=== PATIENT | male | born 1955 | race Caucasian/White ===

== ENCOUNTER 2018-01-22 11:57 | Emergency (ER) | payer MEDICARE, MEDICAID ==
[~2018-01-22] VITALS: Ht 172.7 cm; Wt 57.7 kg
[2018-01-22] MEDS ORDERED: NO HOME MEDS (12:29)
[2018-01-22] MEDS ORDERED: normal saline 1000ML IV soln IVB ONE (12:55)
[2018-01-22 13:08] LABS: BASOPHILS % (AUTO) 0.1 % (0-1); EOSINOPHILS # (AUTO) 0.2 X10'3 (0-0.9); HEMATOCRIT 24.9 % (42.0-52.0); HEMOGLOBIN 8.2 g/dl (14.0-17.9); LYMPHOCYTES # (AUTO) 0.8 X10'3 (1.1-4.8); LYMPHOCYTES % (AUTO) 11.5 % (21-51); MEAN CORPUSCULAR HEMOGLOBIN 28.8 PG (27.0-31.0); MEAN CORPUSCULAR HGB CONC 33.1 % (33.0-36.5); MEAN CORPUSCULAR VOLUME 87.1 FL (78-98); MONOCYTES # (AUTO) 0.6 X10'3 (0-0.9); MONOCYTES % (AUTO) 9.8 % (2-12); NEUTROPHILS % (AUTO) 75.6 % (42-75); PLATELET COUNT 274 X10'3 (140-440); RED BLOOD COUNT 2.86 X10'6 (4.70-6.10); RED CELL DISTRIBUTION WIDTH 19.3 % (11.5-14.5); WHITE BLOOD COUNT 6.6 X10'3 (4.5-11.0)
[2018-01-22 13:24] LABS: ALANINE AMINOTRANSFERASE 20 U/L (12-78); ALBUMIN 3.4 G/DL (3.4-5.0); ALBUMIN/GLOBULIN RATIO 1.1 (1.1-1.5); ALKALINE PHOSPHATASE 60 IU/L (46-116); ANION GAP 13 (8-16); ASPARTATE AMINO TRANSFERASE 17 U/L (10-37); BILIRUBIN,TOTAL 0.2 MG/DL (0.1-1.0); BLOOD UREA NITROGEN 11 MG/DL (7-18); BUN/CREATININE RATIO 13.8 (5.4-32.0); CALCIUM 7.9 MG/DL (8.5-10.1); CHLORIDE 107 MMOL/L (99-107); ETHANOL 0.177 GM/DL (0.0-0.010); GLUCOSE 99 MG/DL (70-104); POTASSIUM 3.4 MMOL/L (3.5-5.1); SODIUM 140 MMOL/L (135-145); TOTAL CARBON DIOXIDE 20.3 MMOL/L (24-32); TOTAL PROTEIN 6.5 G/DL (6.4-8.2); eGFR > 90 ML/MIN
[2018-01-22 13:44] LABS: ANISOCYTOSIS 2+; PLATELET ESTIMATE NORMAL
[2018-01-22 14:41] LABS: CLARITY,URINE CLEAR (Clear); COLOR,URINE YELLOW (Yellow); GLUCOSE, URINE NEGATIVE (Neg); KETONES,URINE TRACE mg/dl (Neg); LEUKOCYTE ESTERASE ,URINE NEGATIVE (Neg); NITRITES, URINE NEGATIVE (Neg); OCCULT BLOOD,URINE NEGATIVE (Neg); PH,URINE 5.5 (4.8-8.0); PROTEIN,URINE NEGATIVE (Neg); UROBILINOGEN,URINE 0.2 E.U/dL (0.2-1.0)
[2018-01-22 14:43] LABS: UA COLLECTION TYPE CLN CATCH MIDSTREAM
[2018-01-22 14:49] LABS: URINE AMPHETAMINE SCREEN NEGATIVE (Neg); URINE BARBITUATE SCREEN NEGATIVE (Neg); URINE BENZODIAZEPINES SCREEN NEGATIVE (Neg); URINE CANNABINOID SCREEN NEGATIVE (Neg); URINE COCAINE SCREEN NEGATIVE (Neg); URINE METHADONE SCREEN NEGATIVE (Neg); URINE OPIATE SCREEN NEGATIVE (Neg); URINE PHENCYCLIDINE SCREEN NEGATIVE (Neg)
[2018-01-22 15:06] VITALS: BP 136/76
== END 2018-01-22 15:08 | disposition home or self-care (01) ==
LOC: ER 11:57
DX: Z00.01 Encounter for general adult medical examination with abnormal findings (principal); M54.2 Cervicalgia; M85.80 Other specified disorders of bone density and structure, unspecified site; M51.36 Other intervertebral disc degeneration, lumbar region; M48.54XA Collapsed vertebra, not elsewhere classified, thoracic region, initial encounter for fracture; Z98.890 Other specified postprocedural states; Z90.89 Acquired absence of other organs
CPT/HCPCS: 36415; 70450; 71045; 72125; 72128; 72131; 72170; 80053; 80305; 80320; 81003; 85025; 99285; J7030; L0172

== ENCOUNTER 2018-01-24 16:33 | Emergency (ER) | payer MEDICARE, MEDICAID ==
[~2018-01-24] VITALS: Ht 170.2 cm; Wt 58.0 kg
[~2018-01-24 16:33] MED LIST: NO HOME MEDS
[2018-01-24 16:43] VITALS: BP 109/73
[2018-01-24] MEDS ORDERED: FAMO20TA8 PO (17:35)
[2018-01-24] MEDS ORDERED: IBUP-1985 PO (17:35)
== END 2018-01-24 17:59 | disposition home or self-care (01) ==
LOC: ER 16:34
DX: M25.561 Pain in right knee (principal); Z90.89 Acquired absence of other organs; Z79.1 Long term (current) use of non-steroidal anti-inflammatories (NSAID)
CPT/HCPCS: 73564; 99284

== ENCOUNTER 2018-03-26 17:26 | Emergency (ER) | payer MEDICARE, MEDICAID ==
[~2018-03-26] VITALS: Ht 591.1 cm; Wt 53.0 kg
[~2018-03-26 17:26] MED LIST changes: +FAMO20TA8 PO; +IBUP-1985 PO
[2018-03-26 17:38] VITALS: BP 110/70
[2018-03-27] MEDS ORDERED: IBUP-1986 PO (04:42)
== END 2018-03-26 20:25 | disposition left against medical advice (07) ==
LOC: ER 17:27
DX: S00.93XA Contusion of unspecified part of head, initial encounter (principal); R42 Dizziness and giddiness; H53.8 Other visual disturbances; R11.10 Vomiting, unspecified; Z53.21 Procedure and treatment not carried out due to patient leaving prior to being seen by health care provider; W01.198A Fall on same level from slipping, tripping and stumbling with subsequent striking against other object, initial encounter; Y93.89 Activity, other specified; Y92.89 Other specified places as the place of occurrence of the external cause; Y99.8 Other external cause status
CPT/HCPCS: 70450

== ENCOUNTER 2018-03-27 03:13 | Emergency (ER) | payer MEDICARE, MEDICAID ==
[~2018-03-27] VITALS: Ht 177.8 cm; Wt 68.1 kg
[2018-03-27] MEDS ORDERED: aspirin 81mg tab.chew PO ONE (03:30)
[2018-03-27] MEDS ORDERED: morphine 4 MG/ML inj SYRINge IV ONE (03:30)
[2018-03-27] MEDS ORDERED: ondansetron/PF 4mg/2ml inj IV ONE (03:30)
[2018-03-27 03:58] LABS: BASOPHILS % (AUTO) 0.5 % (0-1); EOSINOPHILS # (AUTO) 0.7 X10'3 (0-0.9); EOSINOPHILS % (AUTO) 8.1 % (0-6); HEMATOCRIT 32.4 % (42.0-52.0); HEMOGLOBIN 10.5 g/dl (14.0-17.9); LYMPHOCYTES # (AUTO) 1.9 X10'3 (1.1-4.8); LYMPHOCYTES % (AUTO) 22.6 % (21-51); MEAN CORPUSCULAR HEMOGLOBIN 25.1 PG (27.0-31.0); MEAN CORPUSCULAR HGB CONC 32.4 % (33.0-36.5); MEAN CORPUSCULAR VOLUME 77.5 FL (78-98); MEAN PLATELET VOLUME 7.3 FL (7.4-10.4); MONOCYTES % (AUTO) 11.6 % (2-12); NEUTROPHILS # (AUTO) 4.8 X10'3 (1.8-7.7); NEUTROPHILS % (AUTO) 57.2 % (42-75); PLATELET COUNT 328 X10'3 (140-440); RED BLOOD COUNT 4.18 X10'6 (4.70-6.10); RED CELL DISTRIBUTION WIDTH 23.4 % (11.5-14.5); WHITE BLOOD COUNT 8.4 X10'3 (4.5-11.0)
[2018-03-27 04:07] LABS: PARTIAL THROMBOPLASTIN TIME 26 SECONDS (22-32); PROTHROMBIN TIME 9.9 SECONDS (9.0-12.0)
[2018-03-27 04:10] LABS: ALANINE AMINOTRANSFERASE 25 U/L (12-78); ALBUMIN 3.7 G/DL (3.4-5.0); ALBUMIN/GLOBULIN RATIO 0.9 (1.1-1.5); ALKALINE PHOSPHATASE 87 IU/L (46-116); ANION GAP 11 (8-16); ASPARTATE AMINO TRANSFERASE 14 U/L (10-37); BILIRUBIN,TOTAL 0.1 MG/DL (0.1-1.0); BLOOD UREA NITROGEN 11 MG/DL (7-18); BUN/CREATININE RATIO 14.9 (5.4-32.0); CALCIUM 8.2 MG/DL (8.5-10.1); CHLORIDE 107 MMOL/L (99-107); CREATININE 0.74 MG/DL (0.60-1.10); GLUCOSE 87 MG/DL (70-104); POTASSIUM 3.6 MMOL/L (3.5-5.1); SODIUM 142 MMOL/L (135-145); TOTAL CARBON DIOXIDE 24.3 MMOL/L (24-32); TOTAL PROTEIN 7.8 G/DL (6.4-8.2); eGFR > 90 ML/MIN
[2018-03-27 04:17] LABS: ETHANOL 0.228 GM/DL (0.0-0.010); LIPASE 207 U/L (73-393); MAGNESIUM 2.3 MG/DL (1.5-2.4)
[2018-03-27 04:31] LABS: ANISOCYTOSIS 3+; PLATELET ESTIMATE NORMAL
[2018-03-27 04:32] LABS: POIKILOCYTOSIS FEW
[2018-03-27] MEDS ORDERED: IBUP-1986 PO (04:42)
[2018-03-27 05:16] VITALS: BP 98/60
== END 2018-03-27 05:18 | disposition home or self-care (01) ==
LOC: ER 03:14
DX: R07.89 Other chest pain (principal); F10.129 Alcohol abuse with intoxication, unspecified; I10 Essential (primary) hypertension; Z90.49 Acquired absence of other specified parts of digestive tract; Z98.890 Other specified postprocedural states; Z79.899 Other long term (current) drug therapy; Y90.0 Blood alcohol level of less than 20 mg/100 ml
CPT/HCPCS: 36415; 71045; 80053; 80320; 83690; 83735; 83880; 84484; 85025; 85610; 85730; 93005; 96374; 96375; 99285; J2270; J2405

== ENCOUNTER 2018-04-01 11:01 | Inpatient (IN) | payer MEDICARE, MEDICAID ==
[~2018-04-01] VITALS: Ht 170.2 cm; Wt 61.4 kg
[~2018-04-01 11:01] MED LIST changes: +IBUP-1986 PO
[2018-04-01] MEDS ORDERED: morphine 10mg/ml inj. IM ONE (12:05)
[2018-04-01] MEDS ORDERED: ketorolac tromethamine 15mg/ml inj. IM ONE (12:05)
[2018-04-01] MEDS ORDERED: ondansetron 4mg rapidly disintigrating tab PO ONE (12:05)
[2018-04-01] MEDS ORDERED: HYDROcodone/acetaminophen 5mg/325mg tablet PO ONE (13:00)
[2018-04-01] MEDS ORDERED: morphine 4 MG/ML inj SYRINge IV ONE (13:15)
[2018-04-01] MEDS ORDERED: ondansetron/PF 4mg/2ml inj IV ONE (13:15)
[2018-04-01 13:31] LABS: BASOPHILS % (AUTO) 0.1 % (0-1); EOSINOPHILS # (AUTO) 0.2 X10'3 (0-0.9); EOSINOPHILS % (AUTO) 2.9 % (0-6); HEMATOCRIT 31.8 % (42.0-52.0); HEMOGLOBIN 10.4 g/dl (14.0-17.9); LYMPHOCYTES # (AUTO) 1.1 X10'3 (1.1-4.8); LYMPHOCYTES % (AUTO) 14.9 % (21-51); MEAN CORPUSCULAR HGB CONC 32.7 % (33.0-36.5); MEAN CORPUSCULAR VOLUME 76.4 FL (78-98); MEAN PLATELET VOLUME 7.3 FL (7.4-10.4); MONOCYTES # (AUTO) 0.9 X10'3 (0-0.9); MONOCYTES % (AUTO) 12.3 % (2-12); NEUTROPHILS % (AUTO) 69.8 % (42-75); PLATELET COUNT 313 X10'3 (140-440); RED BLOOD COUNT 4.17 X10'6 (4.70-6.10); RED CELL DISTRIBUTION WIDTH 23.7 % (11.5-14.5); WHITE BLOOD COUNT 7.2 X10'3 (4.5-11.0)
[2018-04-01 13:44] LABS: ALANINE AMINOTRANSFERASE 25 U/L (12-78); ALBUMIN 3.7 G/DL (3.4-5.0); ALBUMIN/GLOBULIN RATIO 0.9 (1.1-1.5); ALKALINE PHOSPHATASE 121 IU/L (46-116); ANION GAP 12 (8-16); ASPARTATE AMINO TRANSFERASE 22 U/L (10-37); BILIRUBIN,TOTAL 0.7 MG/DL (0.1-1.0); BLOOD UREA NITROGEN 15 MG/DL (7-18); BUN/CREATININE RATIO 16.9 (5.4-32.0); CALCIUM 8.8 MG/DL (8.5-10.1); CHLORIDE 102 MMOL/L (99-107); CREATININE 0.89 MG/DL (0.60-1.10); GLUCOSE 94 MG/DL (70-104); POTASSIUM 3.6 MMOL/L (3.5-5.1); SODIUM 140 MMOL/L (135-145); TOTAL CARBON DIOXIDE 26.3 MMOL/L (24-32); TOTAL PROTEIN 7.8 G/DL (6.4-8.2); eGFR 87 ML/MIN
[2018-04-01 13:45] LABS: PROTHROMBIN TIME 10.7 SECONDS (9.0-12.0)
[2018-04-01 14:07] LABS: ANISOCYTOSIS 3+; PLATELET ESTIMATE NORMAL; POLYCHROMASIA 1+
[2018-04-01 14:09] LABS: HYPOCHROMASIA 1+; TARGET CELLS FEW
[2018-04-01 14:11] LABS: CLARITY,URINE SLIGHTLY CLOUDY (Clear); COLOR,URINE YELLOW (Yellow); GLUCOSE, URINE NEGATIVE (Neg); KETONES,URINE TRACE mg/dl (Neg); LEUKOCYTE ESTERASE ,URINE NEGATIVE (Neg); NITRITES, URINE NEGATIVE (Neg); OCCULT BLOOD,URINE NEGATIVE (Neg); PROTEIN,URINE 30 mg/dl (Neg)
[2018-04-01 14:16] LABS: UA COLLECTION TYPE CLN CATCH MIDSTREAM
[2018-04-01 14:19] LABS: URINE AMPHETAMINE SCREEN NEGATIVE (Neg); URINE CANNABINOID SCREEN NEGATIVE (Neg); URINE COCAINE SCREEN NEGATIVE (Neg); URINE METHADONE SCREEN NEGATIVE (Neg); URINE OPIATE SCREEN POSITIVE (Neg)
[2018-04-01 14:25] LABS: BACTERIA,URINE NONE SEEN /HPF (Neg); MUCUS STRANDS MODERATE /LPF (Neg); RBC,URINE 0-2 /HPF (0-2); SQUAMOUS EPITHELIAL CELL,UR FEW /LPF (FEW)
[2018-04-01 14:39] LABS: URINE BARBITUATE SCREEN NEGATIVE (Neg); URINE BENZODIAZEPINES SCREEN NEGATIVE (Neg); URINE PHENCYCLIDINE SCREEN NEGATIVE (Neg)
[2018-04-01] MEDS ORDERED: morphine 2 MG/ML inj. syringe IV PRN (15:00)
[2018-04-01] MEDS ORDERED: ondansetron/PF 4mg/2ml inj IV PRN (15:00)
[2018-04-01] MEDS ORDERED: acetaminophen 325mg tablet PO PRN (15:00)
[2018-04-01] MEDS ORDERED: magnesium hydroxide 30ml (MOM) UD suspension PO PRN (15:00)
[2018-04-01] MEDS ORDERED: mag hydrox/Alum hydrox/simeth 30ml oral suspension PO PRN (15:00)
[2018-04-01 15:38] LABS: % IRON SATURATION 21 % (11-46); IRON 85 UG/DL (53-167); TOTAL IRON BINDING CAPACITY 402 UG/DL (259-388)
[2018-04-01 15:58] LABS: FERRITIN 47 NG/ML (26-388)
[2018-04-01] MEDS: HYDROcodone/acetaminophen 5mg/325mg tablet PO PRN ×2 (16:59→21:28)
[2018-04-01] MEDS ORDERED: NO HOME MEDS (17:31)
[2018-04-01] MEDS ORDERED: HYDROmorphone 2mg/ml vial IV PRN ×2 (18:10)
[2018-04-01] MEDS ORDERED: HYDROmorphone 1 mg/ml syringe IV PRN (18:21)
[2018-04-01 19:00] VITALS: BP 144/77
[2018-04-01 20:00] VITALS: BP_SYST 141; BP_SYST 144; BP_DIAS 69; BP_DIAS 77
[2018-04-01] MEDS: diphenhydrAMINE 25mg capsule PO PRN (21:28)
[2018-04-01 22:00] VITALS: BP 129/67
[2018-04-02] MEDS: HYDROmorphone 1 mg/ml syringe IV PRN ×2 (01:00→07:50)
[2018-04-02] MEDS: HYDROcodone/acetaminophen 5mg/325mg tablet PO PRN ×2 (05:12→11:21)
[2018-04-02 06:00] VITALS: BP 137/75
[2018-04-02 06:06] LABS: BASOPHILS # (AUTO) 0.1 X10'3 (0-0.2); BASOPHILS % (AUTO) 1.9 % (0-1); EOSINOPHILS # (AUTO) 0.7 X10'3 (0-0.9); HEMATOCRIT 29.5 % (42.0-52.0); HEMOGLOBIN 9.4 g/dl (14.0-17.9); LYMPHOCYTES # (AUTO) 1.1 X10'3 (1.1-4.8); MEAN CORPUSCULAR HEMOGLOBIN 24.4 PG (27.0-31.0); MEAN CORPUSCULAR VOLUME 76.4 FL (78-98); MEAN PLATELET VOLUME 7.7 FL (7.4-10.4); MONOCYTES # (AUTO) 0.7 X10'3 (0-0.9); MONOCYTES % (AUTO) 9.7 % (2-12); NEUTROPHILS # (AUTO) 4.9 X10'3 (1.8-7.7); NEUTROPHILS % (AUTO) 64.4 % (42-75); PLATELET COUNT 314 X10'3 (140-440); RED BLOOD COUNT 3.86 X10'6 (4.70-6.10); RED CELL DISTRIBUTION WIDTH 23.7 % (11.5-14.5); WHITE BLOOD COUNT 7.5 X10'3 (4.5-11.0)
[2018-04-02 06:10] LABS: ALANINE AMINOTRANSFERASE 21 U/L (12-78); ALBUMIN 3.3 G/DL (3.4-5.0); ALBUMIN/GLOBULIN RATIO 0.9 (1.1-1.5); ALKALINE PHOSPHATASE 104 IU/L (46-116); ANION GAP 12 (8-16); ASPARTATE AMINO TRANSFERASE 18 U/L (10-37); BILIRUBIN,TOTAL 0.4 MG/DL (0.1-1.0); BLOOD UREA NITROGEN 20 MG/DL (7-18); BUN/CREATININE RATIO 22.5 (5.4-32.0); CALCIUM 8.5 MG/DL (8.5-10.1); CHLORIDE 104 MMOL/L (99-107); CREATININE 0.89 MG/DL (0.60-1.10); GLUCOSE 94 MG/DL (70-104); POTASSIUM 3.3 MMOL/L (3.5-5.1); SODIUM 141 MMOL/L (135-145); TOTAL CARBON DIOXIDE 25.1 MMOL/L (24-32); TOTAL PROTEIN 7.1 G/DL (6.4-8.2); eGFR 87 ML/MIN
[2018-04-02] MEDS: enoxaparin 40mg/0.4ml syringe SUBCUT SCH (07:50)
[2018-04-02 10:00] VITALS: BP 120/60
[2018-04-02] MEDS ORDERED: pneumococcal 23-VAL P-sac vacc 25 mcg/0.5ml vial IMVAC ONE (10:00)
[2018-04-02] MEDS ORDERED: magnesium 4gm in 100ml NS 100 ML IV PRN (11:05)
[2018-04-02] MEDS ORDERED: magnesium Cl slow-release 64mg tablet PO PRN (11:05)
[2018-04-02] MEDS ORDERED: potassium Cl 40MEQ/NS 500ml 500 ML IV PRN ×2 (11:05)
[2018-04-02] MEDS ORDERED: potassium Cl 20 mEq SR tablet PO PRN (11:05)
[2018-04-02] MEDS ORDERED: magnesium 1gm/100ml D5W IVPB 100 ML IV PRN (11:05)
[2018-04-02] MEDS: potassium Cl 20 mEq SR tablet PO PRN ×3 (11:21→22:59)
[2018-04-02] MEDS ORDERED: HYDROmorphone 1 mg/ml syringe IV PRN (13:20)
[2018-04-02] MEDS ORDERED: normal saline 1000ml 1,000 ML IV SCH (13:20)
[2018-04-02] MEDS ORDERED: DIGO125T PO (13:45)
[2018-04-02] MEDS ORDERED: ATEN-169 PO (13:45)
[2018-04-02] MEDS ORDERED: TRAZ-219 PO (13:45)
[2018-04-02] MEDS ORDERED: ALBU18HF2 INH (13:45)
[2018-04-02] MEDS: HYDROcodone/acetaminophen 10/325mg tab PO PRN ×3 (14:58→22:59)
[2018-04-02 17:00] VITALS: BP 136/86
[2018-04-02] MEDS: diphenhydrAMINE 25mg capsule PO PRN (17:23)
[2018-04-02] MEDS ORDERED: LORazepam 2 mg/ml vial IV ONE (17:45)
[2018-04-02] MEDS: sennosides/docusate sodium tablet PO SCH (19:50)
[2018-04-02] MEDS: ferrous sulfate 325mg tablet PO SCH (19:50)
[2018-04-02 21:00] VITALS: BP_SYST 138; BP_SYST 140; BP_SYST 141; BP_DIAS 82; BP_DIAS 87; BP_DIAS 90
[2018-04-03] MEDS: HYDROcodone/acetaminophen 10/325mg tab PO PRN ×2 (02:29→06:51)
[2018-04-03] MEDS: HYDROmorphone 1 mg/ml syringe IV PRN ×2 (04:57→14:20)
[2018-04-03 06:00] VITALS: BP 146/83
[2018-04-03 06:07] LABS: BASOPHILS # (AUTO) 0.1 X10'3 (0-0.2); BASOPHILS % (AUTO) 1.2 % (0-1); EOSINOPHILS # (AUTO) 0.7 X10'3 (0-0.9); EOSINOPHILS % (AUTO) 10.1 % (0-6); HEMATOCRIT 29.5 % (42.0-52.0); HEMOGLOBIN 9.5 g/dl (14.0-17.9); LYMPHOCYTES # (AUTO) 1.2 X10'3 (1.1-4.8); MEAN CORPUSCULAR HEMOGLOBIN 24.8 PG (27.0-31.0); MEAN CORPUSCULAR HGB CONC 32.2 % (33.0-36.5); MEAN CORPUSCULAR VOLUME 77.2 FL (78-98); MEAN PLATELET VOLUME 7.1 FL (7.4-10.4); MONOCYTES # (AUTO) 0.8 X10'3 (0-0.9); NEUTROPHILS # (AUTO) 4.2 X10'3 (1.8-7.7); NEUTROPHILS % (AUTO) 59.7 % (42-75); PLATELET COUNT 306 X10'3 (140-440); RED BLOOD COUNT 3.82 X10'6 (4.70-6.10); RED CELL DISTRIBUTION WIDTH 23.9 % (11.5-14.5)
[2018-04-03 06:34] LABS: ANION GAP 10 (8-16); BILIRUBIN,TOTAL 0.3 MG/DL (0.1-1.0); BLOOD UREA NITROGEN 15 MG/DL (7-18); BUN/CREATININE RATIO 22.1 (5.4-32.0); CALCIUM 8.6 MG/DL (8.5-10.1); CHLORIDE 104 MMOL/L (99-107); CREATININE 0.68 MG/DL (0.60-1.10); GLUCOSE 106 MG/DL (70-104); MAGNESIUM 1.9 MG/DL (1.5-2.4); POTASSIUM 4.2 MMOL/L (3.5-5.1); SODIUM 138 MMOL/L (135-145); TOTAL CARBON DIOXIDE 24.4 MMOL/L (24-32); TOTAL PROTEIN 6.9 G/DL (6.4-8.2); eGFR > 90 ML/MIN
[2018-04-03 06:35] LABS: ALANINE AMINOTRANSFERASE 22 U/L (12-78); ALBUMIN 3.2 G/DL (3.4-5.0); ALBUMIN/GLOBULIN RATIO 0.9 (1.1-1.5); ALKALINE PHOSPHATASE 92 IU/L (46-116); ASPARTATE AMINO TRANSFERASE 18 U/L (10-37)
[2018-04-03] MEDS: sennosides/docusate sodium tablet PO SCH ×2 (06:51→19:27)
[2018-04-03] MEDS: ferrous sulfate 325mg tablet PO SCH ×2 (06:51→19:27)
[2018-04-03 07:35] LABS: PLATELET ESTIMATE NORMAL; POLYCHROMASIA FEW
[2018-04-03 07:36] LABS: ANISOCYTOSIS 3+; SCHISTOCYTES FEW
[2018-04-03 10:00] VITALS: BP 125/78
[2018-04-03] MEDS ORDERED: oxyCODONE/APAP 5-325mg tablet PO PRN ×2 (10:50→13:35)
[2018-04-03] MEDS: enoxaparin 40mg/0.4ml syringe SUBCUT SCH (12:03)
[2018-04-03] MEDS: atenolol 25mg tablet PO SCH (14:20)
[2018-04-03 17:00] VITALS: BP 160/85
[2018-04-03] MEDS: oxyCODONE/APAP 10/325mg tablet PO PRN (17:22)
[2018-04-03 17:38] VITALS: BP_SYST 133; BP_SYST 136; BP_DIAS 76; BP_DIAS 77; BP_DIAS 79
[2018-04-03] MEDS: diphenhydrAMINE 25mg capsule PO PRN (19:27)
[2018-04-03 22:00] VITALS: BP_SYST 137; BP_SYST 143; BP_SYST 155; BP_DIAS 71; BP_DIAS 74; BP_DIAS 78
[2018-04-04] MEDS: oxyCODONE/APAP 10/325mg tablet PO PRN ×2 (01:57→07:31)
[2018-04-04 02:00] VITALS: BP 142/71
[2018-04-04 06:00] VITALS: BP 117/64
[2018-04-04] MEDS: ferrous sulfate 325mg tablet PO SCH (07:29)
[2018-04-04] MEDS: sennosides/docusate sodium tablet PO SCH (07:30)
[2018-04-04] MEDS: enoxaparin 40mg/0.4ml syringe SUBCUT SCH (07:31)
[2018-04-04 07:34] VITALS: BP 132/71
[2018-04-04] MEDS: atenolol 25mg tablet PO SCH (07:35)
[2018-04-04] MEDS ORDERED: atenolol 25mg tablet PO SCH (08:00)
[2018-04-04 08:12] LABS: BASOPHILS % (AUTO) 0.8 % (0-1); EOSINOPHILS # (AUTO) 0.6 X10'3 (0-0.9); EOSINOPHILS % (AUTO) 10.5 % (0-6); HEMOGLOBIN 10.4 g/dl (14.0-17.9); LYMPHOCYTES # (AUTO) 0.9 X10'3 (1.1-4.8); LYMPHOCYTES % (AUTO) 16.7 % (21-51); MEAN CORPUSCULAR HGB CONC 32.5 % (33.0-36.5); MEAN PLATELET VOLUME 7.2 FL (7.4-10.4); MONOCYTES # (AUTO) 0.6 X10'3 (0-0.9); MONOCYTES % (AUTO) 10.1 % (2-12); NEUTROPHILS # (AUTO) 3.5 X10'3 (1.8-7.7); NEUTROPHILS % (AUTO) 61.9 % (42-75); PLATELET COUNT 349 X10'3 (140-440); RED BLOOD COUNT 4.15 X10'6 (4.70-6.10); RED CELL DISTRIBUTION WIDTH 23.6 % (11.5-14.5); WHITE BLOOD COUNT 5.6 X10'3 (4.5-11.0)
[2018-04-04 08:31] LABS: ALANINE AMINOTRANSFERASE 18 U/L (12-78); ALBUMIN 3.4 G/DL (3.4-5.0); ALBUMIN/GLOBULIN RATIO 0.9 (1.1-1.5); ALKALINE PHOSPHATASE 94 IU/L (46-116); ANION GAP 12 (8-16); ASPARTATE AMINO TRANSFERASE 16 U/L (10-37); BILIRUBIN,TOTAL 0.3 MG/DL (0.1-1.0); BLOOD UREA NITROGEN 15 MG/DL (7-18); BUN/CREATININE RATIO 20.3 (5.4-32.0); CALCIUM 8.8 MG/DL (8.5-10.1); CHLORIDE 104 MMOL/L (99-107); CREATININE 0.74 MG/DL (0.60-1.10); GLUCOSE 102 MG/DL (70-104); MAGNESIUM 2.1 MG/DL (1.5-2.4); POTASSIUM 3.8 MMOL/L (3.5-5.1); SODIUM 140 MMOL/L (135-145); TOTAL PROTEIN 7.3 G/DL (6.4-8.2); eGFR > 90 ML/MIN
[2018-04-04 08:44] LABS: ANISOCYTOSIS 3+; PLATELET ESTIMATE NORMAL; POLYCHROMASIA FEW
[2018-04-04 08:45] LABS: POIKILOCYTOSIS FEW
[2018-04-04 10:00] VITALS: BP_SYST 103; BP_SYST 104; BP_SYST 109; BP_SYST 114; BP_DIAS 59; BP_DIAS 61; BP_DIAS 66; BP_DIAS 67
[2018-04-04] MEDS ORDERED: PER5325T PO (10:02)
[2018-04-04] MEDS ORDERED: PER10325T PO (10:04)
[2018-04-04] MEDS: HYDROmorphone 1 mg/ml syringe IV PRN (11:25)
[2018-04-04] MEDS ORDERED: HYDR-3965 PO (19:40)
== END 2018-04-04 14:35 | disposition home or self-care (01) | DRG 552 ==
LOC: ER 11:02 → ED HOLD 14:58 → ORTHO 4S 18:50
PROVIDERS: ADMIT Internal Medicine; ATTEND Internal Medicine
DX: S22.080A Wedge compression fracture of T11-T12 vertebra, initial encounter for closed fracture (principal); D64.9 Anemia, unspecified; S05.11XA Contusion of eyeball and orbital tissues, right eye, initial encounter; I10 Essential (primary) hypertension; W18.39XA Other fall on same level, initial encounter; R00.0 Tachycardia, unspecified; F17.210 Nicotine dependence, cigarettes, uncomplicated; G89.29 Other chronic pain; R29.6 Repeated falls; Z79.899 Other long term (current) drug therapy; Z87.11 Personal history of peptic ulcer disease; Z23 Encounter for immunization; Y93.89 Activity, other specified; Y92.89 Other specified places as the place of occurrence of the external cause; Y99.8 Other external cause status
CPT/HCPCS: 36415; 70450; 72125; 72128; 72131; 72146; 80053; 80305; 81001; 82607; 82728; 82746; 83540; 83550; 83735; 85025; 85610; 87070; 87088; 90732; 96372; 96374; 96375; 97116; 97161; 97530; 99285; J1170; J1650; J1885; J2060; J2270; J2405; J7030; Q0163

== ENCOUNTER 2018-04-04 16:27 | Emergency (ER) | payer MEDICARE, MEDICAID ==
[~2018-04-04] VITALS: Ht 170.2 cm; Wt 65.2 kg
[~2018-04-04 16:27] MED LIST changes: +ALBU18HF2 INH; +ATEN-169 PO; +DIGO125T PO; +PER10325T PO; +PER5325T PO; +TRAZ-219 PO
[2018-04-04 18:18] LABS: CLARITY,URINE CLEAR (Clear); COLOR,URINE YELLOW (Yellow); GLUCOSE, URINE NEGATIVE (Neg); KETONES,URINE NEGATIVE (Neg); LEUKOCYTE ESTERASE ,URINE NEGATIVE (Neg); NITRITES, URINE NEGATIVE (Neg); OCCULT BLOOD,URINE NEGATIVE (Neg); PH,URINE 5.5 (4.8-8.0); PROTEIN,URINE NEGATIVE (Neg); UROBILINOGEN,URINE 0.2 E.U/dL (0.2-1.0)
[2018-04-04 18:19] LABS: UA COLLECTION TYPE CLN CATCH MIDSTREAM
[2018-04-04 18:21] LABS: BASOPHILS # (AUTO) 0.1 X10'3 (0-0.2); BASOPHILS % (AUTO) 0.9 % (0-1); EOSINOPHILS # (AUTO) 0.2 X10'3 (0-0.9); EOSINOPHILS % (AUTO) 3.4 % (0-6); HEMATOCRIT 33.3 % (42.0-52.0); HEMOGLOBIN 10.6 g/dl (14.0-17.9); LYMPHOCYTES # (AUTO) 0.7 X10'3 (1.1-4.8); LYMPHOCYTES % (AUTO) 10.8 % (21-51); MEAN CORPUSCULAR HGB CONC 31.9 % (33.0-36.5); MEAN CORPUSCULAR VOLUME 78.2 FL (78-98); MEAN PLATELET VOLUME 6.7 FL (7.4-10.4); MONOCYTES # (AUTO) 0.6 X10'3 (0-0.9); MONOCYTES % (AUTO) 8.2 % (2-12); NEUTROPHILS # (AUTO) 5.2 X10'3 (1.8-7.7); NEUTROPHILS % (AUTO) 76.7 % (42-75); PLATELET COUNT 353 X10'3 (140-440); RED BLOOD COUNT 4.26 X10'6 (4.70-6.10); RED CELL DISTRIBUTION WIDTH 24.3 % (11.5-14.5); WHITE BLOOD COUNT 6.8 X10'3 (4.5-11.0)
[2018-04-04 18:27] LABS: PARTIAL THROMBOPLASTIN TIME 27 SECONDS (22-32); PROTHROMBIN TIME 10.7 SECONDS (9.0-12.0)
[2018-04-04 18:33] LABS: ALANINE AMINOTRANSFERASE 17 U/L (12-78); ALBUMIN 3.6 G/DL (3.4-5.0); ALBUMIN/GLOBULIN RATIO 0.9 (1.1-1.5); ALKALINE PHOSPHATASE 97 IU/L (46-116); ANION GAP 12 (8-16); ASPARTATE AMINO TRANSFERASE 14 U/L (10-37); BILIRUBIN,TOTAL 0.2 MG/DL (0.1-1.0); BLOOD UREA NITROGEN 21 MG/DL (7-18); BUN/CREATININE RATIO 24.7 (5.4-32.0); CALCIUM 9.3 MG/DL (8.5-10.1); CHLORIDE 103 MMOL/L (99-107); CREATININE 0.85 MG/DL (0.60-1.10); GLUCOSE 102 MG/DL (70-104); POTASSIUM 3.8 MMOL/L (3.5-5.1); SODIUM 141 MMOL/L (135-145); TOTAL CARBON DIOXIDE 26.4 MMOL/L (24-32); TOTAL PROTEIN 7.8 G/DL (6.4-8.2); eGFR > 90 ML/MIN
[2018-04-04] MEDS ORDERED: morphine 4 MG/ML inj SYRINge IV ONE (19:00)
[2018-04-04 19:40] VITALS: BP 120/71
[2018-04-04] MEDS ORDERED: HYDR-3965 PO (19:40)
== END 2018-04-04 20:06 | disposition home or self-care (01) ==
LOC: ER 16:27
DX: S22.089D Unspecified fracture of T11-T12 vertebra, subsequent encounter for fracture with routine healing (principal); I10 Essential (primary) hypertension; F10.239 Alcohol dependence with withdrawal, unspecified; Z86.69 Personal history of other diseases of the nervous system and sense organs; Z79.899 Other long term (current) drug therapy; X58.XXXD Exposure to other specified factors, subsequent encounter; Y90.0 Blood alcohol level of less than 20 mg/100 ml
CPT/HCPCS: 36415; 80053; 81003; 85025; 85610; 85730; 96374; 99284; J2270; J7030

== ENCOUNTER 2018-04-09 13:25 | Emergency (ER) | payer MEDICARE, MEDICAID ==
[~2018-04-09] VITALS: Ht 172.7 cm; Wt 62.5 kg
[~2018-04-09 13:25] MED LIST changes: -DIGO125T PO; -FAMO20TA8 PO; +HYDR-3965 PO; -IBUP-1985 PO; -IBUP-1986 PO; -PER5325T PO
[2018-04-09 13:29] VITALS: BP 116/74
== END 2018-04-09 14:08 | disposition left against medical advice (07) ==
LOC: ER 13:25
DX: G89.29 Other chronic pain (principal); M54.9 Dorsalgia, unspecified; I10 Essential (primary) hypertension; Z90.49 Acquired absence of other specified parts of digestive tract; Z79.899 Other long term (current) drug therapy; W01.0XXA Fall on same level from slipping, tripping and stumbling without subsequent striking against object, initial encounter; Y93.01 Activity, walking, marching and hiking; Y92.89 Other specified places as the place of occurrence of the external cause; Y99.8 Other external cause status
CPT/HCPCS: 99281

== ENCOUNTER 2018-04-15 20:27 | Emergency (ER) | payer MEDICARE, MEDICAID ==
[~2018-04-15] VITALS: Ht 175.3 cm; Wt 72.0 kg
[2018-04-15 21:35] VITALS: BP 150/96
[2018-04-19] MEDS ORDERED: NAPR-56 PO (23:38)
== END 2018-04-15 22:02 | disposition home or self-care (01) ==
LOC: ER 20:27
DX: G89.29 Other chronic pain (principal); M54.5 Low back pain; I10 Essential (primary) hypertension; Z90.49 Acquired absence of other specified parts of digestive tract; Z98.890 Other specified postprocedural states; Z87.11 Personal history of peptic ulcer disease
CPT/HCPCS: 71045; 72040; 72100; 99284; L0172

== ENCOUNTER 2018-04-16 21:59 | Emergency (ER) | payer MEDICARE, MEDICAID ==
[~2018-04-16] VITALS: Ht 172.7 cm; Wt 63.0 kg
[2018-04-16] MEDS ORDERED: ketorolac trometh inj. 60 MG/2 ML VIAL IM ONE (22:15)
[2018-04-16] MEDS ORDERED: HYDROcodone/acetaminophen 10/325mg tab PO ONE (22:15)
[2018-04-16 22:23] VITALS: BP 133/86
[2018-04-19] MEDS ORDERED: NAPR-56 PO (23:38)
== END 2018-04-16 23:06 | disposition home or self-care (01) ==
LOC: ER 22:00
DX: G89.29 Other chronic pain (principal); M54.5 Low back pain; I10 Essential (primary) hypertension; F17.200 Nicotine dependence, unspecified, uncomplicated; Z90.49 Acquired absence of other specified parts of digestive tract; Z98.890 Other specified postprocedural states
CPT/HCPCS: 96372; 99284; J1885

== ENCOUNTER 2018-04-17 19:32 | Emergency (ER) | payer MEDICARE, MEDICAID ==
[~2018-04-17] VITALS: Ht 165.1 cm; Wt 51.0 kg
[2018-04-17 19:39] VITALS: BP 141/86
[2018-04-19] MEDS ORDERED: NAPR-56 PO (23:38)
== END 2018-04-17 20:06 | disposition home or self-care (01) ==
LOC: ER 19:33
DX: B37.2 Candidiasis of skin and nail (principal); I10 Essential (primary) hypertension; G89.29 Other chronic pain; Z90.49 Acquired absence of other specified parts of digestive tract; Z79.899 Other long term (current) drug therapy
CPT/HCPCS: 99281

== ENCOUNTER 2018-04-20 07:41 | Emergency (ER) | payer MEDICARE, MEDICAID ==
[~2018-04-20] VITALS: Ht 172.7 cm; Wt 61.4 kg
[~2018-04-20 07:41] MED LIST changes: +NAPR-56 PO
[2018-04-20 07:56] VITALS: BP 126/86
[2018-04-20] MEDS ORDERED: ketorolac trometh. 30mg/ml inj. IM ONE (08:10)
== END 2018-04-20 08:30 | disposition home or self-care (01) ==
LOC: ER 07:41
DX: G89.29 Other chronic pain (principal); M54.5 Low back pain; I10 Essential (primary) hypertension
CPT/HCPCS: 96372; 99283; J1885

== ENCOUNTER 2018-04-20 14:27 | Emergency (ER) | payer MEDICARE, MEDICAID ==
[~2018-04-20] VITALS: Ht 172.7 cm; Wt 61.4 kg
[2018-04-20 16:06] VITALS: BP 130/45
== END 2018-04-20 16:07 | disposition home or self-care (01) ==
LOC: ER 14:27
DX: R41.3 Other amnesia (principal); Z76.5 Malingerer [conscious simulation]; Z00.8 Encounter for other general examination; I10 Essential (primary) hypertension; G89.29 Other chronic pain; Z90.49 Acquired absence of other specified parts of digestive tract
CPT/HCPCS: 99284

== ENCOUNTER 2018-04-24 04:37 | Emergency (ER) | payer MEDICARE, MEDICAID ==
[~2018-04-24] VITALS: Ht 172.7 cm; Wt 52.3 kg
[2018-04-24 04:39] VITALS: BP 132/85
[2018-04-24] MEDS ORDERED: FAMO40TA73 PO (04:49)
[2018-04-24] MEDS ORDERED: IBUP-1984 PO (04:49)
[2018-04-24] MEDS ORDERED: ACET-812 PO (04:49)
== END 2018-04-24 05:01 | disposition home or self-care (01) ==
LOC: ER 04:38
DX: G89.29 Other chronic pain (principal); M54.9 Dorsalgia, unspecified; I10 Essential (primary) hypertension; Z90.49 Acquired absence of other specified parts of digestive tract; Z79.899 Other long term (current) drug therapy
CPT/HCPCS: 99284

== ENCOUNTER 2018-05-14 19:04 | Emergency (ER) | payer MEDICARE, MEDICAID ==
[~2018-05-14] VITALS: Ht 172.7 cm; Wt 65.0 kg
[~2018-05-14 19:04] MED LIST changes: +ACET-812 PO; +FAMO40TA73 PO; -HYDR-3965 PO; +IBUP-1984 PO
[2018-05-14 19:55] VITALS: BP 128/69
[2018-05-14] MEDS ORDERED: ketorolac trometh inj. 60 MG/2 ML VIAL IM ONE (20:35)
== END 2018-05-14 21:22 | disposition home or self-care (01) ==
LOC: ER 19:04
DX: S80.01XA Contusion of right knee, initial encounter (principal); S90.01XA Contusion of right ankle, initial encounter; I10 Essential (primary) hypertension; G89.29 Other chronic pain; Z86.69 Personal history of other diseases of the nervous system and sense organs; Z98.890 Other specified postprocedural states; Z79.899 Other long term (current) drug therapy; W18.39XA Other fall on same level, initial encounter; Y93.89 Activity, other specified; Y92.89 Other specified places as the place of occurrence of the external cause; Y99.8 Other external cause status
CPT/HCPCS: 73564; 73610; 96372; 99284; J1885

== ENCOUNTER 2018-05-15 18:25 | Emergency (ER) | payer MEDICARE, MEDICAID ==
[~2018-05-15] VITALS: Ht 172.7 cm; Wt 59.0 kg
[2018-05-15 18:26] VITALS: BP 125/67
[2018-05-15] MEDS ORDERED: ibuprofen tablet 400 MG TABLET PO ONE (18:40)
== END 2018-05-15 19:31 | disposition home or self-care (01) ==
LOC: ER 18:25
DX: M54.9 Dorsalgia, unspecified (principal); F10.129 Alcohol abuse with intoxication, unspecified; I10 Essential (primary) hypertension; G89.29 Other chronic pain; Z90.49 Acquired absence of other specified parts of digestive tract; Z98.890 Other specified postprocedural states; Z79.899 Other long term (current) drug therapy; W19.XXXA Unspecified fall, initial encounter; Y93.89 Activity, other specified; Y92.89 Other specified places as the place of occurrence of the external cause; Y99.9 Unspecified external cause status; Y90.9 Presence of alcohol in blood, level not specified
CPT/HCPCS: 99284

== ENCOUNTER 2018-05-15 21:08 | Emergency (ER) | payer MEDICARE, MEDICAID ==
[2018-05-15 21:21] VITALS: BP 105/64
== END 2018-05-15 21:35 | disposition home or self-care (01) ==
LOC: ER 21:08
DX: F10.129 Alcohol abuse with intoxication, unspecified (principal); I10 Essential (primary) hypertension; G89.29 Other chronic pain; Z90.49 Acquired absence of other specified parts of digestive tract; Z98.890 Other specified postprocedural states; Z79.899 Other long term (current) drug therapy; Y90.9 Presence of alcohol in blood, level not specified
CPT/HCPCS: 99283

== ENCOUNTER 2018-05-17 18:35 | Emergency (ER) | payer MEDICARE, MEDICAID ==
[~2018-05-17] VITALS: Ht 172.7 cm; Wt 61.4 kg
[2018-05-17 18:36] VITALS: BP 108/73
[2018-05-17] MEDS ORDERED: ibuprofen tablet 400 MG TABLET PO ONE (19:25)
[2018-05-17] MEDS ORDERED: acetaminophen 325mg tablet PO ONE (19:25)
== END 2018-05-17 19:48 | disposition home or self-care (01) ==
LOC: ER 18:35
DX: M54.2 Cervicalgia (principal); M54.9 Dorsalgia, unspecified; I10 Essential (primary) hypertension; Z76.5 Malingerer [conscious simulation]; Z79.899 Other long term (current) drug therapy; Z90.49 Acquired absence of other specified parts of digestive tract; Z90.89 Acquired absence of other organs; Z98.890 Other specified postprocedural states; W01.0XXA Fall on same level from slipping, tripping and stumbling without subsequent striking against object, initial encounter; Y93.01 Activity, walking, marching and hiking; Y92.89 Other specified places as the place of occurrence of the external cause; Y99.8 Other external cause status
CPT/HCPCS: 99284

== ENCOUNTER 2018-05-18 17:23 | Emergency (ER) | payer MEDICARE, MEDICAID ==
[~2018-05-18] VITALS: Ht 172.7 cm; Wt 65.9 kg
[2018-05-18 17:47] VITALS: BP 150/102
== END 2018-05-18 18:15 | disposition home or self-care (01) ==
LOC: ER 17:24
DX: F10.929 Alcohol use, unspecified with intoxication, unspecified (principal); Z76.5 Malingerer [conscious simulation]; I10 Essential (primary) hypertension; G89.29 Other chronic pain; M54.9 Dorsalgia, unspecified; Z90.49 Acquired absence of other specified parts of digestive tract
CPT/HCPCS: 99281

== ENCOUNTER 2018-05-19 20:40 | Emergency (ER) | payer MEDICARE, MEDICAID ==
[~2018-05-19] VITALS: Ht 172.7 cm; Wt 55.3 kg
[2018-05-19 20:44] VITALS: BP 112/70
[2018-05-19] MEDS ORDERED: Ivermectin 3mg tablet PO SCH (21:35)
[2018-05-19] MEDS ORDERED: diphenhydrAMINE 25mg capsule PO ONE (21:50)
[2018-05-19] MEDS ORDERED: ibuprofen tablet 400 MG TABLET PO ONE (21:50)
[2018-05-19] MEDS ORDERED: Permethrin Cream 60gm TP ONE (22:30)
== END 2018-05-19 23:37 | disposition home or self-care (01) ==
LOC: ER 20:40
DX: B85.2 Pediculosis, unspecified (principal); M25.561 Pain in right knee; M25.551 Pain in right hip; G89.29 Other chronic pain; I10 Essential (primary) hypertension; R07.81 Pleurodynia; Z90.89 Acquired absence of other organs; W01.0XXA Fall on same level from slipping, tripping and stumbling without subsequent striking against object, initial encounter; Y93.89 Activity, other specified; Y92.89 Other specified places as the place of occurrence of the external cause; Y99.8 Other external cause status
CPT/HCPCS: 99284; Q0163

== ENCOUNTER 2018-06-17 21:55 | Emergency (ER) | payer MEDICARE, MEDICAID ==
[~2018-06-17] VITALS: Ht 172.7 cm; Wt 61.0 kg
[~2018-06-17 21:55] MED LIST changes: -ACET-812 PO; -IBUP-1984 PO; -NAPR-56 PO
[2018-06-17 21:58] VITALS: BP 151/89
[2018-06-17] MEDS ORDERED: ketorolac trometh inj. 60 MG/2 ML VIAL IM ONE (22:30)
== END 2018-06-17 23:30 | disposition home or self-care (01) ==
LOC: ER 21:56
DX: S39.012A Strain of muscle, fascia and tendon of lower back, initial encounter (principal); G89.29 Other chronic pain; Z76.5 Malingerer [conscious simulation]; I10 Essential (primary) hypertension; Z90.49 Acquired absence of other specified parts of digestive tract; Z90.89 Acquired absence of other organs; Z79.899 Other long term (current) drug therapy; X50.0XXA Overexertion from strenuous movement or load, initial encounter; Y93.89 Activity, other specified; Y92.89 Other specified places as the place of occurrence of the external cause; Y99.8 Other external cause status
CPT/HCPCS: 72100; 96372; 99284; J1885

== ENCOUNTER 2018-08-14 19:55 | Emergency (ER) | payer MEDICARE, MEDICAID ==
[~2018-08-14] VITALS: Ht 172.7 cm; Wt 55.5 kg
[2018-08-14] MEDS ORDERED: ketorolac tromethamine 15mg/ml inj. IM ONE (21:10)
[2018-08-14 22:23] VITALS: BP 121/76
== END 2018-08-14 22:26 | disposition home or self-care (01) ==
LOC: ER 19:56
DX: M25.561 Pain in right knee (principal); M79.89 Other specified soft tissue disorders; I10 Essential (primary) hypertension; G89.29 Other chronic pain; M54.9 Dorsalgia, unspecified; Z56.0 Unemployment, unspecified; W10.9XXA Fall (on) (from) unspecified stairs and steps, initial encounter; Y93.89 Activity, other specified; Y92.89 Other specified places as the place of occurrence of the external cause; Y99.8 Other external cause status
CPT/HCPCS: 29505; 73564; 96372; 99283; J1885

== ENCOUNTER 2018-09-08 19:34 | Emergency (ER) | payer MEDICARE, MEDICAID ==
[~2018-09-08] VITALS: Ht 172.7 cm; Wt 65.9 kg
--- NOTE | 2018-09-08 22:36 | NUR ---
SPOKE WITH JOSE JONES REGARDING PLAN OF CARE: CT HEAD ORDERED
[2018-09-09] MEDS ORDERED: ketorolac tromethamine 15mg/ml inj. IM ONE (00:30)
[2018-09-09 01:24] VITALS: BP 161/82
== END 2018-09-09 01:42 | disposition home or self-care (01) ==
LOC: ER 19:35
DX: S05.11XA Contusion of eyeball and orbital tissues, right eye, initial encounter (principal); M54.2 Cervicalgia; R47.81 Slurred speech; I10 Essential (primary) hypertension; G89.29 Other chronic pain; Z90.49 Acquired absence of other specified parts of digestive tract; Z90.89 Acquired absence of other organs; Z98.890 Other specified postprocedural states; Z56.0 Unemployment, unspecified; Z59.0 Homelessness; Z79.899 Other long term (current) drug therapy; W01.198A Fall on same level from slipping, tripping and stumbling with subsequent striking against other object, initial encounter; Y93.01 Activity, walking, marching and hiking; Y92.89 Other specified places as the place of occurrence of the external cause; Y99.8 Other external cause status
CPT/HCPCS: 70450; 96372; 99284; J1885

== ENCOUNTER 2019-01-12 14:50 | Emergency (ER) | payer MEDICAID, MEDICARE ==
[~2019-01-12] VITALS: Ht 170.2 cm; Wt 61.4 kg
[2019-01-12 16:11] VITALS: BP 117/75
== END 2019-01-12 16:59 | disposition home or self-care (01) ==
LOC: ER 14:50
DX: S39.012A Strain of muscle, fascia and tendon of lower back, initial encounter (principal); S09.8XXA Other specified injuries of head, initial encounter; M54.2 Cervicalgia; I10 Essential (primary) hypertension; G89.29 Other chronic pain; Z98.890 Other specified postprocedural states; Z87.11 Personal history of peptic ulcer disease; Z59.0 Homelessness; Z56.0 Unemployment, unspecified; Z79.899 Other long term (current) drug therapy; W18.39XA Other fall on same level, initial encounter; Y93.01 Activity, walking, marching and hiking; Y92.488 Other paved roadways as the place of occurrence of the external cause; Y99.8 Other external cause status
CPT/HCPCS: 70450; 72100; 72125; 99284

== ENCOUNTER 2019-01-13 19:37 | Emergency (ER) | payer MEDICARE ==
[~2019-01-13] VITALS: Ht 172.7 cm; Wt 55.6 kg
[2019-01-13 19:45] VITALS: BP 100/72
--- NOTE | 2019-01-13 21:21 | NUR ---
pt used urinal without assist, 350 ml of yellow urine out,
[2019-01-13] MEDS ORDERED: ketorolac tromethamine 15mg/ml inj. IM ONE (21:25)
--- NOTE | 2019-01-13 21:50 | NUR ---
informed bladimir madison about pt suicidal ideation and also the bladder scan as per pa she will look up his chart no new orders yet,will cont to monitor.
--- NOTE | 2019-01-13 21:51 | NUR ---
pt bladder scan done 168 ml,will notify the pa,pt said he is having sucidal ideation we will let the pa know.
== END 2019-01-13 22:42 | disposition home or self-care (01) ==
LOC: ER 19:39
DX: G89.29 Other chronic pain (principal); M54.5 Low back pain; R20.0 Anesthesia of skin; I10 Essential (primary) hypertension; Z56.0 Unemployment, unspecified; Z87.11 Personal history of peptic ulcer disease; Z59.0 Homelessness; Z90.49 Acquired absence of other specified parts of digestive tract; Z98.890 Other specified postprocedural states; Z79.899 Other long term (current) drug therapy
CPT/HCPCS: 96372; 99284; J1885

== ENCOUNTER 2019-01-20 19:02 | Emergency (ER) | payer MEDICARE ==
[~2019-01-20] VITALS: Ht 152.4 cm; Wt 61.4 kg
[2019-01-20] MEDS ORDERED: normal saline 1000ML IV soln IVB ONE (19:10)
[2019-01-20] MEDS ORDERED: folic acid 1mg/0.2ml inj IV ONE (19:10)
[2019-01-20] MEDS ORDERED: thiamine 100mg/ml 2ml inj. IV ONE (19:10)
[2019-01-20 19:48] LABS: BASOPHILS % (AUTO) 0.4 % (0-1); EOSINOPHILS # (AUTO) 0.1 X10'3 (0-0.9); EOSINOPHILS % (AUTO) 1.3 % (0-6); HEMATOCRIT 39.7 % (42.0-52.0); HEMOGLOBIN 13.5 g/dl (14.0-17.9); LYMPHOCYTES # (AUTO) 0.8 X10'3 (1.1-4.8); LYMPHOCYTES % (AUTO) 9.5 % (21-51); MEAN CORPUSCULAR HEMOGLOBIN 33.3 PG (27.0-31.0); MEAN CORPUSCULAR HGB CONC 34.1 g/dL (33.0-36.5); MEAN CORPUSCULAR VOLUME 97.7 FL (78-98); MONOCYTES # (AUTO) 0.9 X10'3 (0-0.9); NEUTROPHILS # (AUTO) 6.2 X10'3 (1.8-7.7); NEUTROPHILS % (AUTO) 77.8 % (42-75); PLATELET COUNT 180 X10'3 (140-440); RED BLOOD COUNT 4.06 X10'6 (4.70-6.10)
[2019-01-20 20:02] LABS: ALANINE AMINOTRANSFERASE 46 U/L (12-78); ALBUMIN 3.8 G/DL (3.4-5.0); ALBUMIN/GLOBULIN RATIO 1.2 (1.1-1.5); ALKALINE PHOSPHATASE 91 IU/L (46-116); ANION GAP 14 (8-16); ASPARTATE AMINO TRANSFERASE 32 U/L (10-37); BILIRUBIN,TOTAL 1.5 MG/DL (0.1-1.0); BLOOD UREA NITROGEN 9 MG/DL (7-18); BUN/CREATININE RATIO 11.1 (5.4-32.0); CHLORIDE 101 MMOL/L (99-107); CREATININE 0.81 MG/DL (0.60-1.10); ETHANOL 0.164 GM/DL (0.0-0.010); GLUCOSE 85 MG/DL (70-104); POTASSIUM 3.1 MMOL/L (3.5-5.1); SODIUM 136 MMOL/L (135-145); TOTAL CARBON DIOXIDE 21.5 MMOL/L (24-32); TOTAL PROTEIN 7.1 G/DL (6.4-8.2); eGFR > 90 ML/MIN
[2019-01-20 20:06] VITALS: BP 133/78
[2019-01-20] MEDS ORDERED: potassium Cl 20 mEq SR tablet PO STA (20:08)
[2019-01-20] MEDS ORDERED: acetaminophen 325mg tablet PO ONE (20:10)
[2019-01-20] MEDS ORDERED: ondansetron/PF 4mg/2ml inj IV ONE (20:15)
== END 2019-01-20 20:58 | disposition home or self-care (01) ==
LOC: ER 19:03
DX: F10.129 Alcohol abuse with intoxication, unspecified (principal); E86.0 Dehydration; E87.6 Hypokalemia; G89.29 Other chronic pain; M54.2 Cervicalgia; R51 Headache; I10 Essential (primary) hypertension; Z59.0 Homelessness; Z56.0 Unemployment, unspecified; Z90.49 Acquired absence of other specified parts of digestive tract; Z98.890 Other specified postprocedural states; Z87.11 Personal history of peptic ulcer disease; Z79.899 Other long term (current) drug therapy; W18.49XA Other slipping, tripping and stumbling without falling, initial encounter; Y93.89 Activity, other specified; Y92.89 Other specified places as the place of occurrence of the external cause; Y99.9 Unspecified external cause status; Y90.9 Presence of alcohol in blood, level not specified
CPT/HCPCS: 36415; 70450; 72125; 80053; 80320; 82948; 85025; 93005; 96361; 96374; 96375; 99284; J2405; J3411; J3490; J7030

== ENCOUNTER 2019-01-21 14:25 | Emergency (ER) | payer MEDICARE ==
[~2019-01-21] VITALS: Ht 172.7 cm; Wt 59.1 kg
[2019-01-21 16:59] LABS: BASOPHILS # (AUTO) 0.1 X10'3 (0-0.2); BASOPHILS % (AUTO) 1.9 % (0-1); EOSINOPHILS # (AUTO) 0.1 X10'3 (0-0.9); HEMATOCRIT 39.1 % (42.0-52.0); HEMOGLOBIN 13.2 g/dl (14.0-17.9); LYMPHOCYTES # (AUTO) 0.7 X10'3 (1.1-4.8); LYMPHOCYTES % (AUTO) 10.7 % (21-51); MEAN CORPUSCULAR HEMOGLOBIN 33.5 PG (27.0-31.0); MEAN CORPUSCULAR HGB CONC 33.8 g/dL (33.0-36.5); MEAN CORPUSCULAR VOLUME 99.1 FL (78-98); MEAN PLATELET VOLUME 7.7 FL (7.4-10.4); MONOCYTES # (AUTO) 0.7 X10'3 (0-0.9); MONOCYTES % (AUTO) 9.7 % (2-12); NEUTROPHILS # (AUTO) 5.3 X10'3 (1.8-7.7); NEUTROPHILS % (AUTO) 76.7 % (42-75); PLATELET COUNT 162 X10'3 (140-440); RED BLOOD COUNT 3.94 X10'6 (4.70-6.10); RED CELL DISTRIBUTION WIDTH 16.6 % (11.5-14.5); WHITE BLOOD COUNT 6.9 X10'3 (4.5-11.0)
[2019-01-21 17:09] LABS: ALANINE AMINOTRANSFERASE 41 U/L (12-78); ALBUMIN 3.6 G/DL (3.4-5.0); ALBUMIN/GLOBULIN RATIO 1.2 (1.1-1.5); ALKALINE PHOSPHATASE 87 IU/L (46-116); ANION GAP 11 (8-16); ASPARTATE AMINO TRANSFERASE 27 U/L (10-37); BILIRUBIN,TOTAL 0.8 MG/DL (0.1-1.0); BLOOD UREA NITROGEN 15 MG/DL (7-18); BUN/CREATININE RATIO 18.3 (5.4-32.0); CALCIUM 8.7 MG/DL (8.5-10.1); CHLORIDE 105 MMOL/L (99-107); CREATININE 0.82 MG/DL (0.60-1.10); GLUCOSE 97 MG/DL (70-104); POTASSIUM 3.8 MMOL/L (3.5-5.1); SODIUM 139 MMOL/L (135-145); TOTAL CARBON DIOXIDE 23.2 MMOL/L (24-32); TOTAL PROTEIN 6.7 G/DL (6.4-8.2); eGFR > 90 ML/MIN
[2019-01-21 17:56] LABS: PARTIAL THROMBOPLASTIN TIME 29 SECONDS (22-32)
[2019-01-21] MEDS ORDERED: HYDROcodone/acetaminophen 10/325mg tab PO ONE (18:25)
[2019-01-21 18:32] VITALS: BP 138/78
[2019-01-22] MEDS ORDERED: GABA-530 PO (19:08)
== END 2019-01-21 20:01 | disposition home or self-care (01) ==
LOC: ER 14:26
DX: M54.2 Cervicalgia (principal); R51 Headache; M25.552 Pain in left hip; M25.551 Pain in right hip; I10 Essential (primary) hypertension; G89.29 Other chronic pain; Z59.0 Homelessness; Z56.0 Unemployment, unspecified; Z90.49 Acquired absence of other specified parts of digestive tract; Z98.890 Other specified postprocedural states; Z79.899 Other long term (current) drug therapy; W01.198A Fall on same level from slipping, tripping and stumbling with subsequent striking against other object, initial encounter; Y93.89 Activity, other specified; Y92.89 Other specified places as the place of occurrence of the external cause; Y99.9 Unspecified external cause status
CPT/HCPCS: 36415; 70450; 71045; 72125; 80053; 84484; 85025; 85610; 85730; 93005; 99284

== ENCOUNTER 2019-01-22 18:34 | Emergency (ER) | payer MEDICARE ==
[~2019-01-22] VITALS: Ht 170.2 cm; Wt 59.1 kg
[2019-01-22] MEDS ORDERED: GABA-530 PO (19:08)
[2019-01-22 19:19] VITALS: BP 101/68
== END 2019-01-22 19:22 | disposition home or self-care (01) ==
LOC: ER 18:35
DX: R41.0 Disorientation, unspecified (principal); R45.0 Nervousness; I10 Essential (primary) hypertension; G89.29 Other chronic pain; F10.10 Alcohol abuse, uncomplicated; Z59.0 Homelessness; Z56.0 Unemployment, unspecified; Z79.899 Other long term (current) drug therapy; Z90.49 Acquired absence of other specified parts of digestive tract; Z98.890 Other specified postprocedural states; Z90.89 Acquired absence of other organs; Y90.9 Presence of alcohol in blood, level not specified
CPT/HCPCS: 99283

== ENCOUNTER 2019-02-28 18:49 | Emergency (ER) | payer MEDICARE ==
[~2019-02-28] VITALS: Ht 172.7 cm; Wt 61.4 kg
[~2019-02-28 18:49] MED LIST changes: +GABA-530 PO
[2019-02-28 19:17] VITALS: BP 129/94
[2019-02-28] MEDS ORDERED: orphenadrine citrate 60mg/2ml inj. IM ONE (20:30)
[2019-02-28] MEDS ORDERED: HYDROcodone/acetaminophen 5mg/325mg tablet PO ONE (20:30)
[2019-02-28] MEDS ORDERED: ketorolac trometh inj. 60 MG/2 ML VIAL IM ONE (20:30)
[2019-02-28] MEDS ORDERED: HYDR-3965 PO (21:57)
[2019-02-28] MEDS ORDERED: CYCL-1 PO (21:57)
[2019-02-28] MEDS ORDERED: IBUP-1984 PO (21:57)
--- NOTE | 2019-02-28 22:00 | NUR ---
CALLED [facility] AT 22:00 FOR RIDE BACK TO [facility]. ETA 15 MINS
== END 2019-02-28 22:07 | disposition home or self-care (01) ==
LOC: ER 18:49
DX: M54.5 Low back pain (principal); M54.2 Cervicalgia; M79.641 Pain in right hand; I10 Essential (primary) hypertension; G89.29 Other chronic pain; Z90.49 Acquired absence of other specified parts of digestive tract; Z98.890 Other specified postprocedural states; Z56.0 Unemployment, unspecified; Z59.0 Homelessness; Z79.899 Other long term (current) drug therapy
CPT/HCPCS: 70450; 72125; 73130; 96372; 99284; J1885; J2360

== ENCOUNTER 2019-03-01 09:37 | Emergency (ER) | payer MEDICARE ==
[~2019-03-01] VITALS: Ht 172.7 cm; Wt 61.4 kg
[~2019-03-01 09:37] MED LIST changes: +CYCL-1 PO; +HYDR-3965 PO; +IBUP-1984 PO
[2019-03-01 09:44] VITALS: BP 125/83
[2019-03-01] MEDS ORDERED: ibuprofen tablet 400 MG TABLET PO ONE (10:20)
[2019-03-01] MEDS ORDERED: ketorolac trometh inj. 60 MG/2 ML VIAL IM ONE (11:20)
== END 2019-03-01 11:41 | disposition home or self-care (01) ==
LOC: ER 09:38
DX: M54.5 Low back pain (principal); I10 Essential (primary) hypertension; G89.29 Other chronic pain; Z90.49 Acquired absence of other specified parts of digestive tract; Z98.890 Other specified postprocedural states; Z56.0 Unemployment, unspecified; Z59.0 Homelessness; Z79.899 Other long term (current) drug therapy
CPT/HCPCS: 72100; 96372; 99283; J1885

== ENCOUNTER 2019-03-03 12:14 | Emergency (ER) | payer MEDICARE ==
[~2019-03-03] VITALS: Ht 172.7 cm; Wt 63.9 kg
[2019-03-03 12:20] VITALS: BP 118/83
--- NOTE | 2019-03-03 12:29 | NUR ---
NO LOC LOSS NO THINNERS PATIENT PAID FOR OWN CAB HERE FROM THE [facility]
[2019-03-03] MEDS ORDERED: ketorolac tromethamine 15mg/ml inj. IM ONE (12:50)
== END 2019-03-03 14:02 | disposition home or self-care (01) ==
LOC: ER 12:15
DX: G89.29 Other chronic pain (principal); M54.5 Low back pain; M54.6 Pain in thoracic spine; M25.551 Pain in right hip; I10 Essential (primary) hypertension; Z90.49 Acquired absence of other specified parts of digestive tract; Z98.890 Other specified postprocedural states; Z87.11 Personal history of peptic ulcer disease; Z56.0 Unemployment, unspecified; Z59.0 Homelessness; Z79.899 Other long term (current) drug therapy; W17.89XA Other fall from one level to another, initial encounter; Y93.89 Activity, other specified; Y92.89 Other specified places as the place of occurrence of the external cause; Y99.8 Other external cause status
CPT/HCPCS: 73502; 96372; 99283; J1885

== ENCOUNTER 2019-03-07 11:54 | Inpatient (IN) | payer MEDICARE ==
[~2019-03-07] VITALS: Ht 172.7 cm; Wt 62.4 kg
[2019-03-07] MEDS ORDERED: acetaminophen 325mg tablet PO PRN (13:40)
[2019-03-07] MEDS ORDERED: mag hydrox/Alum hydrox/simeth 30ml oral suspension PO PRN (13:40)
[2019-03-07] MEDS ORDERED: loperamide 2mg capsule PO PRN (13:40)
[2019-03-07] MEDS ORDERED: tuberculin, purif. prot. deriv. 5 units/0.1ml ID ONE (13:40)
[2019-03-07] MEDS ORDERED: hydrOXYzine 25 MG tablet PO PRN (13:40)
[2019-03-07] MEDS ORDERED: magnesium hydroxide 30ml (MOM) UD suspension PO PRN (13:40)
--- NOTE | 2019-03-07 14:45 | NUR ---
Admission note: Client was escorted to the Behavioral Health Unit by [facility]. Client utilizes a wheelchair due to a, "broken back that nobody will treat". Original 5150 accompanied client, Vital signs upon admission were, BP+ 132/77, O2 sat was 97 percent on room air. Pulse was 84 and respirations were 16. Client reports his pain level at 7 due to, "broken back". 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 All assessments were completed. Client declined tobacco cessation info and admits to smoking for well over 30 years.MRSA swab collected and sent to lab for culture.Client contracts for safe unit behavior and will summon staff if unable to control urges to harm self. Addendum: 03/07/19 at 1707 by Jan Mckeon RN Addendum: Actual time client was brought to unit was 1327 hours.
[2019-03-07] MEDS: LORazepam 1 MG tablet PO PRN (15:41)
[2019-03-07 19:57] VITALS: BP 117/82
[2019-03-07] MEDS: diphenhydrAMINE 25mg capsule PO PRN (20:13)
[2019-03-07] MEDS ORDERED: traZODone 50mg tablet PO PRN (21:40)
--- NOTE | 2019-03-08 02:53 | NUR ---
Nursing Progress Note: Legal hold:5150 Client on involuntary status for DTS. Report received from Maddie BAZZI with use of SBAR. Why are they here: Pt presented to [facility] ED with fall with pain in the neck. He fell down prior to arrival. States he tripped on a curb due to being mildly intoxicated. Hit the back of his head. Medically cleared CT scan of head and neck no acute abnormalities. Full range of motion. No s/s alcohol withdrawal. While pt was in ED he said he had a plan to commit suicide by stepping out into traffic. He was put on a hold for DTS. Pt has been seen in our ED approximally 30 times in the last 2 years. Usually for C/O back pain, often due to fall. Assessment What has happened this shift: Although dayshift reported that pt said he was unable to ambulate pt ambulated without difficulty gait steady all over unit this shift. At start of shift pt angry and demanding [place] and Valium for his back pain. Pt said he takes these medications at home. Explained to pt the MD would run a Cures report to see iff these medications were prescribed pt said he had not taken them "for several months" and he would settle for Tylenol and Benadryl. Cures did not show recent use of these medications. Pt became cooperative and pleasant. Came to group room for snack. S/I, H/I: SI A/VH: denies Sleep: asleep at this time ADL's: independent Group attendance: Came to group room for snack Were meds taken:yes Any med S/E no Mental Status Exam Appearance: unkempt Eye contact: good Behavior: Agitated uncooperative at first became pleasant and cooperative Speech: normal volume rate and rhythm Mood: pleasant Affect: calm Thought process: linear Thought Content: Planning to discharge and go to [place] on Friday Cognition: fair Insight: fair Judgment: poor Interventions PRN's used: Tylenol Benadryl Therapeutic interventions: 1:1 assessment, active listening, therapeutic conversation, medication administration/education/monitoring, symptom monitoring, reality orientation, Q 15 min safety checks. Restraints/seclusion/emergency medication: NA Justification of Continued Inpatient Treatment: Pt requires medication adjustment to stabilize current crisis, without adequate treatment for current situation pt is at high risk for readmission if discharged at this time.
[2019-03-08] MEDS ORDERED: FOLI0.4T2 PO (07:02)
[2019-03-08] MEDS ORDERED: EFF25T PO (07:02)
[2019-03-08] MEDS ORDERED: OLAN5TAB3 PO (07:02)
[2019-03-08] MEDS ORDERED: THIA100T66 PO (07:02)
[2019-03-08] MEDS ORDERED: OLANZAPINE 5 MG TABLET PO PRN (07:15)
[2019-03-08 07:37] LABS: CHOL/HDL RATIO 3.5 (0.00-4.99); CHOLESTEROL 162 MG/DL (0-200); HDL CHOLESTEROL 46 MG/DL (35-60); LDL CHOLESTEROL 102 MG/DL (50-100); TRIGLYCERIDES 58 MG/DL (20-135)
[2019-03-08 08:00] VITALS: BP 124/70
[2019-03-08] MEDS ORDERED: venlafaxine 25mg tablet PO SCH (08:00)
[2019-03-08 09:06] LABS: HEMOGLOBIN A1C 5.2 % (4.5-6.2)
[2019-03-08] MEDS: thiamine 100mg tablet PO SCH (10:46)
[2019-03-08] MEDS: acetaminophen 325mg tablet PO PRN ×2 (10:52→19:06)
[2019-03-08] MEDS: LORazepam 1 MG tablet PO PRN (10:52)
--- NOTE | 2019-03-08 10:56 | NUR ---
Malnutrition consult. Patient reports 14-23 lbs weight loss recently and reports eating poorly >1 week due to poor appetite. 100% PO intake, appears to have great appetite. No edema. No muscle weakness. Per documented weight history weight is stable with usual body weight. No malnutrition. Will continue to follow. Addendum: 03/08/19 at [address] Amended: Links added.
[2019-03-08] MEDS: folic acid 0.4mg tablet PO SCH (12:33)
[2019-03-08] MEDS: atenolol 50mg tablet PO SCH ×2 (12:37→20:29)
[2019-03-08 16:59] LABS: BASOPHILS # (AUTO) 0.1 X10'3 (0-0.2); BASOPHILS % (AUTO) 0.8 % (0-1); EOSINOPHILS # (AUTO) 0.3 X10'3 (0-0.9); EOSINOPHILS % (AUTO) 4.6 % (0-6); HEMATOCRIT 39.8 % (42.0-52.0); HEMOGLOBIN 13.5 g/dl (14.0-17.9); LYMPHOCYTES # (AUTO) 1.2 X10'3 (1.1-4.8); LYMPHOCYTES % (AUTO) 16.7 % (21-51); MEAN CORPUSCULAR HEMOGLOBIN 33.6 PG (27.0-31.0); MEAN CORPUSCULAR HGB CONC 33.9 g/dL (33.0-36.5); MEAN CORPUSCULAR VOLUME 99.1 FL (78-98); MEAN PLATELET VOLUME 7.9 FL (7.4-10.4); MONOCYTES # (AUTO) 0.7 X10'3 (0-0.9); MONOCYTES % (AUTO) 10.2 % (2-12); NEUTROPHILS # (AUTO) 4.9 X10'3 (1.8-7.7); NEUTROPHILS % (AUTO) 67.7 % (42-75); PLATELET COUNT 213 X10'3 (140-440); RED BLOOD COUNT 4.01 X10'6 (4.70-6.10); RED CELL DISTRIBUTION WIDTH 14.7 % (11.5-14.5); WHITE BLOOD COUNT 7.2 X10'3 (4.5-11.0)
[2019-03-08 17:11] LABS: ANION GAP 10 (8-16); BLOOD UREA NITROGEN 16 MG/DL (7-18); BUN/CREATININE RATIO 18.2 (5.4-32.0); CALCIUM 8.5 MG/DL (8.5-10.1); CHLORIDE 107 MMOL/L (99-107); CREATININE 0.88 MG/DL (0.60-1.10); GLUCOSE 87 MG/DL (70-104); POTASSIUM 4.3 MMOL/L (3.5-5.1); SODIUM 141 MMOL/L (135-145); TOTAL CARBON DIOXIDE 24.4 MMOL/L (24-32); eGFR 88 ML/MIN
[2019-03-08] MEDS: ibuprofen tablet 400 MG TABLET PO SCH (17:24)
--- NOTE | 2019-03-08 17:40 | NUR ---
Nursing Progress Note: Legal hold:5150 Client on involuntary status for DTS. Report received from Melina BAZZI with use of SBAR. Why are they here: Pt presented to [facility] ED with fall with pain in the neck. He fell down prior to arrival. States he tripped on a curb due to being mildly intoxicated. Hit the back of his head. Medically cleared CT scan of head and neck no acute abnormalities. Full range of motion. No s/s alcohol withdrawal. While pt was in ED he said he had a plan to commit suicide by stepping out into traffic. He was put on a hold for DTS. Pt has been seen in our ED approximally 30 times in the last 2 years. Usually for C/O back pain, often due to fall. Assessment What has happened this shift: Participated in all unit activities. Has no difficulty with ambulation and gait. Initially admitted to , then recanted. "I'm not sure what I'm doing here except I know what would help me is [place] and Valium." Informed he was ordered Motrin. Accepted this information well, after yelling at staff that Dr. Lane knows what he needs and he will be "going straight there after I get out." Hoping to be discharged tomorrow. S/I, H/I: A/VH: denies Sleep: asleep at this time ADL's: independent Group attendance: Came to group room for snack Were meds taken:yes Any med S/E no Mental Status Exam Appearance: unkempt Eye contact: good Behavior: Agitated uncooperative at first became pleasant and cooperative Speech: normal volume rate and rhythm Mood: pleasant Affect: calm Thought process: linear Thought Content: Planning to discharge and go to [place] on Friday Cognition: fair Insight: fair Judgment: poor Interventions PRN's used: Tylenol Benadryl Therapeutic interventions: 1:1 assessment, active listening, therapeutic conversation, medication administration/education/monitoring, symptom monitoring, reality orientation, Q 15 min safety checks. Restraints/seclusion/emergency medication: NA Justification of Continued Inpatient Treatment: Pt requires medication adjustment to stabilize current crisis, without adequate treatment for current situation pt is at high risk for readmission if discharged at this time.
[2019-03-08 20:00] VITALS: BP 140/86
[2019-03-08] MEDS: traZODone 50mg tablet PO SCH (20:28)
[2019-03-08] MEDS: diphenhydrAMINE 25mg capsule PO PRN (20:28)
--- NOTE | 2019-03-09 01:38 | NUR ---
Nursing Progress Note: Legal hold:5150 Client on involuntary status for DTS. Report received from Maddie BAZZI with use of SBAR. Why are they here: Pt presented to [facility] ED with fall with pain in the neck. He fell down prior to arrival. States he tripped on a curb due to being mildly intoxicated. Hit the back of his head. Medically cleared CT scan of head and neck no acute abnormalities. Full range of motion. No s/s alcohol withdrawal. While pt was in ED he said he had a plan to commit suicide by stepping out into traffic. He was put on a hold for DTS. Pt has been seen in our ED approximally 30 times in the last 2 years. Usually for C/O back pain, often due to fall. Assessment What has happened this shift: Pt up on unit at start of shift. Has no difficulty with ambulation and gait. Denies depression or SI. Pt is expecting to be discharged on Friday and will take a bus to [place]. Pt pleasant and cooperative fiendly with staff and other pts. S/I, H/I: none A/VH: denies Sleep: asleep at this time ADL's: independent Group attendance: Came to group room for snack Were meds taken:yes Any med S/E no Mental Status Exam Appearance: Clean Eye contact: good Behavior: Agitated uncooperative at first became pleasant and cooperative Speech: normal volume rate and rhythm Mood: pleasant Affect: calm Thought process: linear Thought Content: Planning to discharge and go to [place] on Friday Cognition: fair Insight: fair Judgment: poor Interventions PRN's used: Tylenol Benadryl Therapeutic interventions: 1:1 assessment, active listening, therapeutic conversation, medication administration/education/monitoring, symptom monitoring, reality orientation, Q 15 min safety checks. Restraints/seclusion/emergency medication: NA Justification of Continued Inpatient Treatment: Pt requires medication adjustment to stabilize current crisis, without adequate treatment for current situation pt is at high risk for readmission if discharged at this time.
[2019-03-09 07:39] VITALS: BP 112/55
[2019-03-09 08:00] VITALS: BP 112/55
[2019-03-09] MEDS: folic acid 0.4mg tablet PO SCH (08:32)
[2019-03-09] MEDS: atenolol 50mg tablet PO SCH ×2 (08:32→20:30)
[2019-03-09] MEDS: venlafaxine 25mg tablet PO SCH (08:32)
[2019-03-09] MEDS: ibuprofen tablet 400 MG TABLET PO SCH ×3 (08:33→17:28)
[2019-03-09] MEDS: thiamine 100mg tablet PO SCH (08:33)
[2019-03-09] MEDS: nicotine 14mg patch - 24hr TD SCH (13:09)
--- NOTE | 2019-03-09 16:19 | NUR ---
Nursing Progress Note: Legal hold:5150 Client on involuntary status for DTS. Report received from Angella BAZZI with use of SBAR. Why are they here: Pt presented to [facility] ED with fall with pain in the neck. He fell down prior to arrival. States he tripped on a curb due to being mildly intoxicated. Hit the back of his head. Medically cleared CT scan of head and neck no acute abnormalities. Full range of motion. No s/s alcohol withdrawal. While pt was in ED he said he had a plan to commit suicide by stepping out into traffic. He was put on a hold for DTS. Pt has been seen in our ED approximally 30 times in the last 2 years. Usually for C/O back pain, often due to fall. Assessment What has happened this shift: Received Pt. Asleep in bed w/o distress at change of shift. Attended breakfast with prompting, after request to eat in room denied. Able to ambulate well with walker and often without it. Pt attended unit activities and meals and interacted with staff. Focused in afternoon on wanting to leave [facility]. Discussed SI expressed recently and informed him that the treatment team decided to not release him today, but evaluate that decision tomorrow. Pt unhappy and irritated at not being able to leave today and minimizes SI that substantiate his 72 hr hold. S/I, H/I: Denies SI. Minimizes suicidal statements made at [facility] ER and even denies them A/VH: denies Sleep: Periods of resting in bed ADL's: independent Group attendance: Came to group room for meals and snacks Were meds taken:Yes Any med S/E No Mental Status Exam Appearance: Groomed in green scrubs Eye contact: Good Behavior: Pleasant, but agitated when he does not get what he wants Speech: Normal volume rate and rhythm Mood: Pleasant Affect: Calm Thought Process: Linear Thought Content: Leaving [facility] Cognition: Fair Insight: Fair Judgment: Foor Interventions PRN's used: None Therapeutic interventions: 1:1 assessment, active listening, therapeutic conversation, medication administration/education/monitoring, symptom monitoring, reality orientation, Q 15 min safety checks. Restraints/seclusion/emergency medication: NA Justification of Continued Inpatient Treatment: Pt requires medication adjustment to stabilize current crisis, without adequate treatment for current situation pt is at high risk for readmission if discharged at this time.
[2019-03-09] MEDS: traZODone 50mg tablet PO SCH (20:29)
[2019-03-09 20:30] VITALS: BP 121/65
--- NOTE | 2019-03-09 23:08 | NUR ---
Nursing Progress Note: Legal hold:5150 Client on involuntary status for DTS. Report received from Maddie BAZZI with use of SBAR. Why are they here: Pt presented to [facility] ED with fall with pain in the neck. He fell down prior to arrival. States he tripped on a curb due to being mildly intoxicated. Hit the back of his head. Medically cleared CT scan of head and neck no acute abnormalities. Full range of motion. No s/s alcohol withdrawal. While pt was in ED he said he had a plan to commit suicide by stepping out into traffic. He was put on a hold for DTS. Pt has been seen in our ED approximally 30 times in the last 2 years. Usually for C/O back pain, often due to fall. Assessment What has happened this shift: Pt up in group room at start of shift. Pt looking forward to discharge tomorrow. His plan is to "hang around [place] for a day, get a motel for the night, then buy a bus ticket to [place] the next day." Pt denies any depression or SI. Pleasant and cooperative with care. Took all medications asleep at this time. S/I, H/I: Denies SI. Minimizes suicidal statements made at [facility] ER and even denies them A/VH: denies Sleep: Asleep at this time ADL's: independent Group attendance: Came to group room for meals and snacks Were meds taken:Yes Any med S/E No Mental Status Exam Appearance: Groomed in green scrubs Eye contact: Good Behavior: Pleasant, Speech: Normal volume rate and rhythm Mood: Pleasant Affect: Calm Thought Process: Linear Thought Content: Leaving [facility] Cognition: Fair Insight: Fair Judgment: Fair Interventions PRN's used: None Therapeutic interventions: 1:1 assessment, active listening, therapeutic conversation, medication administration/education/monitoring, symptom monitoring, reality orientation, Q 15 min safety checks. Restraints/seclusion/emergency medication: NA Justification of Continued Inpatient Treatment: Pt required medication adjustment to stabilize current crisis, without adequate treatment for current situation pt wasat high risk for readmission. Plan is for discharge tomorrow.
[2019-03-10] MEDS: folic acid 0.4mg tablet PO SCH (07:31)
[2019-03-10] MEDS: thiamine 100mg tablet PO SCH (07:31)
[2019-03-10] MEDS: atenolol 50mg tablet PO SCH (07:32)
[2019-03-10] MEDS: nicotine 14mg patch - 24hr TD SCH (07:33)
[2019-03-10] MEDS: venlafaxine 25mg tablet PO SCH (07:36)
[2019-03-10] MEDS: ibuprofen tablet 400 MG TABLET PO SCH (07:41)
[2019-03-10 08:00] VITALS: BP 126/76
[2019-03-10] MEDS ORDERED: EFF25T PO (09:24)
[2019-03-10] MEDS ORDERED: ATEN-169 PO (09:45)
[2019-03-10] MEDS ORDERED: NICO-631 TD (09:45)
[2019-03-10] MEDS ORDERED: TRAZ-219 PO (09:45)
--- NOTE | 2019-03-10 11:33 | NUR ---
Nursing Progress Note: Barak Davis Legal hold:5150 Client on involuntary status for DTS. Report received from Angella Why are they here: Pt presented to [facility] ED with fall with pain in the neck. He fell down prior to arrival. States he tripped on a curb due to being mildly intoxicated. Hit the back of his head. Medically cleared CT scan of head and neck no acute abnormalities. Full range of motion. No s/s alcohol withdrawal. While pt was in ED he said he had a plan to commit suicide by stepping out into traffic. He was put on a hold for DTS. Pt has been seen in our ED approximally 30 times in the last 2 years. Usually for C/O back pain, often due to fall. Assessment What has happened this shift: Client was in bed to begin the shift. Client woke to take medications and conduct assessment. Compliant with care and medications. Client was able to get to Group room for breakfast utilizing a walker and accompanied by this inspector automatic typewriter. Patient c/o back pain but is able to rest without the use or request of PRN medications. Client up on unit utilizing a walker to ambulate. Client is anticipating discharge today and has made calls to his bank in order to secure funds once discharged. S/I, H/I: Denies SI. Minimizes suicidal statements made at [facility] ER and even denies them A/VH: denies Sleep: ADL's: independent Group attendance: Came to group room for meals and snacks Were meds taken:Yes Any med S/E No Mental Status Exam Appearance: Groomed in green scrubs Eye contact: Good Behavior: Pleasant, Speech: Normal volume rate and rhythm Mood: Pleasant Affect: Calm Thought Process: Linear Thought Content: Leaving [facility] Cognition: Fair Insight: Fair Judgment: Fair Interventions PRN's used: None Therapeutic interventions: 1:1 assessment, active listening, therapeutic conversation, medication administration/education/monitoring, symptom monitoring, reality orientation, Q 15 min safety checks. Restraints/seclusion/emergency medication: NA Justification of Continued Inpatient Treatment: Pt required medication adjustment to stabilize current crisis, without adequate treatment for current situation pt wasat high risk for readmission. Plan is for discharge today.
--- NOTE | 2019-03-10 11:33 | NUR ---
Discharge note: Client was discharged this am at 1126 hours. Client received all belongings that he entered the facility with and also has discharge instructions, follow up and medical prescriptions given to client who verbalized an understanding of the info given to him. Client states he will stay in a local Motel this evening and head to [place] via bus tomorrow. Client also verbalized that he was going to throw away discharge information but he was redirected and opted to carry paperwork with him as he departed the unit. Client did ask if we has prescribed his, "pain pills and Valium" and was told to follow up with his primary care provider to obtain these prescriptions. Client has improved since his admission and he appears to be goal and future oriented upon discharge. He verbally contracts for safe behavior upon discharge and agrees to utilize support in the event that he is unable to control feelings to harm himself.
== END 2019-03-10 11:20 | disposition home or self-care (01) | DRG 881 ==
LOC: ADULT MH 11:54
PROVIDERS: ADMIT Psychiatry & Neurology Psychiatry; ATTEND Psychiatry & Neurology Psychiatry
DX: F32.9 Major depressive disorder, single episode, unspecified (principal); R45.851 Suicidal ideations; F17.210 Nicotine dependence, cigarettes, uncomplicated; F41.9 Anxiety disorder, unspecified; G89.4 Chronic pain syndrome; I10 Essential (primary) hypertension; R29.6 Repeated falls; M54.2 Cervicalgia; M54.5 Low back pain; Z76.5 Malingerer [conscious simulation]; Z59.0 Homelessness; Z90.49 Acquired absence of other specified parts of digestive tract
CPT/HCPCS: 36415; 73502; 80048; 80061; 83036; 85025; 87081; 97116; 97161; 97530; 99285; Q0163; Z7610

== ENCOUNTER 2019-03-12 20:28 | Emergency (ER) | payer MEDICARE ==
[~2019-03-12] VITALS: Ht 172.7 cm; Wt 61.4 kg
[~2019-03-12 20:28] MED LIST changes: -ALBU18HF2 INH; -CYCL-1 PO; +EFF25T PO; -FAMO40TA73 PO; +FOLI0.4T2 PO; -GABA-530 PO; -HYDR-3965 PO; -IBUP-1984 PO; +NICO-631 TD; -NO HOME MEDS; +OLAN5TAB3 PO; -PER10325T PO; +THIA100T66 PO
[2019-03-12] MEDS ORDERED: normal saline 1000ML IV soln IVB ONE (21:05)
[2019-03-12] MEDS ORDERED: ondansetron/PF 4mg/2ml inj IV ONE (21:05)
[2019-03-12] MEDS ORDERED: ketorolac tromethamine 15mg/ml inj. IM ONE (22:25)
[2019-03-12 23:30] VITALS: BP 128/84
[2019-03-13] MEDS ORDERED: METH500T PO (00:14)
[2019-03-13] MEDS ORDERED: METH4TAB3 PO (00:14)
[2019-03-13] MEDS ORDERED: HYDR-3965 PO (00:14)
[2019-03-13] MEDS ORDERED: ONDA4TAB6 PO (00:14)
--- NOTE | 2019-03-13 00:47 | NUR ---
PT PROVIDED HOSPITAL PAY CAB RIDE TO [facility].
== END 2019-03-13 00:49 | disposition home or self-care (01) ==
LOC: ER 20:28
DX: S06.0X0A Concussion without loss of consciousness, initial encounter (principal); S16.1XXA Strain of muscle, fascia and tendon at neck level, initial encounter; S39.012A Strain of muscle, fascia and tendon of lower back, initial encounter; G89.29 Other chronic pain; R11.10 Vomiting, unspecified; I10 Essential (primary) hypertension; Z90.89 Acquired absence of other organs; Z98.890 Other specified postprocedural states; Z59.0 Homelessness; Z56.0 Unemployment, unspecified; Z79.899 Other long term (current) drug therapy; W18.30XA Fall on same level, unspecified, initial encounter; Y93.89 Activity, other specified; Y92.89 Other specified places as the place of occurrence of the external cause; Y99.9 Unspecified external cause status
CPT/HCPCS: 70450; 72125; 72131; 96361; 96372; 96374; 99284; J1885; J2405; J7030

== ENCOUNTER 2019-03-14 12:40 | Inpatient (IN) | payer MEDICARE, OTHER ==
[~2019-03-14] VITALS: Ht 172.7 cm; Wt 60.6 kg
[~2019-03-14 12:40] MED LIST changes: +METH4TAB3 PO; +ONDA4TAB6 PO
[2019-03-14] MEDS ORDERED: magnesium hydroxide 30ml (MOM) UD suspension PO PRN (13:20)
[2019-03-14] MEDS ORDERED: LORazepam 1 MG tablet PO PRN (13:20)
[2019-03-14] MEDS ORDERED: loperamide 2mg capsule PO PRN (13:20)
[2019-03-14] MEDS ORDERED: acetaminophen 325mg tablet PO PRN (13:20)
[2019-03-14] MEDS ORDERED: mag hydrox/Alum hydrox/simeth 30ml oral suspension PO PRN (13:20)
[2019-03-14] MEDS ORDERED: OLANZAPINE 5 MG TABLET PO PRN (13:50)
[2019-03-14 14:48] VITALS: BP 136/78
[2019-03-14] MEDS: hydrOXYzine 25 MG tablet PO PRN (15:18)
--- NOTE | 2019-03-14 15:36 | NUR ---
Admission note: Pt [facility] from [facility]. Pt escorted by [facility] [employer], [employer] and [employer]. Pt is DTS with plan to walk into traffic or shoot self with a gun. Pt does not have a gun. Pt was discharged from here 03/10/19. Pt states he has no idea where his medications went that he was discharged with 4 days ago. Pt states he tripped off a side walk and fell and hurt his shoulders, L hip and neck. Pt had a full workup at [facility] including CT head, neck, spine and various xrays. No new injuries. Pt has history of chronic pain, neck surgery, chronic suicidal ideation.
[2019-03-14 19:45] VITALS: BP 120/54
[2019-03-14] MEDS: atenolol 50mg tablet PO SCH (20:26)
[2019-03-14] MEDS: traZODone 50mg tablet PO SCH (20:28)
--- NOTE | 2019-03-15 00:38 | NUR ---
Nursing Progress Note: Legal hold: 5150 Client on voluntary/involuntary status for DTS. Report received from Rashaun BAZZI with use of SBAR. Why are they here: Pt is DTS with plan to walk into traffic or shoot self with a gun. Pt does not have a gun. Pt was discharged from here 03/10/19. Pt states he has no idea where his medications went that he was discharged with 4 days ago. Pt states he tripped off a side walk and fell and hurt his shoulders, L hip and neck. Pt had a full workup at [facility] including CT head, neck, spine and various xrays. No new injuries. Pt has history of chronic pain, neck surgery, chronic suicidal ideation. Assessment What has happened this shift: Pt asleep att start of shift. Woke up came to group room for snack. Ambulating independently without difficulty gait steady and even. 1:1 pt admitted SI at time of admit with plan to step in front of traffic. Said he came from [facility]'s ER. Then began to answer questions with 'I don't remember" Became angry about being asked questions. 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 Pt ate snacks, Stayed up in group room for awhile then went to bed and went to sleep. S/I, H/I: SI A/VH: No Sleep: Asleep at this time ADL's: Independent Group attendance: Group room for snack Were meds taken: Yes Any med side effects: No Mental Status Exam Appearance: Eye contact: Direct Behavior: Uncooperative Speech: Clear normal volume and rate Mood: Angry at times Affect: Angry Thought process: Linear with random periods of not remembering Thought Content:[] Cognition: A+OX3 Insight: poor Judgment: poor Interventions PRN's used: Therapeutic interventions:Therapeutic interventions: 1:1 assessment, therapeutic conversation, medication administration/education/monitoring, encouragement to attend groups, q15 min safety checks. Restraints/seclusion/emergency medication: None Justification of Continued Inpatient Treatment: Pt needs therapeutic support and medication management needed to provide stabilization, prevent decompensation, improve coping mechanisms decreasing risk to patient and re-admittance. Restraints/seclusion/emergency medication:[]
[2019-03-15] MEDS: atenolol 50mg tablet PO SCH ×2 (08:00→20:21)
[2019-03-15 08:03] VITALS: BP 95/60
[2019-03-15] MEDS: venlafaxine 37.5mg tablet PO SCH (08:17)
[2019-03-15] MEDS: thiamine 100mg tablet PO SCH (08:18)
[2019-03-15] MEDS: folic acid 0.4mg tablet PO SCH (08:19)
[2019-03-15] MEDS: nicotine 14mg patch - 24hr TD SCH (08:22)
[2019-03-15] MEDS: acetaminophen 325mg tablet PO PRN ×2 (10:26→15:28)
[2019-03-15] MEDS ORDERED: TRAZ-219 PO (11:26)
[2019-03-15] MEDS ORDERED: NICO-731 TOP (11:26)
[2019-03-15] MEDS ORDERED: ATEN50TA PO (11:26)
[2019-03-15] MEDS ORDERED: VENL75TA4 PO (11:28)
[2019-03-15 13:29] LABS: CHOL/HDL RATIO 3.4 (0.00-4.99); CHOLESTEROL 161 MG/DL (0-200); HDL CHOLESTEROL 47 MG/DL (35-60); LDL CHOLESTEROL 97 MG/DL (50-100); TRIGLYCERIDES 84 MG/DL (20-135)
[2019-03-15] MEDS: hydrOXYzine 25 MG tablet PO PRN (15:30)
[2019-03-15] MEDS ORDERED: OLANZAPINE 5 MG TABLET PO PRN (16:15)
--- NOTE | 2019-03-15 18:04 | NUR ---
Nursing Progress Note: Legal hold: 5150 Client on voluntary/involuntary status for DTS. Report received from Rashaun BAZZI with use of SBAR. Why are they here: Pt is DTS with plan to walk into traffic or shoot self with a gun. Pt does not have a gun. Pt was discharged from here 03/10/19. Pt states he has no idea where his medications went that he was discharged with 4 days ago. Pt states he tripped off a side walk and fell and hurt his shoulders, L hip and neck. Pt had a full workup at [facility] including CT head, neck, spine and various xrays. No new injuries. Pt has history of chronic pain, neck surgery, chronic suicidal ideation. Assessment: Patient sleeping at change of shift and awoken for breakfast. Patient did not go to any groups today and stayed in bed unless he was eating. Patient c/o chronic neck and back pain. Patient states he is depressed and feeling suicidal with a plan to jump in front of traffic. Patient given Tylenol twice today and states it's not working and needs something stronger. RN advised JOSE Sanchez who said he would add ibuprofen to his medication list. Armando then came and told RN that he spoke to the patient to advise him that he is going to be sent home. Patient advised Armando that he will take a bus to [place]. A dinner RN sat with patient and RN asked the patient his plan for discharge. Patient stated he didn't know yet and asked RN to advise patient when he was going. No definitive plan as of yet. What has happened this shift: S/I, H/I: SI A/VH: No Sleep: slept or was in bed unless he is eating. ADL's: Independent Group attendance: Group room for snack Were meds taken: Yes Any med side effects: No Mental Status Exam Appearance: Eye contact: Direct Behavior: Cooperative Speech: Clear normal volume and rate Mood: Depressed Affect: depressed Thought process: Linear with random periods of not remembering Thought Content:[] Cognition: A+OX3 Insight: poor Judgment: poor Interventions PRN's used: Tylenol Therapeutic interventions:Therapeutic interventions: 1:1 assessment, therapeutic conversation, medication administration/education/monitoring, encouragement to attend groups, q15 min safety checks. Restraints/seclusion/emergency medication: None Justification of Continued Inpatient Treatment: Pt needs therapeutic support and medication management needed to provide stabilization, prevent decompensation, improve coping mechanisms decreasing risk to patient and re-admittance. Restraints/seclusion/emergency medication:[]
[2019-03-15] MEDS: traZODone 50mg tablet PO SCH (20:22)
[2019-03-15 20:43] VITALS: BP 127/68
[2019-03-15] MEDS ORDERED: non-formulary drug (Trazodone HCl 1 TAB) PO SCH (21:00)
--- NOTE | 2019-03-16 00:13 | NUR ---
Nursing Progress Note: Legal hold: 5150 Client on voluntary/involuntary status for DTS. Report received from Rashaun BAZZI with use of SBAR. Why are they here: Pt is DTS with plan to walk into traffic or shoot self with a gun. Pt does not have a gun. Pt was discharged from here 03/10/19. Pt states he has no idea where his medications went that he was discharged with 4 days ago. Pt states he tripped off a side walk and fell and hurt his shoulders, L hip and neck. Pt had a full workup at [facility] including CT head, neck, spine and various xrays. No new injuries. Pt has history of chronic pain, neck surgery, chronic suicidal ideation. Assessment What has happened this shift: Pt awake in room at start of shift came to group room for snack. Ambulating independently without difficulty gait steady and even. Pt says he has memory loss but he knew the day of the week and the date. Aware that he received his check on the . Pt ate snacks, Stayed up in group room for awhile then went to bed and went to sleep. SI A/VH: No Sleep: Asleep at this time ADL's: Independent Group attendance: Group room for snack Were meds taken: Yes Any med side effects: No Mental Status Exam Appearance: Eye contact: Direct Behavior: Cooperative Speech: Clear normal volume and rate Mood: pleasant and cooperative Affect: calm Thought process: Linear with random periods of not remembering Thought Content: Cognition: A+OX3 Insight: poor Judgment: poor Interventions PRN's used: Therapeutic interventions:Therapeutic interventions: 1:1 assessment, therapeutic conversation, medication administration/education/monitoring, encouragement to attend groups, q15 min safety checks. Restraints/seclusion/emergency medication: None Justification of Continued Inpatient Treatment: Pt needs therapeutic support and medication management needed to provide stabilization, prevent decompensation, improve coping mechanisms decreasing risk to patient and re-admittance. Restraints/seclusion/emergency medication:[]
[2019-03-16 07:56] VITALS: BP 108/68
[2019-03-16] MEDS ORDERED: VENLAFAXINE HCL PO SCH (08:00)
[2019-03-16] MEDS ORDERED: thiamine 100mg tablet PO SCH (08:00)
[2019-03-16] MEDS: atenolol 50mg tablet PO SCH ×2 (08:00→20:53)
[2019-03-16] MEDS ORDERED: folic acid 0.4mg tablet PO SCH (08:00)
[2019-03-16] MEDS ORDERED: nicotine 14mg patch - 24hr TD SCH (08:00)
[2019-03-16] MEDS ORDERED: atenolol 50mg tablet PO SCH (08:00)
[2019-03-16] MEDS: thiamine 100mg tablet PO SCH (08:19)
[2019-03-16] MEDS: folic acid 0.4mg tablet PO SCH (08:20)
[2019-03-16] MEDS: venlafaxine 37.5mg tablet PO SCH (08:20)
[2019-03-16] MEDS: nicotine 14mg patch - 24hr TD SCH (08:21)
--- NOTE | 2019-03-16 09:10 | NUR ---
1;1 Placed [facility] referral for pt.
[2019-03-16] MEDS: ibuprofen 200mg tablet PO PRN ×2 (14:21→19:22)
--- NOTE | 2019-03-16 16:43 | NUR ---
Nursing Progress Note: Legal hold: 5150 Client on voluntary/involuntary status for DTS. Report received from Rashaun BAZZI with use of SBAR. Why are they here: Pt is DTS with plan to walk into traffic or shoot self with a gun. Pt does not have a gun. Pt was discharged from here 03/10/19. Pt states he has no idea where his medications went that he was discharged with 4 days ago. Pt states he tripped off a side walk and fell and hurt his shoulders, L hip and neck. Pt had a full workup at [facility] including CT head, neck, spine and various xrays. No new injuries. Pt has history of chronic pain, neck surgery, chronic suicidal ideation. Assessment: Patient sleeping at change of shift and awoken for breakfast. Patient did not go to any groups today and stayed in bed unless he was eating. Patient c/o chronic neck and back pain. Patient states he is depressed and feeling suicidal but denies feeling suicidal. Patient given ibuprofen once today. Patient was calm and cooperative today. The plan is to get him into the [facility]. Patient has not been evaluated yet by the [facility] staff. Patient did not appear angry or upset today. Continue to monitor. What has happened this shift: S/I, H/I: Denies A/VH: No Sleep: slept or was in bed unless he is eating. ADL's: Independent Group attendance: Group room for snack Were meds taken: Yes Any med side effects: No Mental Status Exam Appearance: Eye contact: Direct Behavior: Cooperative Speech: Clear normal volume and rate Mood: Depressed Affect: depressed Thought process: Linear Thought Content:[Wondering where he might end up.] Cognition: A+OX3 Insight: poor Judgment: poor Interventions PRN's used: Ibuprofen Therapeutic interventions:Therapeutic interventions: 1:1 assessment, therapeutic conversation, medication administration/education/monitoring, encouragement to attend groups, q15 min safety checks. Restraints/seclusion/emergency medication: None Justification of Continued Inpatient Treatment: Pt needs therapeutic support and medication management needed to provide stabilization, prevent decompensation, improve coping mechanisms decreasing risk to patient and re-admittance. Restraints/seclusion/emergency medication:[]
[2019-03-16] MEDS ORDERED: tuberculin, purif. prot. deriv. 5 units/0.1ml ID ONE (17:15)
[2019-03-16 20:11] VITALS: BP 150/69
[2019-03-16 20:50] VITALS: BP 144/70
[2019-03-16] MEDS: traZODone 50mg tablet PO SCH (20:52)
[2019-03-16] MEDS: acetaminophen 325mg tablet PO PRN (20:54)
[2019-03-16] MEDS: hydrOXYzine 25 MG tablet PO PRN (21:00)
--- NOTE | 2019-03-17 01:53 | NUR ---
Nursing Progress Note: Legal hold:5150 Client on involuntary status for DTS Report received from nurse with use of SBAR: MANUEL Rodney Why are they here: Pt is DTS with plan to walk into traffic or shoot self with a gun. Pt does not have a gun. Pt was discharged from here 03/10/19. Pt states he has no idea where his medications went that he was discharged with 4 days ago. Pt states he tripped off a side walk and fell and hurt his shoulders, L hip and neck. Pt had a full workup at [facility] including CT head, neck, spine and various xrays. No new injuries. Pt has history of chronic pain, neck surgery, chronic suicidal ideation. Assessment What has happened this shift: Pt. laying in bed at the beginning of the shift, and remains here throughout the shift. This racebook writer introduced self and established rapport, pt. presents as pleasant, cooperative, and withdrawn. He is alert & oriented X2 (name and place), however reports that the month is December and he is her for pain issues. Pt. does present as somewhat confused and will repeat the same statements during conversation several times. He reports chronic pain in his neck and back, PRN Motrin administered without much effectiveness, later PRN Tylenol administered and pt. observed to be asleep, will continue to monitor. Fall precautions remain in place, and pt. reports location and knowledge of use of call light. He denies S/I at this time, and reports his depression is a little better, states, "They told me I have chronic depression." Pt. goes on to speak animatedly about his mother in [place] and the surgery he believes he needs to have on his back for compressed disks. At , pt requests PRN anxiolytic, states, "I'm starting to shake," PRN Atrax administered with effectiveness. S/I, H/I: Denies A/VH: N/A Sleep: Pt. reports some insomnia, this racebook writer educated him to notify staff if he has any difficulty sleeping this shift and he voiced understanding. ADL's: Requires encouragement from staff and fall precautions in place r/t chronic weakness Group attendance: Per AM shift report, pt. does not attend groups. Were meds taken: Yes Any med S/E: None Mental Status Exam Appearance: Appropriately dressed, hair somewhat disheveled Eye contact: Good Behavior: Pleasant, cooperative, and withdrawn Speech: WNL, does present as somewhat confused, and will repeat the same statements during conversation several times. Mood: Pleasant Affect: Blunted, animates with conversation Thought process: Somewhat circumstantial at times Thought Content: Preoccupation with physical pain Cognition: He is alert & oriented X2 (name and place), however reports that the month is December and he is her for pain issues. Insight: Poor Judgment: Poor Interventions PRN's used: Atrax, Tylenol, and Motrin X1 Therapeutic interventions: Introduced self and established rapport, ensured contract for safety, maintained a safe and supportive environment, encouraged independent performance of ADLs and maintained fall precautions, monitored behavior and need for intervention, educated to pt. to let staff know if he experiences insomnia, and maintained Q 15 min safety checks. Restraints/seclusion/emergency medication: N/A Justification of Continued Inpatient Treatment: Pt. requires interruption of current crisis, medication adjustments, and a safe and supportive environment.
[2019-03-17] MEDS: thiamine 100mg tablet PO SCH (07:38)
[2019-03-17] MEDS: venlafaxine 37.5mg tablet PO SCH (07:39)
[2019-03-17] MEDS: nicotine 14mg patch - 24hr TD SCH (07:40)
[2019-03-17] MEDS: folic acid 0.4mg tablet PO SCH (07:40)
[2019-03-17] MEDS: atenolol 50mg tablet PO SCH (07:44)
[2019-03-17 07:57] VITALS: BP 125/73
[2019-03-17] MEDS ORDERED: THIA100T66 PO (11:40)
[2019-03-17] MEDS ORDERED: OLAN5TAB3 PO (11:40)
[2019-03-17] MEDS ORDERED: ATEN50TA41 PO (11:40)
[2019-03-17] MEDS ORDERED: VENL75TA4 PO (11:40)
[2019-03-17] MEDS ORDERED: FOLI0.4T2 PO (11:40)
[2019-03-17] MEDS ORDERED: TRAZ-251 PO (11:40)
[2019-03-17] MEDS ORDERED: NICO-731 TOP (11:40)
--- NOTE | 2019-03-17 12:19 | NUR ---
Nursing Progress Note: Ryan Legal hold:5150 Client on involuntary status for DTS Report received from Angella BAZZI Why are they here: Pt is DTS with plan to walk into traffic or shoot self with a gun. Pt does not have a gun. Pt was discharged from here 03/10/19. Pt states he has no idea where his medications went that he was discharged with 4 days ago. Pt states he tripped off a side walk and fell and hurt his shoulders, L hip and neck. Pt had a full workup at [facility] including CT head, neck, spine and various xrays. No new injuries. Pt has history of chronic pain, neck surgery, chronic suicidal ideation. Assessment: What has happened this shift: Received patient at shift change. He was resting with respirations even and unlabored. No S/S of problems. Pt was compliant with am assessment as well as medications. Client came to breakfast and was social with both staff as well as peers. Client is able to ambulate in hallways without the use of ambulation device. Client returned to his room after breakfast and proceeded to lay down and rest. Client to be discharged today around 1300 hours. Chute Boss was summoned by tab ticketbroker to explain discharge to client who "had no idea" he was leaving today. Patient education given pertaining to discharge and follow up. S/I, H/I: Denies A/VH: N/A Sleep: ADL's: Requires encouragement from staff and fall precautions in place r/t chronic weakness Group attendance: Were meds taken: Yes Any med S/E: None Mental Status Exam Appearance: Appropriately dressed, hair somewhat disheveled Eye contact: Good Behavior: Pleasant, cooperative, and withdrawn Speech: WNL, does present as somewhat confused, and will repeat the same statements during conversation several times. Mood: Pleasant Affect: Blunted, animates with conversation Thought process: Somewhat circumstantial at times Thought Content: Preoccupation with physical pain Cognition: He is alert & oriented X2 (name and place), however reports that the month is December and he is her for pain issues. Insight: Poor Judgment: Poor Interventions PRN's used: Therapeutic interventions: Introduced self and established rapport, ensured contract for safety, maintained a safe and supportive environment, encouraged independent performance of ADLs and maintained fall precautions, monitored behavior and need for intervention, educated to pt. to let staff know if he experiences insomnia, and maintained Q 15 min safety checks. Restraints/seclusion/emergency medication: N/A Justification of Continued Inpatient Treatment: Pt. requires interruption of current crisis, medication adjustments, and a safe and supportive environment.
--- NOTE | 2019-03-17 12:19 | NUR ---
Discharge Note: Client to discharge from this facility at 1230 hours. Client will be going to the [facility] for transitional care and possible placement in a terminal manager residence. Client understands conditions of discharge and currently contracts for safe behavior once discharged. All belongings were inventoried to patient satisfaction. Client has all discharge instructions as well as prescriptions. Client condition has improved since admission and he no longer wishes to produce harm to himself. He will be departing for [facility] at 1230 hours today when staff from that facility pick him up. He has follow up care instructions and plans to comply.
== END 2019-03-17 12:35 | disposition short-term general hospital (02) | DRG 881 ==
LOC: ADULT MH 12:40
PROVIDERS: ADMIT Psychiatry & Neurology Psychiatry; ATTEND Psychiatry & Neurology Psychiatry
DX: F32.9 Major depressive disorder, single episode, unspecified (principal); R45.851 Suicidal ideations; R29.6 Repeated falls; Z60.2 Problems related to living alone; I10 Essential (primary) hypertension; F10.10 Alcohol abuse, uncomplicated; F17.210 Nicotine dependence, cigarettes, uncomplicated; Z63.8 Other specified problems related to primary support group; Z82.49 Family history of ischemic heart disease and other diseases of the circulatory system; Z83.3 Family history of diabetes mellitus; Z91.81 History of falling; Z90.49 Acquired absence of other specified parts of digestive tract; Z71.6 Tobacco abuse counseling
CPT/HCPCS: 36415; 70450; 72125; 72131; 80061; 83036; 87081; 99285; Z7610

== ENCOUNTER 2019-03-21 11:41 | Emergency (ER) | payer MEDICARE, OTHER ==
[~2019-03-21] VITALS: Ht 172.7 cm; Wt 61.4 kg
[~2019-03-21 11:41] MED LIST changes: -ATEN-169 PO; +ATEN50TA PO; +ATEN50TA41 PO; -EFF25T PO; -METH4TAB3 PO; -NICO-631 TD; +NICO-731 TOP; -ONDA4TAB6 PO; +TRAZ-251 PO; +VENL75TA4 PO
[2019-03-21] MEDS ORDERED: HYDROcodone/acetaminophen 10/325mg tab PO ONE (12:00)
[2019-03-21] MEDS ORDERED: HYDR-4353 PO (12:33)
[2019-03-21 12:59] VITALS: BP 130/77
[2019-03-21] MEDS ORDERED: IBUP-1984 PO (13:04)
[2019-03-21] MEDS ORDERED: GABA-534 PO (19:15)
== END 2019-03-21 13:18 | disposition home or self-care (01) ==
LOC: ER 11:42
DX: M25.531 Pain in right wrist (principal); M54.2 Cervicalgia; I10 Essential (primary) hypertension; G89.29 Other chronic pain; Z59.0 Homelessness; Z56.0 Unemployment, unspecified; Z90.49 Acquired absence of other specified parts of digestive tract; Z98.890 Other specified postprocedural states; Z87.11 Personal history of peptic ulcer disease; Z79.899 Other long term (current) drug therapy; W10.8XXA Fall (on) (from) other stairs and steps, initial encounter; Y93.89 Activity, other specified; Y92.89 Other specified places as the place of occurrence of the external cause; Y99.9 Unspecified external cause status
CPT/HCPCS: 72040; 73110; 99284

== ENCOUNTER 2019-03-21 17:19 | Emergency (ER) | payer MEDICARE, OTHER ==
[~2019-03-21] VITALS: Ht 172.7 cm; Wt 61.4 kg
[~2019-03-21 17:19] MED LIST changes: +HYDR-4353 PO; +IBUP-1984 PO
[2019-03-21 18:05] LABS: BASOPHILS % (AUTO) 0.7 % (0-1); EOSINOPHILS # (AUTO) 0.2 X10'3 (0-0.9); EOSINOPHILS % (AUTO) 2.4 % (0-6); HEMATOCRIT 42.2 % (42.0-52.0); HEMOGLOBIN 14.5 g/dl (14.0-17.9); LYMPHOCYTES # (AUTO) 1.4 X10'3 (1.1-4.8); LYMPHOCYTES % (AUTO) 22.1 % (21-51); MEAN CORPUSCULAR HEMOGLOBIN 34.2 PG (27.0-31.0); MEAN CORPUSCULAR HGB CONC 34.3 g/dL (33.0-36.5); MEAN CORPUSCULAR VOLUME 99.8 FL (78-98); MEAN PLATELET VOLUME 7.7 FL (7.4-10.4); MONOCYTES # (AUTO) 0.8 X10'3 (0-0.9); MONOCYTES % (AUTO) 12.3 % (2-12); NEUTROPHILS % (AUTO) 62.5 % (42-75); PLATELET COUNT 225 X10'3 (140-440); RED BLOOD COUNT 4.23 X10'6 (4.70-6.10); RED CELL DISTRIBUTION WIDTH 14.1 % (11.5-14.5); WHITE BLOOD COUNT 6.4 X10'3 (4.5-11.0)
[2019-03-21 18:18] LABS: ALANINE AMINOTRANSFERASE 23 U/L (12-78); ALBUMIN 4.3 G/DL (3.4-5.0); ALBUMIN/GLOBULIN RATIO 1.2 (1.1-1.5); ALKALINE PHOSPHATASE 80 IU/L (46-116); ANION GAP 13 (8-16); ASPARTATE AMINO TRANSFERASE 16 U/L (10-37); BILIRUBIN,TOTAL 0.5 MG/DL (0.1-1.0); BLOOD UREA NITROGEN 12 MG/DL (7-18); BUN/CREATININE RATIO 15.8 (5.4-32.0); CALCIUM 8.9 MG/DL (8.5-10.1); CHLORIDE 103 MMOL/L (99-107); CREATININE 0.76 MG/DL (0.60-1.10); GLUCOSE 107 MG/DL (70-104); POTASSIUM 3.4 MMOL/L (3.5-5.1); SODIUM 140 MMOL/L (135-145); TOTAL PROTEIN 7.8 G/DL (6.4-8.2); eGFR > 90 ML/MIN
[2019-03-21 18:27] LABS: ETHANOL 0.052 GM/DL (0.0-0.010)
[2019-03-21] MEDS ORDERED: GABA-534 PO (19:15)
[2019-03-21 19:48] LABS: CLARITY,URINE CLEAR (Clear); COLOR,URINE YELLOW (Yellow); GLUCOSE, URINE NEGATIVE (Neg); KETONES,URINE NEGATIVE (Neg); LEUKOCYTE ESTERASE ,URINE NEGATIVE (Neg); NITRITES, URINE NEGATIVE (Neg); OCCULT BLOOD,URINE NEGATIVE (Neg); PH,URINE 5.5 (4.8-8.0); PROTEIN,URINE NEGATIVE (Neg); UROBILINOGEN,URINE 0.2 E.U/dL (0.2-1.0)
[2019-03-21 19:51] LABS: UA COLLECTION TYPE CLN CATCH MIDSTREAM
[2019-03-21 19:56] LABS: URINE AMPHETAMINE SCREEN NEGATIVE (Neg); URINE BARBITUATE SCREEN NEGATIVE (Neg); URINE BENZODIAZEPINES SCREEN NEGATIVE (Neg); URINE CANNABINOID SCREEN NEGATIVE (Neg); URINE COCAINE SCREEN NEGATIVE (Neg); URINE METHADONE SCREEN NEGATIVE (Neg); URINE OPIATE SCREEN POSITIVE (Neg); URINE PHENCYCLIDINE SCREEN NEGATIVE (Neg)
[2019-03-21] MEDS: traZODone 50mg tablet PO SCH (21:04)
[2019-03-22] MEDS: gabapentin 400mg capsule PO SCH (08:38)
[2019-03-22] MEDS: atenolol 50mg tablet PO SCH ×2 (08:39→20:29)
--- NOTE | 2019-03-22 09:55 | NUR ---
Augustin bowling in ED - 03/22/19 at 0958 by [place] PT MAGALIS ALVAREZ REPORTS THAT [facility] IS LOOKING TO FIND PLACEMENT FOR PT. PT'S REPORTS THAT SHE CAN NOT TAKE PT HOME AT THIS TIME AN IS UNABLE TO CARE FOR PT.
--- NOTE | 2019-03-22 10:01 | NUR ---
PT REPORTS THAT HE TAKES PAIN MEDICATION FROM HIS PRIMARY DR FARHAD DICK IN [place]. THE DR;S OFFICE IS CLOSED UNTIL 03/23/19 . [facility] IN [place] DOES NOT HAVE ANY RECORDS FOR PAIN MEDICATIONS, ONLY IBUPROFEN FILLED IN 2018,
--- NOTE | 2019-03-22 10:27 | NUR ---
[facility] AT BEDSIDE EVALAUTING PT.
--- NOTE | 2019-03-22 10:47 | NUR ---
[facility]STAIRS MAID AGAIN AT BEDSIDE.
--- NOTE | 2019-03-22 10:58 | NUR ---
[facility] REPORTS THAT SHE LESA BE WRITTING A 5150 ON PT.
--- NOTE | 2019-03-22 11:29 | NUR ---
PT LAYING SUPINE, RESPIRATIONS EVEN AND UNLBORED. NO DISTRESS NOTED AT THIS TIME.
[2019-03-22] MEDS ORDERED: gabapentin 300mg capsule PO ONE (15:20)
[2019-03-22] MEDS ORDERED: acetaminophen 325mg tablet PO ONE (15:30)
[2019-03-22] MEDS ORDERED: haloperidol lactate 5mg/ml inj IM PRN ×2 (15:30)
[2019-03-22] MEDS ORDERED: haloperidol 5mg tablet PO PRN ×2 (15:30)
[2019-03-22] MEDS ORDERED: thiamine 100mg/ml 2ml inj. IV ONE ×2 (15:30)
[2019-03-22] MEDS ORDERED: LORazepam 2 mg/ml vial IV PRN ×2 (15:30)
[2019-03-22] MEDS ORDERED: dextrose 50%-water 50ml dispensing syringe IV PRN ×2 (15:30)
[2019-03-22] MEDS: LORazepam 1 MG tablet PO PRN ×2 (16:20→20:29)
--- NOTE | 2019-03-22 18:40 | NUR ---
Received report from MANUEL Hinojosa. Patient is awake and alert on room air, in no apparent distress. Will continue to monitor.
[2019-03-22] MEDS: traZODone 50mg tablet PO SCH (20:29)
--- NOTE | 2019-03-22 22:30 | NUR ---
Patient sitting up in chair, reading magazine
[2019-03-23] MEDS ORDERED: LORazepam 2 mg/ml vial IM ONE (06:15)
[2019-03-23] MEDS: gabapentin 400mg capsule PO SCH (08:38)
[2019-03-23] MEDS: atenolol 50mg tablet PO SCH ×2 (08:40→21:08)
--- NOTE | 2019-03-23 08:49 | NUR ---
PT STATES HE IS SUICIDAL DUE TO HIS CHRONIC BACK PAIN. PT SEES A PMD IN [place] AND WAS UNABLE TO GET HIS MEDICATIONS FOR PAIN YESTERDAY. PT STATES HE STILL MIGHT BE SUICIDAL EVEN IF HE HAS HIS PAIN MEDICATIONS. JUST DEPENDS ON THE DAY.
--- NOTE | 2019-03-23 16:44 | NUR ---
PT SLEPT THROUGH LUNCH AND IS NOW EATING AFTER WALKING WITH WALKER TO THE BATHROOM WITH ASSIST FROM SITTER.
[2019-03-23] MEDS: LORazepam 1 MG tablet PO PRN (17:07)
[2019-03-23] MEDS ORDERED: acetaminophen 325mg tablet PO ONE (17:20)
--- NOTE | 2019-03-23 19:15 | NUR ---
PT UP OUT OF BED WITH WALKER TO [place] TO BATHROOM . VOIDED. PT BACK TO BED.
--- NOTE | 2019-03-23 20:50 | NUR ---
PT UP OUT OF BED ASKING IF HE CAN SMOKE AND WHEN HE CAN LEAVE. REMINDED PT THAT THIS A NON SMOKING FACILITY AND IS NOT PERMITTED.
--- NOTE | 2019-03-23 21:00 | NUR ---
pt asking "when can I go buy some cigarettes?" - reminded pt that he is on a hold and that this is a non-smoking facility and that we have arranged to get him a nicotine patch. pt then states, "what do you mean I am on a hold?" Explained to pt the reason for his hold and he then asked "what if I just get up and walk out of here?" - I told him that security and the police would be called and he would be brought right back here. He then said. "well this is the last time I will come here then"
[2019-03-23] MEDS: traZODone 50mg tablet PO SCH (21:07)
[2019-03-23] MEDS ORDERED: nicotine 14mg patch - 24hr TD ONE (21:20)
--- NOTE | 2019-03-23 21:37 | NUR ---
PT RESTING COMFORTABLY ON BACK NICATINE PATCH APPLIED TO LEFT SHOULDER
--- NOTE | 2019-03-23 22:00 | NUR ---
pt sleeping peacfully in bed on back in view of rns
--- NOTE | 2019-03-23 22:28 | NUR ---
PT SLEEPING PEACFULLY ON RIGHT SIDE
--- NOTE | 2019-03-23 22:30 | NUR ---
Augustin bowling in ED - 03/24/19 at 0137 by DANYTON PT RESTING IN BED . UPDATED POC PT CONTENT
--- NOTE | 2019-03-23 23:30 | NUR ---
PT RESTING PEACFULLY /NURSES IN VIEW
--- NOTE | 2019-03-23 23:30 | NUR ---
pt sleeping peacfully self positioning content
--- NOTE | 2019-03-24 00:38 | NUR ---
pt still sleeping . on left side , content
--- NOTE | 2019-03-24 01:38 | NUR ---
PT SLEEPING ON BACK SELF POSTIONING .
--- NOTE | 2019-03-24 02:47 | NUR ---
pt sleeping on left side , self postioned. content. RN's in view
--- NOTE | 2019-03-24 04:07 | NUR ---
PT AWOKE , ASKED FOR URINAL, WAS POLITE, STABLE
--- NOTE | 2019-03-24 05:10 | NUR ---
pt sleeping self positions independently. content
[2019-03-24 08:19] VITALS: BP_DIAS 71
[2019-03-24 08:20] VITALS: BP_SYST 106
[2019-03-24] MEDS: gabapentin 400mg capsule PO SCH (08:20)
[2019-03-24] MEDS: atenolol 50mg tablet PO SCH (08:20)
--- NOTE | 2019-03-24 08:38 | NUR ---
pt c/o chronic back and neck pain. States he takes anything from Ibuprofen, Tylenol, to "the hard stuff" for it. Ibuprofen on CHIEF OPERATING OFFICER med list. Spoke with Dr. Solis and stated ok to give [place] 5-325 PRN.
[2019-03-24] MEDS ORDERED: HYDROcodone/acetaminophen 5mg/325mg tablet PO PRN (08:40)
--- NOTE | 2019-03-24 09:30 | NUR ---
Balsam given for chronic back pain. Pt takes anything from Tylenol to "the hard stuff" for it. When I explained I was giving him Balsam he stated "that's not strong enough." I explained that's that's what we have and pt accepted it. Pt stating he's "shakey" and anxious. Went to administer PO PRN Ativan and pt requested IM because it works faster. IM administered to left gluteal, pt tolerated well.
--- NOTE | 2019-03-24 10:51 | NUR ---
breaking primary RN, pt is supine in bed, eyes closed, appears to be asleep, no s/s anxiety
--- NOTE | 2019-03-24 11:01 | NUR ---
pt requested phone, located and gave it to him
--- NOTE | 2019-03-24 11:42 | NUR ---
pt resting quietly in bed
--- NOTE | 2019-03-24 11:56 | NUR ---
MANUEL Campbell called from [facility] for nurse to nurse report.
--- NOTE | 2019-03-24 12:31 | NUR ---
breaking primary RN, pt is supine in bed, eyes closed, appears to be asleep regular breathing present, no agitation observed
--- NOTE | 2019-03-24 13:15 | NUR ---
[facility] stated pt accepted to [facility] in [facility], Dr. Shannon admitting doctor. Accepting time was 11:45am. Pt to be picked up between [id number].
[2019-03-24] MEDS ORDERED: LORazepam 2 mg/ml vial IV PRN (15:30)
[2019-03-24] MEDS ORDERED: LORazepam 1 MG tablet PO PRN (15:30)
[2019-03-26] MEDS ORDERED: LORazepam 1 MG tablet PO PRN (15:30)
[2019-03-26] MEDS ORDERED: LORazepam 2 mg/ml vial IV PRN (15:30)
== END 2019-03-24 14:14 | disposition home or self-care (01) ==
LOC: ER 17:20
DX: R45.851 Suicidal ideations (principal); F32.9 Major depressive disorder, single episode, unspecified; F03.90 Unspecified dementia, unspecified severity, without behavioral disturbance, psychotic disturbance, mood disturbance, and anxiety; F91.8 Other conduct disorders; I10 Essential (primary) hypertension; G89.29 Other chronic pain; F17.200 Nicotine dependence, unspecified, uncomplicated; Z90.49 Acquired absence of other specified parts of digestive tract; Z98.890 Other specified postprocedural states; Z56.0 Unemployment, unspecified; Z59.0 Homelessness; Z79.899 Other long term (current) drug therapy
CPT/HCPCS: 36415; 80053; 80305; 80320; 81003; 84443; 85025; 96372; 96374; 99285; J2060; 99284

== ENCOUNTER 2019-04-07 14:03 | Emergency (ER) | payer MEDICARE ==
[~2019-04-07] VITALS: Ht 172.7 cm; Wt 67.2 kg
[~2019-04-07 14:03] MED LIST changes: +GABA-534 PO; -HYDR-4353 PO; -IBUP-1984 PO
[2019-04-07 14:52] VITALS: BP 126/75
[2019-04-07] MEDS ORDERED: ketorolac tromethamine 15mg/ml inj. IM ONE (15:30)
[2019-04-07] MEDS ORDERED: LIDO700A32 TOP (16:01)
[2019-04-07] MEDS ORDERED: ACET-2144 PO (16:01)
[2019-04-07] MEDS ORDERED: IBUP-1985 PO (16:01)
== END 2019-04-07 16:27 | disposition home or self-care (01) ==
LOC: ER 14:04
DX: S39.012A Strain of muscle, fascia and tendon of lower back, initial encounter (principal); S00.83XA Contusion of other part of head, initial encounter; S40.011A Contusion of right shoulder, initial encounter; S70.01XA Contusion of right hip, initial encounter; R25.1 Tremor, unspecified; I10 Essential (primary) hypertension; G89.29 Other chronic pain; Z90.49 Acquired absence of other specified parts of digestive tract; Z98.890 Other specified postprocedural states; Z56.0 Unemployment, unspecified; Z59.0 Homelessness; Z79.899 Other long term (current) drug therapy; W18.09XA Striking against other object with subsequent fall, initial encounter; Y93.89 Activity, other specified; Y92.89 Other specified places as the place of occurrence of the external cause; Y99.8 Other external cause status
CPT/HCPCS: 96372; 99284; J1885

== ENCOUNTER 2019-04-08 09:45 | Emergency (ER) | payer MEDICARE ==
[~2019-04-08] VITALS: Ht 172.7 cm; Wt 66.0 kg
[~2019-04-08 09:45] MED LIST changes: +ACET-2144 PO; +IBUP-1985 PO; +LIDO700A32 TOP
--- NOTE | 2019-04-08 11:23 | NUR ---
PT TO CT
--- NOTE | 2019-04-08 11:40 | NUR ---
PT BACK FROM CT
[2019-04-08] MEDS ORDERED: HYDROcodone/acetaminophen 5mg/325mg tablet PO ONE (12:10)
--- NOTE | 2019-04-08 12:17 | NUR ---
REMOVED C COLLAR PER PROVIDER, CLEARED
[2019-04-08 12:20] VITALS: BP 127/76
--- NOTE | 2019-04-08 12:42 | NUR ---
RELIEVING RN FOR BREAK, PT IS REFUSING TO LEAVE "I AM TOO UNSTABLE AND HAVE SUICIDAL THOUGHTS...I PLAN TO RUN IN FRONT OF A CAR"
--- NOTE | 2019-04-08 12:54 | NUR ---
Twin GARCIA AND DR RUVALCABA AWARE, DR RUVALCABA REEVALUATED PT IN ROOM 17, REPORT TO MIRELA JACKSON, PT IS RESTING QUIETLY ON CHAIR, CALM AND COOPERATIVE, GCS 15, ALERT AND ORIENTED X3
--- NOTE | 2019-04-08 13:12 | NUR ---
AN APPOINTMENT WAS ABLE TO BE SCHEDULED WITH DR. ALICEA AT [facility] AT 2PM TOMORROW 04/09/19.
[2019-04-09] MEDS ORDERED: TRAZODONE TAB 100MG (20:30)
[2019-04-09] MEDS ORDERED: VENLAFAXINE 75 MG (20:30)
[2019-04-09] MEDS ORDERED: OLANZAPINE 5 MG (20:30)
[2019-04-09] MEDS ORDERED: FOLIC ACID 400 MCG (20:30)
[2019-04-09] MEDS ORDERED: VITAMIN B1 100 MG (20:30)
[2019-04-09] MEDS ORDERED: ATENOLOL 50 MG (20:30)
[2019-04-09] MEDS ORDERED: IBUP-1984 PO (20:37)
[2019-04-09] MEDS ORDERED: THIA100T73 PO (21:33)
[2019-04-09] MEDS ORDERED: VENL150T3 PO (21:33)
[2019-04-09] MEDS ORDERED: ATEN50TA PO (21:33)
[2019-04-09] MEDS ORDERED: FOLI0.4T14 PO (21:33)
[2019-04-09] MEDS ORDERED: OLAN5TAB26 PO (21:33)
[2019-04-09] MEDS ORDERED: TRAZ-219 PO (21:33)
== END 2019-04-08 13:18 | disposition home or self-care (01) ==
LOC: ER 09:45
DX: S16.1XXA Strain of muscle, fascia and tendon at neck level, initial encounter (principal); G89.29 Other chronic pain; M54.5 Low back pain; I10 Essential (primary) hypertension; F32.9 Major depressive disorder, single episode, unspecified; Z90.49 Acquired absence of other specified parts of digestive tract; Z98.890 Other specified postprocedural states; Z86.14 Personal history of Methicillin resistant Staphylococcus aureus infection; Z56.0 Unemployment, unspecified; Z59.0 Homelessness; W18.09XA Striking against other object with subsequent fall, initial encounter; Y93.89 Activity, other specified; Y92.89 Other specified places as the place of occurrence of the external cause; Y99.8 Other external cause status
CPT/HCPCS: 72125; 99284

== ENCOUNTER 2019-04-09 17:13 | Emergency (ER) | payer MEDICARE ==
[~2019-04-09] VITALS: Ht 170.2 cm; Wt 64.2 kg
--- NOTE | 2019-04-09 18:44 | NUR ---
Nursing Note: Pt laying in bed, talking with nursing unit coordinator. No S&S of distress,
[2019-04-09 19:09] LABS: BASOPHILS # (AUTO) 0.1 X10'3 (0-0.2); EOSINOPHILS % (AUTO) 0.5 % (0-6); HEMATOCRIT 44.8 % (42.0-52.0); HEMOGLOBIN 15.6 g/dl (14.0-17.9); LYMPHOCYTES % (AUTO) 13.5 % (21-51); MEAN CORPUSCULAR HEMOGLOBIN 34.4 PG (27.0-31.0); MEAN CORPUSCULAR HGB CONC 34.7 g/dL (33.0-36.5); MEAN CORPUSCULAR VOLUME 99.2 FL (78-98); MEAN PLATELET VOLUME 7.8 FL (7.4-10.4); MONOCYTES # (AUTO) 0.6 X10'3 (0-0.9); MONOCYTES % (AUTO) 7.5 % (2-12); NEUTROPHILS # (AUTO) 5.9 X10'3 (1.8-7.7); NEUTROPHILS % (AUTO) 77.5 % (42-75); PLATELET COUNT 231 X10'3 (140-440); RED BLOOD COUNT 4.52 X10'6 (4.70-6.10); RED CELL DISTRIBUTION WIDTH 13.6 % (11.5-14.5); WHITE BLOOD COUNT 7.6 X10'3 (4.5-11.0)
[2019-04-09 19:22] LABS: ALANINE AMINOTRANSFERASE 28 U/L (12-78); ALBUMIN 4.7 G/DL (3.4-5.0); ALBUMIN/GLOBULIN RATIO 1.3 (1.1-1.5); ALKALINE PHOSPHATASE 80 IU/L (46-116); ANION GAP 14 (8-16); ASPARTATE AMINO TRANSFERASE 20 U/L (10-37); BILIRUBIN,TOTAL 0.5 MG/DL (0.1-1.0); BLOOD UREA NITROGEN 17 MG/DL (7-18); BUN/CREATININE RATIO 18.9 (5.4-32.0); CHLORIDE 103 MMOL/L (99-107); ETHANOL 0.175 GM/DL (0.0-0.010); GLUCOSE 78 MG/DL (70-104); POTASSIUM 3.8 MMOL/L (3.5-5.1); SODIUM 141 MMOL/L (135-145); TOTAL CARBON DIOXIDE 24.2 MMOL/L (24-32); TOTAL PROTEIN 8.4 G/DL (6.4-8.2); eGFR 86 ML/MIN
--- NOTE | 2019-04-09 20:00 | NUR ---
Nursing Note: Pt had one episode of vomiting with emisis of clear liquid and undigested food. Pt now laying on his R side with his eyes closed. No S&S of distress, respirations even and unlabored.
[2019-04-09] MEDS ORDERED: VENLAFAXINE 75 MG (20:30)
[2019-04-09] MEDS ORDERED: TRAZODONE TAB 100MG (20:30)
[2019-04-09] MEDS ORDERED: FOLIC ACID 400 MCG (20:30)
[2019-04-09] MEDS ORDERED: OLANZAPINE 5 MG (20:30)
[2019-04-09] MEDS ORDERED: ATENOLOL 50 MG (20:30)
[2019-04-09] MEDS ORDERED: VITAMIN B1 100 MG (20:30)
[2019-04-09] MEDS ORDERED: IBUP-1984 PO (20:37)
--- NOTE | 2019-04-09 21:20 | NUR ---
Nursing Note: Pt laying on R side with eyes closed, RR even and unlabored, no S&S of distress, will continue monitor.
[2019-04-09] MEDS ORDERED: OLAN5TAB26 PO (21:33)
[2019-04-09] MEDS ORDERED: THIA100T73 PO (21:33)
[2019-04-09] MEDS ORDERED: TRAZ-219 PO (21:33)
[2019-04-09] MEDS ORDERED: FOLI0.4T14 PO (21:33)
[2019-04-09] MEDS ORDERED: VENL150T3 PO (21:33)
[2019-04-09] MEDS ORDERED: ATEN50TA PO (21:33)
[2019-04-09 21:57] LABS: URINE AMPHETAMINE SCREEN NEGATIVE (Neg); URINE BARBITUATE SCREEN NEGATIVE (Neg); URINE BENZODIAZEPINES SCREEN NEGATIVE (Neg); URINE CANNABINOID SCREEN NEGATIVE (Neg); URINE COCAINE SCREEN NEGATIVE (Neg); URINE METHADONE SCREEN NEGATIVE (Neg); URINE OPIATE SCREEN NEGATIVE (Neg); URINE PHENCYCLIDINE SCREEN NEGATIVE (Neg)
[2019-04-09] MEDS: ibuprofen 200mg tablet PO PRN (22:20)
[2019-04-09] MEDS: atenolol 50mg tablet PO SCH (22:23)
[2019-04-09] MEDS ORDERED: traZODone 50mg tablet PO ONE (22:25)
--- NOTE | 2019-04-09 22:27 | NUR ---
Nursing Note: Pt redirected keep his green scrubs on and told he needs to wear them while he is on this unit. Pt willingly took oral medications despite earlier in the evening reporting to this nurse that he does not take oral medications. Pt now laying in bed, no S&S of distress, respirations even and unlabored, will continue to monitor.
--- NOTE | 2019-04-09 22:33 | NUR ---
Packet faxed to [facility] office. Confirmed receipt of packet with Julianne @ [facility] office.
--- NOTE | 2019-04-09 23:28 | NUR ---
Nursing Note: Pt laying on R side eyes closed, appears asleep, RR even and unlabored, no S&S of distress, will continue to monitor.
--- NOTE | 2019-04-10 00:47 | NUR ---
Nursing Note: Pt laying on R side, eyes closed, sleeping, no S&S of distress, will continue to monitor.
--- NOTE | 2019-04-10 02:03 | NUR ---
Nursing Note: Pt laying on his R side, appears to be sleeping, RR even and unlabored, no S&S of distress, will continue to monitor.
--- NOTE | 2019-04-10 03:14 | NUR ---
Nursing Note: Pt awake, laying on his back in bed, RR even and unlabored, no S&S of distress, will continue to monitor.
--- NOTE | 2019-04-10 04:53 | NUR ---
Nursing Note: Pt laying on L side sleeping, RR even and unlabored, no S&S of distress, will continue to monitor.
--- NOTE | 2019-04-10 06:15 | NUR ---
Augustin bowling in [facility] - 04/10/19 at 0653 by JAREK pt sleeping on left sife
--- NOTE | 2019-04-10 06:15 | NUR ---
PT RESTING ON LEFT SIDE
--- NOTE | 2019-04-10 06:27 | NUR ---
Took report and care of patient. Client continues to sleep in no apparent distress on his left side. Respirations are even and unlabored.
--- NOTE | 2019-04-10 06:30 | NUR ---
pt sleeping and resting
--- NOTE | 2019-04-10 06:45 | NUR ---
PT RESTING AND STILL SLEEPING. PT WENT ON BACK AND NOW LAYING ON LEFT SIDE
--- NOTE | 2019-04-10 07:40 | NUR ---
PT IS THROWING UP BUT IS DOING OK
[2019-04-10] MEDS: thiamine 100mg tablet PO SCH (07:53)
[2019-04-10] MEDS: ibuprofen 200mg tablet PO PRN ×2 (07:53→17:38)
[2019-04-10] MEDS: venlafaxine XR 75mg capsule (Q24H) PO SCH (07:53)
[2019-04-10] MEDS: folic acid 0.4mg tablet PO SCH (07:53)
[2019-04-10] MEDS: nicotine 14mg patch - 24hr TD SCH (07:53)
[2019-04-10] MEDS: OLANZAPINE 5 MG TABLET PO PRN ×2 (07:53→17:37)
--- NOTE | 2019-04-10 07:53 | NUR ---
PT IS SITTING UP AND NOT THROWING UP ANYMORE. NURSE IS AT BEDSIDE GIVING MORNING MEDS.
[2019-04-10] MEDS: atenolol 50mg tablet PO SCH ×2 (07:55→20:06)
--- NOTE | 2019-04-10 08:06 | NUR ---
Client vomiting clear emesis about 15 ounces. He says this is normal for him in the morning and milk and crackers usually help. Gave milk and crackers. Client stopped vomiting and feels better.
--- NOTE | 2019-04-10 08:45 | NUR ---
PT IS LAYING PEACEFULLY ON RIGHT SIDE
--- NOTE | 2019-04-10 09:15 | NUR ---
pt awake sitting up being good
--- NOTE | 2019-04-10 09:46 | NUR ---
pt stated "Im lonley" but sitting up quietly being good.
--- NOTE | 2019-04-10 09:47 | NUR ---
pt just coghed and will continue to montior
--- NOTE | 2019-04-10 10:12 | NUR ---
Client asleep on back. No sign of distress. Respirations even and unlabored at 12
--- NOTE | 2019-04-10 10:41 | NUR ---
pt is awake and now eating his breakfast
--- NOTE | 2019-04-10 10:57 | NUR ---
pt eating and sitting up.
--- NOTE | 2019-04-10 11:30 | NUR ---
pt went to the bathoom and tech helped him back to his bed
--- NOTE | 2019-04-10 11:48 | NUR ---
Pt saying he is lonely. som Lobo, talking to him
--- NOTE | 2019-04-10 13:09 | NUR ---
Pt eating lunch
--- NOTE | 2019-04-10 14:18 | NUR ---
Pt laying on R side. Eyes closed. RR even and unlabored. No signs of distress.
--- NOTE | 2019-04-10 14:53 | NUR ---
PT SITTING UP IN BED EATING. NO NEEDS AT THIS TIME
--- NOTE | 2019-04-10 15:37 | NUR ---
Pt laying on right side asleep. Eyes closed. RR even and unlabored. No signs of distress.
[2019-04-10 16:36] LABS: CLARITY,URINE CLEAR (Clear); COLOR,URINE STRAW (Yellow); GLUCOSE, URINE NEGATIVE (Neg); KETONES,URINE NEGATIVE (Neg); LEUKOCYTE ESTERASE ,URINE NEGATIVE (Neg); NITRITES, URINE NEGATIVE (Neg); OCCULT BLOOD,URINE NEGATIVE (Neg); PROTEIN,URINE NEGATIVE (Neg); UROBILINOGEN,URINE 0.2 E.U/dL (0.2-1.0)
[2019-04-10 16:38] LABS: UA COLLECTION TYPE URINAL
--- NOTE | 2019-04-10 17:57 | NUR ---
Client awake and talking to staff
--- NOTE | 2019-04-10 20:00 | NUR ---
Pt laying on right side asleep. Eyes closed. RR even and unlabored. No signs of distress.
[2019-04-10] MEDS: traZODone 50mg tablet PO SCH (20:05)
--- NOTE | 2019-04-11 04:39 | NUR ---
Pt had removed nicotine patch and placed it on the table. I told the patient that I would have to dispose of the patch, as the patch could not stay on the table. MANUEL Aldridge and KAYLA Marshall informed. Disposed of patch in appropriate medical container.
--- NOTE | 2019-04-11 06:39 | NUR ---
Pt continues to sleep peacefully. Respirations even and unlabored.
[2019-04-11] MEDS: OLANZAPINE 5 MG TABLET PO PRN (08:05)
[2019-04-11] MEDS: nicotine 14mg patch - 24hr TD SCH (08:05)
[2019-04-11] MEDS: venlafaxine XR 75mg capsule (Q24H) PO SCH (08:05)
[2019-04-11] MEDS: folic acid 0.4mg tablet PO SCH (08:07)
[2019-04-11] MEDS: ibuprofen 200mg tablet PO PRN (08:07)
[2019-04-11] MEDS: atenolol 50mg tablet PO SCH ×2 (08:07→20:07)
[2019-04-11] MEDS: thiamine 100mg tablet PO SCH (08:07)
--- NOTE | 2019-04-11 08:42 | NUR ---
Client very irritable this morning. He is unhappy that we are monitoring his vitals each hour. Client did pee in huis urinal and ate about 75% of breakfast. Will continue to monitor vitals hourly.
--- NOTE | 2019-04-11 10:07 | NUR ---
Augustin bowling in EDM - 04/11/19 at 1010 by STEPHANIE Vitals have georgi krunal normal limits. p[geovanny is to continue vitals every two to three [address] Alexandra.
--- NOTE | 2019-04-11 10:10 | NUR ---
Vitals have georgi within normal limits. plan is to continue vitals every two to three [address] Alexandra.
--- NOTE | 2019-04-11 12:24 | NUR ---
Pt asking for pain medications. Told pt meds not due yet. Repositioned pt for comfort.
--- NOTE | 2019-04-11 13:04 | NUR ---
Pt eating lunch
--- NOTE | 2019-04-11 14:17 | NUR ---
Pt up to the bathroom
--- NOTE | 2019-04-11 14:34 | NUR ---
SPOKE WITH DR. HEWITT WHO STATES TO DISCONTINUE Q2HOUR VITALS.
--- NOTE | 2019-04-11 16:26 | NUR ---
Pt lying in bed on back with eyes open.
--- NOTE | 2019-04-11 17:54 | NUR ---
[facility] here briefly. Client packet at [place].
--- NOTE | 2019-04-11 18:41 | NUR ---
Received report, assumed care of patients from Maya JACKSON.
[2019-04-11] MEDS: traZODone 50mg tablet PO SCH (20:05)
--- NOTE | 2019-04-11 20:17 | NUR ---
The patient is lying on his right side with eyes closed. No s/s of distress noted.
--- NOTE | 2019-04-12 00:27 | NUR ---
The patient is sleeping on his left side. Breathing even and unlabored. No s/s of distress.
--- NOTE | 2019-04-12 02:10 | NUR ---
Pt removed nicotine patch. Patch placed in appropriate container. RN informed.
--- NOTE | 2019-04-12 02:14 | NUR ---
The patient is lying on his left side. His eyes are closed and he appears to be asleep. Breathing is not labored. No s/s of distress.
--- NOTE | 2019-04-12 04:11 | NUR ---
Patient continues to sleep. Breathing unlabored. No s/s of distress.
[2019-04-12] MEDS: ibuprofen 200mg tablet PO PRN (04:49)
[2019-04-12 05:30] VITALS: BP_DIAS 65
--- NOTE | 2019-04-12 05:52 | NUR ---
The patient is sleeping on his right side.
--- NOTE | 2019-04-12 06:36 | NUR ---
Patient sleeping on right side. No distress observed. Continue to monitor.
[2019-04-12 08:00] VITALS: BP_SYST 113
[2019-04-12] MEDS: atenolol 50mg tablet PO SCH (08:00)
--- NOTE | 2019-04-12 08:25 | NUR ---
Patient awake, alert and in no distress. Continue to monitor.
[2019-04-12] MEDS: venlafaxine XR 75mg capsule (Q24H) PO SCH (08:33)
[2019-04-12] MEDS: nicotine 14mg patch - 24hr TD SCH (08:33)
[2019-04-12] MEDS: folic acid 0.4mg tablet PO SCH (08:33)
[2019-04-12] MEDS: thiamine 100mg tablet PO SCH (08:33)
--- NOTE | 2019-04-12 10:15 | NUR ---
Patient sleeping on right side. No distress observed. Continue to monitor.
--- NOTE | 2019-04-12 12:05 | NUR ---
Patient reclining in bed. No distress observed. Continue to monitor.
== END 2019-04-12 12:45 ==
LOC: ER 17:14
DX: F32.9 Major depressive disorder, single episode, unspecified (principal); F10.129 Alcohol abuse with intoxication, unspecified; R45.851 Suicidal ideations; I10 Essential (primary) hypertension; G89.29 Other chronic pain; Z90.49 Acquired absence of other specified parts of digestive tract; Z87.11 Personal history of peptic ulcer disease; Z56.0 Unemployment, unspecified; Z59.0 Homelessness; Z79.899 Other long term (current) drug therapy
CPT/HCPCS: 36415; 80053; 80305; 80320; 81003; 85025; 99285

== ENCOUNTER 2019-05-17 13:53 | Emergency (ER) | payer MEDICARE ==
[~2019-05-17] VITALS: Ht 172.7 cm; Wt 61.0 kg
[~2019-05-17 13:53] MED LIST changes: -ACET-2144 PO; -ATEN50TA41 PO; +FOLI0.4T14 PO; -FOLI0.4T2 PO; -GABA-534 PO; +IBUP-1984 PO; -IBUP-1985 PO; -LIDO700A32 TOP; +OLAN5TAB26 PO; -OLAN5TAB3 PO; -THIA100T66 PO; +THIA100T73 PO; -TRAZ-251 PO; +VENL150T3 PO; -VENL75TA4 PO
[2019-05-17 14:16] VITALS: BP 129/79
[2019-05-17] MEDS ORDERED: acetaminophen 325mg tablet PO ONE (14:35)
== END 2019-05-17 15:24 | disposition home or self-care (01) ==
LOC: ER 13:53
DX: S13.4XXA Sprain of ligaments of cervical spine, initial encounter (principal); F10.929 Alcohol use, unspecified with intoxication, unspecified; I10 Essential (primary) hypertension; G89.29 Other chronic pain; F32.9 Major depressive disorder, single episode, unspecified; Z79.899 Other long term (current) drug therapy; Z79.1 Long term (current) use of non-steroidal anti-inflammatories (NSAID); Z90.49 Acquired absence of other specified parts of digestive tract; Z98.890 Other specified postprocedural states; Z90.89 Acquired absence of other organs; Z56.0 Unemployment, unspecified; Z59.0 Homelessness; W01.0XXA Fall on same level from slipping, tripping and stumbling without subsequent striking against object, initial encounter; Y93.89 Activity, other specified; Y92.89 Other specified places as the place of occurrence of the external cause; Y99.8 Other external cause status; Y90.9 Presence of alcohol in blood, level not specified
CPT/HCPCS: 72040; 99283

== ENCOUNTER 2019-05-18 08:48 | Emergency (ER) | payer MEDICARE ==
[~2019-05-18] VITALS: Ht 172.7 cm; Wt 58.0 kg
[2019-05-18 08:55] VITALS: BP 153/86
[2019-05-18] MEDS ORDERED: ketorolac trometh inj. 60 MG/2 ML VIAL IM ONE (09:05)
== END 2019-05-18 09:27 | disposition home or self-care (01) ==
LOC: ER 08:49
DX: M54.5 Low back pain (principal); M54.2 Cervicalgia; G89.29 Other chronic pain; I10 Essential (primary) hypertension; F32.9 Major depressive disorder, single episode, unspecified; F10.10 Alcohol abuse, uncomplicated; Z86.69 Personal history of other diseases of the nervous system and sense organs; Z90.49 Acquired absence of other specified parts of digestive tract; Z98.890 Other specified postprocedural states; Z56.0 Unemployment, unspecified; Z59.0 Homelessness; Z90.89 Acquired absence of other organs; Z79.899 Other long term (current) drug therapy; W01.0XXA Fall on same level from slipping, tripping and stumbling without subsequent striking against object, initial encounter; Y93.89 Activity, other specified; Y92.89 Other specified places as the place of occurrence of the external cause; Y99.8 Other external cause status; Y90.9 Presence of alcohol in blood, level not specified
CPT/HCPCS: 96372; 99283; J1885

== ENCOUNTER 2019-05-21 14:46 | Emergency (ER) | payer MEDICARE ==
[~2019-05-21] VITALS: Ht 170.2 cm; Wt 59.1 kg
[2019-05-21] MEDS ORDERED: KETAMINE IV ONE (16:00)
[2019-05-21] MEDS ORDERED: NORMAL SALINE IV ONE (16:00)
[2019-05-21] MEDS ORDERED: ketamine 50 mg/ml 10ml vial IV ONE (16:20)
--- NOTE | 2019-05-21 18:12 | NUR ---
CALLED LAB AND CONFIRMED PT HAD REFUSED TO HAVE LABS DRAWN, NOTIFIED ANTONIETTA GARCIA
[2019-05-21 18:39] LABS: BASOPHILS # (AUTO) 0.1 X10'3 (0-0.2); EOSINOPHILS # (AUTO) 0.2 X10'3 (0-0.9); EOSINOPHILS % (AUTO) 2.9 % (0-6); HEMATOCRIT 37.3 % (42.0-52.0); LYMPHOCYTES # (AUTO) 1.3 X10'3 (1.1-4.8); LYMPHOCYTES % (AUTO) 24.2 % (21-51); MEAN CORPUSCULAR HEMOGLOBIN 34.1 PG (27.0-31.0); MEAN CORPUSCULAR HGB CONC 34.9 g/dL (33.0-36.5); MEAN CORPUSCULAR VOLUME 97.7 FL (78-98); MEAN PLATELET VOLUME 6.9 FL (7.4-10.4); MONOCYTES # (AUTO) 0.5 X10'3 (0-0.9); MONOCYTES % (AUTO) 8.8 % (2-12); NEUTROPHILS # (AUTO) 3.5 X10'3 (1.8-7.7); NEUTROPHILS % (AUTO) 63.1 % (42-75); PLATELET COUNT 252 X10'3 (140-440); RED BLOOD COUNT 3.82 X10'6 (4.70-6.10); RED CELL DISTRIBUTION WIDTH 13.9 % (11.5-14.5); WHITE BLOOD COUNT 5.5 X10'3 (4.5-11.0)
[2019-05-21 18:50] LABS: ANION GAP 12 (8-16); CHLORIDE 107 MMOL/L (99-107); GLUCOSE 87 MG/DL (70-104); POTASSIUM 3.6 MMOL/L (3.5-5.1); SODIUM 145 MMOL/L (135-145); TOTAL CARBON DIOXIDE 26.3 MMOL/L (24-32)
[2019-05-21 18:51] LABS: ALANINE AMINOTRANSFERASE 17 U/L (12-78); ALBUMIN 3.4 G/DL (3.4-5.0); ALKALINE PHOSPHATASE 92 IU/L (46-116); ASPARTATE AMINO TRANSFERASE 21 U/L (10-37); BILIRUBIN,TOTAL 0.3 MG/DL (0.1-1.0); BLOOD UREA NITROGEN 11 MG/DL (7-18); BUN/CREATININE RATIO 14.1 (5.4-32.0); CREATININE 0.78 MG/DL (0.60-1.10); ETHANOL 0.112 GM/DL (0.0-0.010); TOTAL PROTEIN 6.9 G/DL (6.4-8.2); eGFR > 90 ML/MIN
--- NOTE | 2019-05-21 20:15 | NUR ---
assumed care of pt from Emile JACKSON, pt is resting quietly on gurney, resp even and unlabored,
--- NOTE | 2019-05-21 21:28 | NUR ---
PACKET FAXED TO [facility], LEFT MSG TO SEE IS THEY RECEIVED INFO
--- NOTE | 2019-05-21 21:49 | NUR ---
[facility] AWARE PACKET WAS FAXED
--- NOTE | 2019-05-21 23:46 | NUR ---
pt continues to rest quietly on bed, resp even and unlabored
--- NOTE | 2019-05-22 00:15 | NUR ---
pt is sleeping, resp even and unlabored
--- NOTE | 2019-05-22 01:26 | NUR ---
PT SLEEPING QUIETLY IN BED WITH NO SIGNS OF DISTRESS. RESPIRATIONS EVEN AND UNLABORED. WILL CONTINUE TO MONITOR.
[2019-05-22 04:57] LABS: CLARITY,URINE CLEAR (Clear); COLOR,URINE YELLOW (Yellow); GLUCOSE, URINE NEGATIVE (Neg); KETONES,URINE NEGATIVE (Neg); LEUKOCYTE ESTERASE ,URINE NEGATIVE (Neg); NITRITES, URINE NEGATIVE (Neg); OCCULT BLOOD,URINE NEGATIVE (Neg); PROTEIN,URINE NEGATIVE (Neg)
[2019-05-22 05:02] LABS: UA COLLECTION TYPE URINAL
--- NOTE | 2019-05-22 06:04 | NUR ---
UA sent o [facility].
--- NOTE | 2019-05-22 06:51 | NUR ---
pt sitting quietly, no apparent distress.
[2019-05-22] MEDS: venlafaxine XR 75mg capsule (Q24H) PO SCH (07:12)
[2019-05-22] MEDS: folic acid 0.4mg tablet PO SCH (07:13)
[2019-05-22] MEDS: atenolol 50mg tablet PO SCH (07:13)
[2019-05-22] MEDS: OLANZAPINE 5 MG TABLET PO PRN ×2 (07:14→17:45)
[2019-05-22] MEDS: thiamine 100mg tablet PO SCH (07:14)
[2019-05-22] MEDS: ibuprofen 200mg tablet PO PRN ×3 (07:14→20:54)
[2019-05-22] MEDS: nicotine 14mg patch - 24hr TD SCH (07:14)
--- NOTE | 2019-05-22 07:15 | NUR ---
PT C/O BACK PAIN AND REQUESTED PAIN MEDS. INFORMED THE DR HAS MOTRIN ORDERED. PT STATES HE WANTS SOMTHING STONGER. INFORMED PT THE ORDERED ONLY MOTRIN. PT STATES THIS IN "BS" INFOMRED PT THEY WILL NOT BE ORDERING ANY NARCOTICS. PT STATES HES BEEN TAKING NARCS FOR YEARS AND YEARS. PT WAS ASKED ABOUT WHAT PHARM HE USES TO FILL HIS RX. PT STATES "I DONT GET RX NARCOTICS I ONLY GET THEM WHEN I COME HERE TO THE ER" SPOKE WITH DR CACERES AND NOTIFIED HER NO U-TOX ON PT. VERBAL ORDER FOR UTOX. PT AGREED TO TAKE MOTRIN AND PRN ZYPREXA FOR ANXIETY.
[2019-05-22 07:58] LABS: URINE AMPHETAMINE SCREEN NEGATIVE (Neg); URINE BARBITUATE SCREEN NEGATIVE (Neg); URINE BENZODIAZEPINES SCREEN NEGATIVE (Neg); URINE CANNABINOID SCREEN NEGATIVE (Neg); URINE COCAINE SCREEN NEGATIVE (Neg); URINE METHADONE SCREEN NEGATIVE (Neg); URINE OPIATE SCREEN NEGATIVE (Neg); URINE PHENCYCLIDINE SCREEN NEGATIVE (Neg)
--- NOTE | 2019-05-22 08:00 | NUR ---
U TOX NEG OF ALL DRUGS. DR CACERES NOTIFIED NO ORDERS FOR NARCOTICS
--- NOTE | 2019-05-22 10:01 | NUR ---
pt is sleeping on his right side, does not appear to be in distress.
--- NOTE | 2019-05-22 11:14 | NUR ---
pt is asleep, he does not appear to be in distress.
--- NOTE | 2019-05-22 13:32 | NUR ---
PT SITTING UP IN BED EATING LUNCH
--- NOTE | 2019-05-22 13:59 | NUR ---
pt is laying quietly on his right side, he does not appear to be in distress.
--- NOTE | 2019-05-22 19:00 | NUR ---
Patient is low fowlers in bed. He is well oriented and cooperative with staff. Patient states he feels a suicidal ideation, "but I can't do it here. I'd step out in front of a car." Patient states he suffers from long time depression and chronic pain. This patient denies H/I or hallucinations. He makes direct eye contact. Patients voice is at normal level, regular rate and rythm. Patient requested something for sleep tonight. Trazadone will be given. Patient is medication compliant. Patients bed is in view from the nursing station. Q15 minute rounding is being done for patient safety.
[2019-05-22] MEDS: traZODone 50mg tablet PO SCH (20:54)
--- NOTE | 2019-05-22 23:15 | NUR ---
Patient sleeping quietly, in view from nursing station.
--- NOTE | 2019-05-23 04:11 | NUR ---
Patient is sleeping, low fowlers position, in view from nursing station.
--- NOTE | 2019-05-23 06:30 | NUR ---
Pt lying in bed, appears to be sleeping.
[2019-05-23] MEDS: venlafaxine XR 75mg capsule (Q24H) PO SCH (08:03)
[2019-05-23] MEDS: thiamine 100mg tablet PO SCH (08:03)
[2019-05-23] MEDS: folic acid 0.4mg tablet PO SCH (08:03)
[2019-05-23] MEDS: atenolol 50mg tablet PO SCH (08:04)
[2019-05-23] MEDS: ibuprofen 200mg tablet PO PRN ×3 (08:04→21:31)
[2019-05-23] MEDS: nicotine 14mg patch - 24hr TD SCH (08:09)
--- NOTE | 2019-05-23 08:30 | NUR ---
Pt awake, ate breakfast. C/o 01/13 back and neck pain and was medicated with prn ibuprofen 600 mg at 0804. Pt was offered hygiene supplies but declined stating, "not right now." Pt requested that the head of his head be lowered and that he be handed the urinal. Encouraged pt to get up and walk to the bathroom. Pt stated he didn't know if he was able to. Observed pt get up out of bed independently and walk to the bathroom with good balance, removed urinal. Pt does appear to have some back stiffness, walked a bit hunched over with a slight limp.
--- NOTE | 2019-05-23 10:30 | NUR ---
Pt is lying in bed on his right side, appears to be sleeping.
--- NOTE | 2019-05-23 12:10 | NUR ---
Pt requesting pain medicine. Explained that his ibuprofen 600 mg is Q 6H and he can be given it again after 1400. Pt stated that if he has to wait until 2 pm then he is just going to leave. Reminded pt that he is on a 5150 hold because yesterday he was stating that he was suicidal. Pt states that he is no longer suicidal, he is not going to kill himself. Called [facility] to request a re-evaluation. Provided warm blanket folded under pt's low back.
[2019-05-23] MEDS: acetaminophen 325mg tablet PO PRN (13:07)
--- NOTE | 2019-05-23 13:12 | NUR ---
Notified Dr Rico of pt's c/o of pain. Obtained T.O. for Tylenol 650 mg PO Q 6H prn. Administered med to pt. Pt is still stating he wishes to leave. States he needs to leave by 4:00 pm so that he can go by the bank and get some money out to get a hotel. Informed pt that this RN had done what I could to expedite having the [facility] come re-evaluate him. Pt sitting up on side of bed eating his lunch.
--- NOTE | 2019-05-23 14:11 | NUR ---
Pt approached this RN at the nurses' station to request the other medicine for pain if it were time now. Administered ibuprofen 600 mg for c/o 8 back pain. Pt expressed appreciation and thanked this RN for helping.
--- NOTE | 2019-05-23 15:29 | NUR ---
Pt up to use the bathroom.
--- NOTE | 2019-05-23 15:52 | NUR ---
Pt approached the nurse's station to reiterate that he needed to leave by 4:00 so he could get to the bank. Reminded pt that today was Friday. Pt expressed surprise stating that he thought it was Friday. Asked pt if he had been staying at the [facility]. Pt stated that he stays there from time to time but he doesn't like to stay there because of the people and the language they use. 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 Pt went on to say that he was going to need something stronger than ibuprofen for tonight. Pt stated that if he knew he couldn't get a shot of pain medication (pt mentioned morphine) that he would have gone to [facility]. Had a discussion with pt about chronic pain and short term fixes for it as well as current pain management practices discouraging the use of opiates. Discussed finding a PCP to help him manage his chronic back pain. Pt seems to be in between here and [place] though states that the resources in [place] are few and he needs to be in [place] for the social security office. Pt stated that he used to have a doctor in [place] but he retired. Pt asked if we had a list of doctors accepting new patients. PCT obtained a list of doctors accepting new patients from the main ER, provided the list to pt.
--- NOTE | 2019-05-23 17:37 | NUR ---
Pt lying in bed, appears comfortable.
--- NOTE | 2019-05-23 19:00 | NUR ---
This patient has been resting quietly in bed. He ambulated to the bathroom once this evening. Patients gait was edmundo. Patient presents as well oriented, friendly, he is cooperative and medication compliant. Patient ate his dinner. Patient tells this wirter he slept well last night with the use of HS Trazatone. Patient presents as linear in thought. Patient states he still feels depressed, he states he doesn't feel suicidal here but might step in front of a car if released. Patient complains of his chronic back pain. He also smiles and states he wants to catch a bus to [place]. This patient is reminded that he is in a safe place. The patient exhibits understanding.
--- NOTE | 2019-05-23 20:00 | NUR ---
Patient is resting quietly in bed. He is in view from the nursing station.
--- NOTE | 2019-05-23 21:00 | NUR ---
Rx meds will be given including Trazadone for sleep, also Motrin for the patients chronic back pain.
[2019-05-23] MEDS: traZODone 50mg tablet PO SCH (21:31)
--- NOTE | 2019-05-23 22:00 | NUR ---
Patient has taken his nightime medications. He is now sleeping, mid fowlers position in bed. Patient is in view from the nursing station.
--- NOTE | 2019-05-24 00:15 | NUR ---
Patient is sleeping quietly in view from nursing station.
[2019-05-24] MEDS: OLANZAPINE 5 MG TABLET PO PRN ×2 (00:48→20:43)
[2019-05-24] MEDS: acetaminophen 325mg tablet PO PRN ×2 (00:49→20:43)
--- NOTE | 2019-05-24 00:56 | NUR ---
PT REPORTS HAVING SOME ANXIETY AND GENERALIZED BACK PAIN, ADMINISTERED PRN MEDICATIONS AT THIS TIME.
--- NOTE | 2019-05-24 01:53 | NUR ---
Patient sleeping on his right side in bed.
[2019-05-24] MEDS: ibuprofen 200mg tablet PO PRN (05:17)
--- NOTE | 2019-05-24 05:21 | NUR ---
Patient awoke for vital signs. Patient requested pain meds for his chronic back pain. PRN's given. Patient returned to sleep.
--- NOTE | 2019-05-24 08:42 | NUR ---
received report from PRINCE JACKSON
[2019-05-24] MEDS: nicotine 14mg patch - 24hr TD SCH (08:53)
[2019-05-24] MEDS: folic acid 0.4mg tablet PO SCH (08:54)
[2019-05-24] MEDS: venlafaxine XR 75mg capsule (Q24H) PO SCH (08:54)
[2019-05-24] MEDS: atenolol 50mg tablet PO SCH (08:55)
[2019-05-24] MEDS: thiamine 100mg tablet PO SCH (08:55)
--- NOTE | 2019-05-24 18:40 | NUR ---
pt. sitting up in bed eating dinner. no needs at this time. will continue to monitor. Addendum: 05/24/19 at 1910 by YRN note written by gasper
[2019-05-24] MEDS: traZODone 50mg tablet PO SCH (20:43)
--- NOTE | 2019-05-25 07:00 | NUR ---
resting quietly in bed.
[2019-05-25] MEDS: atenolol 50mg tablet PO SCH (08:00)
[2019-05-25] MEDS: folic acid 0.4mg tablet PO SCH (08:03)
[2019-05-25] MEDS: venlafaxine XR 75mg capsule (Q24H) PO SCH (08:03)
[2019-05-25] MEDS: thiamine 100mg tablet PO SCH (08:03)
[2019-05-25] MEDS: nicotine 14mg patch - 24hr TD SCH (08:04)
[2019-05-25 08:07] VITALS: BP 91/68
[2019-05-25] MEDS: ibuprofen 200mg tablet PO PRN (08:14)
--- NOTE | 2019-05-25 08:23 | NUR ---
pt agitated and stating he's wanting to leave. 5150 hold up at 1630. Pt states he wants to talk to someone from [facility]. Assured pt he would talk to someone today. Celestino with [facility] aware.
--- NOTE | 2019-05-25 10:00 | NUR ---
resting quietly in bed.
--- NOTE | 2019-05-25 12:09 | NUR ---
pt sitting in room quietly
== END 2019-05-25 14:55 | disposition home or self-care (01) ==
LOC: ER 14:46
DX: F10.129 Alcohol abuse with intoxication, unspecified (principal); R45.851 Suicidal ideations; M25.551 Pain in right hip; M25.561 Pain in right knee; M54.2 Cervicalgia; R51 Headache; M54.5 Low back pain; G89.29 Other chronic pain; I10 Essential (primary) hypertension; F32.9 Major depressive disorder, single episode, unspecified; Z86.69 Personal history of other diseases of the nervous system and sense organs; Z90.49 Acquired absence of other specified parts of digestive tract; Z98.890 Other specified postprocedural states; Z59.0 Homelessness; Z56.0 Unemployment, unspecified; Z79.899 Other long term (current) drug therapy; Y90.0 Blood alcohol level of less than 20 mg/100 ml; W18.39XA Other fall on same level, initial encounter; Y93.89 Activity, other specified; Y92.410 Unspecified street and highway as the place of occurrence of the external cause; Y99.8 Other external cause status
CPT/HCPCS: 36415; 73521; 80053; 80305; 80320; 81003; 85025; 96365; 99285

== ENCOUNTER 2019-05-28 12:00 | Emergency (ER) | payer MEDICARE ==
[~2019-05-28] VITALS: Ht 170.2 cm; Wt 62.0 kg
[2019-05-28] MEDS ORDERED: orphenadrine citrate 60mg/2ml inj. IM ONE (13:40)
[2019-05-28] MEDS ORDERED: ketorolac tromethamine 15mg/ml inj. IM ONE (13:40)
[2019-05-28] MEDS ORDERED: DICL100G15 TOP (13:42)
[2019-05-28] MEDS ORDERED: METH-360 PO (13:42)
[2019-05-28 14:37] LABS: BASOPHILS % (AUTO) 0.6 % (0-1); EOSINOPHILS % (AUTO) 0.2 % (0-6); HEMATOCRIT 43.9 % (42.0-52.0); HEMOGLOBIN 15.3 g/dl (14.0-17.9); LYMPHOCYTES % (AUTO) 12.7 % (21-51); MEAN CORPUSCULAR HEMOGLOBIN 34.4 PG (27.0-31.0); MEAN CORPUSCULAR HGB CONC 34.9 g/dL (33.0-36.5); MEAN CORPUSCULAR VOLUME 98.6 FL (78-98); MONOCYTES # (AUTO) 1.2 X10'3 (0-0.9); MONOCYTES % (AUTO) 14.8 % (2-12); NEUTROPHILS # (AUTO) 5.7 X10'3 (1.8-7.7); NEUTROPHILS % (AUTO) 71.7 % (42-75); PLATELET COUNT 245 X10'3 (140-440); RED BLOOD COUNT 4.45 X10'6 (4.70-6.10); RED CELL DISTRIBUTION WIDTH 14.6 % (11.5-14.5)
[2019-05-28 14:54] LABS: ALANINE AMINOTRANSFERASE 19 U/L (12-78); ALBUMIN 4.7 G/DL (3.4-5.0); ALBUMIN/GLOBULIN RATIO 1.2 (1.1-1.5); ALKALINE PHOSPHATASE 113 IU/L (46-116); ANION GAP 11 (8-16); ASPARTATE AMINO TRANSFERASE 21 U/L (10-37); BILIRUBIN,TOTAL 0.9 MG/DL (0.1-1.0); BLOOD UREA NITROGEN 13 MG/DL (7-18); BUN/CREATININE RATIO 13.8 (5.4-32.0); CALCIUM 9.4 MG/DL (8.5-10.1); CHLORIDE 101 MMOL/L (99-107); CREATININE 0.94 MG/DL (0.60-1.10); ETHANOL < 0.010 GM/DL (0.0-0.010); GLUCOSE 117 MG/DL (70-104); POTASSIUM 3.2 MMOL/L (3.5-5.1); SODIUM 141 MMOL/L (135-145); TOTAL CARBON DIOXIDE 29.3 MMOL/L (24-32); TOTAL PROTEIN 8.5 G/DL (6.4-8.2); eGFR 81 ML/MIN
--- NOTE | 2019-05-28 16:37 | NUR ---
Packet faxed to [facility]
[2019-05-28 17:03] LABS: CLARITY,URINE SLIGHTLY CLOUDY (Clear); COLOR,URINE AMBER (Yellow); GLUCOSE, URINE NEGATIVE (Neg); KETONES,URINE TRACE mg/dl (Neg); LEUKOCYTE ESTERASE ,URINE NEGATIVE (Neg); NITRITES, URINE NEGATIVE (Neg); OCCULT BLOOD,URINE NEGATIVE (Neg); PROTEIN,URINE 100 mg/dl (Neg); UA COLLECTION TYPE CLN CATCH MIDSTREAM
[2019-05-28 17:05] LABS: URINE AMPHETAMINE SCREEN NEGATIVE (Neg); URINE BARBITUATE SCREEN NEGATIVE (Neg); URINE BENZODIAZEPINES SCREEN NEGATIVE (Neg); URINE CANNABINOID SCREEN NEGATIVE (Neg); URINE COCAINE SCREEN NEGATIVE (Neg); URINE METHADONE SCREEN NEGATIVE (Neg); URINE OPIATE SCREEN NEGATIVE (Neg); URINE PHENCYCLIDINE SCREEN NEGATIVE (Neg)
[2019-05-28 17:08] LABS: BACTERIA,URINE FEW /HPF (Neg); HYALINE CASTS 0-3 /LPF (NEGATIVE); MUCUS STRANDS MANY /LPF (Neg); RBC,URINE NONE SEEN /HPF (0-2); SQUAMOUS EPITHELIAL CELL,UR FEW /LPF (FEW); WBC,URINE 0-4 /HPF (0-4)
[2019-05-28 17:27] VITALS: BP 138/87
--- NOTE | 2019-05-28 18:11 | NUR ---
relieving primary nurse for break. pt. was evaluated by mental health and the mental health worker (pari) just informed me that Barak does not meet any criteria for a hold and will inform the MD.
== END 2019-05-28 19:31 ==
LOC: ER 12:00
DX: S16.1XXA Strain of muscle, fascia and tendon at neck level, initial encounter (principal); R45.851 Suicidal ideations; I10 Essential (primary) hypertension; G89.29 Other chronic pain; F10.10 Alcohol abuse, uncomplicated; Z86.69 Personal history of other diseases of the nervous system and sense organs; Z90.49 Acquired absence of other specified parts of digestive tract; Z98.890 Other specified postprocedural states; Z90.89 Acquired absence of other organs; Z59.0 Homelessness; Z56.0 Unemployment, unspecified; Z79.899 Other long term (current) drug therapy; W18.39XA Other fall on same level, initial encounter; Y93.89 Activity, other specified; Y92.89 Other specified places as the place of occurrence of the external cause; Y99.8 Other external cause status; Y90.9 Presence of alcohol in blood, level not specified
CPT/HCPCS: 36415; 72040; 80053; 80305; 80320; 81001; 85025; 96372; 99284; J1885; J2360; 99285

== ENCOUNTER 2019-06-11 11:10 | Emergency (ER) | payer MEDICARE ==
[~2019-06-11] VITALS: Ht 172.7 cm; Wt 61.4 kg
[~2019-06-11 11:10] MED LIST changes: +DICL100G15 TOP; +METH-360 PO
[2019-06-11 11:22] VITALS: BP 125/81
[2019-06-11] MEDS ORDERED: ketorolac tromethamine 15mg/ml inj. IM ONE (12:50)
[2019-06-11] MEDS ORDERED: HYDR-4383 PO (14:15)
[2019-06-11] MEDS ORDERED: ONDA4TAB6 PO (14:15)
[2019-06-11] MEDS ORDERED: WALK1EAC55 MC (14:16)
== END 2019-06-11 14:27 | disposition home or self-care (01) ==
LOC: ER 11:11
DX: S22.068A Other fracture of T7-T8 thoracic vertebra, initial encounter for closed fracture (principal); S22.088A Other fracture of T11-T12 vertebra, initial encounter for closed fracture; M54.6 Pain in thoracic spine; I10 Essential (primary) hypertension; G89.29 Other chronic pain; F32.9 Major depressive disorder, single episode, unspecified; Z86.69 Personal history of other diseases of the nervous system and sense organs; Z90.49 Acquired absence of other specified parts of digestive tract; Z98.890 Other specified postprocedural states; Z59.0 Homelessness; Z56.0 Unemployment, unspecified; W18.09XA Striking against other object with subsequent fall, initial encounter; Y93.89 Activity, other specified; Y92.89 Other specified places as the place of occurrence of the external cause; Y99.8 Other external cause status
CPT/HCPCS: 72074; 96372; 99284; J1885

== ENCOUNTER 2019-06-14 10:30 | Emergency (ER) | payer MEDICARE ==
[~2019-06-14] VITALS: Ht 170.2 cm; Wt 60.0 kg
[~2019-06-14 10:30] MED LIST changes: +HYDR-4383 PO; +ONDA4TAB6 PO; +WALK1EAC55 MC
--- NOTE | 2019-06-14 12:58 | NUR ---
Chaperoned and witnessed a rectal exam with the provider JOSE Sinha. Pt tolerated exam well.
[2019-06-14] MEDS ORDERED: orphenadrine citrate 60mg/2ml inj. IM ONE (13:05)
[2019-06-14] MEDS ORDERED: ketorolac tromethamine 15mg/ml inj. IM ONE (13:05)
[2019-06-14] MEDS ORDERED: METH-360 PO (13:06)
[2019-06-14 13:33] VITALS: BP 139/74
== END 2019-06-14 13:37 | disposition home or self-care (01) ==
LOC: ER 10:30
DX: M54.5 Low back pain (principal); M54.6 Pain in thoracic spine; G89.29 Other chronic pain; M54.2 Cervicalgia; I10 Essential (primary) hypertension; F32.9 Major depressive disorder, single episode, unspecified; Z90.49 Acquired absence of other specified parts of digestive tract; Z98.890 Other specified postprocedural states; Z86.69 Personal history of other diseases of the nervous system and sense organs; Z59.0 Homelessness; Z56.0 Unemployment, unspecified; Z79.899 Other long term (current) drug therapy; W18.39XA Other fall on same level, initial encounter; Y93.89 Activity, other specified; Y92.89 Other specified places as the place of occurrence of the external cause; Y99.8 Other external cause status
CPT/HCPCS: 96372; 99284; J1885; J2360

== ENCOUNTER 2019-06-15 14:08 | Emergency (ER) | payer MEDICARE ==
[~2019-06-15] VITALS: Ht 170.2 cm; Wt 60.0 kg
[2019-06-15 14:25] VITALS: BP 131/78
--- NOTE | 2019-06-15 14:49 | NUR ---
PT STATES, THIS IS THE WORSE BACK PAIN, BEATRIZ EVER HAD.
[2019-06-15] MEDS ORDERED: acetaminophen 325mg tablet PO ONE (15:40)
[2019-06-15] MEDS ORDERED: HYDROcodone/acetaminophen 5mg/325mg tablet PO ONE (15:50)
[2019-06-15] MEDS ORDERED: ondansetron 4mg rapidly disintigrating tab PO ONE (15:50)
== END 2019-06-15 16:04 | disposition home or self-care (01) ==
LOC: ER 14:08
DX: M54.6 Pain in thoracic spine (principal); I10 Essential (primary) hypertension; G89.29 Other chronic pain; F32.9 Major depressive disorder, single episode, unspecified; F10.10 Alcohol abuse, uncomplicated; Z86.69 Personal history of other diseases of the nervous system and sense organs; Z90.49 Acquired absence of other specified parts of digestive tract; Z98.890 Other specified postprocedural states; Z59.0 Homelessness; Z56.0 Unemployment, unspecified; Z79.899 Other long term (current) drug therapy; Y90.9 Presence of alcohol in blood, level not specified
CPT/HCPCS: 99284

== ENCOUNTER 2019-06-16 09:32 | Emergency (ER) | payer MEDICARE ==
[~2019-06-16] VITALS: Ht 172.7 cm; Wt 65.0 kg
--- NOTE | 2019-06-16 10:52 | NUR ---
DISCUSSED PT CHRONIC AND RECENT HX WITH TERESO HUSAIN TO ORDER PROTOCOL CHEST XRAY PER [facility] LAST NIGHT, NO ADDITIONAL ORDERS RECEIVED FROM PHILIP GARCIA AT THIS TIME.
[2019-06-16] MEDS ORDERED: HYDROcodone/acetaminophen 10/325mg tab PO ONE (11:40)
--- NOTE | 2019-06-16 12:02 | NUR ---
PT MEDICATED FOR PAIN AND NOW PROVIDED PT WITH HOMELESS SACK LUNCH, ANIMAL BIOLOGIST HAS BEEN PAGED TO DISCUSS PLAN FOR DISCHARGE AND FOLLOWUP DUE TO PT RECENT INCREASE IN VISITS TO ED.
[2019-06-16 13:34] VITALS: BP 141/79
== END 2019-06-16 13:37 | disposition home or self-care (01) ==
LOC: ER 09:32
DX: R07.81 Pleurodynia (principal); G89.29 Other chronic pain; M54.6 Pain in thoracic spine; I10 Essential (primary) hypertension; F32.9 Major depressive disorder, single episode, unspecified; F10.10 Alcohol abuse, uncomplicated; Z86.69 Personal history of other diseases of the nervous system and sense organs; Z90.49 Acquired absence of other specified parts of digestive tract; Z98.890 Other specified postprocedural states; Z90.89 Acquired absence of other organs; Z59.0 Homelessness; Z56.0 Unemployment, unspecified; Z79.899 Other long term (current) drug therapy; W01.0XXA Fall on same level from slipping, tripping and stumbling without subsequent striking against object, initial encounter; Y93.89 Activity, other specified; Y92.89 Other specified places as the place of occurrence of the external cause; Y99.8 Other external cause status; Y90.9 Presence of alcohol in blood, level not specified
CPT/HCPCS: 71045; 99284

== ENCOUNTER 2019-06-16 16:23 | Emergency (ER) | payer MEDICARE ==
[~2019-06-16] VITALS: Ht 162.6 cm; Wt 150.0 kg
--- NOTE | 2019-06-16 18:22 | NUR ---
Pt brought back by MARTHA on a 5150 for DTS/SI. Pt denies currently being suicidal. He states that he got overwhelmed by "all of the people and noises outside". Awaiting assessment by .
--- NOTE | 2019-06-16 18:31 | NUR ---
Assumed care of patient from MANUEL Raymond.
--- NOTE | 2019-06-16 19:27 | NUR ---
Per Dr. Herrera and Ilan from [facility], they are releasing the patient from his 5150. Dr. Herrera is going to order Toradol for the patient for his back pain and then we will be calling for a cab to take him to the [facility].
[2019-06-16] MEDS ORDERED: ketorolac trometh. 30mg/ml inj. IM ONE (20:05)
[2019-06-16 20:11] VITALS: BP 141/84
--- NOTE | 2019-06-16 20:37 | NUR ---
[facility] called for patient to be transported to the [facility].
--- NOTE | 2019-06-16 22:07 | NUR ---
[facility] was called again to find out ETA to give pt a ride to [place]. They said they are sending someone right away.
--- NOTE | 2019-06-16 22:28 | NUR ---
Patient walked out of ED with security. [facility] is here to take patient to [facility]. [facility] was called earlier and they said the patient could stay with them.
== END 2019-06-16 22:28 | disposition home or self-care (01) ==
LOC: ER 16:24
DX: G89.29 Other chronic pain (principal); M54.5 Low back pain; F32.9 Major depressive disorder, single episode, unspecified; I10 Essential (primary) hypertension; F10.10 Alcohol abuse, uncomplicated; Z86.69 Personal history of other diseases of the nervous system and sense organs; Z90.49 Acquired absence of other specified parts of digestive tract; Z98.890 Other specified postprocedural states; Z59.0 Homelessness; Z56.0 Unemployment, unspecified; Z79.899 Other long term (current) drug therapy; Y90.9 Presence of alcohol in blood, level not specified
CPT/HCPCS: 96372; 99285; J1885

== ENCOUNTER 2019-06-22 16:49 | Inpatient (IN) | payer MEDICARE, MEDICAID ==
[~2019-06-22] VITALS: Ht 172.7 cm; Wt 65.9 kg
[2019-06-22 21:13] VITALS: BP 137/73
[2019-06-22] MEDS: hydrOXYzine 25 MG tablet PO PRN (22:22)
--- NOTE | 2019-06-23 03:52 | NUR ---
ADMIT NOTE: [facility] but presented to [facility] ED for neck pain after a fall. CT taken; results were unremarkable. Pt states he is depressed and suicidal; he has not been taking his medications. Per the 0, pt stated "If I am discharged I will go to the street and step in front of a car", adding, "I'm serious." Pt has a hx of admission at [facility], of March this year. Patient admitted to unit at 2030, brought up by Krystal Gomez. This RN and MANUEL Rodney completed a skin check, but pt stated he already took a shower. Pt changed into unit scrubs and personal attire washed. Belongings inventoried with barcoo and locked in pt locker, except for clothing, shoes and numerous letters, which were kept with the pt per his request. to do a skin check and get patient into shower. Patient refused both and requested to be taken to her room. Patient escorted to her room. MRSA swab collected and taken to the lab. Med rec and assessment completed. Pt given snacks and drink, and PRN Atarax 50mg. Addendum: 06/23/19 at 0405 by Yasmeen Burks RN Medical Hx: Depression, HTN, Chronic Back/Neck pain r/t back and neck injury/surgery, Hip Surgery (W/ metal implants). Pt uses a cane and back brace.
[2019-06-23] MEDS ORDERED: loperamide 2mg capsule PO PRN (04:20)
[2019-06-23] MEDS ORDERED: magnesium hydroxide 30ml (MOM) UD suspension PO PRN (04:20)
[2019-06-23] MEDS ORDERED: mag hydrox/Alum hydrox/simeth 30ml oral suspension PO PRN (04:20)
[2019-06-23] MEDS ORDERED: NICOTINE POLACRILEX 2 MG LOZENGE BC PRN (04:20)
[2019-06-23] MEDS ORDERED: NO HOME MEDS (04:22)
[2019-06-23 07:44] LABS: CHOL/HDL RATIO 3.1 (0.00-4.99); CHOLESTEROL 124 MG/DL (0-200); HDL CHOLESTEROL 40 MG/DL (35-60); LDL CHOLESTEROL 79 MG/DL (50-100); TRIGLYCERIDES 40 MG/DL (20-135)
[2019-06-23] MEDS: nicotine 21mg patch - 24 hr TD SCH (07:44)
[2019-06-23 08:52] VITALS: BP 119/60
[2019-06-23] MEDS: hydrOXYzine 25 MG tablet PO PRN (14:36)
[2019-06-23] MEDS: HYDROcodone/acetaminophen 5mg/325mg tablet PO PRN (16:39)
--- NOTE | 2019-06-23 16:54 | NUR ---
Nursing Progress Note: Barak Legal hold: 5150 as DTS Report received from MANUEL Perales with use of SBAR Why are they here: Pt presented to ER and stated he would, "jump out into traffic", Client has been non-compliant with medications since last discharge. Assessment: What happened this shift: Client was in bed to begin the shift and wanted, "Valium for my back". Client states that he has had several falls that have resulted in his chronically sore neck and back. Client demanded to eat breakfast in his room but was redirected and ate the meal in group room. Client has been seeking not only Valium but he also talked to the Hospitalist stating that he took, " [place] from my other Doctor". After a brief discussion between this public relations writer and the Hospitalist, no new orders were received for this client. He did ask for Atarax at 1430 and was medicated per orders. Client a bit more visible this afternoon on unit but stii guarded and suspicious of both staff and peers. No behavioral issues as of this writing. Client appears appropriate for unit and he is unable to contract for safe behavior on this unit. Client received new orders and received [place] at 1646 hours for stated back pain rated at "9" out of 10 and described as constant, sharp and located in lower back. Client also has a MOCA ordered and it will be communicated to industrial furnace fabricator that it needs to be completed.. S/I, H/I: no A/VH: denies Sleep: See sleep assessment ADL's: Independent but requires prompts. Group attendance: no Were Meds taken: Yes Any med S/E: None reported nor observed. Mental Status Exam Appearance: Green scrub top, with sheet wrapped around waist. Eye contact: Poor (Intermittent) Behavior: Cooperative, Isolative Speech: Clear, steady, audible Mood: "Good" (Pt appears unhappy) Affect:Flat Thought process: Linear Thought Content: Unable to determine as pt did not engage in conversation Cognition: A&Ox4 Insight: Poor Judgment: Poor Interventions PRN's used: Atarax Therapeutic interventions: 1:1 assessment, encouraged pt to express thoughts and feelings, monitored behavior and need for intervention, positive reassurance, medication administration/education/monitoring, Q 15 min safety checks. Restraints/seclusion/emergency medication: N/A Justification of Continued Inpatient Treatment: Patient remains unable to manage his environment. He is conserved; his packet has been sent out and [facility] is awaiting placement options. Plan is to allow medications to reach therapeutic levels, pt continues to require a safe and supportive environment.
[2019-06-23 20:00] VITALS: BP 121/70
[2019-06-23] MEDS: duloxetine 30mg CAPSULE.DR PO SCH (20:07)
[2019-06-23] MEDS: traZODone 50mg tablet PO SCH (20:07)
[2019-06-23] MEDS: docusate sod 100mg capsule PO SCH (20:07)
[2019-06-23] MEDS: naproxen sodium 220mg tablet PO SCH (20:07)
[2019-06-23] MEDS: baclofen 10mg tablet PO SCH (23:41)
--- NOTE | 2019-06-24 01:03 | NUR ---
Nursing Progress Note: Legal hold: 5150 for DTS Report received from MANUEL Montoya with use of SBAR Why are they here: Pt presented to ER and stated he would, "jump out into traffic", Client has been non-compliant with medications since last discharge. Hx Depression Assessment: What happened this shift: Pt in group room at change of shift watching TV. Pt stated his day went "okay" but he "really can't remember much anymore." Pt inquired as to the medications he would be receiving this evening; RN informed pt and he stated "Oh, good they are giving me something to help me sleep. I need my medications at eight because that is when I go to sleep." Pt is not wearing his back brace, and he stated "I did alright without it. I didn't know where it went." This RN informed pt that he may request it for use during the day should he want it, to which pt stated "Okay." Pt endorses suicidal feelings, stating "I always have a plan. It's by pipe fitter soft copper. I'll charge one." This RN approached pt to complete the MOCA assessment, pt adamantly stated he could not perform this assessment because he was "too distracted." RN informed him of the assessment and what types of questions were asked, but pt replied "I'll do it in the morning, not now." After conversation, pt returned to his room for several minutes, then came back out to the group room. Pt flagged this RN to inquire about his evening medications. This RN and pt had the same conversation regarding his HS meds that occurred no more than 15 minutes prior, but pt seemed to have no recollection. He ate snack then went to sleep after medication pass. S/I, H/I: +SI 10/14 w/ plan of suicide by pipe fitter soft copper, Denies HI A/VH: Denies Both Sleep: See sleep assessment ADL's: Independent Group attendance: N/A Were Meds taken: Yes Any med S/E: None reported nor observed Mental Status Exam Appearance: Appropriate and neat: Unit green scrubs, hair brushed, Nonskid socks Eye contact: Good (Direct) Behavior: Cooperative, Agreeable, Watching TV, Attending HS Snack Speech: Clear, steady, audible Mood: "So-So", Depression 01/13, Anxiety 03/16 Affect: Restricted Thought process: Linear Thought Content: Hoping for sleep medications Cognition: A&Ox4, Possible memory deficits - Pt to complete MOCA Insight: Poor Judgment: Poor to fair Interventions PRN's used: None Therapeutic interventions: 1:1 assessment, encouraged pt to express thoughts and feelings, monitored behavior and need for intervention, positive reassurance, medication administration/education/monitoring, Q 15 min safety checks. Restraints/seclusion/emergency medication: N/A Justification of Continued Inpatient Treatment: Need medications to reach therapeutic levels and resources set up for pt to continue to parts picker prescription outside of the hospital; pt continues to require a safe and supportive environment.
[2019-06-24] MEDS: duloxetine 30mg CAPSULE.DR PO SCH ×2 (08:03→20:40)
[2019-06-24] MEDS: naproxen sodium 220mg tablet PO SCH ×2 (08:03→20:40)
[2019-06-24] MEDS: baclofen 10mg tablet PO SCH ×2 (08:03→16:43)
[2019-06-24] MEDS: nicotine 21mg patch - 24 hr TD SCH (08:05)
[2019-06-24 08:13] VITALS: BP 95/48
[2019-06-24] MEDS: HYDROcodone/acetaminophen 5mg/325mg tablet PO PRN ×2 (11:00→19:13)
[2019-06-24] MEDS: hydrOXYzine 25 MG tablet PO PRN (13:37)
--- NOTE | 2019-06-24 17:15 | NUR ---
Nursing Progress Note: Legal hold: 5150 for DTS Report received from MANUEL Perales with use of SBAR Why are they here: Pt presented to ER and stated he would, "jump out into traffic", Client has not been taking his medications since last discharge. History Depression Assessment: What happened this shift: Pt. asleep at start of shift. Pt. took medications and requesting medication for anxiety and pain. Pt. given [place] and Atarax. 1:1 done at bedside, pt. reports SI with plan to jump in front of car. Pt. A&O to self and place but believes it is the year 1999. Pt. did know who the president was. Pt. reported feeling miserable with life circumstances, Pt. states, "the mission was horrible". Pt. did not attend groups. Pt. at times would become very tremulous, shaking hands violently, but at other times pt. had no noticible tremors. Pt. isolates to room majority of the shift. S/I, H/I: +SI Pt. reports wantign to jump on front of traffic. Denies HI A/VH: Denies Both Sleep: Pt. napped x1 on day shift. ADL's: Independent Group attendance: N/A Were Meds taken: Yes Any med S/E: None reported nor observed Mental Status Exam Appearance: Appropriate in unit scrubs. Eye contact: Good eye contact. Behavior: Cooperative, isolative. Speech: Clear, WNL Mood: Reports anxiety and depression Affect: Flat Thought process: Linear Thought Content: wanting to stay in-patient longer than 72 hour hold. Cognition: A&X2 self and place Insight: Poor Judgment: Poor to fair Interventions PRN's used: [place] and Atarax. Therapeutic interventions: 1:1 assessment, encouraged pt to express thoughts and feelings, monitored behavior and need for intervention, positive reassurance, medication administration/education/monitoring, Q 15 min safety checks. Restraints/seclusion/emergency medication: N/A Justification of Continued Inpatient Treatment: Need medications to reach therapeutic levels and resources set up for pt to continue to hop picker prescription outside of the hospital; pt continues to require a safe and supportive environment.
[2019-06-24 20:00] VITALS: BP 119/80
[2019-06-24] MEDS: risperiDONE 0.5mg tablet PO SCH (20:40)
[2019-06-24] MEDS: docusate sod 100mg capsule PO SCH (20:40)
[2019-06-24] MEDS: traZODone 50mg tablet PO SCH (20:40)
[2019-06-25] MEDS: baclofen 10mg tablet PO SCH ×3 (01:24→16:14)
--- NOTE | 2019-06-25 01:39 | NUR ---
Client had a bowel movement and was laying in feces. Saira Reyes LVN noted the client had feces on his hand at 01:10. This RN, Jason Stuart, and Saira Alvarez LVN attempted to persuade client to take a shower or cleanup in the restroom. Client refused. Client denied having a BM. Stated, "I'm not taking a shower! Let me sleep!" Jason noted in a earlier encounter that the client appeared to have redness in the sacral area. At this time (01:50) the client continued to refuse to shower or allow his bed linens to be changed. Addendum: 06/25/19 at 0537 by Funmilayo Minor RN THE ABOVE NOTE WAS ENTERED ERRONEOUSLY AND DOES NOT APPLY TO THIS CLIENT.
--- NOTE | 2019-06-25 01:40 | NUR ---
NOTE FOR 06/25 AT 01:39 WAS ENTERED ERRONEOUSLY.
--- NOTE | 2019-06-25 05:01 | NUR ---
Nursing Progress Note: Legal hold: 5150 for DTS Report received from MANUEL Chacko, with use of SBAR Why are they here: Pt presented to ER and stated he would, "jump out into traffic", Client has been non-compliant with medications since last discharge. Hx Depression Assessment: What happened this shift: Pt sitting on his bed going through paperwork at the beginning of shift. 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 Pt is pleasant and cooperative with all care. Compliant with all medication. He was observed partaking in HS snack. Pt denies SI, HI, A/VH this shift. Pt has weak gait but observed maneuvering well with cane; no tremors observed this shift. S/I, H/I: Denies A/VH: Denies Sleep: Refer to sleep assessment ADL's: Independent Group attendance: No groups this shift Were Meds taken: Yes Any med S/E: None reported nor observed Mental Status Exam Appearance: Appropriate for the unit; green unit scrubs with nonskid socks Eye contact: Direct Behavior: Pleasant, cooperative, shuffling through paperwork Speech: Clear, steady, audible Mood: "good" Affect: Congruent Thought process: Linear Thought Content: Looking for housing Cognition: A&Ox4, Possible memory deficits - Pt to complete MOCA Insight: Poor Judgment: Poor to fair Interventions PRN's used: [place] Therapeutic interventions: 1:1 assessment, encouraged pt to express thoughts and feelings, monitored behavior and need for intervention, positive reassurance, medication administration/education/monitoring, Q 15 min safety checks. Restraints/seclusion/emergency medication: N/A Justification of Continued Inpatient Treatment: Need medications to reach therapeutic levels and resources set up for pt to continue to leaf size picker prescription outside of the hospital; pt continues to require a safe and supportive environment.
[2019-06-25] MEDS: naproxen sodium 220mg tablet PO SCH ×2 (07:51→21:07)
[2019-06-25] MEDS: risperiDONE 0.5mg tablet PO SCH ×2 (07:51→21:07)
[2019-06-25] MEDS: duloxetine 30mg CAPSULE.DR PO SCH ×2 (07:52→21:07)
[2019-06-25] MEDS: loratadine 10mg tablet PO SCH (07:52)
[2019-06-25] MEDS: nicotine 21mg patch - 24 hr TD SCH (07:54)
[2019-06-25 08:00] VITALS: BP 122/74
[2019-06-25] MEDS: HYDROcodone/acetaminophen 5mg/325mg tablet PO PRN (09:15)
--- NOTE | 2019-06-25 17:15 | NUR ---
Nursing Progress Note: Legal hold: 5250 for DTS Report received from JEISON Ray with use of SBAR Why are they here: Pt presented to ER and stated he would, "jump out into traffic", Client has not been taking his medications since last discharge. History Depression Assessment: What happened this shift: Pt. asleep at start of shift. Pt. took medications and requesting pain medication and given scheduled naproxen. Pt. ate all meals in community room. Pt. reports SI with plan to run in front of traffic. Pt. denies A/V hallucinations. RN completed MOCA assessment with pt. and pt. scored 8/30, provider informed and MRI of head with and without contrast ordered. Pt. c/o of back pain rated 8/10 and given [place] with good effect. IV placed in patients R FA. Pt. is confused at times, RN needs to remind pt. multiple times of his MRI testing. Pt. is alert to self and knows he is in [place], but does not know which hospital he is in. Pt. not tremulous today. Pt. is isolative to room and does not go to groups. Pt. is social when approached. S/I, H/I: +SI Pt. reports wanting to jump on front of traffic. Denies HI A/VH: Denies Both Sleep: Pt. napped x1 on day shift. ADL's: Independent Group attendance: N/A Were Meds taken: Yes Any med S/E: None reported nor observed Mental Status Exam Appearance: Appropriate in unit scrubs. Eye contact: Good eye contact. Behavior: Cooperative, isolative. Speech: WNL Mood: Reports depression, but appears euthymic. Affect: Flat Thought process: Linear Thought Content: Focused on pain medications. Cognition: A&OX2 to self and city Insight: Poor Judgment: Poor to fair Interventions PRN's used: [place] Therapeutic interventions: 1:1 assessment, encouraged pt to express thoughts and feelings, monitored behavior and need for intervention, positive reassurance, medication administration/education/monitoring, Q 15 min safety checks. Restraints/seclusion/emergency medication: N/A Justification of Continued Inpatient Treatment: Need medications to reach therapeutic levels and resources set up for pt to continue to warp picker prescription outside of the hospital; pt continues to require a safe and supportive environment.
[2019-06-25] MEDS ORDERED: diazepam 5mg tablet PO ONE (18:35)
[2019-06-25 20:00] VITALS: BP 115/62
[2019-06-25] MEDS: docusate sod 100mg capsule PO SCH (21:07)
[2019-06-25] MEDS: traZODone 50mg tablet PO SCH (21:07)
[2019-06-26] MEDS: baclofen 10mg tablet PO SCH ×3 (00:54→15:59)
--- NOTE | 2019-06-26 05:10 | NUR ---
Nursing Progress Note: Legal hold: 5250 for DTS Report received from MANUEL Chacko, with use of SBAR Why are they here: Pt presented to ER and stated he would, "jump out into traffic", Client has been non-compliant with medications since last discharge. Hx Depression Assessment: What happened this shift: Pt observed standing in the hallway at the beginning of shift and greeting staff. Pt is pleasant and cooperative with all care; compliant with all medication. Pt scored an 8/30 on MOCA previous shift and JOSE Valladares ordered MRI. Previous shift inserted RFA IV and dsg is patent, dry and intact; IV flushed with NS this shift. Nursing supervisor quilting suggested MRI be done in the AM as a staff member needs to be present with the pt and pt was informed. Pt expressed concern about needing Valium prior to procedure and this insurance underwriter assured him he has an order in place and he appeared settled with the response. Pt engages in conversation and continues to explain work injuries, past relationship with an ex spouse and family, and his frustrations of forgetfulness. He denies SI, HI, A/VH; stating "not at this time." S/I, H/I: Denies A/VH: Denies Sleep: Refer to sleep assessment ADL's: Independent Group attendance: No groups this shift Were Meds taken: Yes Any med S/E: None reported nor observed Mental Status Exam Appearance: Appropriate for the unit; green unit scrubs with nonskid socks Eye contact: Direct Behavior: Pleasant, cooperative, shuffling through paperwork Speech: Clear, steady, audible Mood: "good" Affect: Congruent Thought process: Circumstantial Thought Content: Past injury, relationships, forgetfulness Cognition: A&Ox4, Possible memory deficits - Pt to complete MRI (MOCA score 8/30) Insight: Poor Judgment: Poor to fair Interventions PRN's used: None. Therapeutic interventions: 1:1 assessment, encouraged pt to express thoughts and feelings, monitored behavior and need for intervention, positive reassurance, medication administration/education/monitoring, Q 15 min safety checks. 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
[2019-06-26 07:56] VITALS: BP 109/69
[2019-06-26] MEDS: risperiDONE 0.5mg tablet PO SCH ×2 (08:56→20:51)
[2019-06-26] MEDS: naproxen sodium 220mg tablet PO SCH ×2 (08:56→20:52)
[2019-06-26] MEDS: duloxetine 30mg CAPSULE.DR PO SCH ×2 (08:56→20:52)
[2019-06-26] MEDS: loratadine 10mg tablet PO SCH (08:56)
[2019-06-26] MEDS: nicotine 21mg patch - 24 hr TD SCH (08:59)
[2019-06-26] MEDS: HYDROcodone/acetaminophen 5mg/325mg tablet PO PRN (15:59)
--- NOTE | 2019-06-26 17:54 | NUR ---
Nursing Progress Note: Legal hold: 5250 for DTS Report received from JEISON Jimenez with use of SBAR Why are they here: Pt presented to ER and stated he would, "jump out into traffic", Client has not been taking his medications since last discharge. History Depression Assessment: What happened this shift: Pt. asleep at start of shift. Pt. took medications and requesting pain medication and given scheduled naproxen. Pt. ate all meals in community room. 1:1 assessment done at bedside. Pt. reports SI with plan to run in front of traffic. Pt. denies A/V hallucinations. Pt. 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 Pt. reporting anxiety and given Atarax 50mg po with good effect. Pt. is isolative to his room. Pt. did not attend groups. Pt. has problems with short-term memory, forgetting what room he is in. Forgetting that he has a scheduled MRI. Repeating the same things in conversation. Pt. received Valium prior to MRI. Pt.s MRI done today which showed the followin. Again seen is a right frontal craniotomy. Please correlate why patient had a craniotomy. 2. Minimal tiny nonspecific cerebral white matter changes. 3. Mild cerebral volume loss. It is difficult to make a diagnosis of Alzheimer's on MRI. 4. Diffuse mild increased signal in the central jaspreet. This is abnormal but nonspecific. It could be from chronic changes. If patient has any acute neurologic abnormality, one possibility is central pontine myelinolysis. 5. No mass or abnormal contrast enhancement is seen. 6. Mild mucosal thickening in the left maxillary sinus. Hospitalist was contacted and RN informed that this would need to be addressed out-patient as it was non-acute. S/I, H/I: +SI Pt. reports wanting to jump on front of traffic. Denies HI A/VH: Denies Sleep: Pt. napped x2 on day shift. ADL's: Independent Group attendance: None Were Meds taken: Yes Any med S/E: None reported nor observed Mental Status Exam Appearance: Appropriate in unit scrubs. Eye contact: Good eye contact. Behavior: Cooperative, isolative. Speech: WNL Mood: euthymic with some anxiety Affect: Flat Thought process: Linear Thought Content: Concerned about memory Cognition: A&OX2 to self and city Insight: Poor Judgment: Fair Interventions PRN's used: [place] Therapeutic interventions: 1:1 assessment, encouraged pt to express thoughts and feelings, monitored behavior and need for intervention, positive reassurance, medication administration/education/monitoring, Q 15 min safety checks. Restraints/seclusion/emergency medication: N/A Justification of Continued Inpatient Treatment: Need medications to reach therapeutic levels and resources set up for pt upon discharge; pt continues to require a safe and supportive environment.
[2019-06-26] MEDS: hydrOXYzine 25 MG tablet PO PRN (19:10)
[2019-06-26] MEDS ORDERED: GADOPENTETATE DIMEGLUMINE 2.5 MMOL/5 ML VIAL IV ONE (19:53)
[2019-06-26 20:12] VITALS: BP 123/65
[2019-06-26] MEDS: traZODone 50mg tablet PO SCH (20:51)
[2019-06-26] MEDS: docusate sod 100mg capsule PO SCH (20:52)
[2019-06-27] MEDS: baclofen 10mg tablet PO SCH ×3 (00:37→16:27)
--- NOTE | 2019-06-27 02:51 | NUR ---
Nursing Progress Note: Legal hold: 5250 for DTS Report received from ROSE MARY Perkins, with use of SBAR Why are they here: Pt presented to ER and stated he would, "jump out into traffic", Client has been non-compliant with medications since last discharge. Hx Depression Assessment: What happened this shift: Pt observed sitting in group room socializing with peers at the beginning of shift. Pt pleasant and cooperative with all care; compliant with all medication.Pt explained his day as "ok." pt's conversations circumstantial. This inspector automatic typewriter asked how he felt his MRI went previous shift as he was concerned the night before. Pt began explaining chronic neck pain and previous career and falling and back to the MRI stating, "I had my scan done...no ones talked to me about it yet." Pt does not exhibit pain behaviors. Denies SI by stating "not right now and denies HI, A/VH. S/I, H/I: Denies A/VH: Denies Sleep: Refer to sleep assessment ADL's: Independent Group attendance: No groups this shift Were Meds taken: Yes Any med S/E: None reported nor observed Mental Status Exam Appearance: Appropriate for the unit; green unit scrubs with nonskid socks Eye contact: Direct Behavior: Pleasant, cooperative, shuffling through paperwork Speech: Clear, steady, audible Mood: "OK" Affect: Flat Thought process: Circumstantial Thought Content: MRI results, chronic pain, past career injury Cognition: A&Ox4, Possible memory deficits - Pt to complete MRI (MOCA score 8/30) Insight: Poor Judgment: Poor to fair Interventions PRN's used: Atarax. Therapeutic interventions: 1:1 assessment, encouraged pt to express thoughts and feelings, monitored behavior and need for intervention, positive reassurance, medication administration/education/monitoring, Q 15 min safety checks. 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
[2019-06-27] MEDS: duloxetine 30mg CAPSULE.DR PO SCH ×2 (07:27→20:45)
[2019-06-27] MEDS: naproxen sodium 220mg tablet PO SCH ×2 (07:27→20:45)
[2019-06-27] MEDS: loratadine 10mg tablet PO SCH (07:27)
[2019-06-27] MEDS: nicotine 21mg patch - 24 hr TD SCH (07:27)
[2019-06-27] MEDS: risperiDONE 0.5mg tablet PO SCH ×2 (07:27→20:45)
[2019-06-27 07:53] VITALS: BP 127/71
--- NOTE | 2019-06-27 09:35 | NUR ---
Initial: Pt admit w/ depression PO 75-100% avg regular diet meeting needs. LBM 06/25. No nutrition concerns at this time. Will continue to monitor. Rec: 1. continue regular diet 2. bowel care as needed 3. wt per rx Addendum: 06/27/19 at [address] Amended: Links added.
[2019-06-27] MEDS: acetaminophen 325mg tablet PO PRN (16:28)
--- NOTE | 2019-06-27 17:42 | NUR ---
Nursing Progress Note: Legal hold: 5250 for DTS Report received from ROSE MARY Perkins, with use of SBAR Why are they here: Pt presented to ER and stated he would, "jump out into traffic", Client has been non-compliant with medications since last discharge. Hx Depression Assessment: What happened this shift: During 1:1 patient reports that he has a very bad memory and can't even remember why he came into the hospital, with some prompting, he said oh yeah. Patient states that his depression is an 8/10. He keeps relaying that he doesn't know what to do with himself, which room to sit in. He was watching a movie with peers and football this afternoon. S/I, H/I: Denies A/VH: Denies Sleep: Napped x 2. ADL's: Independent Group attendance: a.m. group Were Meds taken: Yes Any med S/E: None reported nor observed Mental Status Exam Appearance: Iqbal haired man with facial hair wearing unit attire. Eye contact: Direct Behavior: Anxious, cooperative. Speech: Clear, steady, normal rate and rhythm. Mood: Depressed Affect: Flat Thought process: Circumstantial Thought Content: What he is supposed to be doing. Cognition: Impaired memory, otherwise intact. Insight: Poor Judgment: Poor to fair Interventions PRN's used: None. Therapeutic interventions: 1:1 assessment, encouraged pt to express thoughts and feelings, monitored behavior and need for intervention, positive reassurance, medication administration/education/monitoring, Q 15 min safety checks. Restraints/seclusion/emergency medication: N/A Justification of Continued Inpatient Treatment: Need medications to reach therapeutic levels and resources set up for pt to continue to picking supervisor prescription outside of the hospital; pt continues to require a safe and supportive environment.
[2019-06-27 20:00] VITALS: BP 117/74
[2019-06-27] MEDS: docusate sod 100mg capsule PO SCH (20:45)
[2019-06-27] MEDS: traZODone 50mg tablet PO SCH (20:45)
[2019-06-28] MEDS: baclofen 10mg tablet PO SCH ×3 (00:11→16:31)
--- NOTE | 2019-06-28 02:29 | NUR ---
Nursing Progress Note: Legal hold: 5250 for DTS Report received from ROSE MARY Chacko, with use of SBAR Why are they here: Pt presented to ER and stated he would, "jump out into traffic", Client has been non-compliant with medications since last discharge. Hx Depression Assessment: What happened this shift: Pt observed sitting in the group room watching TV at the beginning of shift. Pt is pleasant and cooperative; compliant with all medications. Pt went to bed post HS snack where he's remained for the shift. Pt denies SI, HI, A/VH. Pt more reserved in conversation this shift. S/I, H/I: Denies A/VH: Denies Sleep: Refer to sleep assessment ADL's: Independent Group attendance: No groups this shift Were Meds taken: Yes Any med S/E: None reported nor observed Mental Status Exam Appearance: Appropriate for the unit; green unit scrubs with shoes Eye contact: Direct Behavior: Pleasant, cooperative, watching TV in group room Speech: Clear, steady, audible Mood: "good" Affect: Flat Thought process: Poverty of thought Thought Content: medication Cognition: A&Ox4, Possible memory deficits - complete MRI (MOCA score 8/30) Insight: Poor Judgment: Poor to fair Interventions PRN's used: None. Therapeutic interventions: 1:1 assessment, encouraged pt to express thoughts and feelings, monitored behavior and need for intervention, positive reassurance, medication administration/education/monitoring, Q 15 min safety checks. 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
[2019-06-28 07:53] VITALS: BP 120/71
[2019-06-28] MEDS: naproxen sodium 220mg tablet PO SCH ×2 (08:27→20:15)
[2019-06-28] MEDS: risperiDONE 0.5mg tablet PO SCH ×2 (08:27→20:15)
[2019-06-28] MEDS: loratadine 10mg tablet PO SCH (08:27)
[2019-06-28] MEDS: duloxetine 30mg CAPSULE.DR PO SCH ×2 (08:27→12:43)
[2019-06-28] MEDS: LIDOcaine 5% patch TP SCH (08:27)
[2019-06-28] MEDS: hydrOXYzine 25 MG tablet PO PRN (08:33)
[2019-06-28] MEDS: nicotine 21mg patch - 24 hr TD SCH (08:34)
[2019-06-28] MEDS ORDERED: duloxetine 30mg CAPSULE.DR PO SCH (11:30)
--- NOTE | 2019-06-28 15:51 | NUR ---
Nursing Progress Note: [facility] Legal hold: 5250 expires 07/09/19 Client on voluntary/involuntary status for DTS Report received from nurse with use of CHRIS Ray RN. Why are they here: Pt presented to ER and stated he would, "jump out into traffic", Client has been non-compliant with medications since last discharge. Hx Depression Assessment What has happened this shift: Patient sleeping at change of shift. First introduction during breakfast while administering medications. States depression as a 9/10 with continued SI of jumping in front of traffic. When asked about any triggering factor to this crisis patient denies anything. Later admits that being told there is nothing to be done related to chronic back pain causes significant depression. States he lives alone but does have family who he is in contact with. Cymbalta increased, to 60mg in am and 30 mg in PM. Met with court officer for 525 hearing. S/I, H/I: SI, jump in front of traffic A/VH: Denies Sleep: 9 ADL's: Independent Group attendance:encouraged, states hard to sit due to increasing back pain Were meds taken: Yes Any med S/E Non observed or reported Mental Status Exam Appearance: Clean, neat in green scrubs, no shower Eye contact: direct Behavior: calm, cooperative, withdrawn Speech: Clear normal rate/rhythm Mood: despairing Affect:constricted Thought process: linear Thought Content: overwhelming sadness r/t chronic pain Cognition: A & O X 4 Insight: Fair Judgment: fair Interventions PRN's used: None Therapeutic interventions: Proved a calm, safe therapeutic environment, encouraged pt to attend groups and share concerns and feelings. Monitored behavior and need for intervention, ;rovided positive reassurance, medication administration, education, monitor for effectiveness of treatments and potential side effects, Q 15 min safety checks. Restraints/seclusion/emergency medication: N/A Justification of Continued Inpatient Treatment: Requires medication stabilization and resources in place to maintain compliance with medication regimen and treatment plan in order to avoid recurrence of symptoms and readmission.
[2019-06-28] MEDS: traZODone 50mg tablet PO SCH (20:15)
[2019-06-28] MEDS: docusate sod 100mg capsule PO SCH (20:15)
[2019-06-28 20:40] VITALS: BP 140/80
--- NOTE | 2019-06-28 21:35 | NUR ---
Nursing Progress Note: [facility] Legal hold: 5250 expires 07/09/19 Client on voluntary/involuntary status for DTS Report received from nurse with use of CHRIS Gibson RN. Why are they here: Pt presented to ER and stated he would, "jump out into traffic", Client has been non-compliant with medications since last discharge. Hx Depression Assessment What has happened this shift: Patient lying in bed at change of shift. First introduction during snack administering medications. States depression as a 9/10 with continued SI of jumping in front of traffic. When asked about any triggering factor to this crisis patient denies anything. Later admits that being told there is nothing to be done related to chronic back pain causes significant depression. States he lives alone but does have family who he is in contact with. Cymbalta increased, to 60mg in am and 30 mg in PM. Met with deputy clerk of court for 5249 hearing. S/I, H/I: SI, jump in front of traffic A/VH: Denies Sleep: 9 ADL's: Independent Group attendance:encouraged, states hard to sit due to increasing back pain Were meds taken: Yes Any med S/E Non observed or reported Mental Status Exam Appearance: Clean, neat in green scrubs, no shower Eye contact: direct Behavior: calm, cooperative, withdrawn Speech: Clear normal rate/rhythm Mood: despairing Affect:constricted Thought process: linear Thought Content: overwhelming sadness r/t chronic pain Cognition: A & O X 4 Insight: Fair Judgment: fair Interventions PRN's used: None Therapeutic interventions: Proved a calm, safe therapeutic environment, encouraged pt to attend groups and share concerns and feelings. Monitored behavior and need for intervention, ;rovided positive reassurance, medication administration, education, monitor for effectiveness of treatments and potential side effects, Q 15 min safety checks. Restraints/seclusion/emergency medication: N/A Justification of Continued Inpatient Treatment: Requires medication stabilization and resources in place to maintain compliance with medication regimen and treatment plan in order to avoid recurrence of symptoms and readmission.
[2019-06-29] MEDS: risperiDONE 0.5mg tablet PO SCH ×2 (07:24→20:27)
[2019-06-29] MEDS: loratadine 10mg tablet PO SCH (07:24)
[2019-06-29] MEDS: naproxen sodium 220mg tablet PO SCH ×2 (07:24→20:27)
[2019-06-29] MEDS: baclofen 10mg tablet PO SCH ×3 (07:24→16:30)
[2019-06-29] MEDS: duloxetine 30mg CAPSULE.DR PO SCH ×2 (07:24→12:04)
[2019-06-29] MEDS: nicotine 21mg patch - 24 hr TD SCH (07:25)
[2019-06-29] MEDS: LIDOcaine 5% patch TP SCH (07:25)
[2019-06-29 07:30] VITALS: BP 112/72
[2019-06-29] MEDS: hydrOXYzine 25 MG tablet PO PRN (12:58)
--- NOTE | 2019-06-29 15:33 | NUR ---
Nursing Progress Note: [place] Legal hold: 5250 expires 07/09/19 Client on voluntary/involuntary status for DTS Report received from nurse with use of CHRIS Ray RN. Why are they here: Pt presented to ER and stated he would, "jump out into traffic", Client has been non-compliant with medications since last discharge. Hx Depression Assessment What has happened this shift: Patient approached just prior ot breakfast, room was extremely cold with cold air blowing directly on to patient. Patient complained of poor sleep related to the temperature in the room. Encouraged to notify staff if and when this happens. States depression still at a 9/10, with SI and plan to jump in front of traffic. Met with Dr. Williamson in community room as he finished his breakfast, (all others were gone). Reported same mood and thoughts to provider. Entered room to assist in cleaning, found 5 unopened juice boxes under the bed with a very ripe banana and a carton of milk with stacy crackers under the bedside table. Informed patien that he is not to have food items in the room as they can attract bugs. Informed PCT and charge nurse as well. S/I, H/I: SI, jump into traffic A/VH: Denies Sleep:7 ADL's: Independent Group attendance:encouraged, states hard to sit due to increasing back pain Were meds taken: Yes Any med S/E Non observed or reported Mental Status Exam Appearance: Clean, neat in green scrubs, no shower Eye contact: direct Behavior: calm, cooperative, withdrawn Speech: Clear normal rate/rhythm Mood: despairing Affect:constricted Thought process: linear Thought Content: overwhelming sadness r/t chronic pain Cognition: A & O X 4 Insight: Fair Judgment: fair Interventions PRN's used: None Therapeutic interventions: Proved a calm, safe therapeutic environment, encouraged pt to attend groups and share concerns and feelings. Monitored behavior and need for intervention, ;rovided positive reassurance, medication administration, education, monitor for effectiveness of treatments and potential side effects, Q 15 min safety checks. Restraints/seclusion/emergency medication: N/A Justification of Continued Inpatient Treatment: Requires medication stabilization and resources in place to maintain compliance with medication regimen and treatment plan in order to avoid recurrence of symptoms and readmission.
[2019-06-29 20:00] VITALS: BP 116/65
[2019-06-29] MEDS ORDERED: traZODone 50mg tablet PO SCH (20:00)
[2019-06-29] MEDS: docusate sod 100mg capsule PO SCH (20:27)
--- NOTE | 2019-06-29 21:37 | NUR ---
Nursing Progress Note: [facility] Legal hold: 5250 expires 07/09/19 Client on voluntary/involuntary status for DTS Report received from nurse RN with use of SBAR Why are they here: Pt presented to ER and stated he would, "jump out into traffic", Client has been non-compliant with medications since last discharge. Hx Depression Assessment What has happened this shift: Patient was in bed a change of shift. States depression still at a 9/10, with SI and plan to jump in front of traffic. Day shift reports Pt is hoarding food found 5 unopened juice boxes under the bed with a very ripe banana and a carton of milk with stacy crackers under the bedside table. Informed patien that he is not to have food items in the room as they can attract bugs. Informed PCT and charge nurse as well. S/I, H/I: SI, jump into traffic A/VH: Denies Sleep:7 ADL's: Independent Group attendance:encouraged, states hard to sit due to increasing back pain Were meds taken: Yes Any med S/E Non observed or reported Mental Status Exam Appearance: Clean, neat in green scrubs, no shower Eye contact: direct Behavior: calm, cooperative, withdrawn Speech: Clear normal rate/rhythm Mood: despairing Affect:constricted Thought process: linear Thought Content: overwhelming sadness r/t chronic pain Cognition: A & O X 4 Insight: Fair Judgment: fair Interventions PRN's used: None Therapeutic interventions: Proved a calm, safe therapeutic environment, encouraged pt to attend groups and share concerns and feelings. Monitored behavior and need for intervention, ;rovided positive reassurance, medication administration, education, monitor for effectiveness of treatments and potential side effects, Q 15 min safety checks. Restraints/seclusion/emergency medication: N/A Justification of Continued Inpatient Treatment: Requires medication stabilization and resources in place to maintain compliance with medication regimen and treatment plan in order to avoid recurrence of symptoms and readmission.
[2019-06-29 22:04] VITALS: BP 116/65
[2019-06-30 07:29] VITALS: BP 100/58
[2019-06-30] MEDS: baclofen 10mg tablet PO SCH ×3 (08:18→16:30)
[2019-06-30] MEDS: LIDOcaine 5% patch TP SCH (08:18)
[2019-06-30] MEDS: risperiDONE 0.5mg tablet PO SCH ×2 (08:18→20:20)
[2019-06-30] MEDS: loratadine 10mg tablet PO SCH (08:18)
[2019-06-30] MEDS: duloxetine 30mg CAPSULE.DR PO SCH ×2 (08:18→12:43)
[2019-06-30] MEDS: naproxen sodium 220mg tablet PO SCH ×2 (08:18→20:20)
[2019-06-30] MEDS: nicotine 21mg patch - 24 hr TD SCH (08:21)
[2019-06-30] MEDS ORDERED: tizanidine 4mg tablet PO PRN ×2 (08:30→09:05)
--- NOTE | 2019-06-30 14:36 | NUR ---
Nursing Progress Note: Legal hold: 5250 expires 07/09/19 Client on involuntary status for DTS Report received from nurse Angella JACKSON with use of SBAR Why are they here: Pt presented to ER and stated he would, "jump out into traffic", Client has been non-compliant with medications since last discharge. Hx Depression Assessment What has happened this shift: Pt was up for breakfast, cooperative with assessments and meds. Pt rated his depression at a 7/10. He continues to endorse SI with a plan to step in front of a car. Pt wanted to know what Cymbalta was for. Medication education provided. Pt's Trazodone was increased to 150 mg daily at 1999, and prn Zanaflex was added. Lidocaine patch applied to low back per order. No unsafe behaviors noted. S/I, H/I: Pt denies HI, +SI with plan to step in front of a car. A/VH: Pt denies Sleep: Pt slept 8 hours per noc shift report, napped after meals. ADL's: Independent Group attendance: No Were meds taken: Yes Any med S/E: Non reported or observed. Mental Status Exam Appearance: Clean, neat in green scrubs. Eye contact: Good Behavior: calm, cooperative, isolative to self Speech: Clear, audible, normal rate/rhythm, minimal Mood: Depressed Affect: Blunted Thought process: linear Thought Content: Wanting to know why he is on Cymbalta. Cognition: A/O X 3 Insight: Fair Judgment: Fair Interventions PRN's used: None Therapeutic interventions: 1:1 assessment, therapeutic conversation, medication administration/education/monitoring, encouragement to participate in groups and unit activities, pain management, Q 15 min safety checks. Restraints/seclusion/emergency medication: N/A Justification of Continued Inpatient Treatment: Pt in need of crisis stabilization and medication adjustment/monitoring in a safe and therapeutic environment in order to avoid recurrence of symptoms and readmission.
[2019-06-30] MEDS: docusate sod 100mg capsule PO SCH (20:20)
[2019-06-30] MEDS: traZODone 50mg tablet PO SCH (20:21)
[2019-06-30 20:54] VITALS: BP 125/84
--- NOTE | 2019-06-30 21:35 | NUR ---
Nursing Progress Note: Legal hold: 5250 expires 07/09/19 Client on involuntary status for DTS Report received from nurse Rashaun JACKSON with use of SBAR Why are they here: Pt presented to ER and stated he would, "jump out into traffic", Client has been non-compliant with medications since last discharge. Hx Depression Assessment What has happened this shift: Pt was up for dinner then returned to bed. He continues to endorse SI with a plan to step in front of a car. Pt's Trazodone was increased to 150 mg daily at 1999, and prn Zanaflex was added. Lidocaine patch applied to low back per order and removed at Hs. No unsafe behaviors noted. S/I, H/I: Pt denies HI, +SI with plan to step in front of a car. A/VH: Pt denies Sleep: Pt slept 8 hours per noc shift report, napped after meals. ADL's: Independent Group attendance: No Were meds taken: Yes Any med S/E: Non reported or observed. Mental Status Exam Appearance: Clean, neat in green scrubs. Eye contact: Good Behavior: calm, cooperative, isolative to self Speech: Clear, audible, normal rate/rhythm, minimal Mood: Depressed Affect: Blunted Thought process: linear Thought Content: Wanting to know why he is on Cymbalta. Cognition: A/O X 3 Insight: Fair Judgment: Fair Interventions PRN's used: None Therapeutic interventions: 1:1 assessment, therapeutic conversation, medication administration/education/monitoring, encouragement to participate in groups and unit activities, pain management, Q 15 min safety checks. Restraints/seclusion/emergency medication: N/A Justification of Continued Inpatient Treatment: Pt in need of crisis stabilization and medication adjustment/monitoring in a safe and therapeutic environment in order to avoid recurrence of symptoms and readmission.
[2019-07-01 07:00] LABS: POTASSIUM 4.1 MMOL/L (3.5-5.1)
[2019-07-01 08:00] VITALS: BP 98/52
[2019-07-01] MEDS: loratadine 10mg tablet PO SCH (08:13)
[2019-07-01] MEDS: risperiDONE 0.5mg tablet PO SCH ×2 (08:13→20:18)
[2019-07-01] MEDS: naproxen sodium 220mg tablet PO SCH ×2 (08:13→20:18)
[2019-07-01] MEDS: baclofen 10mg tablet PO SCH ×3 (08:13→17:11)
[2019-07-01] MEDS: LIDOcaine 5% patch TP SCH (08:14)
[2019-07-01] MEDS: duloxetine 30mg CAPSULE.DR PO SCH ×2 (08:14→12:31)
[2019-07-01] MEDS: nicotine 21mg patch - 24 hr TD SCH (08:14)
--- NOTE | 2019-07-01 14:58 | NUR ---
Nursing Progress Note: Legal hold: 5250 expires 07/09/19 Client on involuntary status for DTS Report received from nurse Perales RN with use of SBAR Why are they here: Pt presented to ER and stated he would, "jump out into traffic", Client has been non-compliant with medications since last discharge. Hx Depression Assessment What has happened this shift: When asked how his depression was today, pt replied, "about the same." When asked if he was still having suicidal thoughts pt replied, "sometimes." Pt contracts for safety here. Pt reported not sleeping well last night. Suggested he try to stay awake more during the day as he slept for most of the day yesterday. Pt up for meals, continued to return to room/bed afterwards, refuses to go to groups. Pt continues to gale food; found 2 full milks and an orange juice box under his bed as well as 2 cups of lemonade on his bedside table this morning after breakfast. Pt protested, "what? I can't have my milk?" Reinforced the unit rules that only water is allowed in the room. K and Mag levels drawn today: WNL. S/I, H/I: Pt denies HI, continues to have SI "sometimes." A/VH: Pt denies Sleep: Pt slept 8 hours per noc shift report though pt reported not sleeping well last night,continues to nap for long periods of time after meals. ADL's: Independent Group attendance: No Were meds taken: Yes Any med S/E: Non reported or observed. Mental Status Exam Appearance: Clean, neat in green scrubs. Eye contact: Good Behavior: Quiet, isolative to self & room Speech: Clear, audible, normal rate/rhythm, minimal Mood: Depressed Affect: Blunted Thought process: linear Thought Content: Wonders why he can't keep milk in his room under his bed. Cognition: A/O X 3 Insight: Fair Judgment: Poor Interventions PRN's used: None Therapeutic interventions: 1:1 assessment, therapeutic conversation, medication administration/education/monitoring, encouragement to participate in groups and unit activities, encouragement to remain awake during the day,limit setting, Q 15 min safety checks. Restraints/seclusion/emergency medication: N/A Justification of Continued Inpatient Treatment: Pt in need of crisis stabilization and medication adjustment/monitoring in a safe and therapeutic environment in order to avoid recurrence of symptoms and readmission.
[2019-07-01 19:00] VITALS: BP 129/78
[2019-07-01] MEDS: docusate sod 100mg capsule PO SCH (20:19)
[2019-07-01] MEDS: tizanidine 4mg tablet PO SCH (20:19)
[2019-07-01] MEDS: traZODone 50mg tablet PO SCH (20:19)
[2019-07-01] MEDS: hydrOXYzine 25 MG tablet PO PRN (20:19)
--- NOTE | 2019-07-02 01:40 | NUR ---
Nursing Progress Note: Legal hold: 5250 expires 07/09/19 Client on involuntary status for DTS Report received from nurse Rashaun JACKSON with use of SBAR Why are they here: Pt presented to ER and stated he would, "jump out into traffic", Client has been non-compliant with medications since last discharge. Hx Depression Assessment What has happened this shift: Pt was in bed during shift change. States that he didn't have such great day. Pt remained isolative to self and remained in his room for most of the evening and night. Pt was cooperative during 1:1 physical assessment and took all his HS meds without any issues. Pt enforces S/I and states that he knows he wont do anything here but if he were to go, out he would "call the wafer fab operator and charge at the them so they can shoot me." Patient denies H/I. Pt denies A/H but he states that sometimes he sees people that aren't there. Pt states his anxiety level is an 8/10. He states that he is anxious about being here and not knowing what's going on with his family. Pt was also complaining of itchiness and an Atarax was administered with good effect. 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 Pt states that is mood is mainly depressed. His lidocaine and nicotine patch were removed before he went to sleep. S/I, H/I: Pt states that he still feel suicidal, plan to call wafer fab operator when he's out and charge at them so they can shoot at him. A/VH: Pt denies A/H but states that he sometimes sees people that aren't really there. Sleep: See sleep assessment ADL's: Independent, uses cane Group attendance: None during documentation billing clerk Were meds taken: Yes Any med S/E: Non reported or observed. Mental Status Exam Appearance: Clean, neat in green scrubs, hair is well kept. Eye contact: Good Behavior: calm, anxious, cooperative, isolative to self Speech: Clear, audible, normal rate/rhythm, minimal Mood: "sad" Affect: Blunted Thought process: linear Thought Content: not knowing what's going on with his family Cognition: A/O X 3 Insight: Fair Judgment: Fair Interventions PRN's used: None Therapeutic interventions: 1:1 assessment, therapeutic conversation, medication administration/education/monitoring, encouragement to participate in groups and unit activities, pain management, Q 15 min safety checks. Restraints/seclusion/emergency medication: N/A Justification of Continued Inpatient Treatment: Pt in need of crisis stabilization and medication adjustment/monitoring in a safe and therapeutic environment in order to avoid recurrence of symptoms and readmission.
[2019-07-02] MEDS ORDERED: tuberculin, purif. prot. deriv. 5 units/0.1ml ID ONE (07:20)
[2019-07-02 08:00] VITALS: BP 112/69
[2019-07-02] MEDS: tizanidine 4mg tablet PO SCH ×3 (08:02→20:09)
[2019-07-02] MEDS: duloxetine 30mg CAPSULE.DR PO SCH ×2 (08:02→12:57)
[2019-07-02] MEDS: LIDOcaine 5% patch TP SCH (08:02)
[2019-07-02] MEDS: naproxen sodium 220mg tablet PO SCH ×2 (08:02→20:09)
[2019-07-02] MEDS: risperiDONE 0.5mg tablet PO SCH ×2 (08:02→20:09)
[2019-07-02] MEDS: loratadine 10mg tablet PO SCH (08:02)
[2019-07-02] MEDS: nicotine 21mg patch - 24 hr TD SCH (08:06)
[2019-07-02] MEDS ORDERED: DOCU100C40 PO (10:40)
[2019-07-02] MEDS ORDERED: NICO-687 TD (10:40)
[2019-07-02] MEDS ORDERED: LORA10TA65 PO (10:40)
[2019-07-02] MEDS ORDERED: DULO30CA52 PO ×2 (10:40)
[2019-07-02] MEDS ORDERED: LIDO700A47 TP (10:40)
[2019-07-02] MEDS ORDERED: TIZA4TAB5 PO (10:40)
[2019-07-02] MEDS ORDERED: NAPR220T67 PO (10:40)
[2019-07-02] MEDS ORDERED: TRAZ-251 PO (10:40)
[2019-07-02] MEDS ORDERED: RISP0.5T3 PO (10:40)
[2019-07-02] MEDS ORDERED: NICO-668 BC (10:40)
--- NOTE | 2019-07-02 11:51 | NUR ---
Discharge-CM/Linkages Presenting Issues: Pt's accepted @ [facility] w/plan to d/c from [facility] & to [facility] next Friday. Interventions: CM-DCP SS met w/pt informed him of pending [facility] acceptance, pt did not remember previous discussion w/SS re referral to [facility], but is agreeable to go there upon d/c from [facility]. Pt signed LIZZETTE for the release of healthcare info to [facility]. SS will consult with attending PA to complete the Physician Report & obtain medication orders & fax to [facility] Plan: SS to f/u w/attending PA & [facility]. Carley Valiente LCSW Addendum: 07/02/19 at 1214 by Carley Valiente Amended: Links added.
--- NOTE | 2019-07-02 13:33 | NUR ---
Nursing Progress Note: Legal hold: 5250 expires 07/09/19 Client on involuntary status for DTS Report received from nurse Justina JACKSON with use of SBAR Why are they here: Pt presented to ER and stated he would, "jump out into traffic", Client has been non-compliant with medications since last discharge. Hx Depression Assessment What has happened this shift: Pt stated that his depression was "about the same" today. When asked pt if he was having any suicidal thoughts he replied, "yes," asked pt what kind of thoughts. He replied, "I don't know, I don't think about it all the time." Pt continues to gale food in his room. PCT found 4 juice boxes, 2 packs of stacy crackers, an applesauce, 2 spoons, and 4 cups of lemonade or water from meal trays in his room. Several of the items had been stashed under his bed. Set limits and reinforced the unit rules. Pt continues to isolate to self and bed. He only leaves his room for meals. S/I, H/I: Pt denies HI, vague intermittent SI A/VH: Pt denies Sleep: Pt slept 7 hours per noc shift report though pt reports he did not sleep because of back pain. ADL's: Independent Group attendance: No Were meds taken: Yes Any med S/E: Non noted or observed. Mental Status Exam Appearance: Clean, neat in green scrubs and alvarez sweatshirt. Eye contact: Good Behavior: Quiet, isolative to self & room Speech: Clear, audible, normal rate/rhythm, minimal Mood: Depressed Affect: Blunted Thought process: linear Thought Content: Wants to eat and sleep Cognition: A/O X 3 Insight: Fair Judgment: Poor Interventions PRN's used: None Therapeutic interventions: 1:1 assessment, therapeutic conversation, medication administration/education/monitoring, encouragement to participate in groups and unit activities, encouragement to remain awake during the day, limit setting, education/reinforcement of unit rules, Q 15 min safety checks. Restraints/seclusion/emergency medication: N/A Justification of Continued Inpatient Treatment: Pt in need of crisis stabilization and medication adjustment/monitoring in a safe and therapeutic environment in order to avoid recurrence of symptoms and readmission. Pt has been accepted at the [facility], plan is for him to discharge there on Friday.
--- NOTE | 2019-07-02 13:44 | NUR ---
Discharge: dcp Presenting Issues: Pt's accepted @ [facility] & is agreeable to going there. Interventions: CM-Continuity of Care SS consulted w/attending PA & finalize pt's dcp, per consultation, Physician's Report completed & faxed to [facility] to facilitate pt's transportation to [facility] upon d/c from [facility]. SS also had t/c [facility] @ [facility] to review costs of pt's meds, per t/c the pharmacy will be holding all OTCs meds as they are not covered by pt's insurance, the Lidocaine patches are also on hold. Plan: Pt to d/c on Friday & will be transported to [facility] @ [facility]. Carley Valiente LCSW Addendum: 07/02/19 at 1415 by Carley Valiente Amended: Links added.
[2019-07-02 19:00] VITALS: BP 136/81
[2019-07-02] MEDS: HYDROcodone/acetaminophen 5mg/325mg tablet PO PRN (19:01)
[2019-07-02] MEDS: traZODone 50mg tablet PO SCH (20:09)
[2019-07-02] MEDS: docusate sod 100mg capsule PO SCH (20:12)
--- NOTE | 2019-07-03 00:53 | NUR ---
vanna Progress Note: Legal hold: 5250 expires 07/09/19 Client on involuntary status for DTS Report received from nurse Rashaun JACKSON with use of SBAR Why are they here: Pt presented to ER and stated he would, "jump out into traffic", Client has been non-compliant with medications since last discharge. Hx Depression Assessment What has happened this shift: Pt was in his room during shift change. Later pt came up to this commercial insurance underwriter and asked something for his pain as he rated it as 8/10. One [place] was administered with good effect. Pt asked this commercial insurance underwriter and several other people when his HS meds were going to be given to him. Pt was cooperative during 1:1 physical assessment and took all his HS meds without any issues. Pt denies S/I and hallucinations of any type. Pt states that his overall mood is confused. When asked about what he is confused he states "my family, specially my mom. She has gotten too hard to deal with. She doesn't want to talk to me or my sister and when we come to see her she doesn't open the door." He started to talk about how she wasn't around as much when he was growing up and his grandmother is the one who took care of him and his sister. Pt got sad as he was saying this. This commercial insurance underwriter provided some more therapeutic listening. Pt remained isolative to his room for the rest of the night. Nicotine and Lidoderm patches were removed prior to pt going to sleep. S/I, H/I: Pt is denying at this time A/VH: Pt denies Sleep: Currently sleeping. See sleep assessment for total hours ADL's: Independent, uses cane Group attendance: None during assistant casino shift manager Were meds taken: Yes Any med S/E: Non reported or observed. Mental Status Exam Appearance: Clean, neat in green scrubs, hair is well kept. Eye contact: Good Behavior: calm, cooperative, isolative to self Speech: Clear, audible, normal rate/rhythm, minimal Mood: "sad", confused Affect: Blunted Thought process: linear Thought Content: his mom not wanting to talk to him or see him Cognition: A/O X 3 Insight: Fair Judgment: Fair Interventions PRN's used: None Therapeutic interventions: 1:1 assessment, therapeutic conversation, medication administration/education/monitoring, encouragement to participate in groups and unit activities, pain management, Q 15 min safety checks. Restraints/seclusion/emergency medication: N/A Justification of Continued Inpatient Treatment: Pt in need of crisis stabilization and medication adjustment/monitoring in a safe and therapeutic environment in order to avoid recurrence of symptoms and readmission.
[2019-07-03] MEDS: naproxen sodium 220mg tablet PO SCH ×2 (08:07→21:29)
[2019-07-03] MEDS: duloxetine 30mg CAPSULE.DR PO SCH ×2 (08:08→12:46)
[2019-07-03] MEDS: loratadine 10mg tablet PO SCH (08:08)
[2019-07-03] MEDS: tizanidine 4mg tablet PO SCH ×3 (08:08→21:28)
[2019-07-03] MEDS: risperiDONE 0.5mg tablet PO SCH ×2 (08:08→21:28)
[2019-07-03] MEDS: nicotine 21mg patch - 24 hr TD SCH (08:26)
[2019-07-03] MEDS: LIDOcaine 5% patch TP SCH (08:27)
[2019-07-03 08:29] VITALS: BP 103/70
--- NOTE | 2019-07-03 17:35 | NUR ---
Nursing Progress Note: Legal hold: 5250 expires 07/09/19 Client on involuntary status for DTS Report received from [facility] RN with use of SBAR Why are they here: Pt presented to ER and stated he would, "jump out into traffic", Client has been non-compliant with medications since last discharge. Hx Depression Assessment What has happened this shift: Pt was in bed at beginning of shift. Per tech as she was doing vitals pt was in a verbal argument with roomate and tech encouraged roomate to go to dining room. Pt came to breakfast and took medications without complication. Pt went to bed after breakfast. When pt woke up Pt was encouraged to get up and do some kind of activity. Pt states my leg hurts, I dont really want to. Pt states he feels depressed with life in general and is a little suicidal but denies HI. He denies AV/H. He states later my memory is terrible, I will forget this conversation as soon as you leave. He talked with this RN about his father who would stay at the [facility] in [place] for 8-10 hours a day when pt was young, and his mother who does not like him or want to see him or his sister. 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 RN provided therapeutic listening. S/I, H/I: A little suicidal, just the same plan A/VH: Pt denies Sleep: 7.5 h per [facility] shift report, naps throughout the day ADL's: Independent, uses cane, needs encouragement for shower Group attendance: No Were meds taken: Yes Any med S/E: Non reported or observed. Mental Status Exam Appearance: Dressed in green scrubs. Eye contact: Good Behavior: calm, cooperative, isolative to self Speech: Clear, audible, normal rate/rhythm, minimal Mood: "sad", depressed about life in general Affect: Blunted Thought process: Circumstantial Thought Content: Fixates on food. Cognition: A/O X 3 Insight: Fair Judgment: Fair Interventions PRN's used: None Therapeutic interventions: 1:1 assessment, therapeutic conversation, medication administration/education/monitoring, encouragement to participate in groups and unit activities, pain management, Q 15 min safety checks. Restraints/seclusion/emergency medication: N/A Justification of Continued Inpatient Treatment: Pt in need of crisis stabilization and medication adjustment/monitoring in a safe and therapeutic environment in order to avoid recurrence of symptoms and readmission.
[2019-07-03 20:00] VITALS: BP 122/68
[2019-07-03] MEDS: gabapentin 300mg capsule PO SCH (21:28)
[2019-07-03] MEDS: traZODone 50mg tablet PO SCH (21:28)
[2019-07-03] MEDS: docusate sod 100mg capsule PO SCH (21:28)
--- NOTE | 2019-07-03 23:12 | NUR ---
Nursing Progress Note: Legal hold: 5250 expires 07/09/19 Client on involuntary status for DTS Report received from nurse Rafael RN with use of SBAR Why are they here: Pt presented to ER and stated he would, "jump out into traffic", Client has been non-compliant with medications since last discharge. Hx Depression Assessment What has happened this shift: Pt isolates to his room the entirety of the shift and lays in bed. Pt makes fair eye contact and is cooperative with 1:1 assessment. He is medication compliant but appears slightly agitated. When asked if he is feeling suicidal he responds, "no but I am feeling homicidal because my roommate won't stop snoring!." Pt given ear plugs, which seemed to appease pt. Pt was able to fall asleep shorty after. S/I, H/I: Pt is denying at this time A/VH: Pt denies Sleep: See sleep assessment for total hours ADL's: Independent, uses cane Group attendance: None during manufacturing supervisor 2nd shift Were meds taken: Yes Any med S/E: Non reported or observed. Mental Status Exam Appearance: Clean, neat in green scrubs, hair is well kept. Eye contact: Good Behavior: calm, cooperative, isolative to self Speech: Clear, audible, normal rate/rhythm, minimal Mood: "sad", confused Affect: Blunted Thought process: linear Thought Content: his mom not wanting to talk to him or see him Cognition: A/O X 3 Insight: Fair Judgment: Fair Interventions PRN's used: None Therapeutic interventions: 1:1 assessment, therapeutic conversation, medication administration/education/monitoring, encouragement to participate in groups and unit activities, pain management, Q 15 min safety checks. Restraints/seclusion/emergency medication: N/A Justification of Continued Inpatient Treatment: Pt in need of crisis stabilization and medication adjustment/monitoring in a safe and therapeutic environment in order to avoid recurrence of symptoms and readmission.
[2019-07-04 07:30] VITALS: BP 101/62
[2019-07-04] MEDS: tizanidine 4mg tablet PO SCH ×3 (07:49→20:10)
[2019-07-04] MEDS: risperiDONE 0.5mg tablet PO SCH ×2 (07:49→20:10)
[2019-07-04] MEDS: loratadine 10mg tablet PO SCH (07:49)
[2019-07-04] MEDS: nicotine 21mg patch - 24 hr TD SCH (07:49)
[2019-07-04] MEDS: naproxen sodium 220mg tablet PO SCH ×2 (07:49→20:10)
[2019-07-04] MEDS: duloxetine 30mg CAPSULE.DR PO SCH ×2 (07:50→11:48)
[2019-07-04] MEDS: LIDOcaine 5% patch TP SCH (07:50)
--- NOTE | 2019-07-04 11:13 | NUR ---
Nursing Progress Note: Legal hold: 5250 expires 07/09/19 Client on involuntary status for DTS Report received from nurse Melissa JACKSON with use of SBAR Why are they here: Pt presented to ER and stated he would, "jump out into traffic", Client has been non-compliant with medications since last discharge. Hx Depression Assessment What has happened this shift: Pt was up for change of shift. He ate breakfast and was compliant with assessment and medications. He states he is not doing very well. At first he said he would take a showert after breakfast, but ended up getting back into bed and staying there for most of the day. He feels like the medications he is on are working but he thinks they should be increased. His affect is very flat and he continues to endorse suicidal ideation. S/I, H/I: Endorses SI, denies HI A/VH: Pt denies Sleep: "I wake up a lot" ADL's: Independent Group attendance: No Were meds taken: Yes Any med S/E: None were noted or observed. Mental Status Exam Appearance: Disheveld, dirty, uncombed hair, unshaven Eye contact: Fair Behavior: Quiet, isolative to self & room Speech: Soft, clear, mumbles, normal rhythmn Mood: "I am suicidal. I want to step in front of a car." Affect: flat Thought process: Slowed Thought Content: Fixated on sleeping and pain Cognition: A/O X 3 Insight: Poor Judgment: Poor Interventions PRN's used: Tylenol, atarax Therapeutic interventions: 1:1 assessment, therapeutic conversation, medication administration/education/monitoring, encouragement to participate in groups and unit activities, encouragement to remain awake during the day, limit setting, education/reinforcement of unit rules, Q 15 min safety checks. Restraints/seclusion/emergency medication: N/A Justification of Continued Inpatient Treatment: Pt in need of crisis stabilization and medication adjustment/monitoring in a safe and therapeutic environment in order to avoid recurrence of symptoms and readmission. Pt has been accepted at the [facility], plan is for him to discharge there on Friday.
[2019-07-04] MEDS: hydrOXYzine 25 MG tablet PO PRN (11:48)
[2019-07-04] MEDS: acetaminophen 325mg tablet PO PRN (11:50)
[2019-07-04 19:40] VITALS: BP 123/78
[2019-07-04] MEDS: traZODone 50mg tablet PO SCH (20:09)
[2019-07-04] MEDS: gabapentin 300mg capsule PO SCH (20:10)
[2019-07-04] MEDS: docusate sod 100mg capsule PO SCH (20:10)
--- NOTE | 2019-07-05 01:08 | NUR ---
Nursing Progress Note: Legal hold: 5250 expires 07/09/19 Client on involuntary status for DTS Report received from nurse Rashaun JACKSON with use of SBAR Why are they here: Pt presented to ER and stated he would, "jump out into traffic", Client has been non-compliant with medications since last discharge. Hx Depression Assessment What has happened this shift: Pt isolates to his room most of the shift and only comes out inquiring about HS medications. Pt s pleasant on assessment and tells procedure writer about his family history, the [facility] [place], and how his mother is Jehovah witness . Pt repeats himself at times but is linear throughout conversation. He Is medication compliant and cooperative with physical assessment. He shakes writers hand and thanks procedure writer for listening to him. S/I, H/I: Pt is denying at this time A/VH: Pt denies Sleep: See sleep assessment for total hours ADL's: Independent, uses cane Group attendance: None during rn night Were meds taken: Yes Any med S/E: Non reported or observed. Mental Status Exam Appearance: Clean, neat in green scrubs, hair is well kept. Eye contact: Good Behavior: calm, cooperative Speech: Clear, audible, normal rate/rhythm, minimal Mood: talkative Affect: some brightening Thought process: linear Thought Content: his family history Cognition: A/O X 3 Insight: Fair Judgment: Fair Interventions PRN's used: None Therapeutic interventions: 1:1 assessment, therapeutic conversation, medication administration/education/monitoring, encouragement to participate in groups and unit activities, pain management, Q 15 min safety checks. Restraints/seclusion/emergency medication: N/A Justification of Continued Inpatient Treatment: Pt in need of crisis stabilization and medication adjustment/monitoring in a safe and therapeutic environment in order to avoid recurrence of symptoms and readmission.
[2019-07-05] MEDS: HYDROcodone/acetaminophen 5mg/325mg tablet PO PRN (07:04)
[2019-07-05 07:50] VITALS: BP 106/60
[2019-07-05] MEDS: naproxen sodium 220mg tablet PO SCH ×2 (08:08→20:40)
[2019-07-05] MEDS: duloxetine 30mg CAPSULE.DR PO SCH ×2 (08:08→13:06)
[2019-07-05] MEDS: loratadine 10mg tablet PO SCH (08:08)
[2019-07-05] MEDS: tizanidine 4mg tablet PO SCH ×3 (08:08→20:41)
[2019-07-05] MEDS: risperiDONE 0.5mg tablet PO SCH ×2 (08:09→20:41)
[2019-07-05] MEDS: nicotine 21mg patch - 24 hr TD SCH (08:09)
[2019-07-05] MEDS: LIDOcaine 5% patch TP SCH (08:11)
--- NOTE | 2019-07-05 11:17 | NUR ---
JEANINE DENISE Presenting Issues: Pt's scheduled to go to [facility] this AM, attending physician informed SS that pt's meds are getting adjusted and pt will need to move d/c out by another 2 days. Interventions: CM/noa/Linkages SS had t/c w/Osmel- [facility]'s PM @ [phone] and informed him of pt's needing to another 2-day inpt and requested that [facility] hold pt's bed until . Per t/c, [facility] will hold be until however, if pt does not d/c by , pt may lose bed. [place] team & physician informed. Plan: SS will coordinate transportation to [facility] w/[facility] office when pt is ready to d/c. Carley Calzada LCSW Addendum: 07/05/19 at 1130 by Carley Valiente Amended: Links added.
[2019-07-05] MEDS: acetaminophen 325mg tablet PO PRN (13:07)
--- NOTE | 2019-07-05 17:36 | NUR ---
Nursing Progress Note: Legal hold: 5250 expires 07/09/19 Client on involuntary status for DTS Report received from nurse Melissa JACKSON with use of SBAR Why are they here: Pt presented to ER and stated he would, "jump out into traffic", Client has been non-compliant with medications since last discharge. Hx Depression Assessment What has happened this shift: Patient up for breakfast and meds. Pt. Has been isolating to room for the better part of the shift, sleeping on and off. Pt. States he is having 9/10 back and neck pain, given Thompson, Tylenol for pain, but pain level never decreases below a 9. Patient states that he is not discharging to [facility] in that he cannot go there again because people cuss there. 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 States that he is going back to [place] to live with his mother and sister after he gets his check on . S/I, H/I: + SI, plan to walk in front of traffic. A/VH: Pt denies Sleep: 6.5 NOC, slept on and off throughout day. ADL's: Independent Group attendance: No Were meds taken: Yes Any med S/E: None noted or observed. Mental Status Exam Appearance: Freshly showered in green scrubs. Eye contact: Fair Behavior: Quiet, isolative to self & room Speech: Soft, clear. Mood: Depressed. Affect: flat Thought process: Linear. Thought Content: DC plan. Pain. Cognition: A/O X 3 Insight: Poor Judgment: Poor Interventions PRN's used: Tylenol, Thompson Therapeutic interventions: 1:1 assessment, therapeutic conversation, medication administration/education/monitoring, encouragement to participate in groups and unit activities, encouragement to remain awake during the day, limit setting, education/reinforcement of unit rules, Q 15 min safety checks. Restraints/seclusion/emergency medication: N/A Justification of Continued Inpatient Treatment: Pt in need of crisis stabilization and medication adjustment/monitoring in a safe and therapeutic environment in order to avoid recurrence of symptoms and readmission. Pt has been accepted at the [facility].
[2019-07-05] MEDS: traZODone 50mg tablet PO SCH (20:40)
[2019-07-05] MEDS: gabapentin 300mg capsule PO SCH (20:41)
[2019-07-05] MEDS: mirtazapine 15mg tablet PO SCH (20:41)
[2019-07-05] MEDS: docusate sod 100mg capsule PO SCH (20:41)
[2019-07-05 20:50] VITALS: BP 139/78
--- NOTE | 2019-07-05 23:51 | NUR ---
Nursing Progress Note: Legal hold: 5250 expires 07/09/19 Client on involuntary status for DTS Report received from nurse Rashaun JACKSON with use of SBAR Why are they here: Pt presented to ER and stated he would, "jump out into traffic", Client has been non-compliant with medications since last discharge. Hx Depression Assessment What has happened this shift: Pt is observed out on the unit for awhile this shift. Pt makes fair eye contact and is cooperative with 1:1 assessment. He is medication compliant and pleasant. He continues to endorse SI, although affect is slightly brighter. Pt smiles at marketing writer and carries on conversation WNL. S/I, H/I: endorses SI A/VH: Pt denies Sleep: See sleep assessment for total hours ADL's: Independent, uses cane Group attendance: None during night worker Were meds taken: Yes Any med S/E: Non reported or observed. Mental Status Exam Appearance: Clean, neat in green scrubs, hair is well kept. Eye contact: Good Behavior: calm, cooperative, isolative to self Speech: Clear, audible, normal rate/rhythm, minimal Mood: "sad", confused Affect: Blunted Thought process: linear Thought Content: his mom not wanting to talk to him or see him Cognition: A/O X 3 Insight: Fair Judgment: Fair Interventions PRN's used: None Therapeutic interventions: 1:1 assessment, therapeutic conversation, medication administration/education/monitoring, encouragement to participate in groups and unit activities, pain management, Q 15 min safety checks. Restraints/seclusion/emergency medication: N/A Justification of Continued Inpatient Treatment: Pt in need of crisis stabilization and medication adjustment/monitoring in a safe and therapeutic environment in order to avoid recurrence of symptoms and readmission.
[2019-07-06 07:00] VITALS: BP 117/80
[2019-07-06] MEDS: risperiDONE 0.5mg tablet PO SCH ×2 (07:44→20:29)
[2019-07-06] MEDS: loratadine 10mg tablet PO SCH (07:44)
[2019-07-06] MEDS: HYDROcodone/acetaminophen 5mg/325mg tablet PO PRN ×2 (07:45→18:48)
[2019-07-06] MEDS: naproxen sodium 220mg tablet PO SCH ×2 (07:45→20:29)
[2019-07-06] MEDS: tizanidine 4mg tablet PO SCH ×3 (07:45→20:29)
[2019-07-06] MEDS: duloxetine 30mg CAPSULE.DR PO SCH ×2 (07:45→14:52)
[2019-07-06] MEDS: nicotine 21mg patch - 24 hr TD SCH (07:46)
[2019-07-06] MEDS: LIDOcaine 5% patch TP SCH (07:46)
--- NOTE | 2019-07-06 09:52 | NUR ---
Reassessment: Pt continues meeting nutrient needs with 75-100% PO intake on regular diet. Wt stable. LBM 07/04. No nutrition diagnosis at this time. Will continue to follow. Rec: 1. continue regular diet 2. continue routine bowel care 3. wt per rx Addendum: 07/06/19 at [address] Amended: Links added.
--- NOTE | 2019-07-06 17:42 | NUR ---
Nursing Progress Note: Legal hold: 5250 expires 07/09/19 Client on involuntary status for DTS Report received from nurse Angella RN with use of SBAR Why are they here: Pt presented to ER and stated he would, "jump out into traffic", Client has been non-compliant with medications since last discharge. Hx Depression Assessment What has happened this shift: Patient ambulates with rdz to and from group room for meals, otherwise isolates to his room. Patient reports that pain is 9/10, Hematite given. Patient appears hopeless in regards to his poor level of functioning, pain, and living situation. Even though we discussed [facility] yesterday, patient insists that he does not know what [facility] is. He was informed that he will discharge there on . Patient appears concerned. States that he wants to get his own apartment. Discussed with the patient the need to start participating in group, even though he is in pain, that he can stay as long as he can. Encouraged patient to become more involved in self-care. Pt. then went to the rest of the group in the afternoon. S/I, H/I: + SI, plan to walk in front of traffic. A/VH: Pt denies Sleep: 8.75 hrs. NOC, napped. ADL's: Independent with prompting. Showered yesterday. Group attendance: Part of 1 group. Were meds taken: Yes Any med S/E: None noted or observed. Mental Status Exam Appearance: Patient laying in bed disheveled in unit attire. Eye contact: Fair Behavior: Calm, cooperative. Isolative. Speech: Soft, clear. Mood: Depressed. Affect: flat Thought process: Linear. Helpless/hopeless. Thought Content: Hopelessness, DC plans, pain. Cognition: A/O X 3 Insight: Poor Judgment: Poor Interventions PRN's used: Hematite Therapeutic interventions: 1:1 assessment, therapeutic conversation, medication administration/education/monitoring, encouragement to participate in groups and unit activities, encouragement to remain awake during the day, limit setting, education/reinforcement of unit rules, Q 15 min safety checks. Restraints/seclusion/emergency medication: N/A Justification of Continued Inpatient Treatment: Pt in need of crisis stabilization and medication adjustment/monitoring in a safe and therapeutic environment in order to avoid recurrence of symptoms and readmission. Pt has been accepted at the [facility] and will discharge 07/08/19.
[2019-07-06] MEDS: hydrOXYzine 25 MG tablet PO PRN (18:48)
[2019-07-06 19:22] VITALS: BP 112/72
[2019-07-06] MEDS: traZODone 50mg tablet PO SCH (20:29)
[2019-07-06] MEDS: docusate sod 100mg capsule PO SCH (20:29)
[2019-07-06] MEDS: gabapentin 300mg capsule PO SCH (20:29)
[2019-07-06] MEDS: mirtazapine 15mg tablet PO SCH (20:29)
--- NOTE | 2019-07-06 21:08 | NUR ---
Nursing Progress Note: Legal hold; 5250 Client on voluntary/involuntary status for being a danger to himself Report received from nurse with use of SBAR: Rashaun Draper RN Why are they here: The patient is a 63 year old male who was admitted on 06/22 from the ER after he was taken there on a 5150 hold because he was suicidal to step in front of traffic. Assessment What has happened this shift: The patient has been up on the unit and was watching TV with peers. He was pleasant on approach for the evening assessment. He stated that "I'm not doing well" He then went on to explain he was having severe pain in his neck and that he was very anxious. He stated that he did not feel he slept well last night and was awake off and on. He stated that he still felt as depressed and suicidal as the day he came in" He rated his pain was 9/10. S/I, H/I; No HI but reports suicidal thoughts to step in front of traffic or suicide by cop examiner. A/VH: There was no evidence that the patient was experiencing problems with psychosis Sleep: ADL's: Independant Group attendance: Were meds taken: yes Any med S/E the patient denies Mental Status Exam Appearance: appears stated age. He is dressed appropriately for the unit. Eye contact: WNL Behavior: Appeared calm. He was cooperative with the unit routine Speech: Spontaneous. Moderate rate and volume. Mood: depressed and anxious Affect: appropriate to mood and circumstances Thought process: logical and linear Thought Content: negative with thoughts of suicide Cognition: alert and oriented Insight: fair Judgment: fair. Interventions PRN's used: Atarax and norco Therapeutic interventions: One to one with the patient to assess severity of depressive symptoms and self harm risk. He continues on q 15 minute safety checks and has not had any self injurious behaviors reported or observed. Restraints/seclusion/emergency medication: none Justification of Continued Inpatient Treatment: The patient continues to verbalize suicidal thoughts.
[2019-07-07 07:53] VITALS: BP 100/61
[2019-07-07] MEDS: naproxen sodium 220mg tablet PO SCH ×2 (08:00→19:28)
[2019-07-07] MEDS: duloxetine 30mg CAPSULE.DR PO SCH ×2 (08:00→13:04)
[2019-07-07] MEDS: risperiDONE 0.5mg tablet PO SCH ×2 (08:00→20:32)
[2019-07-07] MEDS: loratadine 10mg tablet PO SCH (08:00)
[2019-07-07] MEDS: tizanidine 4mg tablet PO SCH ×3 (08:00→20:32)
[2019-07-07] MEDS: LIDOcaine 5% patch TP SCH (08:01)
[2019-07-07] MEDS: nicotine 21mg patch - 24 hr TD SCH (08:01)
[2019-07-07] MEDS: HYDROcodone/acetaminophen 5mg/325mg tablet PO PRN (09:18)
[2019-07-07] MEDS ORDERED: HYDROcodone/acetaminophen 5mg/325mg tablet PO PRN (15:20)
--- NOTE | 2019-07-07 16:12 | NUR ---
Nursing Progress Note: Legal hold: 5250 expires 07/09/19 Client on involuntary status for DTS Report received from nurse Angella RN with use of SBAR Why are they here: Pt presented to ER and stated he would, "jump out into traffic", Client has been non-compliant with medications since last discharge. Hx Depression Assessment What has happened this shift: Pt sleeping at change of shift. He said he slept on and off during the night. He was compliant with medication administration and cooperative with assessment. He reports feeling depressed. He talked about his mother not wanting to see him or his sister. Reports pain 9/10 in his lower back and neck, lidocaine patch applied, [place], Aleve, and Zanaflex administered. Pt napped on and off throughout the day. He was up to all meals in the group room. S/I, H/I: Endorses SI with a plan to walk in traffic or suicide by copy room technician A/VH: Denies Sleep: 4.25 hrs. per NOC, napped during the day. ADL's: Independent with prompting. Group attendance: No Were meds taken: Yes Any med S/E: None noted or observed. Mental Status Exam Appearance: Disheveled Eye contact: Fair Behavior: Cooperative, Isolates Speech: Normal rate and rhythm. Mood: Depressed. Affect: Blunted Thought process: Linear. Thought Content: Depression, sad that his family does not want him. Cognition: A/O X 3 Insight: Poor Judgment: Poor Interventions PRN's used: [place] Therapeutic interventions: 1:1 therapeutic assessment, active listening, medication administration/education/monitoring, encouragement to participate in groups and unit activities, encouragement to remain awake during the day, limit setting, education/reinforcement of unit rules, Q 15 min safety checks. Restraints/seclusion/emergency medication: N/A Justification of Continued Inpatient Treatment: Pt in need of crisis stabilization and medication adjustment/monitoring in a safe and therapeutic environment in order to avoid recurrence of symptoms and readmission.
[2019-07-07 19:26] VITALS: BP 126/81
[2019-07-07] MEDS: mirtazapine 15mg tablet PO SCH (20:31)
[2019-07-07] MEDS: traZODone 50mg tablet PO SCH (20:32)
[2019-07-07] MEDS: docusate sod 100mg capsule PO SCH (20:32)
[2019-07-07] MEDS: gabapentin 300mg capsule PO SCH (20:32)
--- NOTE | 2019-07-08 01:06 | NUR ---
Nursing Progress Note: Legal hold: 5250 expires 07/09/19 Client on involuntary status for DTS Report received from nurse Chacko, RN with use of SBAR Why are they here: Pt presented to ER and stated he would, "jump out into traffic", Client has been non-compliant with medications since last discharge. Hx Depression Assessment What has happened this shift: Patient is up in the group room eating dinner at change of shift. Once patient is done eating he is agreeable to a 1:1 assessment at his bedside. Patient reports the his mood is "Low and flat", he states that he "keeps to himself" and "reads" during the day. Stating "I really don't talk much with people." But reports that he finds enjoyment out of his reading so that's what he does during the day. Patient denies SI this evening stating "No thoughts right now." He reports 9/10 pain in his neck and back, patient is given a PRN [place] as requested. When reassessed patient states the pain went to a 8/10. He is compliant for all HS medications and remains in his bed after medication administration. S/I, H/I: Denies SI this evening stating "No thoughts right now." A/VH: Denies Sleep: Currently sleeping, see sleep assessment ADL's: Independent with prompting. Group attendance: No groups this shift Were meds taken: Yes Any med S/E: None noted or observed. Mental Status Exam Appearance: Clean, well groomed Eye contact: Fair Behavior: Cooperative, Isolates Speech: Normal rate and rhythm. Mood: Depressed. Affect: Blunted Thought process: Linear. Thought Content: Depression Cognition: A/O X 3 Insight: Poor Judgment: Poor Interventions PRN's used: [place] Therapeutic interventions: 1:1 therapeutic assessment, active listening, medication administration/education/monitoring, encouragement to participate in groups and unit activities, encouragement to remain awake during the day, limit setting, education/reinforcement of unit rules, Q 15 min safety checks. Restraints/seclusion/emergency medication: N/A Justification of Continued Inpatient Treatment: Pt in need of crisis stabilization and medication adjustment/monitoring in a safe and therapeutic environment in order to avoid recurrence of symptoms and readmission.
[2019-07-08 08:22] VITALS: BP 112/60
[2019-07-08] MEDS: risperiDONE 0.5mg tablet PO SCH ×2 (08:48→19:56)
[2019-07-08] MEDS: loratadine 10mg tablet PO SCH (08:48)
[2019-07-08] MEDS: naproxen sodium 220mg tablet PO SCH ×2 (08:48→19:56)
[2019-07-08] MEDS: duloxetine 30mg CAPSULE.DR PO SCH ×2 (08:49→12:46)
[2019-07-08] MEDS: tizanidine 4mg tablet PO SCH ×2 (08:49→12:46)
[2019-07-08] MEDS: nicotine 21mg patch - 24 hr TD SCH (08:49)
[2019-07-08] MEDS: LIDOcaine 5% patch TP SCH (08:55)
[2019-07-08] MEDS ORDERED: HYDROcodone/acetaminophen 5mg/325mg tablet PO ONE ×2 (12:00→17:50)
--- NOTE | 2019-07-08 12:28 | NUR ---
MEDICATION GEAR HOBBER SET UP OPERATOR Picked up Ct's meds from [facility] at [facility] in order for him to go to [facility] as planned. AMANDA Warren
[2019-07-08] MEDS ORDERED: DULO60CA65 PO (12:36)
[2019-07-08] MEDS ORDERED: DULO30CA52 PO (12:36)
[2019-07-08] MEDS ORDERED: HYDROcodone/acetaminophen 5mg/325mg tablet PO PRN ×2 (12:50→21:00)
[2019-07-08] MEDS ORDERED: HYDR-4383 PO (13:26)
[2019-07-08] MEDS ORDERED: GABA-532 PO (13:26)
[2019-07-08] MEDS ORDERED: MIRT15TA8 PO (13:26)
[2019-07-08] MEDS: acetaminophen 325mg tablet PO PRN (15:05)
[2019-07-08] MEDS: hydrOXYzine 25 MG tablet PO PRN (15:08)
--- NOTE | 2019-07-08 17:05 | NUR ---
Nursing Progress Note: Legal hold: 5250 expires 07/09/19 Client on involuntary status for DTS Report received from nurse Angella RN with use of SBAR Why are they here: Pt presented to ER and stated he would, "jump out into traffic", Client has been non-compliant with medications since last discharge. Hx Depression Assessment What has happened this shift: Pt. asleep at start of shfit. Pt. awake for medications and breakfast. Pt. took all medications and ate all meals in community room. Pt. isolative to room. does not come out for groups. 1:1 done at bedside. Pt. continues to report SI without plan. Pt. denies HI, A/V hallucinations. Pt. c/o of pain rated 9/10 in lower back. Pt. started on scheduled [place]. Pt. is forgetful, when questioned where he is at, pt. states, "[facility]?" Pt. does not know the date nor how he ended up at the hospital. Pt. does know he is in [place]. Pt. 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 Pt. is very anxious about pending discharge and given Atarax 50mg with good effect. Pt. also given Tylenol for back pain with poor effect. Pt. needs much encouragement and to be told multiple times plan of discharge. Pt. states, "[place] is [place], I can't go to [place] [facility]." When pt. reminded that he is not going to [facility] pt. became calm but needed multiple redirection. S/I, H/I: Reports SI without a plan. A/VH: Denies Sleep: Pt. napped x2 on day shift. ADL's: Independent with prompting. Nails clipped today. Group attendance: No groups this shift Were meds taken: Yes Any med S/E: None noted or observed. Mental Status Exam Appearance: Clean, well groomed Eye contact: Fair Behavior: Cooperative but isolates to room. Speech: Normal rate and rhythm. Mood: Depressed. Affect: congruent with mood Thought process: Linear Thought Content: Fear of discharge. Cognition: A/O X 3 Insight: Poor Judgment: Poor Interventions PRN's used: [place] Therapeutic interventions: 1:1 therapeutic assessment, active listening, medication administration/education/monitoring, encouragement to participate in groups and unit activities, encouragement to remain awake during the day, limit setting, education/reinforcement of unit rules, Q 15 min safety checks. Restraints/seclusion/emergency medication: N/A Justification of Continued Inpatient Treatment: Pt in need of crisis stabilization and medication adjustment/monitoring in a safe and therapeutic environment in order to avoid recurrence of symptoms and readmission.
--- NOTE | 2019-07-08 17:29 | NUR ---
SS had t/c w/Dr. Nunez in Radiology and requested addendum to his report re pt's recent chest x-ray to include TB findings. Per t/c Dr. Nunez will provide an addendum to his report. SS faxed new report w/addendum note re TB findings to [facility]. Plan: Pt to d/c tomorrow. Need to coordinate transportation w/[facility] office. Carley Valiente LCSW Addendum: 07/08/19 at 1732 by Carley Valiente Amended: Links added.
--- NOTE | 2019-07-08 18:03 | NUR ---
CM: DCP Presenting Issues: Pt's ready for d/c, needed PPD clearance. Interventions: CM-DCP SS had f/u t/c with [facility] spoke w/Elana, per t/c [facility] will send driver starting gate to pick pt up tomorrow @ 11:30 am. Pt was informed and expressed gratitude and relief that he will have a safe place to d/c to. Plan: Pt to d/c tomorrow. Carley Valiente LCSW Addendum: 07/08/19 at 1806 by Carley Valiente Amended: Links added.
[2019-07-08 19:00] VITALS: BP 125/78
[2019-07-08] MEDS: HYDROcodone/acetaminophen 5mg/325mg tablet PO PRN (19:57)
[2019-07-08] MEDS: docusate sod 100mg capsule PO SCH (21:26)
[2019-07-08] MEDS: gabapentin 300mg capsule PO SCH (21:27)
[2019-07-08] MEDS: mirtazapine 15mg tablet PO SCH (21:27)
[2019-07-08] MEDS: traZODone 50mg tablet PO SCH (21:27)
--- NOTE | 2019-07-09 01:15 | NUR ---
Nursing Progress Note: Legal hold: 5250 expires 07/09/19 Client on involuntary status for DTS Report received from nurse Chacko, RN with use of SBAR Why are they here: Pt presented to ER and stated he would, "jump out into traffic", Client has been non-compliant with medications since last discharge. Hx Depression Assessment What has happened this shift: Patient is in his room at change of shift. He reports feeling anxious over being discharged and nervous about leaving this unit. Even with encouragement and discussing the process patient was not relieved of his anxiety. Patient reports 8/10 neck and back pain this evening, requesting a Stonewall for pain. Patient is given [place] with good effect. Patient remains in is room all evening but is noted to be talking to and interacting with his roommate. He is complaint with his evening medications and puts himself to bed after medication pass. S/I, H/I: Reports SI without a plan. A/VH: Denies Sleep: Currently sleeping, see sleep assessment ADL's: Independent with prompting. Group attendance: No groups this shift Were meds taken: Yes Any med S/E: None noted or observed. Mental Status Exam Appearance: Clean, well groomed Eye contact: Fair Behavior: Cooperative but isolates to room. Speech: Normal rate and rhythm. Mood: Depressed. Affect: Congruent with mood Thought process: Linear Thought Content: Fear of discharge. Cognition: A/O X 3 Insight: Poor Judgment: Poor Interventions PRN's used: [place] Therapeutic interventions: 1:1 therapeutic assessment, active listening, medication administration/education/monitoring, encouragement to participate in groups and unit activities, encouragement to remain awake during the day, limit setting, education/reinforcement of unit rules, Q 15 min safety checks. Restraints/seclusion/emergency medication: N/A Justification of Continued Inpatient Treatment: Pt in need of crisis stabilization and medication adjustment/monitoring in a safe and therapeutic environment in order to avoid recurrence of symptoms and readmission.
--- NOTE | 2019-07-09 07:37 | NUR ---
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 AMANDA Warren
[2019-07-09] MEDS ORDERED: HYDROcodone/acetaminophen 5mg/325mg tablet PO PRN (08:00)
[2019-07-09] MEDS: nicotine 21mg patch - 24 hr TD SCH (08:00)
[2019-07-09] MEDS ORDERED: duloxetine 30mg CAPSULE.DR PO SCH (08:00)
[2019-07-09] MEDS: naproxen sodium 220mg tablet PO SCH (08:35)
[2019-07-09] MEDS: risperiDONE 0.5mg tablet PO SCH (08:35)
[2019-07-09] MEDS: loratadine 10mg tablet PO SCH (08:35)
[2019-07-09] MEDS: LIDOcaine 5% patch TP SCH (09:02)
[2019-07-09] MEDS: HYDROcodone/acetaminophen 5mg/325mg tablet PO PRN (09:30)
[2019-07-09] MEDS: hydrOXYzine 25 MG tablet PO PRN (09:31)
--- NOTE | 2019-07-09 10:00 | NUR ---
DISCHARGE NOTE: Pt. discharged to the [facility]. Pt. picked up by [facility] office medical driver. Pt. reports SI without a plan. Pt. denies HI, A/V hallucinations. Pt. does not appear to be in any psychological or emotional distress. Pt. discharged with all belongings. Pt. discharged with medications. Pt. is alert and oriented to self and place. Pt. discharged with nicotine replacement.
--- NOTE | 2019-07-09 13:07 | NUR ---
Pt's d/c'd and transferred to [facility]. SS referral closed. Carley Valiente BLENDER OPERATOR Addendum: 07/09/19 at 1308 by Carley Valiente SS Amended: Links added.
--- NOTE | 2019-07-14 09:18 | NUR ---
Case management DC follow up: Unable to make contact w/pt. No info at this time
== END 2019-07-09 10:15 | disposition short-term general hospital (02) | DRG 885 ==
LOC: ADULT MH 20:56
PROVIDERS: ADMIT Psychiatry & Neurology Psychiatry; ATTEND Psychiatry & Neurology Psychiatry
DX: F33.3 Major depressive disorder, recurrent, severe with psychotic symptoms (principal); F17.210 Nicotine dependence, cigarettes, uncomplicated; G89.29 Other chronic pain; I10 Essential (primary) hypertension; F41.9 Anxiety disorder, unspecified; Z96.649 Presence of unspecified artificial hip joint; G47.00 Insomnia, unspecified; W18.39XA Other fall on same level, initial encounter; Y93.89 Activity, other specified; Y92.89 Other specified places as the place of occurrence of the external cause; Y99.8 Other external cause status; Z59.9 Problem related to housing and economic circumstances, unspecified; Z63.8 Other specified problems related to primary support group
CPT/HCPCS: 36415; 70553; 71045; 80061; 83735; 84132; 87081; Q9963; Z7610

== ENCOUNTER 2019-07-20 13:49 | Emergency (ER) | payer MEDICAID, MEDICARE ==
[~2019-07-20] VITALS: Ht 167.6 cm; Wt 60.0 kg
[~2019-07-20 13:49] MED LIST changes: -ATEN50TA PO; -DICL100G15 TOP; +DOCU100C40 PO; +DULO30CA52 PO; +DULO60CA65 PO; -FOLI0.4T14 PO; +GABA-532 PO; -IBUP-1984 PO; +LIDO700A47 TP; +LORA10TA65 PO; -METH-360 PO; +MIRT15TA8 PO; +NAPR220T67 PO; -NICO-731 TOP; -OLAN5TAB26 PO; -ONDA4TAB6 PO; +RISP0.5T3 PO; -THIA100T73 PO; -TRAZ-219 PO; +TRAZ-251 PO; -VENL150T3 PO; -WALK1EAC55 MC
[2019-07-20 13:52] VITALS: BP 127/95
[2019-07-20] MEDS ORDERED: traMADol 50MG tablet PO ONE (14:20)
== END 2019-07-20 16:03 | disposition home or self-care (01) ==
LOC: ER 13:49
DX: S16.1XXA Strain of muscle, fascia and tendon at neck level, initial encounter (principal); S39.012A Strain of muscle, fascia and tendon of lower back, initial encounter; I10 Essential (primary) hypertension; G89.29 Other chronic pain; F32.9 Major depressive disorder, single episode, unspecified; F10.10 Alcohol abuse, uncomplicated; Z90.49 Acquired absence of other specified parts of digestive tract; Z90.89 Acquired absence of other organs; Z86.69 Personal history of other diseases of the nervous system and sense organs; Z59.0 Homelessness; Z79.899 Other long term (current) drug therapy; Z56.0 Unemployment, unspecified; W01.0XXA Fall on same level from slipping, tripping and stumbling without subsequent striking against object, initial encounter; Y93.89 Activity, other specified; Y92.89 Other specified places as the place of occurrence of the external cause; Y99.8 Other external cause status; Y90.9 Presence of alcohol in blood, level not specified
CPT/HCPCS: 70450; 72040; 72100; 73502; 99284

== ENCOUNTER 2019-08-05 09:39 | Emergency (ER) | payer MEDICARE ==
[~2019-08-05] VITALS: Ht 172.7 cm; Wt 61.4 kg
[2019-08-05] MEDS ORDERED: ketorolac trometh inj. 60 MG/2 ML VIAL IM ONE (11:25)
[2019-08-05] MEDS ORDERED: ketorolac trometh. 30mg/ml inj. IM ONE (11:35)
[2019-08-05 12:25] VITALS: BP 151/78
== END 2019-08-05 12:27 | disposition home or self-care (01) ==
LOC: ER 09:39
DX: S70.01XA Contusion of right hip, initial encounter (principal); M54.2 Cervicalgia; M54.5 Low back pain; I10 Essential (primary) hypertension; G89.29 Other chronic pain; F32.9 Major depressive disorder, single episode, unspecified; F10.10 Alcohol abuse, uncomplicated; F17.200 Nicotine dependence, unspecified, uncomplicated; Z59.0 Homelessness; Z90.49 Acquired absence of other specified parts of digestive tract; Z86.69 Personal history of other diseases of the nervous system and sense organs; Z98.890 Other specified postprocedural states; Z56.0 Unemployment, unspecified; Z79.899 Other long term (current) drug therapy; W18.39XA Other fall on same level, initial encounter; Y93.89 Activity, other specified; Y92.89 Other specified places as the place of occurrence of the external cause; Y99.8 Other external cause status; Y90.9 Presence of alcohol in blood, level not specified
CPT/HCPCS: 73502; 96372; 99284; J1885

== ENCOUNTER 2019-08-21 19:46 | Emergency (ER) | payer MEDICARE, OTHER ==
[~2019-08-21] VITALS: Ht 170.2 cm; Wt 60.0 kg
[2019-08-21 19:57] VITALS: BP 146/61
[2019-08-21] MEDS ORDERED: ketorolac trometh inj. 60 MG/2 ML VIAL IM ONE (20:35)
--- NOTE | 2019-08-21 21:13 | NUR ---
Pt given toradol shot for 10 out of 10 reported pain tohis left chest, and his chronic neck and back and hip pain. Pt states he is depressed. updated and reprots he has seen Pt many times in past and Pt has regularly been provided information for Mental Health. I have included again in his packet 3 pages of mental health resources and phone numbers. Pt offered taxi ride and reprots he will go to the [facility]. He had stated to me earlier during my assessment that he has a home. Tonight he reprots he will not go home there.Also provided sack lunch.
--- NOTE | 2019-08-21 21:18 | NUR ---
PT IRRITATED WHEN I REVIEWED ALL OF HIS DC INSTRUCTIONS AGAIN AND TOLD THAT THE PROVIDER WILL NOT BE KEEPING HIM HERE FOR HIS REPORTED DEPRESSION CURRENTLY, PT WELL KNOW TO DR. MEEKS. PT SHOWN THE RESOURCES IN HIS DC PACKET AND SAID "THIS IS BULLSHIT..." PT POINTED TO THE VARIOUS AVAIL MH RESOURCES LISTED ON PAGES STATING TO EACH ONE "NO...NO...NO" HE DID NOT TAKE HIS PACKET AND STATED YOU GUYS JUST WANT TO KICK ME OUT OF HERE. PT AMBLUATING WITH SLOW BUT STEADY GAIT OUT TO LOBBY, WAS OFFERED A WC BUT REFUSED.
== END 2019-08-21 21:28 | disposition home or self-care (01) ==
LOC: ER 19:47
DX: G89.29 Other chronic pain (principal); R07.89 Other chest pain; M54.2 Cervicalgia; I10 Essential (primary) hypertension; F32.9 Major depressive disorder, single episode, unspecified; Z90.49 Acquired absence of other specified parts of digestive tract; Z98.890 Other specified postprocedural states; Z86.69 Personal history of other diseases of the nervous system and sense organs; Z79.899 Other long term (current) drug therapy
CPT/HCPCS: 93005; 96372; 99284; J1885

== ENCOUNTER 2019-08-26 18:30 | Emergency (ER) | payer MEDICARE, OTHER ==
[~2019-08-26] VITALS: Ht 172.7 cm; Wt 70.0 kg
--- NOTE | 2019-08-26 19:10 | NUR ---
on assessment, pt has been placed in c collar previously due to complaints of neck pain.
--- NOTE | 2019-08-26 19:10 | NUR ---
Augustin bowling in [facility] - 08/26/19 at 1910 by ELIAZAR pt placed in c collar due to neck pain complaints
[2019-08-26] MEDS ORDERED: ketorolac trometh inj. 60 MG/2 ML VIAL IM ONE (19:20)
--- NOTE | 2019-08-26 19:31 | NUR ---
md aware of pt's complaints of SI, and clears pt for dc. md aware of chronic left sided cp and head pain from fall. pt medicated with toradol prior to dc, and [facility]. pt meal provided prior to dc. appropriate clothes already in possession.
[2019-08-26 19:33] VITALS: BP 106/79
== END 2019-08-26 19:48 | disposition home or self-care (01) ==
LOC: ER 18:30
DX: G89.29 Other chronic pain (principal); M54.2 Cervicalgia; I10 Essential (primary) hypertension; F32.9 Major depressive disorder, single episode, unspecified; Z86.69 Personal history of other diseases of the nervous system and sense organs; Z90.49 Acquired absence of other specified parts of digestive tract; Z59.0 Homelessness; Z56.0 Unemployment, unspecified; Z98.890 Other specified postprocedural states; Z79.899 Other long term (current) drug therapy
CPT/HCPCS: 96372; 99283; J1885

== ENCOUNTER 2019-08-28 10:14 | Emergency (ER) | payer MEDICARE ==
[~2019-08-28] VITALS: Ht 172.7 cm; Wt 61.4 kg
[2019-08-28] MEDS ORDERED: ibuprofen tablet 400 MG TABLET PO ONE (10:50)
[2019-08-28] MEDS ORDERED: IBUP-1985 PO (10:58)
[2019-08-28 11:14] VITALS: BP 104/71
== END 2019-08-28 11:17 | disposition home or self-care (01) ==
LOC: ER 10:15
DX: M54.2 Cervicalgia (principal); I10 Essential (primary) hypertension; G89.29 Other chronic pain; Z59.0 Homelessness; Z56.0 Unemployment, unspecified; Z98.890 Other specified postprocedural states; Z90.49 Acquired absence of other specified parts of digestive tract; Z79.899 Other long term (current) drug therapy
CPT/HCPCS: 99283

== ENCOUNTER 2019-08-30 12:33 | Emergency (ER) | payer MEDICARE, MEDICAID ==
[~2019-08-30] VITALS: Ht 172.7 cm; Wt 61.4 kg
[~2019-08-30 12:33] MED LIST changes: +IBUP-1985 PO
[2019-08-30 12:56] VITALS: BP 124/74
[2019-08-30] MEDS ORDERED: ketorolac trometh inj. 60 MG/2 ML VIAL IM ONE (15:00)
== END 2019-08-30 15:14 | disposition home or self-care (01) ==
LOC: ER 12:33
DX: M54.2 Cervicalgia (principal); M25.511 Pain in right shoulder; M25.551 Pain in right hip; I10 Essential (primary) hypertension; G89.29 Other chronic pain; Z98.890 Other specified postprocedural states; Z90.49 Acquired absence of other specified parts of digestive tract; Z59.0 Homelessness; Z56.0 Unemployment, unspecified; Z87.11 Personal history of peptic ulcer disease; Z79.899 Other long term (current) drug therapy; W10.9XXA Fall (on) (from) unspecified stairs and steps, initial encounter; Y93.89 Activity, other specified; Y92.89 Other specified places as the place of occurrence of the external cause; Y99.9 Unspecified external cause status
CPT/HCPCS: 70450; 72125; 96372; 99285; J1885

== ENCOUNTER 2019-09-03 20:29 | Emergency (ER) | payer MEDICARE, MEDICAID ==
[~2019-09-03] VITALS: Ht 172.7 cm; Wt 61.4 kg
[2019-09-03 22:17] LABS: BASOPHILS % (AUTO) 0.4 % (0-1); EOSINOPHILS # (AUTO) 0.3 X10'3 (0-0.9); EOSINOPHILS % (AUTO) 4.3 % (0-6); HEMATOCRIT 42.2 % (42.0-52.0); HEMOGLOBIN 14.6 g/dl (14.0-17.9); LYMPHOCYTES # (AUTO) 1.6 X10'3 (1.1-4.8); MEAN CORPUSCULAR HEMOGLOBIN 33.6 PG (27.0-31.0); MEAN CORPUSCULAR HGB CONC 34.6 g/dL (33.0-36.5); MEAN CORPUSCULAR VOLUME 97.3 FL (78-98); MEAN PLATELET VOLUME 7.5 FL (7.4-10.4); MONOCYTES # (AUTO) 0.6 X10'3 (0-0.9); MONOCYTES % (AUTO) 8.6 % (2-12); NEUTROPHILS # (AUTO) 4.5 X10'3 (1.8-7.7); NEUTROPHILS % (AUTO) 63.7 % (42-75); PLATELET COUNT 288 X10'3 (140-440); RED BLOOD COUNT 4.34 X10'6 (4.70-6.10); WHITE BLOOD COUNT 7.1 X10'3 (4.5-11.0)
[2019-09-03 22:25] LABS: ALANINE AMINOTRANSFERASE 20 U/L (12-78); ALBUMIN 3.8 G/DL (3.4-5.0); ALKALINE PHOSPHATASE 114 IU/L (46-116); ANION GAP 11 (8-16); ASPARTATE AMINO TRANSFERASE 17 U/L (10-37); BILIRUBIN,TOTAL 0.2 MG/DL (0.1-1.0); BLOOD UREA NITROGEN 11 MG/DL (7-18); BUN/CREATININE RATIO 14.3 (5.4-32.0); CALCIUM 8.6 MG/DL (8.5-10.1); CHLORIDE 109 MMOL/L (99-107); CREATININE 0.77 MG/DL (0.60-1.10); ETHANOL 0.122 GM/DL (0.0-0.010); GLUCOSE 78 MG/DL (70-104); POTASSIUM 3.3 MMOL/L (3.5-5.1); SODIUM 144 MMOL/L (135-145); TOTAL CARBON DIOXIDE 24.4 MMOL/L (24-32); TOTAL PROTEIN 7.5 G/DL (6.4-8.2); eGFR > 90 ML/MIN
[2019-09-03 22:26] LABS: ACETAMINOPHEN < 2.0 UG/ML (10-30)
[2019-09-03 22:28] LABS: URINE AMPHETAMINE SCREEN NEGATIVE (Neg); URINE BARBITUATE SCREEN NEGATIVE (Neg); URINE BENZODIAZEPINES SCREEN POSITIVE (Neg); URINE CANNABINOID SCREEN NEGATIVE (Neg); URINE COCAINE SCREEN NEGATIVE (Neg); URINE METHADONE SCREEN NEGATIVE (Neg); URINE OPIATE SCREEN NEGATIVE (Neg); URINE PHENCYCLIDINE SCREEN NEGATIVE (Neg)
[2019-09-03 22:48] VITALS: BP 113/67
== END 2019-09-03 22:58 | disposition home or self-care (01) ==
LOC: ER 20:29
DX: F10.129 Alcohol abuse with intoxication, unspecified (principal); M54.2 Cervicalgia; M54.9 Dorsalgia, unspecified; G89.29 Other chronic pain; I10 Essential (primary) hypertension; F17.200 Nicotine dependence, unspecified, uncomplicated; F10.10 Alcohol abuse, uncomplicated; F32.9 Major depressive disorder, single episode, unspecified; Z87.11 Personal history of peptic ulcer disease; Z59.0 Homelessness; Z98.890 Other specified postprocedural states; Z56.0 Unemployment, unspecified; Z79.899 Other long term (current) drug therapy
CPT/HCPCS: 36415; 80053; 80305; 80320; 80329; 85025; 99284

== ENCOUNTER 2019-09-07 19:29 | Emergency (ER) | payer MEDICARE, MEDICAID ==
[~2019-09-07] VITALS: Ht 172.7 cm; Wt 59.1 kg
[2019-09-07] MEDS ORDERED: ibuprofen tablet 400 MG TABLET PO ONE (20:15)
[2019-09-07 20:19] VITALS: BP 103/56
--- NOTE | 2019-09-07 21:02 | NUR ---
CALLED A TAXI FOR PT TO RIDE [place] [facility]
== END 2019-09-07 21:05 | disposition home or self-care (01) ==
LOC: ER 19:29
DX: G89.29 Other chronic pain (principal); M54.2 Cervicalgia; M54.9 Dorsalgia, unspecified; M25.519 Pain in unspecified shoulder; I10 Essential (primary) hypertension; F32.9 Major depressive disorder, single episode, unspecified; Z90.89 Acquired absence of other organs; Z98.890 Other specified postprocedural states; Z56.0 Unemployment, unspecified; Z59.0 Homelessness; Z79.899 Other long term (current) drug therapy
CPT/HCPCS: 99284

== ENCOUNTER 2019-09-15 11:34 | Emergency (ER) | payer MEDICARE, MEDICAID ==
[~2019-09-15] VITALS: Ht 160 cm; Wt 63.3 kg
[2019-09-15 11:46] VITALS: BP 128/84
[2019-09-15] MEDS ORDERED: ketorolac trometh inj. 60 MG/2 ML VIAL IM ONE (12:15)
== END 2019-09-15 12:46 | disposition home or self-care (01) ==
LOC: ER 11:34
DX: G89.29 Other chronic pain (principal); R51 Headache; Z86.69 Personal history of other diseases of the nervous system and sense organs; I10 Essential (primary) hypertension; F32.9 Major depressive disorder, single episode, unspecified; F19.10 Other psychoactive substance abuse, uncomplicated; Z87.11 Personal history of peptic ulcer disease; Z59.0 Homelessness; Z56.0 Unemployment, unspecified; Z79.1 Long term (current) use of non-steroidal anti-inflammatories (NSAID); Z79.899 Other long term (current) drug therapy; W01.0XXA Fall on same level from slipping, tripping and stumbling without subsequent striking against object, initial encounter; Y93.89 Activity, other specified; Y92.89 Other specified places as the place of occurrence of the external cause; Y99.8 Other external cause status
CPT/HCPCS: 96372; 99283; J1885

== ENCOUNTER 2019-09-16 09:38 | Emergency (ER) | payer MEDICARE, MEDICAID ==
[~2019-09-16] VITALS: Ht 160 cm; Wt 56.0 kg
[2019-09-16 09:41] VITALS: BP 161/91
[2019-09-16] MEDS ORDERED: acetaminophen 325mg tablet PO ONE (10:20)
--- NOTE | 2019-09-16 10:22 | NUR ---
Patient endorses SI with plan to step in front of a vehicle upon discharge. Patient denies intent to self-harm while under our care. Denies HI. FARIHA Rodriguez aware, RN will continue to monitor.
--- NOTE | 2019-09-16 11:01 | NUR ---
Augustin bowling in [facility] - 09/16/19 at 1108 by XIN Adjunct Art History Instructor at bedside
--- NOTE | 2019-09-16 11:15 | NUR ---
SERVICE TECH/WELDER CALLED AND SPOKE WITH PROVIDER. THEY WILL BE IN TO EVAL PT. SACK LUNCH GIVEN.
--- NOTE | 2019-09-16 11:20 | NUR ---
Watch Assembly Instructor at bedside.
== END 2019-09-16 12:03 | disposition home or self-care (01) ==
LOC: ER 09:39
DX: G89.29 Other chronic pain (principal); M54.89 Other dorsalgia; M54.2 Cervicalgia; I10 Essential (primary) hypertension; F32.9 Major depressive disorder, single episode, unspecified; Z86.69 Personal history of other diseases of the nervous system and sense organs; Z90.49 Acquired absence of other specified parts of digestive tract; Z98.890 Other specified postprocedural states; Z59.0 Homelessness; Z56.0 Unemployment, unspecified; Z79.899 Other long term (current) drug therapy
CPT/HCPCS: 99283

== ENCOUNTER 2019-09-19 19:22 | Emergency (ER) | payer MEDICARE, MEDICAID ==
[~2019-09-19] VITALS: Ht 162.6 cm; Wt 61.4 kg
[2019-09-19 20:09] VITALS: BP 158/85
--- NOTE | 2019-09-19 20:30 | NUR ---
Pt placed back in lobby, forming press operator aware of patient.
[2019-09-19] MEDS ORDERED: ibuprofen tablet 400 MG TABLET PO ONE (20:45)
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
== END 2019-09-19 21:44 | disposition home or self-care (01) ==
LOC: ER 19:23
DX: G89.29 Other chronic pain (principal); M54.2 Cervicalgia; M54.89 Other dorsalgia; I10 Essential (primary) hypertension; Z86.69 Personal history of other diseases of the nervous system and sense organs; Z90.89 Acquired absence of other organs; Z98.890 Other specified postprocedural states; Z79.899 Other long term (current) drug therapy
CPT/HCPCS: 99282

== ENCOUNTER 2019-10-15 12:17 | Emergency (ER) | payer MEDICARE, MEDICAID ==
[~2019-10-15] VITALS: Ht 172.7 cm; Wt 61.0 kg
[2019-10-15 12:22] VITALS: BP 124/83
[2019-10-15] MEDS ORDERED: acetaminophen 325mg tablet PO ONE (12:45)
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
--- NOTE | 2019-10-15 13:05 | NUR ---
gave pt sack lunch and taxi to [place], pt able to dress self without assist and amb with steady gait to lobby
== END 2019-10-15 13:08 | disposition home or self-care (01) ==
LOC: ER 12:17
DX: M25.559 Pain in unspecified hip (principal); R51 Headache; F10.10 Alcohol abuse, uncomplicated; I10 Essential (primary) hypertension; M54.2 Cervicalgia; F32.9 Major depressive disorder, single episode, unspecified; Z90.49 Acquired absence of other specified parts of digestive tract; Z98.890 Other specified postprocedural states; Z59.0 Homelessness; Z86.69 Personal history of other diseases of the nervous system and sense organs; Z56.0 Unemployment, unspecified; Z79.899 Other long term (current) drug therapy; Y08.89XA Assault by other specified means, initial encounter; Y93.89 Activity, other specified; Y92.89 Other specified places as the place of occurrence of the external cause; Y99.8 Other external cause status
CPT/HCPCS: 99284

== ENCOUNTER 2019-10-20 20:11 | Emergency (ER) | payer MEDICARE, MEDICAID ==
[~2019-10-20] VITALS: Ht 172.7 cm; Wt 60.0 kg
[2019-10-20 20:13] VITALS: BP 138/84
[2019-10-20] MEDS ORDERED: ibuprofen tablet 400 MG TABLET PO ONE (20:35)
[2019-10-20] MEDS ORDERED: ibuprofen 200mg tablet PO ONE (20:35)
--- NOTE | 2019-10-20 20:39 | NUR ---
pt up and walking - states he needs to stretch his legs. pt is given a meal and a taxi is being called [facility].
== END 2019-10-20 22:16 | disposition home or self-care (01) ==
LOC: ER 20:12
DX: M54.5 Low back pain (principal); G89.29 Other chronic pain; I10 Essential (primary) hypertension; F32.9 Major depressive disorder, single episode, unspecified; Z90.49 Acquired absence of other specified parts of digestive tract; Z86.69 Personal history of other diseases of the nervous system and sense organs; Z98.890 Other specified postprocedural states; Z59.0 Homelessness; Z56.0 Unemployment, unspecified; Z79.899 Other long term (current) drug therapy
CPT/HCPCS: 99284

== ENCOUNTER 2019-11-13 23:07 | Emergency (ER) | payer MEDICARE, MEDICAID ==
[~2019-11-13] VITALS: Ht 172.7 cm; Wt 61.4 kg
[2019-11-14] MEDS ORDERED: acetaminophen 325mg tablet PO ONE
[2019-11-14] MEDS ORDERED: ondansetron 4mg rapidly disintigrating tab PO ONE (00:50)
[2019-11-14 01:18] VITALS: BP 146/91
== END 2019-11-14 01:16 | disposition home or self-care (01) ==
LOC: ER 23:07
DX: R11.0 Nausea (principal); R50.9 Fever, unspecified; R69 Illness, unspecified; I10 Essential (primary) hypertension; G89.29 Other chronic pain; F32.9 Major depressive disorder, single episode, unspecified; F10.10 Alcohol abuse, uncomplicated; Z86.69 Personal history of other diseases of the nervous system and sense organs; Z90.89 Acquired absence of other organs; Z98.890 Other specified postprocedural states; Z56.0 Unemployment, unspecified; Z59.0 Homelessness; Z79.899 Other long term (current) drug therapy; W19.XXXA Unspecified fall, initial encounter; Y93.89 Activity, other specified; Y92.009 Unspecified place in unspecified non-institutional (private) residence as the place of occurrence of the external cause; Y99.8 Other external cause status; Y90.9 Presence of alcohol in blood, level not specified
CPT/HCPCS: 70450; 99284

== ENCOUNTER 2019-11-15 12:55 | Emergency (ER) | payer MEDICARE, MEDICAID ==
[~2019-11-15] VITALS: Ht 172.7 cm; Wt 61.0 kg
[2019-11-15 13:30] VITALS: BP 111/82
--- NOTE | 2019-11-15 13:51 | NUR ---
PT TO XRAY, ABLE TO TRANSFER SELF WITHOUT ASSIST FROM CHAIR TO WHEELCHAIR
[2019-11-15] MEDS ORDERED: ibuprofen tablet 400 MG TABLET PO ONE (14:15)
== END 2019-11-15 14:30 | disposition home or self-care (01) ==
LOC: ER 12:56
DX: M25.561 Pain in right knee (principal); I10 Essential (primary) hypertension; G89.29 Other chronic pain; F32.9 Major depressive disorder, single episode, unspecified; F10.10 Alcohol abuse, uncomplicated; M54.2 Cervicalgia; Z86.69 Personal history of other diseases of the nervous system and sense organs; Z90.49 Acquired absence of other specified parts of digestive tract; Z98.890 Other specified postprocedural states; Z59.0 Homelessness; Z56.0 Unemployment, unspecified; Z79.899 Other long term (current) drug therapy
CPT/HCPCS: 73564; 99283

== ENCOUNTER 2020-03-06 18:08 | Emergency (ER) | payer MEDICARE, MEDICAID ==
[~2020-03-06] VITALS: Ht 170.2 cm; Wt 61.4 kg
[2020-03-06] MEDS ORDERED: acetaminophen 325mg tablet PO ONE (20:35)
[2020-03-06 20:43] VITALS: BP 100/70
== END 2020-03-06 20:40 | disposition home or self-care (01) ==
LOC: ER 18:09
DX: G89.29 Other chronic pain (principal); I10 Essential (primary) hypertension; F32.9 Major depressive disorder, single episode, unspecified; Z86.69 Personal history of other diseases of the nervous system and sense organs; Z98.890 Other specified postprocedural states; Z90.49 Acquired absence of other specified parts of digestive tract; Z59.0 Homelessness; Z56.0 Unemployment, unspecified; Z79.899 Other long term (current) drug therapy; W19.XXXA Unspecified fall, initial encounter; Y93.89 Activity, other specified; Y92.89 Other specified places as the place of occurrence of the external cause; Y99.8 Other external cause status
CPT/HCPCS: 99284

== ENCOUNTER 2020-03-07 04:53 | Emergency (ER) | payer MEDICARE, MEDICAID ==
[~2020-03-07] VITALS: Ht 162.6 cm; Wt 61.3 kg
[2020-03-07 04:56] VITALS: BP 108/74
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
== END 2020-03-07 06:52 | disposition home or self-care (01) ==
LOC: ER 04:53
DX: M54.2 Cervicalgia (principal); G89.29 Other chronic pain; M54.89 Other dorsalgia; I10 Essential (primary) hypertension; F32.9 Major depressive disorder, single episode, unspecified; F17.200 Nicotine dependence, unspecified, uncomplicated; F10.10 Alcohol abuse, uncomplicated; Z86.69 Personal history of other diseases of the nervous system and sense organs; Z90.89 Acquired absence of other organs; Z98.890 Other specified postprocedural states; Z56.0 Unemployment, unspecified; Z59.0 Homelessness; Z79.899 Other long term (current) drug therapy; Y90.9 Presence of alcohol in blood, level not specified
CPT/HCPCS: 70450; 72125; 82948; 99285

== ENCOUNTER 2020-04-10 19:13 | Emergency (ER) | payer MEDICARE, MEDICAID ==
[~2020-04-10] VITALS: Ht 172.7 cm; Wt 61.4 kg
--- NOTE | 2020-04-10 21:07 | NUR ---
pt is back from CT
[2020-04-10] MEDS ORDERED: HYDROcodone/acetaminophen 5mg/325mg tablet PO ONE (21:45)
[2020-04-10] MEDS ORDERED: ondansetron 4mg rapidly disintigrating tab PO ONE (21:55)
[2020-04-10 22:12] VITALS: BP 114/97
== END 2020-04-10 22:15 | disposition home or self-care (01) ==
LOC: ER 19:15
DX: S22.069A Unspecified fracture of T7-T8 vertebra, initial encounter for closed fracture (principal); S22.089A Unspecified fracture of T11-T12 vertebra, initial encounter for closed fracture; S22.059A Unspecified fracture of T5-T6 vertebra, initial encounter for closed fracture; S22.31XA Fracture of one rib, right side, initial encounter for closed fracture; S22.32XA Fracture of one rib, left side, initial encounter for closed fracture; S33.5XXA Sprain of ligaments of lumbar spine, initial encounter; M85.80 Other specified disorders of bone density and structure, unspecified site; I10 Essential (primary) hypertension; G89.29 Other chronic pain; F32.9 Major depressive disorder, single episode, unspecified; Z90.49 Acquired absence of other specified parts of digestive tract; Z98.890 Other specified postprocedural states; Z59.0 Homelessness; Z56.0 Unemployment, unspecified; Z79.899 Other long term (current) drug therapy; W19.XXXA Unspecified fall, initial encounter; Y93.89 Activity, other specified; Y92.89 Other specified places as the place of occurrence of the external cause; Y99.8 Other external cause status
CPT/HCPCS: 72128; 72131; 99285

== ENCOUNTER 2020-04-21 16:01 | Emergency (ER) | payer MEDICARE, MEDICAID ==
[~2020-04-21] VITALS: Ht 165.1 cm; Wt 61.4 kg
[2020-04-21] MEDS ORDERED: normal saline 1000ML IV soln IVB ONE (16:30)
[2020-04-21] MEDS ORDERED: oxyCODONE/APAP 5-325mg tablet PO ONE (16:35)
[2020-04-21] MEDS ORDERED: HYDR-4353 PO (16:49)
[2020-04-21] MEDS ORDERED: METH4TAB81 PO (16:49)
--- NOTE | 2020-04-21 16:59 | NUR ---
To CT scan
[2020-04-21 17:15] LABS: BASOPHILS # (AUTO) 0.1 X10'3 (0-0.2); BASOPHILS % (AUTO) 0.9 % (0-1); EOSINOPHILS # (AUTO) 0.4 X10'3 (0-0.9); EOSINOPHILS % (AUTO) 6.1 % (0-6); HEMATOCRIT 41.4 % (42.0-52.0); HEMOGLOBIN 13.8 g/dl (14.0-17.9); LYMPHOCYTES # (AUTO) 0.5 X10'3 (1.1-4.8); LYMPHOCYTES % (AUTO) 8.6 % (21-51); MEAN CORPUSCULAR HEMOGLOBIN 34.1 PG (27.0-31.0); MEAN CORPUSCULAR HGB CONC 33.4 g/dL (33.0-36.5); MEAN PLATELET VOLUME 7.5 FL (7.4-10.4); MONOCYTES # (AUTO) 0.8 X10'3 (0-0.9); MONOCYTES % (AUTO) 12.3 % (2-12); NEUTROPHILS # (AUTO) 4.4 X10'3 (1.8-7.7); NEUTROPHILS % (AUTO) 72.1 % (42-75); PLATELET COUNT 205 X10'3 (140-440); RED BLOOD COUNT 4.06 X10'6 (4.70-6.10); RED CELL DISTRIBUTION WIDTH 14.2 % (11.5-14.5); WHITE BLOOD COUNT 6.1 X10'3 (4.5-11.0)
[2020-04-21 17:44] LABS: ALANINE AMINOTRANSFERASE 47 U/L (12-78); ALBUMIN 3.7 G/DL (3.4-5.0); ALKALINE PHOSPHATASE 119 IU/L (46-116); ANION GAP 7 (8-16); ASPARTATE AMINO TRANSFERASE 36 U/L (10-37); BILIRUBIN,TOTAL 0.8 MG/DL (0.1-1.0); BLOOD UREA NITROGEN 15 MG/DL (7-18); BUN/CREATININE RATIO 17.2 (5.4-32.0); CALCIUM 8.6 MG/DL (8.5-10.1); CHLORIDE 103 MMOL/L (99-107); CREATININE 0.87 MG/DL (0.60-1.10); GLUCOSE 129 MG/DL (70-104); POTASSIUM 3.5 MMOL/L (3.5-5.1); SODIUM 135 MMOL/L (135-145); TOTAL CARBON DIOXIDE 24.6 MMOL/L (24-32); TOTAL PROTEIN 7.5 G/DL (6.4-8.2); eGFR 89 ML/MIN
[2020-04-21] MEDS ORDERED: HYDROcodone/acetaminophen 5mg/325mg tablet PO ONE (18:20)
[2020-04-21 19:04] VITALS: BP 152/69
[2020-04-27] MEDS ORDERED: IBUP-1984 PO (18:06)
[2020-04-27] MEDS ORDERED: ORPH100T2 PO (18:06)
== END 2020-04-21 19:25 | disposition home or self-care (01) ==
LOC: ER 16:02
DX: S09.8XXA Other specified injuries of head, initial encounter (principal); R53.1 Weakness; R00.0 Tachycardia, unspecified; F10.20 Alcohol dependence, uncomplicated; M54.2 Cervicalgia; I10 Essential (primary) hypertension; G89.29 Other chronic pain; F32.9 Major depressive disorder, single episode, unspecified; Z86.69 Personal history of other diseases of the nervous system and sense organs; Z90.49 Acquired absence of other specified parts of digestive tract; Z98.890 Other specified postprocedural states; Z56.0 Unemployment, unspecified; Z59.0 Homelessness; Z79.899 Other long term (current) drug therapy; W18.40XA Slipping, tripping and stumbling without falling, unspecified, initial encounter; Y93.89 Activity, other specified; Y92.89 Other specified places as the place of occurrence of the external cause; Y99.8 Other external cause status; Y90.0 Blood alcohol level of less than 20 mg/100 ml
CPT/HCPCS: 36415; 70450; 72125; 72192; 80053; 85025; 96360; 99285; J7030

== ENCOUNTER → 2020-04-27 | Emergency (ER) | payer MEDICARE, MEDICAID ==
[~2020-04-27] VITALS: Ht 172.7 cm; Wt 61.4 kg
[~2020-04-27] MED LIST changes: +HYDR-4353 PO; +IBUP-1984 PO; +METH4TAB81 PO; +ORPH100T2 PO; +cyclobenzaprine 10mg tablet PO ONE; +ketorolac tromethamine 15mg/ml inj. IM ONE
--- NOTE | 2020-04-27 16:42 | NUR ---
not in lobby
[2020-04-27 18:44] VITALS: BP 148/97
== END | disposition home or self-care (01) ==
LOC: ER 15:43
DX: M54.2 Cervicalgia (principal); M62.830 Muscle spasm of back; I10 Essential (primary) hypertension; G89.29 Other chronic pain; F32.9 Major depressive disorder, single episode, unspecified; F10.10 Alcohol abuse, uncomplicated; Z86.69 Personal history of other diseases of the nervous system and sense organs; Z90.49 Acquired absence of other specified parts of digestive tract; Z98.890 Other specified postprocedural states; Z59.0 Homelessness; Z56.0 Unemployment, unspecified; Z79.899 Other long term (current) drug therapy
CPT/HCPCS: 96372; 99283; J1885

== ENCOUNTER 2020-05-16 02:52 | Emergency (ER) | payer MEDICARE, MEDICAID ==
[~2020-05-16] VITALS: Ht 167.6 cm; Wt 65.2 kg
[~2020-05-16 02:52] MED LIST changes: -HYDR-4353 PO; -IBUP-1984 PO; -RISP0.5T3 PO; +RISP0.5T65 PO; -cyclobenzaprine 10mg tablet PO ONE; -ketorolac tromethamine 15mg/ml inj. IM ONE
[2020-05-16 02:56] VITALS: BP 132/84
[2020-05-16] MEDS ORDERED: ketorolac tromethamine 15mg/ml inj. IM ONE (03:10)
[2020-05-16] MEDS ORDERED: acetaminophen 325mg tablet PO ONE (03:10)
== END 2020-05-16 03:47 | disposition home or self-care (01) ==
LOC: ER 02:53
DX: S39.012A Strain of muscle, fascia and tendon of lower back, initial encounter (principal); R20.0 Anesthesia of skin; G89.29 Other chronic pain; I10 Essential (primary) hypertension; Z59.0 Homelessness; Z86.69 Personal history of other diseases of the nervous system and sense organs; Z90.89 Acquired absence of other organs; Z98.890 Other specified postprocedural states; Z72.89 Other problems related to lifestyle; Z56.0 Unemployment, unspecified; Z79.899 Other long term (current) drug therapy; W18.39XA Other fall on same level, initial encounter; Y93.89 Activity, other specified; Y92.89 Other specified places as the place of occurrence of the external cause; Y99.8 Other external cause status
CPT/HCPCS: 96372; 99284; J1885

== ENCOUNTER 2020-05-16 07:03 | Emergency (ER) | payer MEDICARE, MEDICAID ==
[~2020-05-16] VITALS: Ht 167.6 cm; Wt 63.5 kg
[2020-05-16] MEDS ORDERED: HYDROcodone/acetaminophen 5mg/325mg tablet PO ONE (08:40)
[2020-05-16 08:56] VITALS: BP 141/83
== END 2020-05-16 08:58 | disposition home or self-care (01) ==
LOC: ER 07:03
DX: M54.5 Low back pain (principal); G89.29 Other chronic pain; I10 Essential (primary) hypertension; Z86.69 Personal history of other diseases of the nervous system and sense organs; F32.9 Major depressive disorder, single episode, unspecified; F17.200 Nicotine dependence, unspecified, uncomplicated; F10.10 Alcohol abuse, uncomplicated; Z90.49 Acquired absence of other specified parts of digestive tract; Z98.890 Other specified postprocedural states; Z59.0 Homelessness; Z56.0 Unemployment, unspecified; Z79.899 Other long term (current) drug therapy; Y90.9 Presence of alcohol in blood, level not specified
CPT/HCPCS: 99284

== ENCOUNTER 2020-05-19 15:10 | Emergency (ER) | payer MEDICARE, MEDICAID ==
[~2020-05-19] VITALS: Ht 160 cm; Wt 61.4 kg
--- NOTE | 2020-05-19 18:38 | NUR ---
pt is standing up in room, he is using the urinal. He asked his HOB be elevated, and a pillow. So done.
--- NOTE | 2020-05-19 18:43 | NUR ---
took him a sandwiche and milk.
[2020-05-19] MEDS ORDERED: ibuprofen tablet 400 MG TABLET PO ONE (19:05)
[2020-05-19 20:25] VITALS: BP 144/89
== END 2020-05-19 20:28 | disposition home or self-care (01) ==
LOC: ER 15:11
DX: M25.531 Pain in right wrist (principal); I10 Essential (primary) hypertension; G89.29 Other chronic pain; F32.9 Major depressive disorder, single episode, unspecified; Z86.69 Personal history of other diseases of the nervous system and sense organs; Z90.89 Acquired absence of other organs; Z98.890 Other specified postprocedural states; Z87.11 Personal history of peptic ulcer disease; Z72.89 Other problems related to lifestyle; Z56.0 Unemployment, unspecified; Z59.0 Homelessness; Z79.899 Other long term (current) drug therapy; W19.XXXA Unspecified fall, initial encounter; Y93.89 Activity, other specified; Y92.89 Other specified places as the place of occurrence of the external cause; Y99.8 Other external cause status
CPT/HCPCS: 73110; 99284

== ENCOUNTER 2020-06-12 16:44 | Emergency (ER) | payer MEDICARE, MEDICAID ==
[~2020-06-12] VITALS: Ht 170.2 cm; Wt 61.4 kg
[2020-06-12 17:07] VITALS: BP 125/83
[2020-06-12] MEDS ORDERED: ibuprofen tablet 400 MG TABLET PO ONE (17:20)
== END 2020-06-12 17:50 | disposition home or self-care (01) ==
LOC: ER 16:45
DX: M54.5 Low back pain (principal); Z20.828 Contact with and (suspected) exposure to other viral communicable diseases; R05 Cough; R50.9 Fever, unspecified; I10 Essential (primary) hypertension; G89.29 Other chronic pain; Z86.69 Personal history of other diseases of the nervous system and sense organs; Z90.49 Acquired absence of other specified parts of digestive tract; Z98.890 Other specified postprocedural states; Z56.0 Unemployment, unspecified; Z59.0 Homelessness; Z72.89 Other problems related to lifestyle; Z79.899 Other long term (current) drug therapy
CPT/HCPCS: 36415; 71045; 87635; 99284

== ENCOUNTER 2020-06-23 18:14 | Emergency (ER) | payer MEDICARE, MEDICAID ==
[~2020-06-23] VITALS: Ht 172.7 cm; Wt 68.0 kg
[2020-06-24 00:41] VITALS: BP 122/75
== END 2020-06-24 00:43 | disposition home or self-care (01) ==
LOC: ER 18:14
DX: M79.641 Pain in right hand (principal); R51.9 Headache, unspecified; I10 Essential (primary) hypertension; G89.29 Other chronic pain; M54.9 Dorsalgia, unspecified; F32.9 Major depressive disorder, single episode, unspecified; Z56.0 Unemployment, unspecified; Z59.0 Homelessness; Z79.899 Other long term (current) drug therapy; W19.XXXA Unspecified fall, initial encounter; Y93.89 Activity, other specified; Y92.89 Other specified places as the place of occurrence of the external cause; Y99.8 Other external cause status
CPT/HCPCS: 70450; 73130; 99284

== ENCOUNTER 2020-06-25 23:08 | Emergency (ER) | payer MEDICARE, MEDICAID ==
[~2020-06-25] VITALS: Ht 167.6 cm; Wt 80.0 kg
[2020-06-25 23:10] VITALS: BP 173/101
[2020-06-25] MEDS ORDERED: HYDROcodone/acetaminophen 10/325mg tab PO ONE (23:10)
[2020-06-25] MEDS ORDERED: ketorolac trometh. 30mg/ml inj. IM ONE (23:10)
--- NOTE | 2020-06-25 23:41 | NUR ---
sandwich and whole milk given
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
== END 2020-06-26 00:37 | disposition home or self-care (01) ==
LOC: ER 23:08
DX: S09.90XA Unspecified injury of head, initial encounter (principal); G89.29 Other chronic pain; M54.2 Cervicalgia; M54.5 Low back pain; I10 Essential (primary) hypertension; F32.9 Major depressive disorder, single episode, unspecified; Z79.899 Other long term (current) drug therapy; W18.39XA Other fall on same level, initial encounter; Y93.89 Activity, other specified; Y92.89 Other specified places as the place of occurrence of the external cause; Y99.8 Other external cause status
CPT/HCPCS: 70450; 72125; 96372; 99285; J1885

== ENCOUNTER 2020-06-26 07:45 | Emergency (ER) | payer MEDICARE, MEDICAID ==
[~2020-06-26] VITALS: Ht 167.6 cm; Wt 80.0 kg
[2020-06-26 07:53] VITALS: BP 158/96
[2020-06-26] MEDS ORDERED: ibuprofen tablet 400 MG TABLET PO ONE (08:35)
[2020-06-26] MEDS ORDERED: acetaminophen 325mg tablet PO ONE (08:35)
== END 2020-06-26 09:10 | disposition home or self-care (01) ==
LOC: ER 07:45
DX: T14.90XA Injury, unspecified, initial encounter (principal); M25.561 Pain in right knee; M25.551 Pain in right hip; I10 Essential (primary) hypertension; F32.9 Major depressive disorder, single episode, unspecified; G89.29 Other chronic pain; M54.9 Dorsalgia, unspecified; Z56.0 Unemployment, unspecified; Z59.0 Homelessness; Z79.899 Other long term (current) drug therapy; W18.39XA Other fall on same level, initial encounter; Y93.89 Activity, other specified; Y92.89 Other specified places as the place of occurrence of the external cause; Y99.8 Other external cause status
CPT/HCPCS: 99284

== ENCOUNTER 2020-06-26 11:09 | Emergency (ER) | payer MEDICARE, MEDICAID ==
[~2020-06-26] VITALS: Ht 170.2 cm; Wt 61.4 kg
[2020-06-26 12:24] VITALS: BP 141/85
== END 2020-06-26 12:05 | disposition home or self-care (01) ==
LOC: ER 11:09
DX: Z76.5 Malingerer [conscious simulation] (principal); Z02.89 Encounter for other administrative examinations; I10 Essential (primary) hypertension; G89.29 Other chronic pain; F32.9 Major depressive disorder, single episode, unspecified; Z86.69 Personal history of other diseases of the nervous system and sense organs; Z90.89 Acquired absence of other organs; Z98.890 Other specified postprocedural states; Z72.89 Other problems related to lifestyle; Z56.0 Unemployment, unspecified; Z59.0 Homelessness; Z79.899 Other long term (current) drug therapy
CPT/HCPCS: 99283

== ENCOUNTER 2020-06-26 18:31 | Emergency (ER) | payer MEDICARE, MEDICAID ==
[~2020-06-26] VITALS: Ht 170.2 cm; Wt 61.4 kg
[2020-06-26 18:51] VITALS: BP 143/82
== END 2020-06-26 18:54 | disposition home or self-care (01) ==
LOC: ER 18:32
DX: I49.9 Cardiac arrhythmia, unspecified (principal); G89.29 Other chronic pain; M54.9 Dorsalgia, unspecified; F32.9 Major depressive disorder, single episode, unspecified; Z98.890 Other specified postprocedural states; Z56.0 Unemployment, unspecified; Z59.0 Homelessness; Z79.899 Other long term (current) drug therapy
CPT/HCPCS: 99283

== ENCOUNTER 2020-06-28 01:07 | Emergency (ER) | payer MEDICARE, MEDICAID ==
[~2020-06-28] VITALS: Ht 170.2 cm; Wt 56.0 kg
[2020-06-28 01:12] VITALS: BP 119/71
--- NOTE | 2020-06-28 01:24 | NUR ---
PATIENT PROVIDED MEAL AND DRINK, PATIENT ALREADY WEARING WEATHER APPROPRIATE CLOTHING, CLOTHES DRY AND INTACT
== END 2020-06-28 02:21 | disposition home or self-care (01) ==
LOC: ER 01:09
DX: G89.29 Other chronic pain (principal); M25.562 Pain in left knee; M25.559 Pain in unspecified hip; M54.89 Other dorsalgia; I10 Essential (primary) hypertension; F32.9 Major depressive disorder, single episode, unspecified; F15.90 Other stimulant use, unspecified, uncomplicated; Z86.69 Personal history of other diseases of the nervous system and sense organs; Z90.89 Acquired absence of other organs; Z98.890 Other specified postprocedural states; Z72.89 Other problems related to lifestyle; Z56.0 Unemployment, unspecified; Z59.0 Homelessness; Z79.899 Other long term (current) drug therapy
CPT/HCPCS: 99284

== ENCOUNTER 2020-07-19 09:10 | Emergency (ER) | payer MEDICARE, MEDICAID ==
[~2020-07-19] VITALS: Ht 162.6 cm; Wt 59.1 kg
[~2020-07-19 09:10] MED LIST changes: +ALBU8.5H8 INH; +BUDE10.22 INH; +CEFD300C3 PO; +DIPH25TA25 PO; -DOCU100C40 PO; -DULO30CA52 PO; -DULO60CA65 PO; +EPIN11.7 IH; +FOLI0.4T2 PO; -GABA-532 PO; -HYDR-4383 PO; -IBUP-1985 PO; +LACT1CAP26 PO; -LIDO700A47 TP; -LORA10TA65 PO; -METH4TAB81 PO; -MIRT15TA8 PO; -NAPR220T67 PO; -ORPH100T2 PO; -RISP0.5T65 PO; +THIA50TA10 PO; -TRAZ-251 PO
[2020-07-19 09:39] VITALS: BP 124/75
--- NOTE | 2020-07-19 10:15 | NUR ---
PT WAS SEEN BY MICHAEL MCMAHON. PT WAS DC FROM THE FLOOR YESTERDAY, PT HAS A WALKER, WEATHER APROP CLOTHING AND SHOES, PT HAS RECEIVED A MSE WITH CXR. PER MICHAEL PT IS NOT ABLE TO RETURN TO THE [facility]. PT DECLINES TO CALL FAMILY FOR HELP. PT DECLINES TO GO TO A [facility]OT[facility]. PT OFFERED CAB TO [facility] PT STATES HE DOES NOT WANT TO GO TO A HOTEL. PT GIVEN PONCHO. PT USED A URINAL. PT READY FOR DC. PT REFUSES TO LEAVE STATING HE WANTS TO SEE THE DR. INFORMED PT HE HAS BEEN SEEM BY THE PA AND TERMINAL GAUGER. REVIEWED DC INSTRUCTIONS WITH PT. PT CONTINUES TO LEAVE THE [facility]. SECURITY CALLED FOR ASSIST
--- NOTE | 2020-07-19 10:23 | NUR ---
RN HOME CARE MICHAEL AT BEDSIDE TO SPEAK WITH PT RE DC PLAN
--- NOTE | 2020-07-19 10:50 | NUR ---
SECURITY ASSISTED WITH PT DC. PT AMBULATED WITH WALKER AND STEADY GAIT TO THE BUS STOP.
== END 2020-07-19 11:05 | disposition home or self-care (01) ==
LOC: ER 09:11
DX: Z76.5 Malingerer [conscious simulation] (principal); R53.1 Weakness; I10 Essential (primary) hypertension; G89.29 Other chronic pain; F32.9 Major depressive disorder, single episode, unspecified; F15.90 Other stimulant use, unspecified, uncomplicated; F10.10 Alcohol abuse, uncomplicated; Z88.6 Allergy status to analgesic agent; Z90.89 Acquired absence of other organs; Z98.890 Other specified postprocedural states; Z59.0 Homelessness; Z56.0 Unemployment, unspecified; Z79.899 Other long term (current) drug therapy; Y90.9 Presence of alcohol in blood, level not specified; W01.0XXA Fall on same level from slipping, tripping and stumbling without subsequent striking against object, initial encounter; Y93.89 Activity, other specified; Y92.89 Other specified places as the place of occurrence of the external cause; Y99.8 Other external cause status
CPT/HCPCS: 71045; 99283

== ENCOUNTER 2020-07-19 19:00 | Emergency (ER) | payer MEDICARE, MEDICAID ==
[~2020-07-19] VITALS: Ht 160 cm; Wt 46.7 kg
[2020-07-19 19:44] VITALS: BP 124/82
[2020-07-19] MEDS: naproxen 500mg tablet PO ONE (23:19)
[2020-07-19] MEDS: LORazepam 0.5 MG tablet PO PRN (23:19)
== END 2020-07-19 23:38 | disposition home or self-care (01) ==
LOC: ER 19:00
DX: F10.129 Alcohol abuse with intoxication, unspecified (principal); F41.9 Anxiety disorder, unspecified; I10 Essential (primary) hypertension; G89.29 Other chronic pain; F32.9 Major depressive disorder, single episode, unspecified; F15.90 Other stimulant use, unspecified, uncomplicated; Z86.69 Personal history of other diseases of the nervous system and sense organs; Z90.89 Acquired absence of other organs; Z98.890 Other specified postprocedural states; Z87.11 Personal history of peptic ulcer disease; Z87.01 Personal history of pneumonia (recurrent); Z72.89 Other problems related to lifestyle; Z59.0 Homelessness; Z56.0 Unemployment, unspecified; Z79.2 Long term (current) use of antibiotics; Z79.899 Other long term (current) drug therapy; W19.XXXA Unspecified fall, initial encounter; Y93.89 Activity, other specified; Y92.89 Other specified places as the place of occurrence of the external cause; Y99.8 Other external cause status
CPT/HCPCS: 99283

== ENCOUNTER 2020-08-04 17:17 | Emergency (ER) | payer MEDICARE, MEDICAID ==
[~2020-08-04] VITALS: Ht 172.7 cm; Wt 63.6 kg
[2020-08-04 18:19] LABS: BASOPHILS % (AUTO) 0.6 % (0-1); EOSINOPHILS # (AUTO) 0.1 X10'3 (0-0.9); EOSINOPHILS % (AUTO) 1.3 % (0-6); HEMATOCRIT 35.9 % (42.0-52.0); HEMOGLOBIN 12.3 g/dl (14.0-17.9); LYMPHOCYTES # (AUTO) 1.3 X10'3 (1.1-4.8); LYMPHOCYTES % (AUTO) 20.1 % (21-51); MEAN CORPUSCULAR HGB CONC 34.3 g/dL (33.0-36.5); MEAN CORPUSCULAR VOLUME 96.2 FL (78-98); MEAN PLATELET VOLUME 6.7 FL (7.4-10.4); MONOCYTES # (AUTO) 0.7 X10'3 (0-0.9); MONOCYTES % (AUTO) 11.6 % (2-12); NEUTROPHILS # (AUTO) 4.2 X10'3 (1.8-7.7); NEUTROPHILS % (AUTO) 66.4 % (42-75); PLATELET COUNT 303 X10'3 (140-440); RED BLOOD COUNT 3.73 X10'6 (4.70-6.10); RED CELL DISTRIBUTION WIDTH 14.4 % (11.5-14.5); WHITE BLOOD COUNT 6.4 X10'3 (4.5-11.0)
[2020-08-04 18:36] LABS: ALANINE AMINOTRANSFERASE 29 U/L (12-78); ALBUMIN 3.5 G/DL (3.4-5.0); ALKALINE PHOSPHATASE 79 IU/L (46-116); ANION GAP 8 (8-16); ASPARTATE AMINO TRANSFERASE 15 U/L (10-37); BILIRUBIN,TOTAL 0.3 MG/DL (0.1-1.0); BLOOD UREA NITROGEN 14 MG/DL (7-18); BUN/CREATININE RATIO 24.6 (5.4-32.0); CHLORIDE 106 MMOL/L (99-107); CREATININE 0.57 MG/DL (0.60-1.10); GLUCOSE 96 MG/DL (70-104); POTASSIUM 3.7 MMOL/L (3.5-5.1); SODIUM 139 MMOL/L (135-145); TOTAL CARBON DIOXIDE 25.4 MMOL/L (24-32); eGFR > 90 ML/MIN
[2020-08-04 18:41] LABS: ETHANOL < 0.010 GM/DL (0.0-0.010)
[2020-08-04] MEDS ORDERED: acetaminophen 325mg tablet PO ONE (18:55)
[2020-08-04] MEDS ORDERED: NO HOME MEDS (18:57)
--- NOTE | 2020-08-04 20:48 | NUR ---
PT open and forthcoming about suicide attempt and history. Pt states he has a history of chronic pain and he states he wants to end the pain. Pt states he does not take any medications at this time and he cant remember any medications he may have taken in the past. Behavior is appropriate and demeanor is calm and cooperative. Pt given meal tray. 100% consumed.
--- NOTE | 2020-08-04 22:44 | NUR ---
Patient brought from bed 15 to bed 23. Patient demands 7 up to drink, "not this water." Patient tells this technical writer and editor, "I'm not suicidal, I'm only here to get medications for my chronic back pain" Patient demands his bed be lowered to a supine position. Patient was accepting of cranberry juice. He was advised we have no soft drinks here. Patient given a warm blanket. He is attempting to go to sleep. Patient is cooperative at this time. Patients bed is in view from the nursing station.
[2020-08-04 23:03] LABS: URINE AMPHETAMINE SCREEN NEGATIVE (Neg); URINE BARBITUATE SCREEN NEGATIVE (Neg); URINE BENZODIAZEPINES SCREEN NEGATIVE (Neg); URINE CANNABINOID SCREEN NEGATIVE (Neg); URINE COCAINE SCREEN NEGATIVE (Neg); URINE METHADONE SCREEN NEGATIVE (Neg); URINE OPIATE SCREEN NEGATIVE (Neg); URINE PHENCYCLIDINE SCREEN NEGATIVE (Neg)
--- NOTE | 2020-08-04 23:11 | NUR ---
Pt asleep, lying on his right side with blankets covering to his shouders. RR 12-14 and unlabored. Sitter and RN within view of Pt aat. Pts bedside table with full pitcher of ice water and his walker is next to the bed.
--- NOTE | 2020-08-05 04:01 | NUR ---
Patient is sleeping quietly, supine in bed. Patient was up to void once. He ambulates with use of a walker. No distress.
--- NOTE | 2020-08-05 06:45 | NUR ---
Patient sleeping on his left side. No distress observed. Continue to monitor.
--- NOTE | 2020-08-05 07:29 | NUR ---
PACKET FA[place]ED [place] [facility]
--- NOTE | 2020-08-05 08:02 | NUR ---
Patient sitting up and eating. No distress observed. Continue to monitor.
--- NOTE | 2020-08-05 09:08 | NUR ---
PT RESTING ON BACK EYES CLOSED RR EQUAL AND UNLABORED
--- NOTE | 2020-08-05 11:06 | NUR ---
Patient sleeping supine. No distress observed. Continue to monitor.
--- NOTE | 2020-08-05 13:10 | NUR ---
Patient eating breakfast. No distress observed. Continue to monitor.
--- NOTE | 2020-08-05 15:02 | NUR ---
PT RESTING ON BACK WITH EYES CLOSED RR EQUAL AND UNLABORED
--- NOTE | 2020-08-05 17:50 | NUR ---
Patient requesting pain medication 03/16 pain. RN to speak to Dr Ivy. Continue to monitor.
[2020-08-05] MEDS: acetaminophen 325mg tablet PO PRN (17:53)
--- NOTE | 2020-08-05 18:08 | NUR ---
RN spoke to Dr. Ivy because patient wanted to speak to him because he wants something stronger than Tylenol for his pain. Dr Ivy said he was too busy and Dr Walter knows patient well and is drug seeking.
--- NOTE | 2020-08-05 19:06 | NUR ---
RECEIVED REPORT FROM AARON JACKSON. PT IS FINISHING DINNER AND STILL REPORTING 9/10 PAIN; THAT THE TYLENOL DOESN'T DO ANYTHING FOR HIS PAIN. WILL ADDRESS WITH DR. MULLER. PT CALM AND COOPERATIVE DESPITE SEVERE PAIN HE IS REPORTING. WILL CONT TO MONITOR.
--- NOTE | 2020-08-05 19:15 | NUR ---
DISCUSSED PT'S PAIN WITH DR. MULLER. AT THIS TIME NO OTHER PAIN MEDICATIONS WILL BE ORDERED.
--- NOTE | 2020-08-05 21:06 | NUR ---
PT HAS NOT REPORTED PAIN TO RN SINCE THE FIRST ASSESSMENT. PT LAYING ON BACK SLEEPING WITH NO SIGNS OF PAIN OR DISCOMFORT NOTED. REGULAR BREATHING RATE. RN WILL CONT TO MONITOR.
--- NOTE | 2020-08-05 23:05 | NUR ---
PT CONTINUES TO SLEEP AND IS NOT SHOWING SIGNS OF PAIN OR DISCOMFORT. WILL CONT TO MONITOR.
--- NOTE | 2020-08-06 03:16 | NUR ---
PT SLEEPING AND IS NOT SHOWING SIGNS OF PAIN OR DISCOMFORT; WILL CONT TO MONITOR.
--- NOTE | 2020-08-06 05:26 | NUR ---
PT SLEEPING WITH REGULAR BREATHING RATE. IS NOT SHOWING SIGNS OF DISTRESS OR DISCOMFORT. WILL CONT TO MONITOR.
--- NOTE | 2020-08-06 07:56 | NUR ---
Patient sitting up eating breakfast, wanted to know what time it is. States, "people come in this room and steal things and leave papers", although didnt seem particularly concerned about it.
--- NOTE | 2020-08-06 08:44 | NUR ---
Resting on right side with eyes closed. Respirations normal
--- NOTE | 2020-08-06 10:00 | NUR ---
Patient resting with eyes closed, roomate next door rambling about nonsense, told him "shut up man" and rolled over to back
--- NOTE | 2020-08-06 14:08 | NUR ---
Resting with eyes closed
--- NOTE | 2020-08-06 15:33 | NUR ---
Resting with eyes closed, respirations normal
--- NOTE | 2020-08-06 17:55 | NUR ---
Sitting quietly eating dinner
--- NOTE | 2020-08-06 18:30 | NUR ---
Patient is resting quietly in bed. No distress.
--- NOTE | 2020-08-06 19:40 | NUR ---
Patient uses walker to ambulate to bathroom to void. No distress. Patients bed in view from nurses station.
--- NOTE | 2020-08-06 20:45 | NUR ---
Patient sleeping. Head to right side. No distress.
--- NOTE | 2020-08-06 22:15 | NUR ---
Patient sleeping supine in bed. No distress.
--- NOTE | 2020-08-06 23:57 | NUR ---
Patient sleeping in a supine position. No distress.
--- NOTE | 2020-08-07 02:55 | NUR ---
Patient sleeping on his left side in bed. No distress.
--- NOTE | 2020-08-07 06:30 | NUR ---
Patient sleeping on left side. No distress observed. Continue to monitor.
--- NOTE | 2020-08-07 07:55 | NUR ---
Patient sitting up and eating breakfast. No distress observed. Continue to monitor.
--- NOTE | 2020-08-07 09:36 | NUR ---
Patient is sleeping supine. No distress observed. Continue to monitor.
--- NOTE | 2020-08-07 11:10 | NUR ---
Patient sleeping supine. No distress observed. Continue to monitor.
--- NOTE | 2020-08-07 12:30 | NUR ---
Breaking Primary RN, pt is laying on his left side, eyes closed, regular breathing present, no needs at this time
--- NOTE | 2020-08-07 14:04 | NUR ---
Patient asking for his bed to be laid down. RN asked patient if he was still suicidal. Patient stated "Absolutely." Patient's plan is to step in front of traffic. Continue to monitor.
--- NOTE | 2020-08-07 15:10 | NUR ---
MOI, Ilan, evaluating patient.
--- NOTE | 2020-08-07 15:19 | NUR ---
Patient placed on a 5150 for DTS.
--- NOTE | 2020-08-07 17:30 | NUR ---
Patient reclining in bed. No distress observed. Patient ambulatory to BR, steady gait earlier without assistance. Continue to monitor.
[2020-08-07] MEDS: acetaminophen 325mg tablet PO PRN (17:56)
--- NOTE | 2020-08-07 18:30 | NUR ---
Assumed care of patient sitting up in bed finishing his meal tray.
--- NOTE | 2020-08-07 20:34 | NUR ---
The patient is lying on his right side trying to get to sleep. No s/s of distress.
--- NOTE | 2020-08-07 22:20 | NUR ---
The patient continues to sleep. No s/s of distress.
--- NOTE | 2020-08-08 00:12 | NUR ---
The patient is sleeping on his right side. RR unlabored. No distress.
--- NOTE | 2020-08-08 00:17 | NUR ---
PT SLEEPING ON HIS RIGHT SIDE . RESP EVEN AND UNLABORED . PT IN THE DIRECT LINE OF SIGHT OF NURSING STAFF . WILL CONTINUE TO MONITOR AND REASSESS NEEDED
--- NOTE | 2020-08-08 01:50 | NUR ---
The patient is asleep in supine position. Breathing is equal and unlabored. No s/s of distress.
--- NOTE | 2020-08-08 04:00 | NUR ---
PT SLEEPING ON HIS RIGHT SIDE . RESP EVEN AND UNLABORED . PT IN THE DIRECT LINE OF SIGHT OF NURSING STAFF . WILL CONTINUE TO MONITOR AND REASSESS NEEDED PT HAS BEEN UP OUT OF BED TO AMBULATE TO BATHROOM WITH WALKER STEADY GAIT
--- NOTE | 2020-08-08 05:00 | NUR ---
PT SLEEPING ON HIS LEFT SIDE . RESP EVEN AND UNLABORED . PT IN THE DIRECT LINE OF SIGHT OF NURSING STAFF . WILL CONTINUE TO MONITOR AND REASSESS NEEDED
--- NOTE | 2020-08-08 06:26 | NUR ---
Patient sleeping supine. No distress observed. Continue to monitor.
--- NOTE | 2020-08-08 08:07 | NUR ---
Patient sitting up and eating. No distress observed. Continue to monitor.
--- NOTE | 2020-08-08 09:35 | NUR ---
Daniel PRATER, performing a MOCA test on patient. Continue to monitor.
--- NOTE | 2020-08-08 10:47 | NUR ---
Patient ambulatory to BR with walker, steady gait. No distress observed. Continue to monitor.
--- NOTE | 2020-08-08 12:18 | NUR ---
Patient sleeping supine. No distress observed. Continue to monitor.
--- NOTE | 2020-08-08 13:06 | NUR ---
Patient eating lunch. No distress observed. Continue to monitor.
--- NOTE | 2020-08-08 15:10 | NUR ---
Patient sleeping supine. No distress observed. Continue to monitor.
--- NOTE | 2020-08-08 17:07 | NUR ---
Patient ambulatory to nurses station with walker, steady gait. Patient asking RN for a cigarette break. RN advised patient that she would ask doctor for a nicotine patch. Continue to monitor.
[2020-08-08] MEDS: nicotine 7mg patch - 24hr TD SCH (18:02)
--- NOTE | 2020-08-08 19:01 | NUR ---
The patient is resting comfortably on his bed eating his evening meal. When asked how his day was he stated, "fair. Not good just fair" He stated that he cannot be discharged. "I can't leave right now. I'm homeless. I don't have anyything to do...I'm too old to be on the streets"
--- NOTE | 2020-08-08 19:14 | NUR ---
Patient ambulated to the bathroom.
--- NOTE | 2020-08-08 20:29 | NUR ---
The patient is resting on his bed and appears to be sleeping.
--- NOTE | 2020-08-08 23:22 | NUR ---
The patient appears to be sleeping.
--- NOTE | 2020-08-09 00:58 | NUR ---
The patient appears to be sleeping
--- NOTE | 2020-08-09 01:58 | NUR ---
The patient is up to use the bathroom with his walker
--- NOTE | 2020-08-09 04:22 | NUR ---
The patient appears to be sleeping
--- NOTE | 2020-08-09 07:30 | NUR ---
pt is lying in bed, no distress noted. rr unlabored.
[2020-08-09] MEDS: nicotine 7mg patch - 24hr TD SCH (08:01)
[2020-08-09] MEDS: acetaminophen 325mg tablet PO PRN (08:01)
--- NOTE | 2020-08-09 10:54 | NUR ---
pt is sleeping, no s/s distress noted.
--- NOTE | 2020-08-09 12:35 | NUR ---
pt is resting in bed. pt asked for a urinal but was encouraged to ambulate on is own to the restroom.
--- NOTE | 2020-08-09 13:03 | NUR ---
pt is eating lunch, no s/s of distress noted.
[2020-08-09] MEDS: duloxetine 30mg CAPSULE.DR PO SCH (13:11)
--- NOTE | 2020-08-09 14:15 | NUR ---
breaking primary rn, pt requested to have bed repositioned and to have lunch tray taken away. will continue to monitor
--- NOTE | 2020-08-09 15:22 | NUR ---
pt is sleeping, no s/s of distress noted.
--- NOTE | 2020-08-09 16:55 | NUR ---
pt is meeting with pyschologists to perform mental exam.
[2020-08-09 17:06] VITALS: BP 131/87
--- NOTE | 2020-08-09 19:00 | NUR ---
The patient is quietly sitting on his bed and eating his dinner.
--- NOTE | 2020-08-09 20:31 | NUR ---
The patient is resting on his bed. He is polite. Discussed HS medications with him.
[2020-08-09] MEDS ORDERED: traZODone 150mg tablet PO PRN (21:00)
[2020-08-09] MEDS ORDERED: mirtazapine 15mg tablet PO SCH (21:00)
--- NOTE | 2020-08-09 22:21 | NUR ---
The patient appears to be sleeping
--- NOTE | 2020-08-10 00:05 | NUR ---
The patient appears to be sleeping
--- NOTE | 2020-08-10 01:02 | NUR ---
The patient appears to be sleeping
--- NOTE | 2020-08-10 02:51 | NUR ---
The patient appears to be sleeping
--- NOTE | 2020-08-10 04:42 | NUR ---
The patient appears to be asleep
[2020-08-10] MEDS: duloxetine 30mg CAPSULE.DR PO SCH (08:21)
[2020-08-10] MEDS: nicotine 7mg patch - 24hr TD SCH (08:31)
[2020-08-10] MEDS: acetaminophen 325mg tablet PO PRN (08:41)
--- NOTE | 2020-08-10 12:56 | NUR ---
Patient eating lunch tray with no assistance.
--- NOTE | 2020-08-10 13:51 | NUR ---
PATIENT AMBULATED TO BATHROOM WITH FFW
--- NOTE | 2020-08-10 15:35 | NUR ---
AMY FROM [facility] HERE AND IT NOT RENEWING THE PATIENT'S 5150. AMY IS DISCUSSING THIS WITH VJ TOUSSAINT MD
--- NOTE | 2020-08-10 16:39 | NUR ---
MULTIPLE DISCUSSIONS WITH PATIENT. PATIENT STATED MULTIPLE TIMES THAT HE DID NOT REMEMBER WHERE HE WAS STAYING PRIOR TO COMING TO THE ER HERE. 5150 HOLD WAS NOT RENEWED BY [facility] WORKER AND ER MD CAPONE AGREED. WHEN PATIENT'S BELONGINGS RETURNED PATIENT HAD OVER $70 IN [place] DESPITE CLAIM ING THAT HE HAD TO GO TO AFTER-MOUSE. WHEN RESERVATION FOR [facility] ON [facility] WAS MADE, PATIENT REMEMBERED WHERE HE WAS STAYING. MULTIPLE PHONE CALLS TO THE [facility] WERE MADE INCLUDING LEAVING A MESSAGE. I COULD NOT FIND OUT IF A ROOM WAS AVAILABLE, PATIENT'S RESERVATION AT [facility] WAS MAINTIANED. THE [facility]OTEL ROOM AMOUNT WITH TAX WAS UNDER $62. PATIENT REFUSED DISCHARGE VITALS BUT VERBALIZED SIMPLE UNDERSTANDING OF DISCHARGE PLAN. PATIENT WAS ESCORTED TO THE ER ENTRANCE WHERE BOTH RADIOLOGY CLERK PEDRO AND COMPENSATION MANAGER REGISTRATION WERE ASKED TO ENSURE THAT PATIENT GETS INTO THE CAB. PATIENT AMBULATED WELL AND WAS VERY STEADY ON HIS FEET WITH HIS FFW AND WEARING ALL HIS BELONGINGS
--- NOTE | 2020-08-10 17:07 | NUR ---
Pt discharged in stable condition. Refusing to leave. [facility] and taxi arranged for patient prior discahrge. Pt was escorted to front lobby. Left the hospital via taxi.
== END 2020-08-10 17:17 | disposition home or self-care (01) ==
LOC: ER 17:18
DX: R45.851 Suicidal ideations (principal); Z20.822 Contact with and (suspected) exposure to COVID-19; M25.551 Pain in right hip; I10 Essential (primary) hypertension; G89.29 Other chronic pain; F32.9 Major depressive disorder, single episode, unspecified; F15.90 Other stimulant use, unspecified, uncomplicated; Z87.01 Personal history of pneumonia (recurrent); Z90.89 Acquired absence of other organs; Z98.890 Other specified postprocedural states; Z86.69 Personal history of other diseases of the nervous system and sense organs; Z87.11 Personal history of peptic ulcer disease; Z72.89 Other problems related to lifestyle; Z59.0 Homelessness; Z56.0 Unemployment, unspecified
CPT/HCPCS: 36415; 73502; 80053; 80305; 80320; 85025; 87426; 99285

== ENCOUNTER 2020-08-12 00:49 | Emergency (ER) | payer MEDICARE, MEDICAID ==
[~2020-08-12] VITALS: Ht 165.1 cm; Wt 59.1 kg
[~2020-08-12 00:49] MED LIST changes: -ALBU8.5H8 INH; -BUDE10.22 INH; -CEFD300C3 PO; -DIPH25TA25 PO; -EPIN11.7 IH; -FOLI0.4T2 PO; -LACT1CAP26 PO; +NO HOME MEDS; -THIA50TA10 PO
[2020-08-12 00:52] VITALS: BP 140/88
--- NOTE | 2020-08-12 01:17 | NUR ---
ESTELITAJULIANA STAYS AT [facility] THEN REPORTS NOT SURE ABOUT WHERE HE IS STAYING TONIGHT.
--- NOTE | 2020-08-12 01:26 | NUR ---
INFORMED DR RUVALCABA THAT PT HAS APPARENT MEMORY ISSUES. HE SAID HE CAN STAY WITH HIS SISTER IN [place] BUT DOESN'T KNOW HER PHONE NUMBER. HIS MOMS PHONE NUMBER IS ON THE CHART A [employer] BUT HE WANTS ME TO WAIT UNTIL SHE AWAKENS TO CALL HER. HE DOESN'T REMEMBER STAYING AT A [facility] ROOM LAST NIGHT. HE IS VERY FORGETFUL.
--- NOTE | 2020-08-12 05:30 | NUR ---
LEFT MESSAGE ON HIS MOTHERSGroove Customer Support MACHINE TO CALL THE ER.
--- NOTE | 2020-08-12 07:11 | NUR ---
Patient is asleep and resting quietly in bed.
--- NOTE | 2020-08-12 07:20 | NUR ---
Attempted to call patients mother, no answer.
[2020-08-12] MEDS ORDERED: DEXAMETHASONE 6 MG TABLET PO SCH (08:00)
--- NOTE | 2020-08-12 08:24 | NUR ---
Spoke with Marion, she states that she has not been in contact with Juan José for quite some time. She states that the sister "has a full house and does not want any part of this", she refused to give me the sisters contact information. Marion states that Juan José no longer lives in [place] and believes he has been on the streets for awhile. She had no suggestions for contacts that would be able to assist with Juan José's living situation.
--- NOTE | 2020-08-12 08:59 | NUR ---
Spoke with Iona at [facility] who states there is nothing they can do for this patient. They recommend DC to the [facility]. Dr. Rico and pharmacist in charge kia [place] with dc to [facility]. Patient given breakfast.
--- NOTE | 2020-08-12 10:25 | NUR ---
Patient states he is unable to go to the [place] due to past behaviors. He states he does not want a cab anywhere. He is alert, oriented, and making phone calls. He has been cleared by Dr. Rico to be discharged. The patient was discharge and escorted to the lobby.
== END 2020-08-12 10:09 | disposition home or self-care (01) ==
LOC: ER 00:50
DX: G89.29 Other chronic pain (principal); M25.561 Pain in right knee; M25.551 Pain in right hip; R29.6 Repeated falls; R45.851 Suicidal ideations; I10 Essential (primary) hypertension; F32.9 Major depressive disorder, single episode, unspecified; F15.90 Other stimulant use, unspecified, uncomplicated; Z86.69 Personal history of other diseases of the nervous system and sense organs; Z87.01 Personal history of pneumonia (recurrent); Z90.89 Acquired absence of other organs; Z98.890 Other specified postprocedural states; Z87.11 Personal history of peptic ulcer disease; Z72.89 Other problems related to lifestyle; Z59.0 Homelessness; Z56.0 Unemployment, unspecified
CPT/HCPCS: 72170; 73560; 99284

== ENCOUNTER 2020-08-12 20:54 | Emergency (ER) | payer MEDICARE, MEDICAID ==
[~2020-08-12] VITALS: Ht 160 cm; Wt 55.8 kg
[2020-08-12 22:12] VITALS: BP 139/91
== END 2020-08-12 22:12 | disposition home or self-care (01) ==
LOC: ER 20:54
DX: M54.2 Cervicalgia (principal); I10 Essential (primary) hypertension; G89.29 Other chronic pain; F32.9 Major depressive disorder, single episode, unspecified; F15.90 Other stimulant use, unspecified, uncomplicated; F17.200 Nicotine dependence, unspecified, uncomplicated; Z86.69 Personal history of other diseases of the nervous system and sense organs; Z87.01 Personal history of pneumonia (recurrent); Z90.89 Acquired absence of other organs; Z98.890 Other specified postprocedural states; Z87.11 Personal history of peptic ulcer disease; Z72.89 Other problems related to lifestyle; Z59.0 Homelessness; Z56.0 Unemployment, unspecified; W19.XXXA Unspecified fall, initial encounter; Y93.89 Activity, other specified; Y92.89 Other specified places as the place of occurrence of the external cause; Y99.8 Other external cause status
CPT/HCPCS: 99283

== ENCOUNTER 2020-08-13 15:39 | Emergency (ER) | payer MEDICARE, MEDICAID ==
[~2020-08-13] VITALS: Ht 91.4 cm; Wt 55.0 kg
[2020-08-13 15:52] VITALS: BP 129/92
[2020-08-13] MEDS ORDERED: acetaminophen 325mg tablet PO ONE (18:35)
--- NOTE | 2020-08-13 20:20 | NUR ---
ENCOURAGED PT TO DRINK WATER FOR URINE SPECIMAN . PT REOORTS THAT IT WILL TAKE ABOUT 30 MIN
[2020-08-13 21:39] LABS: CLARITY,URINE SLIGHTLY CLOUDY (Clear); COLOR,URINE YELLOW (Yellow); GLUCOSE, URINE NEGATIVE (Neg); KETONES,URINE 15 mg/dl (Neg); LEUKOCYTE ESTERASE ,URINE NEGATIVE (Neg); NITRITES, URINE NEGATIVE (Neg); OCCULT BLOOD,URINE TRACE-INTACT (Neg); PH,URINE 5.5 (4.8-8.0); PROTEIN,URINE 30 mg/dl (Neg); UA COLLECTION TYPE CLN CATCH MIDSTREAM; UROBILINOGEN,URINE 0.2 E.U/dL (0.2-1.0)
[2020-08-13 21:47] LABS: CAL OXALATE CRYSTALS 2+ /HPF (NEGATIVE); MUCUS STRANDS MANY /LPF (Neg)
[2020-08-13 21:49] LABS: WBC,URINE 20-30 /HPF (0-4)
[2020-08-13 21:50] LABS: BACTERIA,URINE FEW /HPF (Neg); RBC,URINE 0-2 /HPF (0-2); SQUAMOUS EPITHELIAL CELL,UR NONE SEEN /LPF (FEW)
== END 2020-08-13 22:05 | disposition home or self-care (01) ==
LOC: ER 15:39
DX: M79.604 Pain in right leg (principal); M25.551 Pain in right hip; M25.561 Pain in right knee; W01.0XXA Fall on same level from slipping, tripping and stumbling without subsequent striking against object, initial encounter; Z91.81 History of falling; Y93.89 Activity, other specified; Y92.89 Other specified places as the place of occurrence of the external cause; Y99.8 Other external cause status; I10 Essential (primary) hypertension; F15.90 Other stimulant use, unspecified, uncomplicated; G89.29 Other chronic pain; Z87.01 Personal history of pneumonia (recurrent); Z86.61 Personal history of infections of the central nervous system; Z98.890 Other specified postprocedural states; Z72.89 Other problems related to lifestyle; Z56.0 Unemployment, unspecified
CPT/HCPCS: 73502; 73564; 73700; 81001; 87088; 99285

== ENCOUNTER 2020-08-14 18:10 | Emergency (ER) | payer MEDICARE, MEDICAID ==
[~2020-08-14] VITALS: Ht 160 cm; Wt 63.6 kg
--- NOTE | 2020-08-14 19:43 | NUR ---
When asked, pt reports that he "wishes he were ." Denies plan. States "the pain is just so great." No obvious swelling or deformities noted.
--- NOTE | 2020-08-14 20:00 | NUR ---
MD AWARE BLOOD SUGAR 66, PATIENT ATE SANDWHICH APPLE SAUCE 240 ML APPLE JUICE AND 240 ML WATER
[2020-08-14 20:12] LABS: BASOPHILS # (AUTO) 0.1 X10'3 (0-0.2); BASOPHILS % (AUTO) 0.6 % (0-1); EOSINOPHILS # (AUTO) 0.1 X10'3 (0-0.9); EOSINOPHILS % (AUTO) 0.9 % (0-6); HEMATOCRIT 41.2 % (42.0-52.0); HEMOGLOBIN 13.8 g/dl (14.0-17.9); LYMPHOCYTES % (AUTO) 12.1 % (21-51); MEAN CORPUSCULAR HEMOGLOBIN 32.4 PG (27.0-31.0); MEAN CORPUSCULAR HGB CONC 33.4 g/dL (33.0-36.5); MEAN CORPUSCULAR VOLUME 96.9 FL (78-98); MEAN PLATELET VOLUME 7.6 FL (7.4-10.4); MONOCYTES # (AUTO) 0.6 X10'3 (0-0.9); MONOCYTES % (AUTO) 7.7 % (2-12); NEUTROPHILS # (AUTO) 6.6 X10'3 (1.8-7.7); NEUTROPHILS % (AUTO) 78.7 % (42-75); PLATELET COUNT 224 X10'3 (140-440); RED BLOOD COUNT 4.25 X10'6 (4.70-6.10); RED CELL DISTRIBUTION WIDTH 14.4 % (11.5-14.5); WHITE BLOOD COUNT 8.4 X10'3 (4.5-11.0)
[2020-08-14 20:25] LABS: PARTIAL THROMBOPLASTIN TIME 22 SECONDS (22-32)
[2020-08-14 20:28] LABS: ALANINE AMINOTRANSFERASE 26 U/L (12-78); ALBUMIN 4.1 G/DL (3.4-5.0); ALBUMIN/GLOBULIN RATIO 1.2 (1.1-1.5); ALKALINE PHOSPHATASE 91 IU/L (46-116); ASPARTATE AMINO TRANSFERASE 17 U/L (10-37); BILIRUBIN,TOTAL 0.6 MG/DL (0.1-1.0); BLOOD UREA NITROGEN 20 MG/DL (7-18); BUN/CREATININE RATIO 32.8 (5.4-32.0); CREATININE 0.61 MG/DL (0.60-1.10); ETHANOL < 0.010 GM/DL (0.0-0.010); GLUCOSE 66 MG/DL (70-104); TOTAL CARBON DIOXIDE 20.5 MMOL/L (24-32); TOTAL PROTEIN 7.6 G/DL (6.4-8.2); eGFR > 90 ML/MIN
[2020-08-14 20:36] LABS: ANION GAP 17 (8-16); CHLORIDE 102 MMOL/L (99-107); POTASSIUM 3.7 MMOL/L (3.5-5.1); SODIUM 139 MMOL/L (135-145)
[2020-08-14 22:38] LABS: URINE AMPHETAMINE SCREEN NEGATIVE (Neg); URINE BARBITUATE SCREEN NEGATIVE (Neg); URINE BENZODIAZEPINES SCREEN NEGATIVE (Neg); URINE CANNABINOID SCREEN NEGATIVE (Neg); URINE COCAINE SCREEN NEGATIVE (Neg); URINE METHADONE SCREEN NEGATIVE (Neg); URINE OPIATE SCREEN NEGATIVE (Neg); URINE PHENCYCLIDINE SCREEN NEGATIVE (Neg)
--- NOTE | 2020-08-15 05:02 | NUR ---
PACKET SENT TO [facility]
[2020-08-15 05:58] VITALS: BP 109/65
--- NOTE | 2020-08-15 07:02 | NUR ---
pt sleeping in bed at this time in his lft lateral position .RR WNL .will cont to monitor.
[2020-08-15] MEDS ORDERED: NAPR-1166 PO (07:08)
--- NOTE | 2020-08-15 08:10 | NUR ---
pt woke up from sleep .sitting up in bed eating his breakfast.will cont to monitor.
--- NOTE | 2020-08-15 09:06 | NUR ---
notified [facility] that pt is still waiting for MRI to be medically cleared .
--- NOTE | 2020-08-15 09:30 | NUR ---
up to use the restroom .
[2020-08-15] MEDS ORDERED: MIDAZolam 5mg/ml 2ml vial IV ONE (11:10)
--- NOTE | 2020-08-15 11:15 | NUR ---
spoke to dr villarreal regarding pt request for valium for mri and also informed that pt do not have iv .as per cancel the order for versed and order valium 10 mg po onces.
[2020-08-15] MEDS ORDERED: diazepam 5mg tablet PO ONE (11:30)
--- NOTE | 2020-08-15 12:10 | NUR ---
pt taken to mri by [facility] with java security architect.
--- NOTE | 2020-08-15 13:20 | NUR ---
pt sitting up in bed eating his lunch at this time ,will cont to monitor.
--- NOTE | 2020-08-15 15:43 | NUR ---
pt sleeping in his lft lat position ,no distress noted will cont to monitor.
--- NOTE | 2020-08-15 16:10 | NUR ---
MOI VIDAL AT [facility] .
--- NOTE | 2020-08-15 16:30 | NUR ---
PT READY TO BE DISCHARGED PER NETO VIDAL ,WAITING FOR D/C PAPERWORK FROM DR LING ,PT STATED TAHT HE IS GOING TO [employer] TO A BANK.
[2020-08-15] MEDS ORDERED: naproxen 375mg tablet PO SCH (20:00)
== END 2020-08-15 16:53 ==
LOC: ER 18:11
DX: F79 Unspecified intellectual disabilities (principal); R41.0 Disorientation, unspecified; G89.29 Other chronic pain; M25.561 Pain in right knee; M79.604 Pain in right leg; M25.551 Pain in right hip; I10 Essential (primary) hypertension; F32.9 Major depressive disorder, single episode, unspecified; F15.90 Other stimulant use, unspecified, uncomplicated; Z76.5 Malingerer [conscious simulation]; Z86.69 Personal history of other diseases of the nervous system and sense organs; Z87.01 Personal history of pneumonia (recurrent); Z90.89 Acquired absence of other organs; Z87.11 Personal history of peptic ulcer disease; Z98.890 Other specified postprocedural states; Z72.89 Other problems related to lifestyle; Z56.0 Unemployment, unspecified; Z79.899 Other long term (current) drug therapy
CPT/HCPCS: 36415; 70551; 71045; 80053; 80305; 80320; 82948; 83735; 85025; 85610; 85730; 99285

== ENCOUNTER 2020-08-15 21:37 | Emergency (ER) | payer MEDICARE, MEDICAID ==
[~2020-08-15] VITALS: Ht 167.6 cm; Wt 68.2 kg
[~2020-08-15 21:37] MED LIST changes: +NAPR-1166 PO
--- NOTE | 2020-08-15 22:15 | NUR ---
Pt placed with warmer in bed as well as blankets. Pt alert and oriented
--- NOTE | 2020-08-15 23:48 | NUR ---
VITALS TAKEN , TEMP 94.4 ORAL. Continuing to warm pt
--- NOTE | 2020-08-16 01:20 | NUR ---
reassesed pt temp 98.2
--- NOTE | 2020-08-16 01:35 | NUR ---
Advised pt he is to be discharged. Pt became upset and stated he wanted to turn the light off and go back to sleep, he statedhe wasnt going anywhere.
--- NOTE | 2020-08-16 01:38 | NUR ---
pt states he has nowhere to go. called [facility] who states pt is not allowed at the [facility].
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
[2020-08-16 02:57] VITALS: BP 98/72
== END 2020-08-16 03:00 | disposition home or self-care (01) ==
LOC: ER 21:38
DX: G06.1 Intraspinal abscess and granuloma (principal); I10 Essential (primary) hypertension; G89.29 Other chronic pain; F32.9 Major depressive disorder, single episode, unspecified; F15.90 Other stimulant use, unspecified, uncomplicated; Z59.0 Homelessness; Z86.69 Personal history of other diseases of the nervous system and sense organs; Z87.01 Personal history of pneumonia (recurrent); Z90.89 Acquired absence of other organs; Z87.11 Personal history of peptic ulcer disease; Z98.890 Other specified postprocedural states; Z72.89 Other problems related to lifestyle; Z56.0 Unemployment, unspecified; Z79.899 Other long term (current) drug therapy
CPT/HCPCS: 99284

== ENCOUNTER 2020-09-09 21:00 | Emergency (ER) | payer MEDICARE, MEDICAID ==
[~2020-09-09] VITALS: Ht 172.7 cm; Wt 54.1 kg
[~2020-09-09 21:00] MED LIST changes: -WALKERFR; -ketorolac tromethamine 15mg/ml inj. IM ONE
[2020-09-10] MEDS ORDERED: cyclobenzaprine 10mg tablet PO ONE ×2 (01:20→01:40)
[2020-09-10 01:45] VITALS: BP 154/79
[2020-09-10] MEDS ORDERED: WALKERFR (18:15)
== END 2020-09-10 01:52 | disposition home or self-care (01) ==
LOC: ER 21:01
DX: M54.2 Cervicalgia (principal); G89.29 Other chronic pain; F32.9 Major depressive disorder, single episode, unspecified; F15.90 Other stimulant use, unspecified, uncomplicated; I10 Essential (primary) hypertension; Z86.69 Personal history of other diseases of the nervous system and sense organs; Z87.01 Personal history of pneumonia (recurrent); Z90.89 Acquired absence of other organs; Z98.890 Other specified postprocedural states; Z87.11 Personal history of peptic ulcer disease; Z72.89 Other problems related to lifestyle; Z59.0 Homelessness; Z56.0 Unemployment, unspecified; Z79.899 Other long term (current) drug therapy
CPT/HCPCS: 72125; 99284

== ENCOUNTER → 2020-09-09 | Emergency (ER) | payer MEDICARE, MEDICAID ==
[~2020-09-09] VITALS: Ht 162.6 cm; Wt 59.1 kg
[~2020-09-09] MED LIST changes: +WALKERFR; +ketorolac tromethamine 15mg/ml inj. IM ONE
[2020-09-09 15:59] VITALS: BP 138/78
== END | disposition home or self-care (01) ==
LOC: ER 14:02
DX: G89.29 Other chronic pain (principal); M25.562 Pain in left knee; I10 Essential (primary) hypertension; F32.9 Major depressive disorder, single episode, unspecified; F10.10 Alcohol abuse, uncomplicated; F15.90 Other stimulant use, unspecified, uncomplicated; Z90.49 Acquired absence of other specified parts of digestive tract; Z98.890 Other specified postprocedural states; Z90.89 Acquired absence of other organs; Z59.0 Homelessness; Z56.0 Unemployment, unspecified; Z86.69 Personal history of other diseases of the nervous system and sense organs; Z79.899 Other long term (current) drug therapy; W18.39XA Other fall on same level, initial encounter; Y93.89 Activity, other specified; Y92.89 Other specified places as the place of occurrence of the external cause; Y99.8 Other external cause status; Y90.9 Presence of alcohol in blood, level not specified
CPT/HCPCS: 96372; 99283; J1885; 99285

== ENCOUNTER 2020-09-10 17:44 | Emergency (ER) | payer MEDICARE, MEDICAID ==
[~2020-09-10] VITALS: Ht 172.7 cm; Wt 54.0 kg
[2020-09-10] MEDS ORDERED: acetaminophen 325mg tablet PO ONE (18:15)
[2020-09-10] MEDS ORDERED: WALKERFR (18:15)
[2020-09-10 19:36] VITALS: BP 121/74
== END 2020-09-10 19:39 | disposition home or self-care (01) ==
LOC: ER 17:44
DX: S06.0X0A Concussion without loss of consciousness, initial encounter (principal); M48.02 Spinal stenosis, cervical region; M50.20 Other cervical disc displacement, unspecified cervical region; G89.4 Chronic pain syndrome; G43.909 Migraine, unspecified, not intractable, without status migrainosus; I10 Essential (primary) hypertension; G89.29 Other chronic pain; Z87.01 Personal history of pneumonia (recurrent); Z90.49 Acquired absence of other specified parts of digestive tract; Z87.11 Personal history of peptic ulcer disease; F15.90 Other stimulant use, unspecified, uncomplicated; Z56.0 Unemployment, unspecified; Z59.0 Homelessness; Z72.89 Other problems related to lifestyle; Z79.899 Other long term (current) drug therapy; W18.39XA Other fall on same level, initial encounter; Z91.81 History of falling; Y93.89 Activity, other specified; Y92.89 Other specified places as the place of occurrence of the external cause; Y99.8 Other external cause status
CPT/HCPCS: 99284

== ENCOUNTER 2020-09-11 03:54 | Emergency (ER) | payer MEDICARE, MEDICAID ==
[~2020-09-11] VITALS: Ht 162.6 cm; Wt 59.1 kg
[~2020-09-11 03:54] MED LIST changes: +WALKERFR
[2020-09-11] MEDS ORDERED: ketorolac trometh. 30mg/ml inj. IM ONE (04:55)
[2020-09-11 05:30] VITALS: BP 134/79
== END 2020-09-11 05:00 | disposition home or self-care (01) ==
LOC: ER 03:55
DX: M54.89 Other dorsalgia (principal); M54.9 Dorsalgia, unspecified; R55 Syncope and collapse; M79.604 Pain in right leg; M54.2 Cervicalgia; G43.909 Migraine, unspecified, not intractable, without status migrainosus; I10 Essential (primary) hypertension; G89.29 Other chronic pain; F17.200 Nicotine dependence, unspecified, uncomplicated; F15.90 Other stimulant use, unspecified, uncomplicated; Z87.01 Personal history of pneumonia (recurrent); Z87.11 Personal history of peptic ulcer disease; Z56.0 Unemployment, unspecified; Z59.0 Homelessness; Z72.89 Other problems related to lifestyle; Z79.899 Other long term (current) drug therapy
CPT/HCPCS: 96372; 99283; J1885

== ENCOUNTER 2020-09-11 20:35 | Emergency (ER) | payer MEDICARE, MEDICAID ==
[~2020-09-11] VITALS: Ht 167.6 cm; Wt 55.0 kg
[2020-09-11] MEDS ORDERED: acetaminophen 325mg tablet PO ONE (21:00)
[2020-09-11 21:24] LABS: BASOPHILS # (AUTO) 0.1 X10'3 (0-0.2); BASOPHILS % (AUTO) 1.4 % (0-1); EOSINOPHILS # (AUTO) 0.1 X10'3 (0-0.9); EOSINOPHILS % (AUTO) 1.5 % (0-6); HEMATOCRIT 38.6 % (42.0-52.0); HEMOGLOBIN 12.9 g/dl (14.0-17.9); LYMPHOCYTES # (AUTO) 0.7 X10'3 (1.1-4.8); LYMPHOCYTES % (AUTO) 13.4 % (21-51); MEAN CORPUSCULAR HGB CONC 33.4 g/dL (33.0-36.5); MEAN CORPUSCULAR VOLUME 95.7 FL (78-98); MEAN PLATELET VOLUME 7.1 FL (7.4-10.4); MONOCYTES # (AUTO) 0.5 X10'3 (0-0.9); MONOCYTES % (AUTO) 9.6 % (2-12); NEUTROPHILS # (AUTO) 4.1 X10'3 (1.8-7.7); NEUTROPHILS % (AUTO) 74.1 % (42-75); PLATELET COUNT 305 X10'3 (140-440); RED BLOOD COUNT 4.03 X10'6 (4.70-6.10); RED CELL DISTRIBUTION WIDTH 14.6 % (11.5-14.5); WHITE BLOOD COUNT 5.5 X10'3 (4.5-11.0)
[2020-09-11 21:27] LABS: ALANINE AMINOTRANSFERASE 21 U/L (12-78); ALBUMIN 3.7 G/DL (3.4-5.0); ALKALINE PHOSPHATASE 80 IU/L (46-116); ANION GAP 10 (8-16); ASPARTATE AMINO TRANSFERASE 16 U/L (10-37); BILIRUBIN,TOTAL 0.2 MG/DL (0.1-1.0); BLOOD UREA NITROGEN 13 MG/DL (7-18); BUN/CREATININE RATIO 19.4 (5.4-32.0); CALCIUM 8.8 MG/DL (8.5-10.1); CHLORIDE 106 MMOL/L (99-107); CREATININE 0.67 MG/DL (0.60-1.10); ETHANOL 0.188 GM/DL (0.0-0.010); GLUCOSE 90 MG/DL (70-104); POTASSIUM 3.6 MMOL/L (3.5-5.1); SODIUM 141 MMOL/L (135-145); TOTAL CARBON DIOXIDE 25.2 MMOL/L (24-32); TOTAL PROTEIN 7.3 G/DL (6.4-8.2); eGFR > 90 ML/MIN
--- NOTE | 2020-09-12 05:24 | NUR ---
Patient up to the bathroom w/o problem
[2020-09-12 11:14] LABS: URINE AMPHETAMINE SCREEN NEGATIVE (Neg); URINE BARBITUATE SCREEN NEGATIVE (Neg); URINE BENZODIAZEPINES SCREEN NEGATIVE (Neg); URINE CANNABINOID SCREEN NEGATIVE (Neg); URINE COCAINE SCREEN NEGATIVE (Neg); URINE METHADONE SCREEN NEGATIVE (Neg); URINE OPIATE SCREEN NEGATIVE (Neg); URINE PHENCYCLIDINE SCREEN NEGATIVE (Neg)
[2020-09-12 12:53] VITALS: BP 136/85
== END 2020-09-12 12:57 ==
LOC: ER 20:35
DX: R45.851 Suicidal ideations (principal); F10.10 Alcohol abuse, uncomplicated; G89.29 Other chronic pain; F17.200 Nicotine dependence, unspecified, uncomplicated; G40.909 Epilepsy, unspecified, not intractable, without status epilepticus; I10 Essential (primary) hypertension; Z87.01 Personal history of pneumonia (recurrent); Z87.11 Personal history of peptic ulcer disease; Z72.89 Other problems related to lifestyle; Z56.0 Unemployment, unspecified; Z59.0 Homelessness; Z76.5 Malingerer [conscious simulation]; Y90.9 Presence of alcohol in blood, level not specified
CPT/HCPCS: 36415; 80053; 80305; 80320; 85025; 99285

== ENCOUNTER 2020-09-13 09:59 | Emergency (ER) | payer MEDICARE, MEDICAID ==
[~2020-09-13] VITALS: Ht 167.6 cm; Wt 55.0 kg
[2020-09-13] MEDS ORDERED: ibuprofen tablet 400 MG TABLET PO ONE (10:05)
[2020-09-13 10:12] VITALS: BP 118/79
== END 2020-09-13 10:28 | disposition home or self-care (01) ==
LOC: ER 10:00
DX: R45.1 Restlessness and agitation (principal); G43.909 Migraine, unspecified, not intractable, without status migrainosus; I10 Essential (primary) hypertension; G89.29 Other chronic pain; F15.90 Other stimulant use, unspecified, uncomplicated; Z87.01 Personal history of pneumonia (recurrent); Z87.11 Personal history of peptic ulcer disease; Z90.49 Acquired absence of other specified parts of digestive tract; Z72.89 Other problems related to lifestyle; Z56.0 Unemployment, unspecified; Z59.0 Homelessness; Z79.899 Other long term (current) drug therapy; Z76.5 Malingerer [conscious simulation]
CPT/HCPCS: 99283

== ENCOUNTER 2020-09-13 18:42 | Emergency (ER) | payer MEDICARE, MEDICAID ==
[~2020-09-13] VITALS: Ht 172.7 cm; Wt 59.1 kg
[2020-09-13 19:02] VITALS: BP 124/83
[2020-09-14] MEDS ORDERED: naproxen 500mg tablet PO ONE (02:15)
--- NOTE | 2020-09-14 03:06 | NUR ---
i called the [facility] and pt is not allowed there. pt offered a taxi ride and stated no destination he wanted to go to. states he needs to get to printer. pt becomming angry and security called and escorted him to the bus stop.
== END 2020-09-14 03:06 | disposition home or self-care (01) ==
LOC: ER 18:43
DX: G89.29 Other chronic pain (principal); M54.5 Low back pain; G40.909 Epilepsy, unspecified, not intractable, without status epilepticus; I10 Essential (primary) hypertension; F15.90 Other stimulant use, unspecified, uncomplicated; Z87.11 Personal history of peptic ulcer disease; Z87.01 Personal history of pneumonia (recurrent); Z90.49 Acquired absence of other specified parts of digestive tract; Z72.89 Other problems related to lifestyle; Z56.0 Unemployment, unspecified; Z59.0 Homelessness; Z88.8 Allergy status to other drugs, medicaments and biological substances; Z79.899 Other long term (current) drug therapy; Z76.5 Malingerer [conscious simulation]
CPT/HCPCS: 99284

== ENCOUNTER 2020-09-14 19:22 | Emergency (ER) | payer MEDICARE, MEDICAID ==
[~2020-09-14] VITALS: Ht 162.6 cm; Wt 59.1 kg
[2020-09-14 19:30] VITALS: BP 115/79
== END 2020-09-14 22:35 | disposition home or self-care (01) ==
LOC: ER 19:23
DX: G89.29 Other chronic pain (principal); M54.2 Cervicalgia; M25.551 Pain in right hip; M25.552 Pain in left hip; M54.9 Dorsalgia, unspecified; I10 Essential (primary) hypertension; F32.9 Major depressive disorder, single episode, unspecified; F10.10 Alcohol abuse, uncomplicated; F15.90 Other stimulant use, unspecified, uncomplicated; Z86.69 Personal history of other diseases of the nervous system and sense organs; Z98.890 Other specified postprocedural states; Z90.49 Acquired absence of other specified parts of digestive tract; Z59.0 Homelessness; Z56.0 Unemployment, unspecified; Z90.89 Acquired absence of other organs; Z79.899 Other long term (current) drug therapy; Y90.9 Presence of alcohol in blood, level not specified
CPT/HCPCS: 99281

== ENCOUNTER 2020-09-18 12:43 | Emergency (ER) | payer MEDICARE, MEDICAID ==
[~2020-09-18] VITALS: Ht 160 cm; Wt 59.0 kg
[2020-09-18 12:54] VITALS: BP 132/62
== END 2020-09-18 13:10 | disposition home or self-care (01) ==
LOC: ER 12:44
DX: R52 Pain, unspecified (principal); G40.909 Epilepsy, unspecified, not intractable, without status epilepticus; I10 Essential (primary) hypertension; F15.90 Other stimulant use, unspecified, uncomplicated; Z13.9 Encounter for screening, unspecified; Z87.01 Personal history of pneumonia (recurrent); Z87.11 Personal history of peptic ulcer disease; Z56.0 Unemployment, unspecified; Z59.0 Homelessness; Z72.89 Other problems related to lifestyle; Z90.49 Acquired absence of other specified parts of digestive tract; Z76.5 Malingerer [conscious simulation]
CPT/HCPCS: 99283

== ENCOUNTER 2020-09-19 18:45 | Emergency (ER) | payer MEDICARE, MEDICAID ==
[~2020-09-19] VITALS: Ht 160 cm; Wt 59.9 kg
[2020-09-19] MEDS ORDERED: ibuprofen tablet 400 MG TABLET PO ONE (19:00)
[2020-09-19 19:35] VITALS: BP 103/63
== END 2020-09-19 19:37 | disposition home or self-care (01) ==
LOC: ER 18:46
DX: M54.5 Low back pain (principal); G89.29 Other chronic pain; G43.909 Migraine, unspecified, not intractable, without status migrainosus; I10 Essential (primary) hypertension; Z87.01 Personal history of pneumonia (recurrent); Z87.11 Personal history of peptic ulcer disease; F15.90 Other stimulant use, unspecified, uncomplicated; Z56.0 Unemployment, unspecified; Z59.0 Homelessness; Z72.89 Other problems related to lifestyle; Z79.899 Other long term (current) drug therapy
CPT/HCPCS: 99283

== ENCOUNTER 2020-11-07 02:17 | Emergency (ER) | payer MEDICARE, MEDICAID ==
[~2020-11-07] VITALS: Ht 170.2 cm; Wt 60.0 kg
[2020-11-07] MEDS ORDERED: iohexol 300mg/ml 100ml inj. ONE (05:04)
[2020-11-07] MEDS ORDERED: ibuprofen tablet 400 MG TABLET PO ONE (06:15)
[2020-11-07 06:38] VITALS: BP 111/61
[2020-11-07] MEDS ORDERED: ibuprofen tablet 400 MG TABLET ONE (06:44)
== END 2020-11-07 06:57 | disposition home or self-care (01) ==
LOC: ER 02:18
DX: M54.2 Cervicalgia (principal); M54.9 Dorsalgia, unspecified; I10 Essential (primary) hypertension; G89.29 Other chronic pain; F32.9 Major depressive disorder, single episode, unspecified; F15.90 Other stimulant use, unspecified, uncomplicated; F10.10 Alcohol abuse, uncomplicated; Z90.49 Acquired absence of other specified parts of digestive tract; Z98.890 Other specified postprocedural states; Z59.0 Homelessness; Z86.69 Personal history of other diseases of the nervous system and sense organs; Z56.0 Unemployment, unspecified; Z79.899 Other long term (current) drug therapy; Y90.9 Presence of alcohol in blood, level not specified; W18.39XA Other fall on same level, initial encounter; Y08.89XA Assault by other specified means, initial encounter; Y93.89 Activity, other specified; Y92.89 Other specified places as the place of occurrence of the external cause; Y99.8 Other external cause status
CPT/HCPCS: 71260; 99285; Q9967

== ENCOUNTER 2020-11-07 16:03 | Emergency (ER) | payer MEDICARE, MEDICAID ==
[~2020-11-07] VITALS: Ht 170.2 cm; Wt 58.5 kg
[2020-11-07 19:03] VITALS: BP 121/71
[2020-11-07 20:14] LABS: BASOPHILS # (AUTO) 0.2 X10'3 (0-0.2); EOSINOPHILS # (AUTO) 0.2 X10'3 (0-0.9); HEMOGLOBIN 13.9 g/dl (14.0-17.9); LYMPHOCYTES # (AUTO) 1.1 X10'3 (1.1-4.8); MONOCYTES # (AUTO) 0.6 X10'3 (0-0.9); NEUTROPHILS # (AUTO) 3.3 X10'3 (1.8-7.7); RED CELL DISTRIBUTION WIDTH 16.1 % (11.5-14.5); WHITE BLOOD COUNT 5.3 X10'3 (4.5-11.0)
[2020-11-07 20:15] LABS: ALANINE AMINOTRANSFERASE 25 U/L (12-78); ALBUMIN 4.1 G/DL (3.4-5.0); ALBUMIN/GLOBULIN RATIO 1.1 (1.1-1.5); ALKALINE PHOSPHATASE 109 IU/L (46-116); ANION GAP 13 (8-16); ASPARTATE AMINO TRANSFERASE 27 U/L (10-37); BILIRUBIN,TOTAL 0.4 MG/DL (0.1-1.0); BLOOD UREA NITROGEN 16 MG/DL (7-18); BUN/CREATININE RATIO 20.5 (5.4-32.0); CALCIUM 8.9 MG/DL (8.5-10.1); CHLORIDE 105 MMOL/L (99-107); CREATININE 0.78 MG/DL (0.60-1.10); ETHANOL 0.132 GM/DL (0.0-0.010); GLUCOSE 69 MG/DL (70-104); POTASSIUM 4.6 MMOL/L (3.5-5.1); SODIUM 140 MMOL/L (135-145); TOTAL CARBON DIOXIDE 22.5 MMOL/L (24-32); TOTAL PROTEIN 7.7 G/DL (6.4-8.2); eGFR > 90 ML/MIN
[2020-11-07 20:16] LABS: BASOPHILS % (AUTO) 3.3 % (0-1); EOSINOPHILS % (AUTO) 3.4 % (0-6); HEMATOCRIT 41.7 % (42.0-52.0); MEAN CORPUSCULAR HEMOGLOBIN 32.1 PG (27.0-31.0); MEAN CORPUSCULAR HGB CONC 33.4 g/dL (33.0-36.5); MEAN PLATELET VOLUME 6.8 FL (7.4-10.4); MONOCYTES % (AUTO) 10.9 % (2-12); NEUTROPHILS % (AUTO) 62.4 % (42-75); PLATELET COUNT 293 X10'3 (140-440); RED BLOOD COUNT 4.35 X10'6 (4.70-6.10)
== END 2020-11-07 20:39 | disposition home or self-care (01) ==
LOC: ER 16:04
DX: F10.129 Alcohol abuse with intoxication, unspecified (principal); R41.0 Disorientation, unspecified; M54.2 Cervicalgia; M54.9 Dorsalgia, unspecified; G40.909 Epilepsy, unspecified, not intractable, without status epilepticus; I10 Essential (primary) hypertension; G89.29 Other chronic pain; F15.90 Other stimulant use, unspecified, uncomplicated; Z87.01 Personal history of pneumonia (recurrent); Z90.49 Acquired absence of other specified parts of digestive tract; Z98.890 Other specified postprocedural states; Z56.0 Unemployment, unspecified; Z59.0 Homelessness; Y90.6 Blood alcohol level of 120-199 mg/100 ml
CPT/HCPCS: 80053; 80320; 85025; 99284

== ENCOUNTER 2020-11-13 12:57 | Emergency (ER) | payer MEDICARE, MEDICAID ==
[~2020-11-13] VITALS: Ht 172.7 cm; Wt 72.7 kg
[2020-11-13] MEDS ORDERED: normal saline 1000ML IV soln IVB ONE (13:00)
[2020-11-13] MEDS ORDERED: folic acid 1mg/0.2ml inj IV ONE (13:00)
[2020-11-13] MEDS ORDERED: thiamine 100mg/ml 2ml inj. IV ONE (13:00)
[2020-11-13 13:19] LABS: EOSINOPHILS # (AUTO) 0.2 X10'3 (0-0.9); MEAN PLATELET VOLUME 6.7 FL (7.4-10.4); MONOCYTES # (AUTO) 0.6 X10'3 (0-0.9); MONOCYTES % (AUTO) 10.4 % (2-12); WHITE BLOOD COUNT 5.4 X10'3 (4.5-11.0)
[2020-11-13 13:21] LABS: BASOPHILS # (AUTO) 0.2 X10'3 (0-0.2); BASOPHILS % (AUTO) 3.1 % (0-1); EOSINOPHILS % (AUTO) 2.8 % (0-6); HEMATOCRIT 39.1 % (42.0-52.0); HEMOGLOBIN 12.8 g/dl (14.0-17.9); LYMPHOCYTES # (AUTO) 1.5 X10'3 (1.1-4.8); LYMPHOCYTES % (AUTO) 27.2 % (21-51); MEAN CORPUSCULAR HEMOGLOBIN 31.3 PG (27.0-31.0); MEAN CORPUSCULAR HGB CONC 32.8 g/dL (33.0-36.5); MEAN CORPUSCULAR VOLUME 95.6 FL (78-98); NEUTROPHILS # (AUTO) 3.1 X10'3 (1.8-7.7); NEUTROPHILS % (AUTO) 56.5 % (42-75); PLATELET COUNT 283 X10'3 (140-440); RED BLOOD COUNT 4.09 X10'6 (4.70-6.10); RED CELL DISTRIBUTION WIDTH 16.1 % (11.5-14.5)
[2020-11-13 13:34] LABS: ALANINE AMINOTRANSFERASE 38 U/L (12-78); ALBUMIN/GLOBULIN RATIO 1.2 (1.1-1.5); ALKALINE PHOSPHATASE 106 IU/L (46-116); ANION GAP 14 (8-16); ASPARTATE AMINO TRANSFERASE 30 U/L (10-37); BILIRUBIN,TOTAL 0.4 MG/DL (0.1-1.0); BLOOD UREA NITROGEN 7 MG/DL (7-18); BUN/CREATININE RATIO 10.8 (5.4-32.0); CALCIUM 8.3 MG/DL (8.5-10.1); CHLORIDE 106 MMOL/L (99-107); CREATININE 0.65 MG/DL (0.60-1.10); GLUCOSE 100 MG/DL (70-104); POTASSIUM 3.7 MMOL/L (3.5-5.1); SODIUM 143 MMOL/L (135-145); TOTAL CARBON DIOXIDE 22.8 MMOL/L (24-32); TOTAL PROTEIN 7.3 G/DL (6.4-8.2); eGFR > 90 ML/MIN
[2020-11-13 14:03] LABS: CLARITY,URINE CLEAR (Clear); COLOR,URINE STRAW (Yellow); GLUCOSE, URINE NEGATIVE (Neg); KETONES,URINE NEGATIVE (Neg); LEUKOCYTE ESTERASE ,URINE NEGATIVE (Neg); NITRITES, URINE NEGATIVE (Neg); OCCULT BLOOD,URINE NEGATIVE (Neg); PROTEIN,URINE NEGATIVE (Neg); UROBILINOGEN,URINE 0.2 E.U/dL (0.2-1.0)
[2020-11-13 14:09] LABS: UA COLLECTION TYPE VOIDED
[2020-11-13 14:19] LABS: URINE AMPHETAMINE SCREEN NEGATIVE (Neg); URINE BARBITUATE SCREEN NEGATIVE (Neg); URINE BENZODIAZEPINES SCREEN NEGATIVE (Neg); URINE CANNABINOID SCREEN NEGATIVE (Neg); URINE COCAINE SCREEN NEGATIVE (Neg); URINE METHADONE SCREEN NEGATIVE (Neg); URINE OPIATE SCREEN NEGATIVE (Neg); URINE PHENCYCLIDINE SCREEN NEGATIVE (Neg)
[2020-11-13 15:45] VITALS: BP 123/70
== END 2020-11-13 15:49 | disposition home or self-care (01) ==
LOC: ER 12:57
DX: F10.129 Alcohol abuse with intoxication, unspecified (principal); F10.10 Alcohol abuse, uncomplicated; R47.81 Slurred speech; I10 Essential (primary) hypertension; G89.29 Other chronic pain; F32.9 Major depressive disorder, single episode, unspecified; F15.90 Other stimulant use, unspecified, uncomplicated; Z86.69 Personal history of other diseases of the nervous system and sense organs; Z90.89 Acquired absence of other organs; Z98.890 Other specified postprocedural states; Z87.11 Personal history of peptic ulcer disease; Z72.89 Other problems related to lifestyle; Z56.0 Unemployment, unspecified; Z59.0 Homelessness; Z79.899 Other long term (current) drug therapy; Y90.0 Blood alcohol level of less than 20 mg/100 ml
CPT/HCPCS: 36415; 80053; 80305; 80320; 81003; 85025; 96374; 96375; 99284; J3411; J3490; J7030

== ENCOUNTER 2020-11-13 19:44 | Emergency (ER) | payer MEDICARE, MEDICAID ==
[~2020-11-13] VITALS: Ht 172.7 cm; Wt 59.0 kg
[2020-11-13 20:22] VITALS: BP 133/92
== END 2020-11-13 22:19 | disposition left against medical advice (07) ==
LOC: ER 19:44
DX: M54.5 Low back pain (principal); Z53.21 Procedure and treatment not carried out due to patient leaving prior to being seen by health care provider; W18.30XA Fall on same level, unspecified, initial encounter; Y93.89 Activity, other specified; Y92.89 Other specified places as the place of occurrence of the external cause; Y99.8 Other external cause status

== ENCOUNTER 2020-11-14 13:38 | Emergency (ER) | payer MEDICARE, MEDICAID | END 2020-11-14 14:33 | disposition home or self-care (01) | LOC: ER 13:39 | DX: Z02.89 Encounter for other administrative examinations (principal); F10.10 Alcohol abuse, uncomplicated; I10 Essential (primary) hypertension; G89.29 Other chronic pain; F32.9 Major depressive disorder, single episode, unspecified; F15.90 Other stimulant use, unspecified, uncomplicated; Z76.5 Malingerer [conscious simulation]; Z86.69 Personal history of other diseases of the nervous system and sense organs; Z87.01 Personal history of pneumonia (recurrent); Z90.89 Acquired absence of other organs; Z98.890 Other specified postprocedural states; Z87.11 Personal history of peptic ulcer disease; Z72.89 Other problems related to lifestyle; Z56.0 Unemployment, unspecified; Z59.0 Homelessness; Z79.899 Other long term (current) drug therapy; Y90.9 Presence of alcohol in blood, level not specified | CPT/HCPCS: 99281 ==

== ENCOUNTER 2020-11-19 15:42 | Emergency (ER) | payer MEDICARE, MEDICAID ==
[~2020-11-19] VITALS: Ht 165.1 cm; Wt 56.8 kg
[2020-11-19 17:25] VITALS: BP 142/83
== END 2020-11-19 18:59 | disposition home or self-care (01) ==
LOC: ER 15:43
DX: G89.29 Other chronic pain (principal); M54.5 Low back pain; F10.129 Alcohol abuse with intoxication, unspecified; G40.909 Epilepsy, unspecified, not intractable, without status epilepticus; I10 Essential (primary) hypertension; F15.90 Other stimulant use, unspecified, uncomplicated; Z56.0 Unemployment, unspecified; Z59.0 Homelessness; Z87.01 Personal history of pneumonia (recurrent); Z90.89 Acquired absence of other organs; Z90.49 Acquired absence of other specified parts of digestive tract; Z98.890 Other specified postprocedural states; W10.1XXA Fall (on)(from) sidewalk curb, initial encounter; Z91.81 History of falling; Y93.89 Activity, other specified; Y92.89 Other specified places as the place of occurrence of the external cause; Y99.8 Other external cause status; Y90.9 Presence of alcohol in blood, level not specified
CPT/HCPCS: 99284

== ENCOUNTER 2020-11-23 14:01 | Emergency (ER) | payer MEDICARE, MEDICAID ==
[~2020-11-23] VITALS: Ht 165.1 cm; Wt 57.3 kg
[2020-11-23 14:11] VITALS: BP 116/83
--- NOTE | 2020-11-23 16:00 | NUR ---
Attempted to call patient back to room. Patient was not in lobby. Called patient at listed phone number at which a women answered who stated that I had the wrong number. MD aware. Will attempt to call patient back to room two more times.
[2020-11-23] MEDS ORDERED: ketorolac tromethamine 15mg/ml inj. IM ONE (16:15)
== END 2020-11-23 16:44 | disposition home or self-care (01) ==
LOC: ER 14:02
DX: M54.5 Low back pain (principal); G89.29 Other chronic pain; I10 Essential (primary) hypertension; F32.9 Major depressive disorder, single episode, unspecified; F15.90 Other stimulant use, unspecified, uncomplicated; Z86.69 Personal history of other diseases of the nervous system and sense organs; Z87.01 Personal history of pneumonia (recurrent); Z90.89 Acquired absence of other organs; Z87.11 Personal history of peptic ulcer disease; Z98.890 Other specified postprocedural states; Z72.89 Other problems related to lifestyle; Z56.0 Unemployment, unspecified; Z59.0 Homelessness; Z79.899 Other long term (current) drug therapy
CPT/HCPCS: 96372; 99283; J1885

== ENCOUNTER 2020-11-24 13:04 | Emergency (ER) | payer MEDICARE, MEDICAID ==
[~2020-11-24] VITALS: Ht 162.6 cm; Wt 56.4 kg
[2020-11-24] MEDS ORDERED: acetaminophen 325mg tablet PO ONE (14:15)
[2020-11-24 16:57] VITALS: BP 117/69
== END 2020-11-24 17:01 | disposition home or self-care (01) ==
LOC: ER 13:04
DX: M48.54XA Collapsed vertebra, not elsewhere classified, thoracic region, initial encounter for fracture (principal); M54.2 Cervicalgia; I10 Essential (primary) hypertension; G89.29 Other chronic pain; F32.9 Major depressive disorder, single episode, unspecified; F15.90 Other stimulant use, unspecified, uncomplicated; Z86.69 Personal history of other diseases of the nervous system and sense organs; Z87.01 Personal history of pneumonia (recurrent); Z90.89 Acquired absence of other organs; Z87.11 Personal history of peptic ulcer disease; Z98.890 Other specified postprocedural states; Z72.89 Other problems related to lifestyle; Z56.0 Unemployment, unspecified; Z59.0 Homelessness; Z88.7 Allergy status to serum and vaccine; Z79.899 Other long term (current) drug therapy
CPT/HCPCS: 70450; 72125; 99285

== ENCOUNTER 2020-11-24 19:19 | Emergency (ER) | payer MEDICARE, MEDICAID ==
[~2020-11-24] VITALS: Ht 162.6 cm; Wt 59.7 kg
[2020-11-24 19:43] VITALS: BP 139/86
--- NOTE | 2020-11-24 19:56 | NUR ---
PT REPORTS ONLY SEASNOAL ALLERGIES AND STATES ON HISTORY OF TETANUS VACCINE ALLERGY OR ADSORBIDE ALLERGY LISTED IN HIS MEDICAL RECORD HERE. ALLERGIES REMOVED FROM CHART AND NOW NKA.
== END 2020-11-24 21:41 | disposition home or self-care (01) ==
LOC: ER 19:19
DX: S22.019A Unspecified fracture of first thoracic vertebra, initial encounter for closed fracture (principal); I10 Essential (primary) hypertension; G89.29 Other chronic pain; F32.9 Major depressive disorder, single episode, unspecified; F15.90 Other stimulant use, unspecified, uncomplicated; Z86.69 Personal history of other diseases of the nervous system and sense organs; Z87.01 Personal history of pneumonia (recurrent); Z90.89 Acquired absence of other organs; Z87.11 Personal history of peptic ulcer disease; Z98.890 Other specified postprocedural states; Z72.89 Other problems related to lifestyle; Z56.0 Unemployment, unspecified; Z59.0 Homelessness; Z79.899 Other long term (current) drug therapy; W01.0XXA Fall on same level from slipping, tripping and stumbling without subsequent striking against object, initial encounter; Y93.89 Activity, other specified; Y92.89 Other specified places as the place of occurrence of the external cause; Y99.8 Other external cause status
CPT/HCPCS: 99284

== ENCOUNTER 2020-11-25 03:07 | Emergency (ER) | payer MEDICARE, MEDICAID ==
[~2020-11-25] VITALS: Ht 162.6 cm; Wt 57.8 kg
[2020-11-25 03:59] VITALS: BP 163/81
== END 2020-11-25 05:10 | disposition home or self-care (01) ==
LOC: ER 03:08
DX: G89.29 Other chronic pain (principal); M54.9 Dorsalgia, unspecified; I10 Essential (primary) hypertension; F32.9 Major depressive disorder, single episode, unspecified; F15.10 Other stimulant abuse, uncomplicated; Z59.0 Homelessness; Z56.0 Unemployment, unspecified; Z79.899 Other long term (current) drug therapy
CPT/HCPCS: 99281

== ENCOUNTER 2020-11-30 14:51 | Emergency (ER) | payer MEDICARE, MEDICAID ==
[~2020-11-30] VITALS: Ht 167.6 cm; Wt 58.7 kg
[2020-11-30 15:16] VITALS: BP 117/65
[2020-12-01] MEDS ORDERED: ACET-890 PO (02:56)
== END 2020-11-30 19:27 | disposition left against medical advice (07) ==
LOC: ER 14:52
DX: R51.9 Headache, unspecified (principal); Z53.21 Procedure and treatment not carried out due to patient leaving prior to being seen by health care provider

== ENCOUNTER 2020-11-30 20:36 | Emergency (ER) | payer MEDICARE, MEDICAID ==
[~2020-11-30] VITALS: Ht 162.6 cm; Wt 59.1 kg
[2020-12-01] MEDS ORDERED: acetaminophen 325mg tablet PO ONE (02:55)
[2020-12-01] MEDS ORDERED: ACET-890 PO (02:56)
[2020-12-01 03:04] VITALS: BP 110/63
== END 2020-12-01 03:07 | disposition home or self-care (01) ==
LOC: ER 20:37
DX: S00.83XA Contusion of other part of head, initial encounter (principal); I10 Essential (primary) hypertension; G89.29 Other chronic pain; M54.9 Dorsalgia, unspecified; F32.9 Major depressive disorder, single episode, unspecified; Z79.899 Other long term (current) drug therapy; W19.XXXA Unspecified fall, initial encounter; Y93.89 Activity, other specified; Y92.89 Other specified places as the place of occurrence of the external cause; Y99.8 Other external cause status
CPT/HCPCS: 99284

== ENCOUNTER 2020-12-01 17:18 | Emergency (ER) | payer MEDICARE, MEDICAID ==
[~2020-12-01] VITALS: Ht 162.6 cm; Wt 59.0 kg
[~2020-12-01 17:18] MED LIST changes: +ACET-890 PO
[2020-12-02] MEDS ORDERED: ketorolac trometh. 30mg/ml inj. IM ONE (00:40)
[2020-12-02 01:02] VITALS: BP 110/78
== END 2020-12-02 01:04 | disposition home or self-care (01) ==
LOC: ER 17:19
DX: G89.29 Other chronic pain (principal); M54.2 Cervicalgia; M79.606 Pain in leg, unspecified; I10 Essential (primary) hypertension; F32.9 Major depressive disorder, single episode, unspecified; F15.90 Other stimulant use, unspecified, uncomplicated; Z86.69 Personal history of other diseases of the nervous system and sense organs; Z87.01 Personal history of pneumonia (recurrent); Z90.89 Acquired absence of other organs; Z98.890 Other specified postprocedural states; Z87.11 Personal history of peptic ulcer disease; Z72.89 Other problems related to lifestyle; Z59.0 Homelessness; Z56.0 Unemployment, unspecified; Z79.899 Other long term (current) drug therapy
CPT/HCPCS: 96372; 99283; J1885

== ENCOUNTER 2020-12-09 12:42 | Emergency (ER) | payer MEDICARE, MEDICAID ==
[~2020-12-09] VITALS: Ht 160 cm; Wt 56.8 kg
[~2020-12-09 12:42] MED LIST changes: -ACET-890 PO
[2020-12-09 13:29] VITALS: BP 157/87
[2020-12-09] MEDS ORDERED: ketorolac trometh. 30mg/ml inj. IM ONE (14:30)
== END 2020-12-09 16:01 | disposition home or self-care (01) ==
LOC: ER 12:43
DX: M54.2 Cervicalgia (principal); M25.551 Pain in right hip; M25.561 Pain in right knee; G40.909 Epilepsy, unspecified, not intractable, without status epilepticus; I10 Essential (primary) hypertension; F15.90 Other stimulant use, unspecified, uncomplicated; G89.29 Other chronic pain; Z87.01 Personal history of pneumonia (recurrent); Z87.11 Personal history of peptic ulcer disease; Z56.0 Unemployment, unspecified; Z59.0 Homelessness; Z72.89 Other problems related to lifestyle; W08.XXXA Fall from other furniture, initial encounter; Y93.89 Activity, other specified; Y92.89 Other specified places as the place of occurrence of the external cause; Y99.8 Other external cause status
CPT/HCPCS: 73502; 73564; 96372; 99284; J1885

== ENCOUNTER 2020-12-22 13:00 | Emergency (ER) | payer MEDICARE, MEDICAID ==
[~2020-12-22] VITALS: Ht 160 cm; Wt 56.8 kg
[2020-12-22 13:03] VITALS: BP 140/92
[2020-12-22] MEDS ORDERED: HYDROcodone/acetaminophen 10/325mg tab PO ONE (13:55)
[2020-12-22] MEDS ORDERED: ACET-812 PO (14:52)
== END 2020-12-22 15:35 | disposition home or self-care (01) ==
LOC: ER 13:01
DX: M54.2 Cervicalgia (principal); M25.551 Pain in right hip; I10 Essential (primary) hypertension; G89.29 Other chronic pain; F32.9 Major depressive disorder, single episode, unspecified; F15.90 Other stimulant use, unspecified, uncomplicated; Z86.69 Personal history of other diseases of the nervous system and sense organs; Z87.01 Personal history of pneumonia (recurrent); Z90.89 Acquired absence of other organs; Z98.890 Other specified postprocedural states; Z87.11 Personal history of peptic ulcer disease; Z72.89 Other problems related to lifestyle; Z56.0 Unemployment, unspecified; Z59.0 Homelessness; Z79.899 Other long term (current) drug therapy
CPT/HCPCS: 72040; 73502; 99284

== ENCOUNTER 2020-12-24 17:13 | Emergency (ER) | payer MEDICARE, MEDICAID ==
[~2020-12-24] VITALS: Ht 160 cm; Wt 53.1 kg
[~2020-12-24 17:13] MED LIST changes: +ACET-812 PO
[2020-12-24] MEDS ORDERED: acetaminophen 325mg tablet PO ONE (19:40)
[2020-12-24 21:00] VITALS: BP 132/78
== END 2020-12-24 21:03 | disposition home or self-care (01) ==
LOC: ER 17:13
DX: M25.551 Pain in right hip (principal); M54.2 Cervicalgia; R42 Dizziness and giddiness; I10 Essential (primary) hypertension; G89.29 Other chronic pain; F32.9 Major depressive disorder, single episode, unspecified; F10.10 Alcohol abuse, uncomplicated; F15.90 Other stimulant use, unspecified, uncomplicated; Z90.49 Acquired absence of other specified parts of digestive tract; Z98.890 Other specified postprocedural states; Z59.0 Homelessness; Z56.0 Unemployment, unspecified; Z90.89 Acquired absence of other organs; Z79.899 Other long term (current) drug therapy; W18.39XA Other fall on same level, initial encounter; Y93.89 Activity, other specified; Y92.89 Other specified places as the place of occurrence of the external cause; Y99.8 Other external cause status
CPT/HCPCS: 73502; 93005; 99284

== ENCOUNTER 2020-12-27 16:20 | Emergency (ER) | payer MEDICARE, MEDICAID ==
[~2020-12-27] VITALS: Ht 160 cm; Wt 53.0 kg
[2020-12-27 17:05] VITALS: BP 151/90
== END 2020-12-27 22:30 | disposition home or self-care (01) ==
LOC: ER 16:21
DX: R46.0 Very low level of personal hygiene (principal); M54.5 Low back pain; M25.511 Pain in right shoulder; G89.29 Other chronic pain; I10 Essential (primary) hypertension; Z59.0 Homelessness; Z86.69 Personal history of other diseases of the nervous system and sense organs; Z87.01 Personal history of pneumonia (recurrent); Z90.89 Acquired absence of other organs; Z98.890 Other specified postprocedural states; Z87.11 Personal history of peptic ulcer disease; Z72.89 Other problems related to lifestyle; Z56.0 Unemployment, unspecified; Z79.899 Other long term (current) drug therapy
CPT/HCPCS: 99284

== ENCOUNTER 2020-12-29 13:39 | Emergency (ER) | payer MEDICARE, MEDICAID ==
[~2020-12-29] VITALS: Ht 162.6 cm; Wt 56.8 kg
[2020-12-29 13:54] VITALS: BP 131/69
[2020-12-29] MEDS ORDERED: ketorolac tromethamine 15mg/ml inj. IM ONE (16:20)
== END 2020-12-29 17:27 | disposition home or self-care (01) ==
LOC: ER 13:40
DX: S89.91XA Unspecified injury of right lower leg, initial encounter (principal); M54.2 Cervicalgia; I10 Essential (primary) hypertension; G89.29 Other chronic pain; F32.9 Major depressive disorder, single episode, unspecified; Z86.69 Personal history of other diseases of the nervous system and sense organs; Z90.49 Acquired absence of other specified parts of digestive tract; Z98.890 Other specified postprocedural states; F15.90 Other stimulant use, unspecified, uncomplicated; F10.10 Alcohol abuse, uncomplicated; Z59.0 Homelessness; Z56.0 Unemployment, unspecified; Z79.899 Other long term (current) drug therapy; W18.39XA Other fall on same level, initial encounter; Y93.89 Activity, other specified; Y92.89 Other specified places as the place of occurrence of the external cause; Y99.8 Other external cause status; Y90.9 Presence of alcohol in blood, level not specified
CPT/HCPCS: 73564; 96372; 99284; J1885

== ENCOUNTER → 2021-01-24 | Emergency (ER) | payer MEDICARE, MEDICAID ==
[~2021-01-24] VITALS: Ht 167.6 cm; Wt 70.0 kg
[~2021-01-24] MED LIST changes: -ACET-812 PO
[2021-01-24 22:34] VITALS: BP 109/63
== END | disposition left against medical advice (07) ==
LOC: ER 22:30
DX: M54.9 Dorsalgia, unspecified (principal); G89.29 Other chronic pain; Z53.21 Procedure and treatment not carried out due to patient leaving prior to being seen by health care provider

== ENCOUNTER 2021-02-05 14:29 | Emergency (ER) | payer MEDICARE, MEDICAID ==
[~2021-02-05] VITALS: Ht 162.6 cm; Wt 56.1 kg
[2021-02-05 14:39] VITALS: BP 147/99
[2021-02-05] MEDS ORDERED: ketorolac trometh. 30mg/ml inj. IM ONE (14:45)
== END 2021-02-05 16:06 | disposition home or self-care (01) ==
LOC: ER 14:30
DX: M54.9 Dorsalgia, unspecified (principal); R14.0 Abdominal distension (gaseous); I10 Essential (primary) hypertension; G89.29 Other chronic pain; G40.909 Epilepsy, unspecified, not intractable, without status epilepticus; F15.90 Other stimulant use, unspecified, uncomplicated; Z87.01 Personal history of pneumonia (recurrent); Z90.49 Acquired absence of other specified parts of digestive tract; Z90.89 Acquired absence of other organs; Z98.890 Other specified postprocedural states; Z56.0 Unemployment, unspecified; Z59.0 Homelessness; Z87.11 Personal history of peptic ulcer disease; Z79.899 Other long term (current) drug therapy; W19.XXXA Unspecified fall, initial encounter; Y93.89 Activity, other specified; Y92.89 Other specified places as the place of occurrence of the external cause; Y99.8 Other external cause status
CPT/HCPCS: 96372; 99283; J1885

== ENCOUNTER 2021-02-21 15:56 | Emergency (ER) | payer MEDICARE, MEDICAID ==
[~2021-02-21] VITALS: Ht 162.6 cm; Wt 56.8 kg
[2021-02-21 16:04] VITALS: BP 145/84
[2021-02-21 16:38] LABS: BASOPHILS # (AUTO) 0.2 X10'3 (0-0.2); EOSINOPHILS # (AUTO) 0.2 X10'3 (0-0.9); LYMPHOCYTES # (AUTO) 0.9 X10'3 (1.1-4.8); NEUTROPHILS # (AUTO) 4.4 X10'3 (1.8-7.7)
[2021-02-21 16:41] LABS: BASOPHILS % (AUTO) 3.5 % (0-1); EOSINOPHILS % (AUTO) 2.9 % (0-6); HEMATOCRIT 38.3 % (42.0-52.0); HEMOGLOBIN 12.8 g/dl (14.0-17.9); LYMPHOCYTES % (AUTO) 13.6 % (21-51); MEAN CORPUSCULAR HEMOGLOBIN 32.5 PG (27.0-31.0); MEAN CORPUSCULAR HGB CONC 33.5 g/dL (33.0-36.5); MEAN CORPUSCULAR VOLUME 97.2 FL (78-98); MEAN PLATELET VOLUME 7.6 FL (7.4-10.4); PLATELET COUNT 425 X10'3 (140-440); RED BLOOD COUNT 3.94 X10'6 (4.70-6.10); RED CELL DISTRIBUTION WIDTH 15.8 % (11.5-14.5); WHITE BLOOD COUNT 6.7 X10'3 (4.5-11.0)
[2021-02-21 16:53] LABS: ALANINE AMINOTRANSFERASE 27 U/L (12-78); ALBUMIN 3.8 G/DL (3.4-5.0); ALBUMIN/GLOBULIN RATIO 0.9 (1.1-1.5); ALKALINE PHOSPHATASE 84 IU/L (46-116); ANION GAP 13 (8-16); ASPARTATE AMINO TRANSFERASE 19 U/L (10-37); BILIRUBIN,TOTAL 0.3 MG/DL (0.1-1.0); BLOOD UREA NITROGEN 18 MG/DL (7-18); BUN/CREATININE RATIO 20.5 (5.4-32.0); CALCIUM 8.7 MG/DL (8.5-10.1); CHLORIDE 108 MMOL/L (99-107); CREATININE 0.88 MG/DL (0.60-1.10); GLUCOSE 113 MG/DL (70-104); SODIUM 144 MMOL/L (135-145); eGFR 87 ML/MIN
[2021-02-21 17:26] LABS: ANISOCYTOSIS FEW; PLATELET ESTIMATE NORMAL; TOTAL CELLS COUNTED 100
[2021-02-21 17:27] LABS: SPHEROCYTES 1+
== END 2021-02-22 01:02 | disposition home or self-care (01) ==
LOC: ER 15:57
DX: Z02.89 Encounter for other administrative examinations (principal); R00.0 Tachycardia, unspecified; F41.9 Anxiety disorder, unspecified; R45.0 Nervousness; R42 Dizziness and giddiness; I10 Essential (primary) hypertension; G89.29 Other chronic pain; F32.9 Major depressive disorder, single episode, unspecified; F15.90 Other stimulant use, unspecified, uncomplicated; Z87.01 Personal history of pneumonia (recurrent); Z86.69 Personal history of other diseases of the nervous system and sense organs; Z90.89 Acquired absence of other organs; Z98.890 Other specified postprocedural states; Z87.11 Personal history of peptic ulcer disease; Z72.89 Other problems related to lifestyle; Z56.0 Unemployment, unspecified; Z59.0 Homelessness; Z79.899 Other long term (current) drug therapy
CPT/HCPCS: 36415; 80053; 83880; 84484; 85007; 85025; 93005; 99284